=== PATIENT | male | born 1950 | race Caucasian/White ===

== ENCOUNTER 2019-11-19 11:31 | Outpatient (RCR) | payer MEDICARE, SELFPAY ==
[2019-11-19 12:58] LABS: Uric Acid 3.7 mg/dL (3.5-8.5)
[2019-11-19 13:13] LABS: Hemoglobin A1C 8.6 % (<5.7)
== END 2020-02-17 23:59 | disposition home or self-care (01) ==
LOC: ANHLAB 11:31
PROVIDERS: PCP Family Medicine; Visit Provider Family Medicine
DX: E11.9 Type 2 diabetes mellitus without complications (principal); M10.9 Gout, unspecified
CPT/HCPCS: 36415; 83036; 84550

== ENCOUNTER 2020-03-27 11:32 | Inpatient (IN) | payer MEDICARE, SELFPAY ==
[2020-03-27] VITALS (13 sets, daily range): BP systolic 99–139; BP diastolic 50–77; PULSE 70–91; RESP 14–20; TEMP 35.7–36.7; O2SAT 92–99; BMI 31.8
--- NOTE | ~2020-03-27 | XR_ITS ---
XR chest 2V DATE: 03/28/2020 13:32 INDICATION: Congestive heart failure. Acute renal failure. TECHNIQUE: AP and lateral views COMPARISON: 10/22/2018 PA and lateral chest FINDINGS: Status post sternotomy/CABG. Heart size appears within normal range. No hilar or mediastina l enlargement. No pulmonary infiltrate or consolidation, pleural effusion or pulmonary vascular conge stion or pneumothorax. Diffuse osteopenia. There is moderate anterior wedging of a lower thoracic vertebral body. Diffuse os teopenia. There is degenerative spurring of the thoracic spine. IMPRESSION: No active cardiopulmonary disease or significant change since 10/22/2018 Reviewed, dictated and finalized at location A. IMPRESSION: No active cardiopulmonary disease or significant change since 2018
--- NOTE | ~2020-03-27 | CT_ITS ---
EXAMINATION: CT abdomen pelvis wo con DATE: 03/27/2020 13:42 INDICATION: Acute renal failure. TECHNIQUE: Computed tomography (CT) of the abdomen and pelvis was performed without intravenous contr ast. Automated exposure control and iterative reconstruction technique were employed. The dose-length product was 1350.60 mGy-cm. COMPARISON: None FINDINGS: Mild discoid atelectasis in the right middle lobe. Heart size is normal. Atherosclerotic coronary art nehal calcifications. Median sternotomy wires from a likely coronary artery bypass grafting. No pericar dial or pleural effusion. Small sliding-type hiatal hernia. Liver, gallbladder, spleen and bilateral adrenal glands are normal. Severe fatty atrophy of the pancr eas. Mild bilateral renal atrophy. No urolithiasis or hydronephrosis. Bowels including the appendix a re normal. Small fat-containing umbilical hernia. Bladder is normal. No free intraperitoneal gas or f luid. No pathologically enlarged abdominal or pelvic lymphadenopathy. Chronic mild anterior wedging a t T11. Moderate thoracolumbar spondylosis. Right-sided L5 pars interarticularis defect. Partially vis ualized right total hip arthroplasty. IMPRESSION: 1. Mild bilateral renal atrophy. No urolithiasis or hydronephrosis. 2. Small sliding-type hiatal hernia. Reviewed, dictated and finalized at location A.
--- NOTE | ~2020-03-27 | US_ITS ---
EXAMINATION: US renal BI EXAM DATE: 03/28/2020 10:40 INDICATION: Acute on chronic renal failure. TECHNIQUE: Multiple grayscale and Doppler images of the kidneys were obtained (by a technologist who performed the scan) and subsequently reviewed. Comparison is made to prior examination from 02/11/2018. FINDINGS: There is moderate bilateral renal cortical thinning. Right kidney: There is normal contour and echogenicity. It measures 9.3 x 5.6 x 5.6 centimeters. Th ere are no focal renal lesions identified. There is no hydronephrosis. Left kidney: There is normal contour and echogenicity. It measures 11.0 x 6.0 x 6.3 centimeters. Th ere are no focal renal lesions identified. There is no hydronephrosis. The bladder is undistended and poorly visualized. IMPRESSION: 1. Moderate bilateral renal cortical thinning. 2. No hydronephrosis. Reviewed, dictated and finalized at location B.
--- NOTE | 2020-03-27 11:34 | ECG_ITS ---
Measurements Intervals [place] Rate: 88 P: -1 SD: 185 QRS: 13 QRSD: 108 T: 156 QT: 344 QTc: 417 Interpretive Statements SINUS RHYTHM BORDERLINE R WAVE PROGRESSION, ANTERIOR LEADS MINIMAL Q WAVES- INFERIOR LEADS ST-T WAVE ABNORMALITY IN HIGH LATERAL LEADS- CONSIDER ISCHEMIA BASELINE WANDER- I, II, V1, V4-V6 ABNORMAL ECG Electronically Signed On 03-27-2020 14:43:20 CDT by Jurgen Farias D.O.
[2020-03-27 11:58] LABS: Basophils Absolute Auto 0.1 K/mm3 (0.0-0.1); Basophils Percent Auto 0.8 % (0.2-1.2); Eosinophils Absolute Auto 0.1 K/mm3 (0-0.3); Eosinophils Percent Auto 1.5 % (0-4.4); Hematocrit 37.1 % (42.0-52.0); Hemoglobin 11.5 g/dL (14.0-18.0); Immature Granulocyte Absolute 0.07 K/mm3 (0.00-0.031); Immature Granulocyte Percent A 0.9 % (0-0.5); Lymphocytes Absolute Auto 0.96 K/mm3 (0.9-3.2); Mean Corpuscular Hemoglobin 32.1 pg (26-34); Mean Corpuscular Volume 103.6 fl (80-100); Mean Platelet Volume 11.4 fl (7.4-10.4); Monocytes Absolute Auto 0.5 K/mm3 (0.1-0.6); Monocytes Percent Auto 6.5 % (2.6-8.5); Neutrophils Absolute Auto 6.2 K/mm3 (1.3-6.7); Neutrophils Percent Auto 78.3 % (45.5-73.1); Platelet Count Result 192 k/mm3 (150-375); Red Blood Count 3.58 M/mm3 (4.6-6.20); Red Cell Distribution Width 14.8 % (11.5-14.5)
--- NOTE | 2020-03-27 12:00 | PC.NURSE ---
pt given urinal for u/a collection, unable to void at this time, requesting more time to try, declined straight cath
[2020-03-27 12:09] LABS: Alanine Aminotransferase 11 U/L (4-50); Albumin Level 4.3 g/dL (3.5-5.1); Alkaline Phosphatase 104 U/L (38-126); Aspartate Amino Transferase 16 U/L (17-59); Bilirubin,Total 0.4 mg/dL (0.2-1.3); Blood Urea Nitrogen 79 mg/dL (9-20); Calcium 9.2 mg/dL (8.4-10.2); Carbon Dioxide 19 mmol/L (22-30); Chloride 104 mmol/L (98-107); Estimated Glomerular Filt Rate 9; Glucose 364 mg/dL (75-110); Potassium 5.4 mmol/L (3.4-5.0); Sodium 137 mmol/L (137-145)
[2020-03-27 12:26] LABS: Add Urine Microscopic? YES; Appearance Urine Clear (Clear); Bilirubin Urine Negative (Negative); Blood Urine Negative (Negative); Color Urine Yellow (Yellow); Glucose Urine UA 1+ mg/dL (Negative); Ketones Urine Negative (Negative); Leukocyte Esterase Ur Negative LEU/UL (Negative); Mucus Urine Rare /lpf; Nitrate Urine Negative (Negative); Protein Urine 1+ mg/dL (Negative); RBC Urine 0-2 /hpf (0-2); Specific Grav Ur 1.018 (1.001-1.035); Urobilinogen Urine Negative mg/dL (<2.0); WBC Urine 0-3 /hpf
--- NOTE | 2020-03-27 12:38 | ED.RECABL ---
HPI - Recheck/Abnormal Lab/Rx General Chief Complaint: Recheck/Abnormal Lab/Rx Stated Complaint: n/v/v Time Seen by Provider: 03/27/20 12:31 Source: patient Mode of arrival: EMS History of Present Illness HPI narrative: Patient presents via EMS from his primary care physician's office for abnormal lab. He has had chronic renal failure with a creatinine of 2 this year. He is recently been throwing up and having diarrhea. His blood pressure was low at the doctor's office. He reports pain in both arms for the last couple months. He has no nausea now. He has no pain. He says he will not stay here in the hospital. I told him that he needed IV fluids for his blood pressure and his kidneys and he agrees. He does not smoke drink or do drugs. He is retired. His dog recently jumped up on him and he has a bruise on his right abdomen. Related Data Home Medications Medication Instructions Recorded Confirmed allopurinol 10/20/19 amitriptyline 10/20/19 aspirin 325 mg PO BID 10/20/19 10/20/19 bacitracin 1 applic TOPICAL Q12H 10/20/19 10/20/19 carvedilol 10/20/19 famotidine 10/20/19 msaseiqvyew-kghnnfcws-opbwepuz INHALATION 10/20/19 [Trelegy Ellipta] szxyeatvmef-ecbtsxhpo-srqdobwe INHALATION 10/20/19 [Trelegy Ellipta] hydrocodone-acetaminophen tablet 10/20/19 insulin aspart U-100 [Novolog 10/20/19 U-100 Insulin aspart] insulin detemir U-100 [Levemir SUBCUT 10/20/19 U-100 Insulin] isosorbide mononitrate 30 mg PO DAILY 10/20/19 10/20/19 lisinopril-hydrochlorothiazide tablet 10/20/19 lisinopril-hydrochlorothiazide tablet 10/20/19 nitroglycerin 0.4 mg SUBLINGUAL ONCE 10/20/19 10/20/19 omeprazole 10/20/19 simvastatin mg 10/20/19 trazodone 50 mg PO HS 10/20/19 10/20/19 Allergies Allergy/AdvReac Type Severity Reaction Status Date / Time morphine Allergy Unknown Agitated Verified 03/27/20 13:44 naproxen Allergy Unknown Unconscious Verified 03/27/20 13:44 NSAIDS (Non-Steroidal AdvReac Unknown renal Verified 03/27/20 13:44 Anti-Inflamma insufficiency Review of Systems Review of Systems: Narrative: CONSTITUTIONAL: Denies fever, chills, or sweats. EYES: Denies visual changes, redness, or discharge. ENT: Denies rhinorrhea, congestion, sore throat, or otalgia. CARDIOVASCULAR: Denies chest pain, palpitations, or edema. RESPIRATORY: Denies cough or dyspnea. GASTROINTESTINAL: Denies abdominal pain, nausea, recent vomiting, and diarrhea. GENITOURINARY: Denies dysuria or hematuria. SKIN: Denies rash or itching. MUSCULOSKELETAL: Denies back pain, joint pain, or myalgia. NEUROLOGIC: Denies headache, numbness, or weakness. PSYCHIATRIC: Denies anxiety or depression. Skin: He has a large bruise on the right abdomen from his dog jumping on him. PMFSH Past Medical History Medical History Bronchitis CAD (coronary artery disease) CHF (congestive heart failure) Diabetes Fracture collar bone GERD (gastroesophageal reflux disease) Gout rt thumb, lt elbow Hyperlipidemia Hypertension Myocardial infarction Renal insufficiency Rheumatoid arthritis Surgical History Surgical History H/O vascular surgery History of coronary artery stent placement History of hip replacement History of orthopedic surgery bilateral elbows History of total left knee replacement (TKR) History of total right knee replacement (TKR) Hx of CABG Hx of cardiac cath Hx of cataract surgery Social History Social History Smoking status: Never smoker Alcohol intake: never Gender identity (if verbalized by the patient): Male Exam Narrative: Exam Narrative: GENERAL: Well-appearing, well-nourished, and in no acute distress. Looks pale. HEAD: Normocephalic, atraumatic. EYES: PERRLA and EOMI. ENT: Nares clear, no rhinorrhea or epistaxis. Mucous membranes moist. NECK: Supple. CHEST
[2020-03-27] MEDS: SODIUM CHLORIDE 0.9% IV 1,000 ML 150 ML IV CONT (12:40)
[2020-03-27] MEDS: INSULIN HUMAN REGULAR (*BKC) 100 UNITS/ML 10 UNITS IV PUSH (12:59)
[2020-03-27] MEDS: CALCIUM GLUCONATE 1,000 MG/10 ML VIAL 1000 MG IV PUSH (13:00)
[2020-03-27 13:20] LABS: NT Pro B Type Natriuretic Pept 1330 PG/ML (5-100)
--- NOTE | 2020-03-27 13:41 | PC.NURSE ---
Pt in CT scan.
[2020-03-27 15:04] LABS: Alveolar/Arterial O2 Gradient 26.7 mmHg; Base Excess ABG -8.8 mEq/l (+/-2.0); Fractional Inspired Oxygen 21 %; HCO3 ABG 16.9 mEq/l (22.0-26.0); Oxygen Content ABG 15.6 %vol (16.0-22.0); Oxygen Saturation ABG 94.7 % (95.0-100.0); Oxyhemoglobin 94.3 % THb (90.0-100.0); PCO2 ABG 35.8 mmHg (35.0-45.0); PO2 ABG 80.2 mmHg (80.0-100.0); PO2 FiO2 Ratio Arterial Blood 3.82 %; Total Hemoglobin 11.7 g/dL (12.0-18.0); pH ABG 7.293 (7.350-7.450)
[2020-03-27 15:05] LABS: Device ROOM AIR; Site Drawn LEFT BRACHIAL
[2020-03-27 15:14] LABS: Glucose Point of Care 181 (65-105)
--- NOTE | 2020-03-27 17:17 | PM.IMHP ---
H&P: HPI History of Present Illness Chief complaint: CHF and acute on chronic renal failure and metabol Narrative: Channing Ruiz is a 69 year old male who has a past medical history of having systolic congestive heart failure and chronic renal failure stage 3 to 4. The patient stated that on Friday he had some nausea and vomiting. But no diarrhea. Said that his appetite has been slightly less than normal. The patient came to his primary care office today who instructed him to come to the emergency room because he had abnormal labs. Patient had a creatinine of 2 earlier this year. Today his creatinine is 6.5 with a GFR 9. Nephrology has been consulted. The patient was started on IV fluids. Patient was given calcium gluconate and IV insulin. No D50 was given because of his elevated blood sugar. His initial blood sugar was 360 for now 181. Last A1c was noted to be 8.6 on November 19. BNP 1330. CT of the abdomen was read as mild bilateral renal atrophy. No urethrolysis or hydronephrosis. Small sliding-type hiatal hernia. Date of service 03/27/2020. Review of Systems Review of Systems: All systems reviewed & are unremarkable except as noted in HPI and below Constitutional: Constitutional: Reports as per HPI and Reports no additional constitutional complaints Eyes: Eyes: Reports as per HPI and Reports no additional eye complaints ENT: Reports system reviewed and no additional complaints, except as documented and Reports Normal hearing present Cardiovascular: Cardiovascular: Reports no additional cardiovascular complaints Respiratory: Respiratory: Reports no additional respiratory complaints and Reports no additional respiratory complaints Gastrointestinal: Gastrointestinal: Reports as per HPI and Reports no additional gastrointestinal complaints Musculoskeletal: Musculoskeletal: Reports no additional musculoskeletal complaints Integumentary/Breasts: Skin/Breast: Reports system reviewed and no additional complaints, except as docu and Reports as per HPI Neurologic: Reports system reviewed and no additional complaints, except as documented, Reports as per HPI and Reports Normal hearing present Psychiatric: Psychiatric: Reports no additional psychiatric complaints and Reports as per HPI Endocrine: Endocrine: Reports no additional endocrine complaints Hematologic/Lymphatic: Hematologic/Lymphatic: Reports no additional hematologic/lymphatic complaints Allergic/Immunologic: Allergic/Immunologic: Reports no additional allergic/immunologic complaints [facility] Past Medical History Medical History (Updated 03/27/20 @ 17:28 by Zoila Esteban NP) Bronchitis CAD (coronary artery disease) Triple bypass CHF (congestive heart failure) Diabetes Fracture collar bone GERD (gastroesophageal reflux disease) Gout rt thumb, lt elbow Hyperlipidemia Hypertension Myocardial infarction Renal insufficiency Rheumatoid arthritis Surgical History Surgical History (Updated 03/27/20 @ 17:23 by Zoila Esteban NP) H/O vascular surgery History of coronary artery stent placement Multiple stents History of hip replacement On the right History of orthopedic surgery bilateral elbows and right hand History of total left knee replacement (TKR) Hx of CABG 3 vessel Hx of cardiac cath Hx of cataract surgery Family History Family History (Updated 03/27/20 @ 17:24 by Zoila Esteban NP) Father Family history of obesity Family history of alcoholism Patient's father is Acute myocardial infarction Mother Hypertension Patient's mother is Sibling Hypertension Sibling Alcoholism Social History Social History Smoking status: Never smoker Alcohol intake: never Gender identity (if verbalized by the patient): Male Meds Home Medications and Allergies Home Medications Medication Instructions Recorded Confirmed Typ
--- NOTE | 2020-03-27 17:19 | PC.NURSE ---
This patient, Channing Ruiz, was admitted to IMU Room 213-01. Patient/family oriented to hospital policies and general routines including ID bracelet, bed and alarms, visiting hours, pain management, procedures, bathroom and other care routines, personal items, smoking policy, room service/diet, and visiting hours. Valuables list has been completed. Information on how to activate the Rapid Response Team has been discussed. Patient/Family are encouraged to report perceived risks to care and to ask questions if they do not understand what they are told or what they should do.
[2020-03-27 17:57] LABS: Blood Urea Nitrogen 74 mg/dL (9-20); Calcium 8.9 mg/dL (8.4-10.2); Carbon Dioxide 18 mmol/L (22-30); Chloride 108 mmol/L (98-107); Estimated CRCL calculation 14 ml/min; Estimated Glomerular Filt Rate 10; Glucose 198 mg/dL (75-110); Potassium 5.2 mmol/L (3.4-5.0); Sodium 134 mmol/L (137-145)
[2020-03-27] MEDS: INSULIN ASPART (*BKC) 100 UNITS/ML SUB-Q (18:43)
[2020-03-27 18:47] LABS: Creatinine Urine 128.4 mg/dL; Total Protein Urine Random 15 mg/dL
[2020-03-27 18:49] LABS: Glucose Point of Care 203 (65-105)
[2020-03-27 18:50] LABS: Sodium Urine Random 79 meq/L
--- NOTE | 2020-03-27 18:56 | PM.CNNEP ---
Assessment and Plan Assessment and plan (1) ENRRIQUE (acute kidney injury): Code(s): N17.9 - Acute kidney failure, unspecified Status: Acute (2) Chronic kidney disease, stage 3: Code(s): N18.3 - Chronic kidney disease, stage 3 (moderate) Status: Acute (3) Nausea vomiting and diarrhea: Code(s): R11.2 - Nausea with vomiting, unspecified; R19.7 - Diarrhea, unspecified Status: Acute (4) Hypotension: Qualifiers: Hypotension type: unspecified hypotension type Qualified Code(s): I95.9 - Hypotension, unspecified Code(s): I95.9 - Hypotension, unspecified Status: Acute Assessment and Plan: . Additional Plan Channing appears to have suffered an acute insult / acute kidney injury on top of his baseline chronic kidney disease. Suspicion falls on volume depletion from his nausea vomiting and occasional diarrhea possibly worsened by his continued use of antihypertensive medications including lisinopril and hydrochlorothiazide in the setting of relative hypotension. Imaging studies today do not demonstrate any type of anatomical issues / problem but does show significant atrophy of his kidneys consistent with his known history of chronic kidney disease. His blood pressure does appear to be doing somewhat better with IV fluid resuscitation as well. Urine electrolytes seem to be consistent with prerenal azotemia and hence I agree with IV fluids as is but given his history of systolic congestive heart failure, we may have to be somewhat careful with the use of aggressive IV fluids for fear that week may potentiate fluid overload. I would continue supportive measures to maintain stability in his nausea vomiting and diarrhea if they recur and follow the trend of repeat labs and urine output with conservative interventions and or venous it to to date. I will continue follow patient with you while in mid hospitalized to make further conditions for his hospital course. Thank you for allowing me to participate in care this patient. History of Present Illness Reason for Consult Consult date: 03/27/20 Reason for consult: acute renal failure (on chronic kidney disease) Chief Complaint Chief complaint: CHF and acute on chronic renal failure and metabol History of Present Illness Narrative: The patient is a 69 year old male with a past medical history as outlined below who presented to [facility] ER for further evaluation of abnormal labs. The patient reports that since last Friday, he has had issues with nausea and vomiting and occasional diarrhea. This is been further complicated by a poor appetite as well. He presented to his primary care physician's office with these symptoms and routine blood test demonstrated a significant change in his renal function as well as associated electrolyte abnormalities. Furthermore, he was relatively hypotensive on his visit with his primary care physician and hence he was referred to the emergency room for further evaluation. Workup and evaluation the ER did demonstrate the patient be somewhat hypotensive and confirmed his acute kidney injury on top of his baseline kidney disease. Given his history of nausea and vomiting the concern was possible volume depletion / dehydration a did receive IV fluids in the emergency room which improved his blood pressure. He was given medical management for his mildly elevated potassium level and he was subsequent admitted in the hospital for further evaluation and therapy. CT scan of the abdomen did not demonstrate any significant anatomical abnormalities aside from bilateral renal atrophy. Renal consultation was requested due to the aforementioned acute kidney injury on chronic kidney disease. For review of his records, the patient's has some evidence of chronic kidney disease with a baseline creatinine around 2ish issue by previous labs done this year. I am assuming his baseline CKD is due to his history of hype
[2020-03-27 20:36] LABS: Glucose Point of Care 177 (65-105)
[2020-03-27] MEDS: AMITRIPTYLINE HCL 25 MG TABLET PO (20:52)
[2020-03-27] MEDS: carvediloL 12.5 MG TABLET PO (20:52)
[2020-03-27] MEDS: TRAZODONE HCL 50 MG TABLET PO (20:53)
[2020-03-27] MEDS: FAMOTIDINE 20 MG TABLET PO (20:53)
[2020-03-27] MEDS: ISOSORBIDE MONONITRATE 30 MG TAB.ER.24H PO (20:53)
[2020-03-27] MEDS: INSULIN DETEMIR 100 UNITS/ML 90 UNITS SUB-Q (21:07)
[2020-03-28] VITALS (16 sets, daily range): BP systolic 95–129; BP diastolic 61–80; PULSE 73–94; RESP 20–22; TEMP 35.7–36.7; O2SAT 92–99
--- NOTE | 2020-03-28 | ECHO_ITS ---
Patient Info Name: Channing Ruiz Age: 69 years : 1950 Gender: Male Ht: 72 in Wt: 234 lbs BSA: 2.35 m2 HR: 86 bpm BP: 180 / 107 mmHg Technical Quality: Fair Exam Date: 03/28/2020 2:03 PM Exam Location: [facility] Patient Status: Inpatient Admit Date: 03/27/2020 Staff Ordering Physician: Zoila Esteban NP Tip Out Worker: Calos North RDCS, RT Attending Provider: Steve Rodriguez MD Referring Physician: Eulalia YOUNG; Exam Type: CA echo doppler color flow Study Info Indications I27.0 - Primary pulmonary hypertension Complete two-dimensional, color flow and Doppler transthoracic echocardiogram is performed. Summary 1. Left ventricular chamber dimension is normal. 2. Definity contrast administered improved wall motion interpretation. 3. Left ventricular systolic function is normal, estimated at 55-60%. 4. There is mildly increased left ventricular wall thickness. 5. Left ventricular septal wall motion is abnormal with septal motion related to bundle branch block. 6. The left ventricular diastolic function is normal. 7. E/e' 4 is not elevated. 8. The mitral valve has mildly calcified annulus. 9. The aortic root size at the sinus of Valsalva is mildly dilated at 4.1 cm. 10. Dilated inferior vena cava with >50% collapse upon inspiration consistent with elevated right atrial pressure, 10 mmHg. Left Ventricle E/e' 4 is not elevated. Definity contrast administered improved wall motion interpretation. Left ventricular chamber dimension is normal. Left ventricular systolic function is normal, estimated at 55-60%. There is mildly increased left ventricular wall thickness. Left ventricular septal wall motion is abnormal with septal motion related to bundle branch block. The left ventricular diastolic function is normal. Right Ventricle Right ventricular chamber dimension is normal. Right ventricular systolic function is normal. Left Atria Left atrial chamber dimension is normal. Right Atria Right atrial chamber dimension is normal. Aortic Valve The aortic valve is trileaflet. There is no aortic valve stenosis. There is no aortic valve regurgitation. Pulmonic Valve There is no pulmonic regurgitation. Mitral Valve The mitral valve has mildly calcified annulus. There is no mitral valve stenosis. There is no mitral valve regurgitation. Tricuspid Valve RVSP is not calculated without a TR jet. There is no tricuspid valve regurgitation. Pericardium/Pleural There is no pericardial effusion. Inferior Vena Cava Dilated inferior vena cava with >50% collapse upon inspiration consistent with elevated right atrial pressure, 10 mmHg. Aorta The aortic root size at the sinus of Valsalva is mildly dilated at 4.1 cm. Left Ventricular Outflow Tract Name Value Normal LVOT 2D LVOT Diameter 2.3 cm LVOT Doppler LVOT Peak Gradient 2 mmHg LVOT Mean Gradient 1 mmHg LVOT VTI 11 cm LVOT VTI/AV VTI Ratio 0.6 LVOT Stroke Volume 45 ml
[2020-03-28 05:06] LABS: Basophils Percent Auto 0.7 % (0.2-1.2); Eosinophils Absolute Auto 0.2 K/mm3 (0-0.3); Eosinophils Percent Auto 3.9 % (0-4.4); Hematocrit 32.9 % (42.0-52.0); Hemoglobin 10.3 g/dL (14.0-18.0); Immature Granulocyte Absolute 0.04 K/mm3 (0.00-0.031); Immature Granulocyte Percent A 0.7 % (0-0.5); Lymphocytes Absolute Auto 1.41 K/mm3 (0.9-3.2); Lymphocytes Percent Auto 24.8 % (18.3-44.2); Mean Corpuscular HGB Conc 31.3 g/dl (32-36); Mean Corpuscular Hemoglobin 31.7 pg (26-34); Mean Corpuscular Volume 101.2 fl (80-100); Mean Platelet Volume 11.2 fl (7.4-10.4); Monocytes Absolute Auto 0.5 K/mm3 (0.1-0.6); Monocytes Percent Auto 8.8 % (2.6-8.5); Neutrophils Absolute Auto 3.5 K/mm3 (1.3-6.7); Neutrophils Percent Auto 61.1 % (45.5-73.1); Platelet Count Result 164 k/mm3 (150-375); Red Blood Count 3.25 M/mm3 (4.6-6.20); Red Cell Distribution Width 14.7 % (11.5-14.5); White Blood Count 5.7 K/mm3 (4.5-10.0)
[2020-03-28 05:23] LABS: Alanine Aminotransferase 9 U/L (4-50); Albumin Level 3.7 g/dL (3.5-5.1); Alkaline Phosphatase 87 U/L (38-126); Aspartate Amino Transferase 15 U/L (17-59); Bilirubin,Total 0.2 mg/dL (0.2-1.3); Blood Urea Nitrogen 73 mg/dL (9-20); CRP 1.1 mg/dL (<1.0); Calcium 9.1 mg/dL (8.4-10.2); Carbon Dioxide 17 mmol/L (22-30); Chloride 108 mmol/L (98-107); Estimated CRCL calculation 16 ml/min; Estimated Glomerular Filt Rate 11; Glucose 167 mg/dL (75-110); Magnesium 1.8 mg/dL (1.6-2.3); Potassium 4.7 mmol/L (3.4-5.0); Sodium 135 mmol/L (137-145)
[2020-03-28 07:52] LABS: Glucose Point of Care 121 (65-105)
[2020-03-28] MEDS: FAMOTIDINE 20 MG TABLET PO ×2 (08:26→21:58)
[2020-03-28] MEDS: ISOSORBIDE MONONITRATE 30 MG TAB.ER.24H PO ×2 (08:26→21:58)
[2020-03-28] MEDS: ASPIRIN 325 MG TABLET PO (08:26)
[2020-03-28] MEDS: carvediloL 12.5 MG TABLET PO ×2 (08:26→21:58)
[2020-03-28] MEDS: SIMVASTATIN 20 MG TABLET PO (08:27)
--- NOTE | 2020-03-28 10:25 | PM.PNNEP ---
Progress Note: A&P Assessment and Plan (1) ENRRIQUE (acute kidney injury): Code(s): N17.9 - Acute kidney failure, unspecified Status: Acute Assessment and Plan: suspect multifactorial: - prerenal factors (nausea + vomiting); urine lytes seem to support this - renal hypoperfusion/mild ATN (due to low BP/hypotension) - use of lisinopril + HCTZ prior to admission making urine (non-oliguric) BUN and creatinine noted with some improvement no critical electrolytes and volume status stable continue gentle IVFs follow trend of UOP and repeal labs (2) Chronic kidney disease, stage 3: Code(s): N18.3 - Chronic kidney disease, stage 3 (moderate) Status: Acute Assessment and Plan: baseline creatinine around 2ish presumably due to HTN, DM, and age-related change (3) Nausea vomiting and diarrhea: Code(s): R11.2 - Nausea with vomiting, unspecified; R19.7 - Diarrhea, unspecified Status: Acute Assessment and Plan: clinically better continue supportive therapy (4) Hypotension: Qualifiers: Hypotension type: unspecified hypotension type Qualified Code(s): I95.9 - Hypotension, unspecified Code(s): I95.9 - Hypotension, unspecified Status: Acute Assessment and Plan: doing better at this time hold BP medications with parameters follow trend of hemodynamics Will continue to follow. Subjective Date/time seen: 03/28/20 10:25 Appears to be doing reasonably well at this time; no acute issues or complaints voiced; no events/issues overnight or earlier this AM to report. Exam Narrative: Exam Narrative: General: WD/WN male in NAD Heart: normal S1 and S2; no rub Lungs: clear to auscultation Abdomen: soft, nontender, nondistended, positive bowel sounds Extremities: no cyanosis or clubbing; no edema Skin: warm and dry Objective Data Vital Signs Vital Signs: Vital Signs Temp Pulse Resp BP Pulse Ox 03/28/20 08:26 94 03/28/20 08:00 35.8 C L 81 22 H 106/62 98 03/28/20 06:00 86 03/28/20 04:00 36.7 C 84 20 113/67 96 03/28/20 02:00 84 03/27/20 23:36 70 18 93 03/27/20 23:20 36.7 C 70 18 107/50 L 93 03/27/20 22:00 82 03/27/20 20:52 84 03/27/20 20:00 84 20 92 03/27/20 19:38 36.7 C 91 20 101/61 92 03/27/20 18:00 85 03/27/20 16:01 84 16 99/74 L 97 03/27/20 16:00 35.7 C L 84 18 115/66 97 03/27/20 15:07 86 16 102/69 96 03/27/20 13:03 81 14 112/60 97 03/27/20 12:14 89 17 122/70 98 03/27/20 11:30 36.7 C 89 18 139/77 99 Intake/Output Intake/Output: Intake & Output 03/25/20 03/26/20 03/27/20 03/28/20 23:59 23:59 23:59 23:59 Intake Total 240 490 Output Total 780 Balance 240 -290 Meds/Results Medications: Active Medications Generic Name Dose Route Start Last Admin Trade Name Freq PRN Reason Stop Dose Admin Acetaminophen 650 mg 03/27/20 14:43 Tylenol Tablet PO Q4H PRN Mild Pain (1-3) or Fever Hydrocodone Bitart/Acetaminophen 1 tab 03/27/20 17:14 [place] 10-325 Mg PO Q4-6H PRN SEVERE PAIN Amitriptyline HCl 25 mg 03/27/20 21:00 03/27/20 20:52 Elavil PO 25 mg HS MARVIN Administration Aspirin 325 mg 03/28/20 09:00 03/28/20 08:26 Aspirin PO 325 mg DAILY MARVIN Administration Carvedilol 12.5 mg 03/27/20 21:00 03/28/20 08:26 Coreg PO 12.5 mg Q12HR MARVIN Administration Dextrose 12.5 gm 03/27/20 17:15 Dextrose 50% Syringe IV PUSH PRN PRN Hypoglycemia Protocol Famotidine 20 mg 03/27/20 21:00 03/28/20 08:26 Pepcid PO 20 mg Q12HR MARVIN Administration Glucagon 1 mg 03/27/20 17:15 Glucagon For Inj IM PRN PRN Hypoglycemia Protocol Glucose 15 gm 03/27/20 17:15 Glutose 15 PO PRN PRN Hypoglycemia Protocol Dextrose 1,000 mls @ 100 mls/hr 03/27/20 17:15 Dextrose 5% 1,000
[2020-03-28 12:21] LABS: Glucose Point of Care 193 (65-105)
[2020-03-28] MEDS: LIDOCAINE 5% PATCH 1 PATCH TRANSDERM (13:21)
[2020-03-28] MEDS: PERFLUTREN LIPID MICROSPHERES 1.5 ML VIAL DILUTED TO 10 ML TOTAL VOLUME IV PUSH (15:18)
[2020-03-28 16:39] LABS: Glucose Point of Care 134 (65-105)
--- NOTE | 2020-03-28 16:50 | PM.IMPN ---
Progress Note: A&P Assessment and Plan (1) Acute on chronic kidney failure: Qualifiers: Acute renal failure type: unspecified Chronic kidney disease stage: unspecified stage Qualified Code(s): N17.9 - Acute kidney failure, unspecified; N18.9 - Chronic kidney disease, unspecified Code(s): N17.9 - Acute kidney failure, unspecified; N18.9 - Chronic kidney disease, unspecified Status: Acute Assessment and Plan: Nephrology has been consulted. IV fluids restricted. Recheck BMP tonight since he has hyperkalemia. Nephrology has been consulted. Check BMP in the morning. Renal ultrasound. And renal electrolytes. Hold lisinopril, hydrochlorothiazide, and allopurinol. I did hold diclofenac topical as well. Patient is 69-year-old male with a past medical history of chronic kidney disease had developed nausea or vomiting for 2 days prior to coming to emergency department he was not able to hold or take much of the p.o. his symptoms were getting worse he was seen by his primary care doctor, labs were drawn his creatinine had jumped with baseline of 2 to 5.6 patient most likely secondary to dehydration, was referred to the emergency department for further evaluation, patient is being hydrated, patient creatinine is trending down, bilateral kidney ultrasound showed moderate bilateral renal cortical thinning. 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 Continued Coreg (3) Hyperlipidemia: Code(s): E78.5 - Hyperlipidemia, unspecified Status: Chronic Assessment and Plan: Continue Zocor (4) Diabetes: Code(s): E11.9 - Type 2 diabetes mellitus without complications Status: Chronic Assessment and Plan: Accu-Cheks AC and HS. Continue with his long-acting insulin. (5) CAD (coronary artery disease): Code(s): I25.10 - Atherosclerotic heart disease of [place] coronary artery without angina pectoris Status: Chronic Assessment and Plan: History of 3 vessel CABG as well as multiple stents. Continued with aspirin. He is on Coreg as well. (6) CHF (congestive heart failure): Qualifiers: Heart failure chronicity: unspecified Heart failure type: unspecified Qualified Code(s): I50.9 - Heart failure, unspecified Code(s): I50.9 - Heart failure, unspecified Status: Chronic Assessment and Plan: Lisinopril with hydrochlorothiazide is on hold. Continue with Coreg. Continue with isosorbide. (7) Hyperkalemia: Code(s): E87.5 - Hyperkalemia Status: Acute Assessment and Plan: Recheck BMP. Patient is acute on chronic renal failure. Subjective Date/time seen: Patient is 69-year-old male with a past medical history of chronic kidney disease had developed nausea or vomiting for 2 days prior to coming to emergency department he was not able to hold or take much of the p.o. his symptoms were getting worse he was seen by his primary care doctor, labs were drawn his creatinine had jumped with baseline of 2 to 5.6 patient most likely secondary to dehydration, was referred to the emergency department for further evaluation, patient is being hydrated, patient creatinine is trending down, bilateral kidney ultrasound showed moderate bilateral renal cortical thinning. 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
[2020-03-28 20:24] LABS: Glucose Point of Care 170 (65-105)
[2020-03-28] MEDS: AMITRIPTYLINE HCL 25 MG TABLET PO (21:58)
[2020-03-28] MEDS: TRAZODONE HCL 50 MG TABLET PO (21:58)
[2020-03-28] MEDS: INSULIN DETEMIR 100 UNITS/ML 90 UNITS SUB-Q (22:04)
[2020-03-29] VITALS (16 sets, daily range): BP systolic 86–148; BP diastolic 49–81; PULSE 69–91; RESP 18–22; TEMP 35.6–36.7; O2SAT 95–100
[2020-03-29 05:21] LABS: Hematocrit 30.9 % (42.0-52.0); Hemoglobin 9.5 g/dL (14.0-18.0); Mean Corpuscular HGB Conc 30.7 g/dl (32-36); Mean Platelet Volume 11.6 fl (7.4-10.4); Platelet Count Result 161 k/mm3 (150-375); Red Blood Count 2.97 M/mm3 (4.6-6.20); Red Cell Distribution Width 14.9 % (11.5-14.5); White Blood Count 5.4 K/mm3 (4.5-10.0)
[2020-03-29 05:37] LABS: Albumin Level 3.4 g/dL (3.5-5.1); Blood Urea Nitrogen 67 mg/dL (9-20); Carbon Dioxide 21 mmol/L (22-30); Chloride 108 mmol/L (98-107); Estimated CRCL calculation 20 ml/min; Estimated Glomerular Filt Rate 15; Glucose 150 mg/dL (75-110); Phosphorus 4.4 mg/dL (2.5-4.5); Potassium 4.7 mmol/L (3.4-5.0); Sodium 137 mmol/L (137-145)
[2020-03-29 08:37] LABS: Glucose Point of Care 123 (65-105)
[2020-03-29] MEDS: SIMVASTATIN 20 MG TABLET PO (09:03)
[2020-03-29] MEDS: ASPIRIN 325 MG TABLET PO (09:03)
[2020-03-29] MEDS: FAMOTIDINE 20 MG TABLET PO ×2 (09:03→21:45)
--- NOTE | 2020-03-29 09:13 | PC.NURSE ---
Manual blood pressures supine 78/48 right arm, 78/44 left arm. sitting position right arm 91/59 left arm 90/55. held coreg and isosorbide. Notified Dr. Olvera. Order for N.S. 75 ml/hr.
[2020-03-29] MEDS: SODIUM CHLORIDE 0.9% IV 1,000 ML 75 ML IV CONT ×2 (09:39→21:56)
[2020-03-29] MEDS: LIDOCAINE 5% PATCH 1 PATCH TRANSDERM (09:40)
[2020-03-29 13:48] LABS: Glucose Point of Care 130 (65-105)
--- NOTE | 2020-03-29 15:17 | PM.IMPN ---
Progress Note: A&P Assessment and Plan (1) Acute on chronic kidney failure: Qualifiers: Acute renal failure type: unspecified Chronic kidney disease stage: unspecified stage Qualified Code(s): N17.9 - Acute kidney failure, unspecified; N18.9 - Chronic kidney disease, unspecified Code(s): N17.9 - Acute kidney failure, unspecified; N18.9 - Chronic kidney disease, unspecified Status: Acute Assessment and Plan: some medications held- lisinopril, hydrochlorothiazide, and allopurinol dehydration v medications continue hydration pts bp s are low (2) Hypertension: Code(s): I10 - Essential (primary) hypertension Status: Chronic Assessment and Plan: Holding lisinopril hydrochlorothiazide. Continued Coreg (3) Hyperlipidemia: Code(s): E78.5 - Hyperlipidemia, unspecified Status: Chronic Assessment and Plan: Continue Zocor (4) Diabetes: Code(s): E11.9 - Type 2 diabetes mellitus without complications Status: Chronic Assessment and Plan: Accu-Cheks AC and HS. Continue with his long-acting insulin. (5) CAD (coronary artery disease): Code(s): I25.10 - Atherosclerotic heart disease of [place] coronary artery without angina pectoris Status: Chronic Assessment and Plan: History of 3 vessel CABG as well as multiple stents. Continued with aspirin. Hold coreg bp is low (6) CHF (congestive heart failure): Qualifiers: Heart failure chronicity: unspecified Heart failure type: unspecified Qualified Code(s): I50.9 - Heart failure, unspecified Code(s): I50.9 - Heart failure, unspecified Status: Chronic Assessment and Plan: Lisinopril with hydrochlorothiazide is on hold. Continue with Coreg. Continue with isosorbide. (7) Hyperkalemia: Code(s): E87.5 - Hyperkalemia Status: Acute Assessment and Plan: Recheck BMP. Patient is acute on chronic renal failure. Subjective Date/time seen: 03/29/20 15:17 Interval history: 69-year-old male with a past medical history of chronic kidney disease had developed nausea or vomiting for 2 days prior to coming to emergency department he was not able to hold or take much of the p.o. his symptoms were getting worse he was seen by his primary care doctor, labs were drawn his creatinine had jumped with baseline of 2 to 5.6 patient most likely secondary to dehydration, was referred to the emergency department for further evaluation, patient is being hydrated, patient creatinine is trending down, bilateral kidney ultrasound showed moderate bilateral renal cortical thinning. As per previous note, pt is still having nausea and low bps continue to hydrate. Review of Systems Review of Systems: Narrative: fatigue nausea and vomiting Cardiovascular: Cardiovascular: Reports no additional cardiovascular complaints Respiratory: Respiratory: Reports no additional respiratory complaints and Reports no additional respiratory complaints Exam Narrative: Exam Narrative: Moderately obese Const: General: cooperative, healthy appearing, comfortable, no acute distress, well developed, alert, awake and Physically active Nutritional Appearance: average body habitus and well nourished Orientation/consciousness: oriented to person, oriented to place, oriented to time and patient oriented x3 Limitations: no limitations HENMT: Head: normal to inspection, No palpable skull fracture present, normocephalic and atraumatic Ears: hearing grossly normal bilaterally and external ears normal General nose exam: Normal external nose present, Normal nares present and No nasal polyps present Mouth: Yes Normal oral and palatal mucosa present Throat: posterior oropharynx normal Chest: Chest palpation & inspection: normal inspection of the chest Resp: Effort & Inspection: normal respiratory effort Auscultation: clear to auscultation bilaterally Percussion: percussion normal Cardi
--- NOTE | 2020-03-29 18:35 | PM.PNNEP ---
Progress Note: A&P Assessment and Plan (1) ENRRIQUE (acute kidney injury): Code(s): N17.9 - Acute kidney failure, unspecified Status: Acute Assessment and Plan: suspect multifactorial: - prerenal factors (nausea + vomiting); urine lytes seem to support this - renal hypoperfusion/mild ATN (due to low BP/hypotension) - use of lisinopril + HCTZ prior to admission making urine (non-oliguric) BUN and creatinine noted with some improvement no critical electrolytes and volume status stable continue gentle IVFs follow trend of UOP and repeal labs (2) Chronic kidney disease, stage 3: Code(s): N18.3 - Chronic kidney disease, stage 3 (moderate) Status: Acute Assessment and Plan: baseline creatinine around 2ish presumably due to HTN, DM, and age-related change (3) Nausea vomiting and diarrhea: Code(s): R11.2 - Nausea with vomiting, unspecified; R19.7 - Diarrhea, unspecified Status: Acute Assessment and Plan: clinically better continue supportive therapy (4) Hypotension: Qualifiers: Hypotension type: unspecified hypotension type Qualified Code(s): I95.9 - Hypotension, unspecified Code(s): I95.9 - Hypotension, unspecified Status: Acute Assessment and Plan: doing better at this time hold BP medications with parameters follow trend of hemodynamics Will continue to follow. Subjective Date/time seen: 03/29/20 18:35 BP still running on the soft side and still with intermittent nausea; however, no acute/apparent distress voiced at this time; no events overnight. Exam Narrative: Exam Narrative: General: WD/WN male in NAD Heart: normal S1 and S2; no rub Lungs: clear to auscultation Abdomen: soft, nontender, nondistended, positive bowel sounds Extremities: no cyanosis or clubbing; no edema Skin: warm and intact Objective Data Vital Signs Vital Signs: Vital Signs Temp Pulse Resp BP Pulse Ox 03/29/20 16:00 36.1 C L 77 22 H 100/59 L 95 03/29/20 14:00 77 03/29/20 12:00 36.6 C 79 20 100/65 98 03/29/20 10:00 73 03/29/20 09:12 80 03/29/20 08:00 36.5 C 74 20 86/56 L 100 03/29/20 06:00 74 03/29/20 04:00 36.7 C 76 18 100/49 L 96 03/29/20 02:00 76 03/29/20 00:00 36.6 C 89 18 107/68 96 03/28/20 22:00 81 03/28/20 21:58 83 03/28/20 20:00 82 92 03/28/20 19:47 36.6 C 81 20 107/80 92 Intake/Output Intake/Output: Intake & Output 03/26/20 03/27/20 03/28/20 03/29/20 23:59 23:59 23:59 23:59 Intake Total 240 1150 960 Output Total 930 1250 Balance 240 220 -290 Meds/Results Medications: Active Medications Generic Name Dose Route Start Last Admin Trade Name Freq PRN Reason Stop Dose Admin Acetaminophen 650 mg 03/27/20 14:43 Tylenol Tablet PO Q4H PRN Mild Pain (1-3) or Fever Hydrocodone Bitart/Acetaminophen 1 tab 03/27/20 17:14 03/28/20 22:02 [place] 10-325 Mg PO 1 tab Q4-6H PRN Administration SEVERE PAIN Amitriptyline HCl 25 mg 03/27/20 21:00 03/28/20 21:58 Elavil PO 25 mg HS MARVIN Administration Aspirin 325 mg 03/28/20 09:00 03/29/20 09:03 Aspirin PO 325 mg DAILY MARVIN Administration Carvedilol 12.5 mg 03/27/20 21:00 03/29/20 09:12 Coreg PO Not Given Q12HR MARVIN Dextrose 12.5 gm 03/27/20 17:15 Dextrose 50% Syringe IV PUSH PRN PRN Hypoglycemia Protocol Famotidine 20 mg 03/27/20 21:00 03/29/20 09:03 Pepcid PO 20 mg Q12HR MARVIN Administration Glucagon 1 mg 03/27/20 17:15 Glucagon For Inj IM PRN PRN Hypoglycemia Protocol Glucose 15 gm 03/27/20 17:15 Glutose 15 PO PRN PRN Hypoglycemia Protocol Dextrose 1,000 mls @ 100 mls/hr 03/27/20 17:15 Dextrose 5% 1,000 Ml IVPB PRN PRN Hypoglycemia Protocol Sodium Chloride 1,000 mls @ 75 mls/hr 03/29/20 09:25
[2020-03-29 19:00] LABS: Glucose Point of Care 152 (65-105)
[2020-03-29 21:25] LABS: Glucose Point of Care 178 (65-105)
[2020-03-29] MEDS: ISOSORBIDE MONONITRATE 30 MG TAB.ER.24H PO (21:45)
[2020-03-29] MEDS: AMITRIPTYLINE HCL 25 MG TABLET PO (21:45)
[2020-03-29] MEDS: TRAZODONE HCL 50 MG TABLET PO (21:45)
[2020-03-29] MEDS: carvediloL 12.5 MG TABLET PO (21:45)
[2020-03-29] MEDS: INSULIN DETEMIR 100 UNITS/ML 90 UNITS SUB-Q (21:46)
[2020-03-30] VITALS (13 sets, daily range): BP systolic 101–148; BP diastolic 50–82; PULSE 71–92; RESP 18–22; TEMP 35.7–36.8; O2SAT 94–98
[2020-03-30 05:51] LABS: Hematocrit 32.3 % (42.0-52.0); Hemoglobin 9.6 g/dL (14.0-18.0); Mean Corpuscular HGB Conc 29.7 g/dl (32-36); Mean Corpuscular Hemoglobin 31.8 pg (26-34); Mean Platelet Volume 11.2 fl (7.4-10.4); Platelet Count Result 146 k/mm3 (150-375); Red Blood Count 3.02 M/mm3 (4.6-6.20); Red Cell Distribution Width 15.1 % (11.5-14.5); White Blood Count 4.5 K/mm3 (4.5-10.0)
[2020-03-30 06:04] LABS: Albumin Level 3.2 g/dL (3.5-5.1); Blood Urea Nitrogen 60 mg/dL (9-20); Calcium 8.7 mg/dL (8.4-10.2); Carbon Dioxide 20 mmol/L (22-30); Chloride 113 mmol/L (98-107); Estimated CRCL calculation 26 ml/min; Estimated Glomerular Filt Rate 19; Glucose 91 mg/dL (75-110); Phosphorus 3.4 mg/dL (2.5-4.5); Potassium 4.7 mmol/L (3.4-5.0); Sodium 138 mmol/L (137-145)
[2020-03-30 06:10] LABS: Magnesium 1.6 mg/dL (1.6-2.3)
[2020-03-30] MEDS: ASPIRIN 325 MG TABLET PO (08:15)
[2020-03-30] MEDS: carvediloL 12.5 MG TABLET PO ×2 (08:15→20:58)
[2020-03-30] MEDS: ISOSORBIDE MONONITRATE 30 MG TAB.ER.24H PO ×2 (08:16→20:58)
[2020-03-30] MEDS: SODIUM CHLORIDE 0.9% IV 1,000 ML 75 ML IV CONT ×2 (08:17→20:56)
[2020-03-30] MEDS: LIDOCAINE 5% PATCH 1 PATCH TRANSDERM (08:18)
[2020-03-30] MEDS: SIMVASTATIN 20 MG TABLET PO (08:19)
[2020-03-30] MEDS: FAMOTIDINE 20 MG TABLET PO ×2 (08:19→20:58)
[2020-03-30 08:48] LABS: Glucose Point of Care 73 (65-105)
[2020-03-30 11:47] LABS: Glucose Point of Care 94 (65-105)
--- NOTE | 2020-03-30 14:26 | PM.IMPN ---
Progress Note: A&P Assessment and Plan (1) Acute on chronic kidney failure: Qualifiers: Acute renal failure type: unspecified Chronic kidney disease stage: unspecified stage Qualified Code(s): N17.9 - Acute kidney failure, unspecified; N18.9 - Chronic kidney disease, unspecified Code(s): N17.9 - Acute kidney failure, unspecified; N18.9 - Chronic kidney disease, unspecified Status: Acute Assessment and Plan: some medications held- lisinopril, hydrochlorothiazide, and allopurinol dehydration v medications continue hydration pts bp s are low Creat is 3.2 today. Pt to start ensure. (2) Hypertension: Code(s): I10 - Essential (primary) hypertension Status: Chronic Assessment and Plan: Holding lisinopril hydrochlorothiazide. Continued Coreg (3) Hyperlipidemia: Code(s): E78.5 - Hyperlipidemia, unspecified Status: Chronic Assessment and Plan: Continue Zocor (4) Diabetes: Code(s): E11.9 - Type 2 diabetes mellitus without complications Status: Chronic Assessment and Plan: Accu-Cheks AC and HS. Continue with his long-acting insulin. (5) CAD (coronary artery disease): Code(s): I25.10 - Atherosclerotic heart disease of [place] coronary artery without angina pectoris Status: Chronic Assessment and Plan: History of 3 vessel CABG as well as multiple stents. Continued with aspirin. Hold coreg bp is low (6) CHF (congestive heart failure): Qualifiers: Heart failure chronicity: unspecified Heart failure type: unspecified Qualified Code(s): I50.9 - Heart failure, unspecified Code(s): I50.9 - Heart failure, unspecified Status: Chronic Assessment and Plan: Lisinopril with hydrochlorothiazide is on hold. Continue with Coreg. Continue with isosorbide. (7) Hyperkalemia: Code(s): E87.5 - Hyperkalemia Status: Acute Assessment and Plan: Recheck BMP. Patient is acute on chronic renal failure. Subjective Date/time seen: 03/30/20 14:26 Interval history: 69-year-old male with a past medical history of chronic kidney disease had developed nausea or vomiting for 2 days prior to coming to emergency department he was not able to hold or take much of the p.o. his symptoms were getting worse he was seen by his primary care doctor, labs were drawn his creatinine had jumped with baseline of 2 to 5.6 patient most likely secondary to dehydration, was referred to the emergency department for further evaluation, patient is being hydrated, patient creatinine is trending down, bilateral kidney ultrasound showed moderate bilateral renal cortical thinning. As per previous note, pt is still having nausea and low bps continue to hydrate. pt does not feel like eating anything as his mouth is sore and has bad teeth Review of Systems Review of Systems: All systems reviewed & are unremarkable except as noted in HPI and below Exam Narrative: Exam Narrative: Moderately obese Const: General: comfortable, well developed, alert, awake and Physically active Orientation/consciousness: oriented to person and patient oriented x3 HENMT: Throat: posterior oropharynx normal Eyes: Alignment and Position: alignment normal Pupils: Pupil accommodation reflex normal Neck: Neck: full ROM, no lymphadenopathy, trachea midline and supple Thyroid: thyroid normal Chest: Chest palpation & inspection: normal inspection of the chest Resp: Effort & Inspection: normal respiratory effort Auscultation: clear to auscultation bilaterally Percussion: percussion normal Cardio: Palpation: normal PMI Rate: regular rate Rhythm: regular rhythm Heart sounds: S1 normal heart sound present and S2 normal heart sound present Peripheral pulses: Peripheral pulses 2+ throughout Objective Data Vital Signs Vital Signs: Vital Signs - 24 hr 03/29/20 16:00 03/29/20 18:00 03/29/20 20:00 Temperature 36.1 C L Pulse Rate
--- NOTE | 2020-03-30 15:43 | PM.PNNEP ---
Progress Note: A&P Assessment and Plan (1) ENRRIQUE (acute kidney injury): Code(s): N17.9 - Acute kidney failure, unspecified Status: Acute Assessment and Plan: suspect multifactorial: - prerenal factors (nausea + vomiting); urine lytes seem to support this - renal hypoperfusion/mild ATN (due to low BP/hypotension) - use of lisinopril + HCTZ prior to admission making urine (non-oliguric) BUN and creatinine noted with some improvement no critical electrolytes and volume status stable continue gentle IVFs follow trend of UOP and repeal labs (2) Chronic kidney disease, stage 3: Code(s): N18.3 - Chronic kidney disease, stage 3 (moderate) Status: Acute Assessment and Plan: baseline creatinine around 2ish presumably due to HTN, DM, and age-related change (3) Nausea vomiting and diarrhea: Code(s): R11.2 - Nausea with vomiting, unspecified; R19.7 - Diarrhea, unspecified Status: Acute Assessment and Plan: clinically better continue supportive therapy (4) Hypotension: Qualifiers: Hypotension type: unspecified hypotension type Qualified Code(s): I95.9 - Hypotension, unspecified Code(s): I95.9 - Hypotension, unspecified Status: Acute Assessment and Plan: doing better at this time hold BP medications with parameters follow trend of hemodynamics Will continue to follow. Subjective Date/time seen: 03/30/20 15:43 No apparent distress voiced at this time; anxious to go home; admits to feeling better in general since admission; no acute issues or problems overnight or earlier this AM. Exam Narrative: Exam Narrative: General: WD/WN male in NAD Heart: normal S1 and S2; no rub Lungs: clear to auscultation Abdomen: soft, nontender, nondistended, positive bowel sounds Extremities: no cyanosis or clubbing; no edema Skin: No rash or nodules Objective Data Vital Signs Vital Signs: Vital Signs Temp Pulse Resp BP Pulse Ox 03/30/20 12:02 36.4 C 77 20 124/71 98 03/30/20 10:00 71 03/30/20 08:15 73 03/30/20 08:00 36.8 C 76 20 134/76 94 03/30/20 06:00 72 03/30/20 04:05 35.7 C L 78 18 101/50 L 95 03/30/20 04:00 80 03/30/20 02:00 92 03/30/20 00:00 85 03/29/20 23:22 35.6 C L 91 18 147/81 H 97 03/29/20 22:00 91 03/29/20 21:45 91 03/29/20 20:08 36.3 C L 69 18 148/78 H 97 03/29/20 20:00 83 03/29/20 18:00 86 03/29/20 16:00 36.1 C L 77 22 H 100/59 L 95 Intake/Output Intake/Output: Intake & Output 03/27/20 03/28/20 03/29/20 03/30/20 23:59 23:59 23:59 23:59 Intake Total 240 1150 2085 1200 Output Total 930 1250 Balance 240 882 [id number] Meds/Results Medications: Active Medications Generic Name Dose Route Start Last Admin Trade Name Freq PRN Reason Stop Dose Admin Acetaminophen 650 mg 03/27/20 14:43 Tylenol Tablet PO Q4H PRN Mild Pain (1-3) or Fever Hydrocodone Bitart/Acetaminophen 1 tab 03/27/20 17:14 03/28/20 22:02 [place] 10-325 Mg PO 1 tab Q4-6H PRN Administration SEVERE PAIN Amitriptyline HCl 25 mg 03/27/20 21:00 03/29/20 21:45 Elavil PO 25 mg HS MARVIN Administration Aspirin 325 mg 03/28/20 09:00 03/30/20 08:15 Aspirin PO 325 mg DAILY MARVIN Administration Carvedilol 12.5 mg 03/27/20 21:00 03/30/20 08:15 Coreg PO 12.5 mg Q12HR MARVIN Administration Dextrose 12.5 gm 03/27/20 17:15 Dextrose 50% Syringe IV PUSH PRN PRN Hypoglycemia Protocol Famotidine 20 mg 03/27/20 21:00 03/30/20 08:19 Pepcid PO 20 mg Q12HR MARVIN Administration Glucagon 1 mg 03/27/20 17:15 Glucagon For Inj IM PRN PRN Hypoglycemia Protocol Glucose 15 gm 03/27/20 17:15 Glutose 15 PO PRN PRN Hypoglycemia Protocol Dextrose 1,000 mls @ 100 mls/hr 03/27/20 17:15 Dextrose 5% 1,000 Ml IVPB PRN
--- NOTE | 2020-03-30 16:45 | PC.NURSE ---
This patient, Channing Ruiz, was received from [facility]/ on 03/30/20 at 1645. Personal belongings list checked and signed. Patient/family oriented to unit policies and routines
--- NOTE | 2020-03-30 16:50 | PC.NURSE ---
Patient downgraded to medical status. Report given to Cat RN. Patient travelled via bed with all belongings. Patients arrived in [facility] at 1642.
[2020-03-30 17:26] LABS: Glucose Point of Care 109 (65-105)
[2020-03-30] MEDS: AMITRIPTYLINE HCL 25 MG TABLET PO (20:58)
[2020-03-30] MEDS: TRAZODONE HCL 50 MG TABLET PO (20:59)
[2020-03-30] MEDS: GLUCOSE ORAL GEL 15 GM OF GLUCSE IN 37.5 GM TUBE PO (21:08)
[2020-03-30] MEDS: INSULIN DETEMIR 100 UNITS/ML 60 UNITS SUB-Q (21:34)
[2020-03-30 22:59] LABS: Glucose Point of Care 63 (65-105)
[2020-03-30 22:59] LABS: Glucose Point of Care 100 (65-105)
[2020-03-31 00:03] LABS: Glucose Point of Care 105 (65-105)
[2020-03-31 05:38] LABS: Hematocrit 29.8 % (42.0-52.0); Hemoglobin 9.1 g/dL (14.0-18.0); Mean Corpuscular HGB Conc 30.5 g/dl (32-36); Mean Corpuscular Hemoglobin 31.4 pg (26-34); Mean Corpuscular Volume 102.8 fl (80-100); Mean Platelet Volume 11.6 fl (7.4-10.4); Platelet Count Result 145 k/mm3 (150-375); Red Cell Distribution Width 14.9 % (11.5-14.5); White Blood Count 4.3 K/mm3 (4.5-10.0)
[2020-03-31 06:00] VITALS: BP 154/85; PULSE 88; RESP 18; TEMP 36.7; O2SAT 98
[2020-03-31 06:12] LABS: Albumin Level 3.1 g/dL (3.5-5.1); Blood Urea Nitrogen 43 mg/dL (9-20); Calcium 8.8 mg/dL (8.4-10.2); Carbon Dioxide 22 mmol/L (22-30); Chloride 114 mmol/L (98-107); Estimated CRCL calculation 39 ml/min; Estimated Glomerular Filt Rate 32; Glucose 52 mg/dL (75-110); Phosphorus 3.2 mg/dL (2.5-4.5); Potassium 4.4 mmol/L (3.4-5.0); Sodium 138 mmol/L (137-145)
[2020-03-31] MEDS: GLUCOSE ORAL GEL 15 GM OF GLUCSE IN 37.5 GM TUBE PO (06:23)
[2020-03-31] MEDS: DEXTROSE 50% 25 GM/50 ML SYRINGE IV PUSH (06:53)
[2020-03-31 07:44] LABS: Glucose Point of Care 45 (65-105)
[2020-03-31 07:44] LABS: Glucose Point of Care 44 (65-105)
[2020-03-31 07:44] LABS: Glucose Point of Care 126 (65-105)
[2020-03-31 07:44] LABS: Glucose Point of Care 58 (65-105)
[2020-03-31 08:17] VITALS: PULSE 60
[2020-03-31] MEDS: FAMOTIDINE 20 MG TABLET PO (08:17)
[2020-03-31] MEDS: carvediloL 12.5 MG TABLET PO (08:17)
[2020-03-31] MEDS: SIMVASTATIN 20 MG TABLET PO (08:17)
[2020-03-31] MEDS: ISOSORBIDE MONONITRATE 30 MG TAB.ER.24H PO (08:17)
[2020-03-31] MEDS: ASPIRIN 325 MG TABLET PO (08:17)
[2020-03-31] MEDS: LIDOCAINE 5% PATCH 1 PATCH TRANSDERM (08:18)
--- NOTE | 2020-03-31 08:33 | PC.NURSE ---
Offered to assist patient up to chair and encouraged patient to sit in the chair for awhile. Patient refused, stating I like to stay in bed so my feet don't swell. Also encouraged patient to wear SCDs to avoid DVTs. Patient refused. States he wants to leave them off at this time.
--- NOTE | 2020-03-31 08:38 | PM.DS ---
DS: Admitting Diagnosis Admitting Diagnosis Admitting Diagnosis: Acute kidney failure, unspecified DS: Discharge Diagnosis Discharge Diagnosis (1) Acute on chronic kidney failure: Qualifiers: Acute renal failure type: unspecified Chronic kidney disease stage: unspecified stage Qualified Code(s): N17.9 - Acute kidney failure, unspecified; N18.9 - Chronic kidney disease, unspecified Code(s): N17.9 - Acute kidney failure, unspecified; N18.9 - Chronic kidney disease, unspecified Status: Acute Assessment and Plan: Some medications held- lisinopril, hydrochlorothiazide, and nsaids gi symptoms resolved pt feeling better wants to go home dehydration v medications v gi upset continue hydration pts bp have corrected creat back to baseline, seen by nephrology stable for discharge Creat is 2.1 today. follow up pcp. (2) Hypertension: Code(s): I10 - Essential (primary) hypertension Status: Chronic Assessment and Plan: Stopping lisinopril hydrochlorothiazide. Continued Coreg (3) Hyperlipidemia: Code(s): E78.5 - Hyperlipidemia, unspecified Status: Chronic Assessment and Plan: Continue Zocor (4) Diabetes: Code(s): E11.9 - Type 2 diabetes mellitus without complications Status: Chronic Assessment and Plan: Accu-Cheks AC and HS. Continue with his long-acting insulin. 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 Continued with aspirin and coreg (6) CHF (congestive heart failure): Qualifiers: Heart failure chronicity: unspecified Heart failure type: unspecified Qualified Code(s): I50.9 - Heart failure, unspecified Code(s): I50.9 - Heart failure, unspecified Status: Chronic Assessment and Plan: Lisinopril with hydrochlorothiazide is on hold. Continue with Coreg. Continue with isosorbide. (7) Hyperkalemia: Code(s): E87.5 - Hyperkalemia Status: Acute Assessment and Plan: Patient is acute on chronic renal failure improved DS: Summary Time Spent with Patient Time attestation: Total time spent providing and/or coordinating discharge services:40 minutes on day of discharge Exam Narrative: Exam Narrative: Moderately obese Const: General: comfortable, well developed, alert, awake and Physically active Nutritional Appearance: average body habitus and well nourished Orientation/consciousness: oriented to person and patient oriented x3 Limitations: no limitations Chest: Chest palpation & inspection: normal inspection of the chest Resp: Effort & Inspection: normal respiratory effort Auscultation: clear to auscultation bilaterally Percussion: percussion normal Cardio: Palpation: normal PMI Rate: regular rate Rhythm: regular rhythm Heart sounds: S1 normal heart sound present and S2 normal heart sound present Peripheral pulses: Peripheral pulses 2+ throughout GI: Inspection: normal to inspection (2 purple bruises on the right lower quadrant) Auscultation: normal bowel sounds Neuro: General: oriented to person and patient oriented x3 Cranial nerves: Yes Normal hearing present Cognition (Neuro): normal cognition Speech: normal speech Gait exam (Neuro): Normal gait present Motor exam (neuro): 5/5 motor strength present throughout Sensory Exam: normal sensation Extrem: General: normal to inspection Right upper extremity: normal to inspection and shoulder/upper arm Left upper extremity: normal to inspection and shoulder/upper arm Right lower extremity: normal to inspection Left lower extremity: normal to inspection Psych: Appearance: grossly normal Mental Status: mental status grossly normal Speech and movement: Normal speech and movement present Affect: normal affect and Anxi
[2020-03-31 11:00] LABS: Glucose Point of Care 189 (65-105)
== END 2020-03-31 11:30 | disposition home health service (06) | DRG 683 ==
LOC: ANHED 15:13 → ANHIMU 18:03 → ANH2MED 03-30 17:47 → ANHIMU 04-03 14:47
PROVIDERS: Family Medicine; Internal Medicine Nephrology; Nurse Practitioner; Admitting Provider Internal Medicine; Emergency Provider Emergency Medicine; PCP Family Medicine; Visit Provider Family Medicine
DX: N17.0 Acute kidney failure with tubular necrosis (principal); I13.0 Hypertensive heart and chronic kidney disease with heart failure and stage 1 through stage 4 chronic kidney disease, or unspecified chronic kidney disease; I50.22 Chronic systolic (congestive) heart failure; E11.22 Type 2 diabetes mellitus with diabetic chronic kidney disease; N18.3 Chronic kidney disease, stage 3 (moderate); E86.0 Dehydration; E78.5 Hyperlipidemia, unspecified; E87.5 Hyperkalemia; I25.10 Atherosclerotic heart disease of native coronary artery without angina pectoris; K21.9 Gastro-esophageal reflux disease without esophagitis; M06.9 Rheumatoid arthritis, unspecified; I95.9 Hypotension, unspecified; E16.2 Hypoglycemia, unspecified; R19.7 Diarrhea, unspecified; R11.2 Nausea with vomiting, unspecified; Z96.653 Presence of artificial knee joint, bilateral; Z95.5 Presence of coronary angioplasty implant and graft; Z95.1 Presence of aortocoronary bypass graft; I25.2 Old myocardial infarction; E66.9 Obesity, unspecified; Z68.32 Body mass index [BMI] 32.0-32.9, adult
CPT/HCPCS: 36415; 36600; 71046; 74176; 76775; 80048; 80053; 80069; 81001; 81050; 82570; 82805; 82948; 83735; 83880; 84156; 84300; 84443; 85025; 85027; 85999; 86140; 93005; 93306; 96374; 96375; 97161; 97165; 99285; A9270; J0610; J1815; J7030; Q9957

== ENCOUNTER 2020-04-12 08:32 | Outpatient (CLI) | payer MEDICARE, SELFPAY ==
[2020-04-12 09:02] LABS: Basophils Absolute Auto 0.1 K/mm3 (0.0-0.1); Basophils Percent Auto 0.9 % (0.2-1.2); Eosinophils Absolute Auto 0.3 K/mm3 (0-0.3); Eosinophils Percent Auto 4.7 % (0-4.4); Hematocrit 35.1 % (42.0-52.0); Hemoglobin 10.8 g/dL (14.0-18.0); Immature Granulocyte Absolute 0.03 K/mm3 (0.00-0.031); Immature Granulocyte Percent A 0.5 % (0-0.5); Lymphocytes Percent Auto 23.3 % (18.3-44.2); Mean Corpuscular HGB Conc 30.8 g/dl (32-36); Mean Corpuscular Hemoglobin 31.5 pg (26-34); Mean Corpuscular Volume 102.3 fl (80-100); Monocytes Absolute Auto 0.6 K/mm3 (0.1-0.6); Monocytes Percent Auto 10.2 % (2.6-8.5); Neutrophils Absolute Auto 3.4 K/mm3 (1.3-6.7); Neutrophils Percent Auto 60.4 % (45.5-73.1); Platelet Count Result 175 k/mm3 (150-375); Red Blood Count 3.43 M/mm3 (4.6-6.20); Red Cell Distribution Width 14.4 % (11.5-14.5); White Blood Count 5.6 K/mm3 (4.5-10.0)
[2020-04-12 09:11] LABS: Alanine Aminotransferase 9 U/L (4-50); Alkaline Phosphatase 109 U/L (38-126); Aspartate Amino Transferase 17 U/L (17-59); Bilirubin,Total 0.3 mg/dL (0.2-1.3); Blood Urea Nitrogen 15 mg/dL (9-20); Calcium 9.2 mg/dL (8.4-10.2); Carbon Dioxide 22 mmol/L (22-30); Chloride 108 mmol/L (98-107); Estimated Glomerular Filt Rate 47; Glucose 83 mg/dL (75-110); Potassium 3.7 mmol/L (3.4-5.0); Sodium 137 mmol/L (137-145)
== END 2020-04-12 08:33 | disposition home or self-care (01) ==
PROVIDERS: PCP Family Medicine; Visit Provider Nurse Practitioner
DX: E11.42 Type 2 diabetes mellitus with diabetic polyneuropathy (principal); N19 Unspecified kidney failure; I13.0 Hypertensive heart and chronic kidney disease with heart failure and stage 1 through stage 4 chronic kidney disease, or unspecified chronic kidney disease
CPT/HCPCS: 36415; 80053; 85025

== ENCOUNTER 2020-05-01 09:49 | Outpatient (CLI) | payer MEDICARE, SELFPAY ==
[2020-05-01 10:34] LABS: Basophils Absolute Auto 0.1 K/mm3 (0.0-0.1); Basophils Percent Auto 0.9 % (0.2-1.2); Eosinophils Absolute Auto 0.3 K/mm3 (0-0.3); Eosinophils Percent Auto 4.6 % (0-4.4); Hematocrit 37.5 % (42.0-52.0); Hemoglobin 11.6 g/dL (14.0-18.0); Immature Granulocyte Absolute 0.04 K/mm3 (0.00-0.031); Immature Granulocyte Percent A 0.6 % (0-0.5); Lymphocytes Absolute Auto 1.14 K/mm3 (0.9-3.2); Lymphocytes Percent Auto 16.7 % (18.3-44.2); Mean Corpuscular HGB Conc 30.9 g/dl (32-36); Mean Corpuscular Hemoglobin 31.8 pg (26-34); Mean Corpuscular Volume 102.7 fl (80-100); Mean Platelet Volume 10.4 fl (7.4-10.4); Monocytes Absolute Auto 0.4 K/mm3 (0.1-0.6); Monocytes Percent Auto 6.5 % (2.6-8.5); Neutrophils Absolute Auto 4.8 K/mm3 (1.3-6.7); Neutrophils Percent Auto 70.7 % (45.5-73.1); Platelet Count Result 183 k/mm3 (150-375); Red Blood Count 3.65 M/mm3 (4.6-6.20); Red Cell Distribution Width 14.9 % (11.5-14.5); White Blood Count 6.8 K/mm3 (4.5-10.0)
[2020-05-01 12:45] LABS: Folic Acid 2.4 ng/mL (2.76->20)
[2020-05-04 23:29] LABS: Alpha-Tocopherol 7.2 mg/L (5.7-19.9); Beta-Gamma Tocopherol <1.0 mg/L (<=4.3)
[2020-05-06 10:52] LABS: Vitamin B1 <6 nmol/L (8-30)
[2020-05-06 13:01] LABS: Vitamin B6 4.9 ng/mL (2.1-21.7)
[2020-05-08 18:02] LABS: Vitamin B2 <5.0 nmol/L (6.2-39.0)
== END 2020-05-01 09:50 | disposition home or self-care (01) ==
PROVIDERS: PCP Family Medicine; Visit Provider Family Medicine
DX: D64.9 Anemia, unspecified (principal)
CPT/HCPCS: 36415; 82607; 82746; 84207; 84252; 84425; 84446; 85025

== ENCOUNTER 2020-08-16 09:46 | Outpatient (CLI) | payer MEDICARE, SELFPAY ==
[2020-08-16 10:42] LABS: Basophils Absolute Auto 0.1 K/mm3 (0.0-0.1); Basophils Percent Auto 0.8 % (0.2-1.2); Eosinophils Absolute Auto 0.3 K/mm3 (0-0.3); Eosinophils Percent Auto 3.3 % (0-4.4); Hematocrit 37.5 % (42.0-52.0); Immature Granulocyte Absolute 0.04 K/mm3 (0.00-0.031); Immature Granulocyte Percent A 0.5 % (0-0.5); Lymphocytes Absolute Auto 1.76 K/mm3 (0.9-3.2); Lymphocytes Percent Auto 22.1 % (18.3-44.2); Mean Corpuscular Hemoglobin 31.8 pg (26-34); Mean Corpuscular Volume 99.5 fl (80-100); Mean Platelet Volume 10.1 fl (7.4-10.4); Monocytes Absolute Auto 0.6 K/mm3 (0.1-0.6); Monocytes Percent Auto 7.5 % (2.6-8.5); Neutrophils Absolute Auto 5.2 K/mm3 (1.3-6.7); Neutrophils Percent Auto 65.8 % (45.5-73.1); Platelet Count Result 179 k/mm3 (150-375); Red Blood Count 3.77 M/mm3 (4.6-6.20); Red Cell Distribution Width 13.7 % (11.5-14.5)
[2020-08-16 10:50] LABS: Hemoglobin A1C 8.5 % (<5.7)
[2020-08-16 10:58] LABS: Alanine Aminotransferase 15 U/L (4-50); Albumin Level 4.1 g/dL (3.5-5.1); Alkaline Phosphatase 117 U/L (38-126); Anion Gap 8 mmol/L (8-16); Aspartate Amino Transferase 24 U/L (17-59); Bilirubin,Total 0.3 mg/dL (0.2-1.3); Blood Urea Nitrogen 29 mg/dL (9-20); Calcium 9.5 mg/dL (8.4-10.2); Carbon Dioxide 25 mmol/L (22-30); Chloride 104 mmol/L (98-107); Cholesterol 135 mg/dL (0-200); Estimated Glomerular Filt Rate 38; Glucose 140 mg/dL (75-110); HDL Direct 36 mg/dL; Potassium 4.6 mmol/L (3.4-5.0); Sodium 137 mmol/L (137-145); Triglycerides 197 mg/dL (<150)
[2020-08-16 11:09] LABS: LDL Cholesterol Direct 62 mg/dL
[2020-08-16 11:29] LABS: Total Triiodothyronine (T3) 1.19 NG/ML (0.97-1.69)
[2020-08-16 11:39] LABS: Free T4 Free Thyroxine 1.11 ng/mL (0.78-2.19)
== END 2020-08-16 09:47 | disposition home or self-care (01) ==
LOC: ANHLAB 09:50
PROVIDERS: PCP Family Medicine; Visit Provider Nurse Practitioner
DX: E11.42 Type 2 diabetes mellitus with diabetic polyneuropathy (principal); I50.22 Chronic systolic (congestive) heart failure; M05.49 Rheumatoid myopathy with rheumatoid arthritis of multiple sites; N18.30 Chronic kidney disease, stage 3 unspecified; M10.9 Gout, unspecified; I13.0 Hypertensive heart and chronic kidney disease with heart failure and stage 1 through stage 4 chronic kidney disease, or unspecified chronic kidney disease
CPT/HCPCS: 36415; 80053; 80061; 82306; 83036; 84439; 84443; 84480; 84550; 85025

== ENCOUNTER 2021-04-11 09:54 | Outpatient (CLI) | payer MEDICARE, SELFPAY ==
[2021-04-11 10:52] LABS: Basophils Absolute Auto 0.1 K/mm3 (0.0-0.1); Basophils Percent Auto 0.9 % (0.2-1.2); Eosinophils Absolute Auto 0.3 K/mm3 (0-0.3); Eosinophils Percent Auto 4.1 % (0-4.4); Hematocrit 39.7 % (42.0-52.0); Hemoglobin 12.3 g/dL (14.0-18.0); Immature Granulocyte Absolute 0.05 K/mm3 (0.00-0.031); Immature Granulocyte Percent A 0.7 % (0-0.5); Lymphocytes Absolute Auto 1.29 K/mm3 (0.9-3.2); Lymphocytes Percent Auto 18.3 % (18.3-44.2); Mean Corpuscular Hemoglobin 30.4 pg (26-34); Mean Corpuscular Volume 98.3 fl (80-100); Mean Platelet Volume 10.6 fl (7.4-10.4); Monocytes Absolute Auto 0.6 K/mm3 (0.1-0.6); Monocytes Percent Auto 8.7 % (2.6-8.5); Neutrophils Absolute Auto 4.7 K/mm3 (1.3-6.7); Neutrophils Percent Auto 67.3 % (45.5-73.1); Platelet Count Result 177 k/mm3 (150-375); Red Blood Count 4.04 M/mm3 (4.6-6.20); Red Cell Distribution Width 14.2 % (11.5-14.5)
[2021-04-11 11:03] LABS: Alanine Aminotransferase 13 U/L (4-50); Albumin Level 4.4 g/dL (3.5-5.1); Alkaline Phosphatase 118 U/L (38-126); Anion Gap 8 mmol/L (8-16); Aspartate Amino Transferase 25 U/L (17-59); Bilirubin,Total 0.3 mg/dL (0.2-1.3); Blood Urea Nitrogen 24 mg/dL (9-20); Calcium 9.6 mg/dL (8.4-10.2); Carbon Dioxide 24 mmol/L (22-30); Chloride 107 mmol/L (98-107); Cholesterol 147 mg/dL (0-200); Estimated Glomerular Filt Rate 31; Glucose 139 mg/dL (75-110); HDL Direct 48 mg/dL; Potassium 4.6 mmol/L (3.4-5.0); Sodium 139 mmol/L (137-145); Triglycerides 225 mg/dL (<150); Uric Acid 3.7 mg/dL (3.5-8.5)
[2021-04-11 11:14] LABS: LDL Cholesterol Direct 59 mg/dL
[2021-04-11 11:37] LABS: Free T4 Free Thyroxine 1.36 ng/mL (0.78-2.19); Vitamin D 25 Hydroxy 38.3 ng/mL
[2021-04-11 11:52] LABS: Prostate Specific Antigen 0.4 ng/mL (< OR = 4.0)
[2021-04-11 12:45] LABS: Folic Acid 8.3 ng/mL (2.76->20); Vitamin B12 > 1000.0 pg/mL (239-931)
[2021-04-11 13:39] LABS: Total Triiodothyronine (T3) 1.34 NG/ML (0.97-1.69)
== END 2021-04-11 09:55 | disposition home or self-care (01) ==
PROVIDERS: PCP Family Medicine; Visit Provider Nurse Practitioner
DX: Z12.5 Encounter for screening for malignant neoplasm of prostate (principal); I13.0 Hypertensive heart and chronic kidney disease with heart failure and stage 1 through stage 4 chronic kidney disease, or unspecified chronic kidney disease; N18.30 Chronic kidney disease, stage 3 unspecified; M06.9 Rheumatoid arthritis, unspecified; M10.9 Gout, unspecified; Z00.00 Encounter for general adult medical examination without abnormal findings; M05.49 Rheumatoid myopathy with rheumatoid arthritis of multiple sites
CPT/HCPCS: 36415; 80053; 80061; 82306; 82607; 82746; 84153; 84439; 84443; 84480; 84550; 85025; G0103

== ENCOUNTER 2021-05-17 11:47 | Outpatient (CLI) | payer MEDICARE, SELFPAY ==
[2021-05-17 14:21] LABS: Iron 111 ug/dL (49-181)
[2021-05-17 14:34] LABS: Total Triiodothyronine (T3) 1.06 NG/ML (0.97-1.69)
[2021-05-17 14:35] LABS: Percent Iron Saturation 39 % (20-50)
[2021-05-17 14:40] LABS: Free T4 Free Thyroxine 1.02 ng/mL (0.78-2.19)
== END 2021-05-17 11:48 | disposition home or self-care (01) ==
LOC: ANHLAB 11:51
PROVIDERS: PCP Family Medicine; Visit Provider Family Medicine
DX: R94.6 Abnormal results of thyroid function studies (principal); D64.9 Anemia, unspecified
CPT/HCPCS: 36415; 82728; 83540; 83550; 84439; 84443; 84480

== ENCOUNTER 2021-06-19 10:18 | Outpatient (CLI) | payer MEDICARE, SELFPAY ==
[2021-06-19 11:15] LABS: Basophils Absolute Auto 0.1 K/mm3 (0.0-0.1); Basophils Percent Auto 0.6 % (0.2-1.2); Eosinophils Absolute Auto 1.5 K/mm3 (0-0.3); Eosinophils Percent Auto 10.6 % (0-4.4); Immature Granulocyte Absolute 0.11 K/mm3 (0.00-0.031); Immature Granulocyte Percent A 0.8 % (0-0.5); Lymphocytes Absolute Auto 0.82 K/mm3 (0.9-3.2); Mean Corpuscular HGB Conc 29.7 g/dl (32-36); Mean Corpuscular Hemoglobin 31.4 pg (26-34); Mean Corpuscular Volume 105.7 fl (80-100); Mean Platelet Volume 10.6 fl (7.4-10.4); Monocytes Absolute Auto 0.7 K/mm3 (0.1-0.6); Neutrophils Absolute Auto 10.6 K/mm3 (1.3-6.7); Nucleated Red Blood Cells Perc 0.1 % (0.0-0.2); Platelet Count Result 220 k/mm3 (150-375); Red Cell Distribution Width 17.6 % (11.5-14.5); White Blood Count 13.7 K/mm3 (4.5-10.0)
[2021-06-19 11:38] LABS: Alanine Aminotransferase 12 U/L (4-50); Albumin Level 4.3 g/dL (3.5-5.1); Alkaline Phosphatase 111 U/L (38-126); Anion Gap 13 mmol/L (8-16); Aspartate Amino Transferase 17 U/L (17-59); Bilirubin,Total 0.4 mg/dL (0.2-1.3); Blood Urea Nitrogen 73 mg/dL (9-20); Calcium 10.2 mg/dL (8.4-10.2); Carbon Dioxide 17 mmol/L (22-30); Chloride 115 mmol/L (98-107); Estimated Glomerular Filt Rate 14; Glucose 165 mg/dL (65-110); Potassium 5.2 mmol/L (3.4-5.0); Sodium 145 mmol/L (137-145)
[2021-06-19 12:49] LABS: Platelet Estimate Adequate (Adequate)
[2021-06-19 12:51] LABS: Folic Acid 11.1 ng/mL (2.76->20); Total Triiodothyronine (T3) 0.86 NG/ML (0.97-1.69)
[2021-06-19 12:52] LABS: Vitamin B12 > 1000.0 pg/mL (239-931)
== END 2021-06-19 10:19 | disposition home or self-care (01) ==
PROVIDERS: PCP Family Medicine; Visit Provider Nurse Practitioner
DX: R41.0 Disorientation, unspecified (principal); I13.0 Hypertensive heart and chronic kidney disease with heart failure and stage 1 through stage 4 chronic kidney disease, or unspecified chronic kidney disease; I50.22 Chronic systolic (congestive) heart failure; N18.30 Chronic kidney disease, stage 3 unspecified; R53.83 Other fatigue
CPT/HCPCS: 36415; 80053; 82306; 82607; 82746; 84439; 84443; 84480; 85025

== ENCOUNTER 2021-06-20 15:43 | Observation (INO) | payer MEDICARE, SELFPAY ==
[2021-06-20] VITALS (7 sets, daily range): BP systolic 89–142; BP diastolic 69–79; PULSE 79–93; RESP 15–22; TEMP 36.3–36.9; O2SAT 97–100
--- NOTE | ~2021-06-20 | US_ITS ---
EXAMINATION: US retroperitoneal duplex ltd EXAM DATE: 06/21/2021 15:22 INDICATION: Acute kidney insufficiency.. TECHNIQUE: Multiple grayscale and Doppler images of the kidneys and renal arteries were obtained. T here is no prior study for comparison. FINDINGS: Bilateral renal cortical thinning, atrophy. Right kidney measures 10.5 x 5.1 x 4.5 cm, the left measuring 10.4 x 3.8 x 4.4 cm. No hydronephrosis. The aorta peak systolic velocity is 87 cm/s. Renal arteries interrogated in several segments from origin to hilum. RIGHT RENAL ARTERY Proximal segment (origin): 48 cm/s. Middle segment: 37 cm/s. Distal segment (hilum): 25 cm/s. LEFT RENAL ARTERY Proximal segment (origin): 34 cm/s. Middle segment: 26 cm/s. Distal segment (hilum): 34 cm/s. IMPRESSION: 1. Renal artery Doppler velocities within normal limits. Reviewed, dictated and finalized at location B.
--- NOTE | ~2021-06-20 | CT_ITS ---
EXAMINATION: CT brain wo con DATE: 06/20/2021 19:01 INDICATION: Confusion. Change in mental status. TECHNIQUE: Computed tomography (CT) of the head was performed without intravenous contrast. The mA wa s adjusted according to patient size. Iterative reconstruction technique was employed. Exam dose: 60 5.33 mGy-cm total exam DLP. COMPARISON: 03/12/2009 CT brain FINDINGS: There is a small focal chronic infarct high over the right parietal convexity. Bilateral vertebral artery and prominent bilateral carotid siphon and supraclinoid internal carotid a rtery calcifications are noted. Right middle cerebral artery calcification. There is nonspecific diminished attenuation of the cerebral white matter, likely due to chronic small vessel ischemic changes. No recent cerebrovascular accident is evident. CT is not sensitive for detection of hyperacute CVA. No intracranial mass lesion or hemorrhage, midline shift or mass effect effect. No subdural or epidural hematoma. No fracture or bone destruction of the cranial vault. The mastoid air cells and paranasal sinuses are unremarkable. IMPRESSION: Small chronic infarct high over the right parietal convexity Cerebral atherosclerosis and chronic small vessel ischemic changes of the cerebral white matter Reviewed, dictated and finalized at Location [facility]. Reviewed, dictated and finalized at location A. IMPRESSION: Small chronic infarct high over the right parietal convexity Cerebral atherosclerosis and chronic small vessel ischemic changes of the cereb ral white matter
--- NOTE | ~2021-06-20 | XR_ITS ---
XR chest 1V DATE: 06/20/2021 18:49 INDICATION: Cough, shortness of breath TECHNIQUE: AP chest COMPARISON: 03/28/2020 AP and lateral chest FINDINGS: Status post sternotomy. Cardiomegaly. There is discoid atelectasis or scarring in the lateral left lower lung. The lungs are clear of infil trate or consolidation. No pleural effusion or pulmonary vascular congestion or pneumothorax. Diffuse osteopenia. IMPRESSION: Status post sternotomy. Cardiomegaly Reviewed, dictated and finalized at location A.
--- NOTE | ~2021-06-20 | CT_ITS ---
EXAMINATION: CT abdomen pelvis wo con DATE: 06/20/2021 18:59 INDICATION: Acute kidney failure. Back pain. TECHNIQUE: Computed tomography (CT) of the abdomen and pelvis was performed without intravenous contr ast. Automated exposure control and iterative reconstruction technique were employed. Exam dose: 111 6.59 mGy-cm total exam DLP. COMPARISON: None. FINDINGS: There is discoid atelectasis or scarring in the medial right lung base, right lower leg. Th e lung bases are clear of consolidation. Status post sternotomy. Cardiomegaly. No pericardial or pleural effusion. The liver, gallbladder, bile duct, spleen are unremarkable. There is severe pancreatic atrophy/fatty change. Normal morphology of the adrenal glands. Bilateral smooth renal atrophy.. No renal mass lesion or urinary tract calculus or hydroureteronephro sis. The urinary bladder appears unremarkable. There is prostate enlargement. There is atherosclerotic calcification of the abdominal aorta and branches but no abdominal aortic an eurysm. No intraperitoneal or retroperitoneal or pelvic mass lesion or adenopathy or ascites. Small sliding hiatal hernia. No bowel obstruction, bowel wall thickening, pneumatosis or intraperitoneal free air. Normal appendix . Small fat-containing umbilical hernia. Degenerative changes of the thoracic and lumbar spine. Diffuse osteopenia. Status post right total hip arthroplasty. IMPRESSION: Bilateral renal atrophy; no urinary tract calculus or obstruction Cardiomegaly Small sliding hiatal hernia Status post right total hip arthroplasty Reviewed, dictated and finalized at Location [facility]. Reviewed, dictated and finalized at location A.
[2021-06-20 16:09] LABS: Basophils Absolute Auto 0.1 K/mm3 (0.0-0.1); Basophils Percent Auto 0.7 % (0.2-1.2); Eosinophils Absolute Auto 1.1 K/mm3 (0-0.3); Eosinophils Percent Auto 9.9 % (0-4.4); Hematocrit 35.6 % (42.0-52.0); Hemoglobin 10.6 g/dL (14.0-18.0); Immature Granulocyte Absolute 0.07 K/mm3 (0.00-0.031); Immature Granulocyte Percent A 0.6 % (0-0.5); Lymphocytes Absolute Auto 0.94 K/mm3 (0.9-3.2); Lymphocytes Percent Auto 8.2 % (18.3-44.2); Mean Corpuscular HGB Conc 29.8 g/dl (32-36); Mean Corpuscular Volume 107.6 fl (80-100); Mean Platelet Volume 10.6 fl (7.4-10.4); Monocytes Absolute Auto 0.8 K/mm3 (0.1-0.6); Monocytes Percent Auto 7.3 % (2.6-8.5); Neutrophils Absolute Auto 8.4 K/mm3 (1.3-6.7); Neutrophils Percent Auto 73.3 % (45.5-73.1); Platelet Count Result 184 k/mm3 (150-375); Red Blood Count 3.31 M/mm3 (4.6-6.20); Red Cell Distribution Width 17.3 % (11.5-14.5); White Blood Count 11.5 K/mm3 (4.5-10.0)
[2021-06-20 16:28] LABS: Alanine Aminotransferase 10 U/L (4-50); Albumin Level 3.9 g/dL (3.5-5.1); Alkaline Phosphatase 99 U/L (38-126); Anion Gap 14 mmol/L (8-16); Aspartate Amino Transferase 16 U/L (17-59); Bilirubin,Total 0.4 mg/dL (0.2-1.3); Blood Urea Nitrogen 79 mg/dL (9-20); Calcium 9.7 mg/dL (8.4-10.2); Carbon Dioxide 16 mmol/L (22-30); Chloride 113 mmol/L (98-107); Estimated CRCL calculation 19 ml/min; Estimated Glomerular Filt Rate 14; Glucose 327 mg/dL (65-110); Potassium 5.1 mmol/L (3.4-5.0); Sodium 143 mmol/L (137-145)
[2021-06-20 17:30] LABS: Anisocytosis 2+ (NORMAL); Hypochromasia 1+ (NORMAL); Platelet Estimate Adequate (Adequate)
--- NOTE | 2021-06-20 18:24 | ECG_ITS ---
Measurements Intervals [place] Rate: 82 P: 0 SD: 188 QRS: 9 QRSD: 102 T: 129 QT: 355 QTc: 415 Interpretive Statements SINUS RHYTHM ANTERIOR INFARCT, AGE INDETERMINATE INFERIOR INFARCT, AGE INDETERMINATE BORDERLINE ST-T WAVE ABNORMALITY- LAT/HIGH LAT LEADS BASELINE ARTIFACT- I, II, III, AVR, AVL, AVF, V1-V6 ABNORMAL ECG Electronically Signed On 06-20-2021 20:18:21 CDT by Jurgen Farias D.O.
--- NOTE | 2021-06-20 18:31 | ED.GENADULT ---
HPI - General Adult General Chief complaint: Recheck/Abnormal Lab/Rx Stated complaint: abn labs Time Seen by Provider: 06/20/21 18:04 History of Present Illness HPI narrative: Patient 71-year-old gentleman who presents the emergency department with chief complaint of kidney failure. The patient reports that he has had episodes before in the past with dehydration and acute kidney injury the patient has been not his usual self over the last several days has been a little confused and the family contacted his primary care physician and they had outpatient blood work drawn. The patient was found to have a elevated creatinine at 4.3. The patient was at 2.1 previously. On his last admission he had reached a high of over 6. Patient denies trauma denies injury denies nausea vomiting denies chest pain or shortness of breath. Related Data Home Medications Medication Instructions Recorded Confirmed allopurinol 300 mg PO DAILY 10/20/19 03/27/20 amitriptyline 25 mg PO HS 10/20/19 03/27/20 aspirin 325 mg PO DAILY 10/20/19 03/27/20 bacitracin 1 applic TOPICAL Q12H 10/20/19 03/27/20 famotidine 20 mg PO BID 10/20/19 03/27/20 hydrocodone-acetaminophen 1 tablet PO Q4-6H PRN 10/20/19 03/27/20 insulin aspart U-100 [Novolog See Rx Instructions .ROUTE .COMPLEX 10/20/19 03/27/20 U-100 Insulin aspart] nitroglycerin 0.4 mg SUBLINGUAL DIRECTED PRN 10/20/19 03/27/20 simvastatin 20 mg PO DAILY 10/20/19 03/27/20 trazodone 50 mg PO HS 10/20/19 03/27/20 Trelegy Ellipta 1 inh INHALATION DAILY 03/27/20 03/27/20 isosorbide mononitrate 30 mg PO BID 03/27/20 03/27/20 ondansetron HCl [Zofran] 4 mg PO Q6H PRN 03/27/20 03/27/20 Allergies Allergy/AdvReac Type Severity Reaction Status Date / Time morphine Allergy Unknown Agitated Verified 03/27/20 13:44 naproxen Allergy Unknown Unconscious Verified 03/27/20 13:44 NSAIDS (Non-Steroidal AdvReac Unknown renal Verified 03/27/20 13:44 Anti-Inflamma insufficiency Review of Systems Review of Systems: A 10 system review of systems was completed on the patient and is negative except for what is stated in the HPI. Nursing and ancillary documentation was reviewed. [facility] Past Medical History Medical History Bronchitis CAD (coronary artery disease) Triple bypass CHF (congestive heart failure) Diabetes Fracture collar bone GERD (gastroesophageal reflux disease) Gout rt thumb, lt elbow Hyperlipidemia Hypertension Myocardial infarction Renal insufficiency Rheumatoid arthritis Surgical History Surgical History H/O vascular surgery History of coronary artery stent placement Multiple stents History of hip replacement On the right History of orthopedic surgery bilateral elbows and right hand History of total left knee replacement (TKR) Hx of CABG 3 vessel Hx of cardiac cath Hx of cataract surgery Family History Family History Father Family history of obesity Family history of alcoholism Patient's father is Acute myocardial infarction Mother Hypertension Patient's mother is Sibling Hypertension Sibling Alcoholism Social History Social History Smoking status: Never smoker Alcohol intake: never Substance use: current Substance use type: painkillers Other substance usage details: Q4-Q6 for back pain Last use: 03/27/2020 Gender identity (if verbalized by the patient): Male Spiritual care concerns: No Exam Narrative: GENERAL: Well-appearing, well-nourished, and in no acute distress. HEAD: Normocephalic, atraumatic. EYES: PERRLA and EOMI. ENT: Nares clear, no rhinorrhea or epistaxis. Mucous membranes moist. NECK: Supple. CHEST: Clear to auscultation. No respiratory distress. H
[2021-06-20] MEDS: SODIUM CHLORIDE 0.9% IV 1,000 ML 999 ML IV CONT ×2 (19:34→20:25)
[2021-06-20 19:41] LABS: Add Urine Microscopic? YES; Appearance Urine Clear (Clear); Bilirubin Urine Negative (Negative); Blood Urine Negative (Negative); Color Urine Yellow (Yellow); Glucose Urine UA Negative (Negative); Ketones Urine Negative (Negative); Leukocyte Esterase Ur Negative LEU/UL (Negative); Mucus Urine Rare /lpf; Nitrate Urine Negative (Negative); Protein Urine 1+ mg/dL (Negative); Squamous Epithelial Cell Urine Rare /hpf (Few); Urobilinogen Urine Negative mg/dL (<2.0); WBC Urine 0-3 /hpf
[2021-06-20 19:44] LABS: Lactic Acid Reflex 1.4 mmol/L (0.7-2.1)
[2021-06-20] MEDS: HYDROmorphone HCL INJ (*CRX) 1 MG/ML SYR 0.5 MG IV PUSH (19:55)
--- NOTE | 2021-06-20 21:16 | PM.IMHP ---
H&P: HPI History of Present Illness Date/Time: 06/20/21 21:16 Chief Complaint: Altered mental status Narrative: This is a 71-year-old male with past medical history significant for chronic kidney disease, coronary artery disease, status post coronary artery bypass graft, 3 vessel disease, hypertension, gout, type 2 diabetes mellitus, COPD. Patient was brought in today to the emergency room after he was noted not to be his usual he has had poor appetite not feeling well patient is unable to give much history but he was seen by his primary care physician and lab work returned with worsening creatinine. Preliminary workup in our emergency room showed creatinine of 4.3 rest of workup was unrevealing. Patient states that he has been feeling very fatigue and with decreased stamina denies any shortness of breath, any cough, any sputum production ,any nausea ,any vomiting any diarrhea. Decision has been made to admit the patient for further management and treatment Review of Systems Review of Systems: Abnormal lab value, fatigue, poor appetite. Constitutional: Constitutional: Denies chills, Reports fatigue, Denies fever(s), Reports lethargy, Reports poor appetite and Reports weakness Eyes: Eyes: Denies change in vision ENT: Denies dysphagia, Denies nasal congestion, Denies nasal discharge, Denies nasal obstruction and Denies odynophagia Cardiovascular: Cardiovascular: Denies irregular heart rhythm, Denies radiating jaw, neck or arm pain, Denies palpitations, Denies dyspnea on exertion and Denies orthopnea Respiratory: Respiratory: Denies cough Gastrointestinal: Gastrointestinal: Denies abdominal pain, Denies diarrhea, Denies nausea and Denies vomiting Genitourinary: Genitourinary: Reports no additional male genitourinary complaints Musculoskeletal: Musculoskeletal: Reports no additional musculoskeletal complaints Integumentary/Breasts: Skin/Breast: Reports system reviewed and no additional complaints, except as docu Neurologic: Reports system reviewed and no additional complaints, except as documented Psychiatric: Psychiatric: Reports no additional psychiatric complaints Endocrine: Endocrine: Reports no additional endocrine complaints Hematologic/Lymphatic: Hematologic/Lymphatic: Reports no additional hematologic/lymphatic complaints Allergic/Immunologic: Allergic/Immunologic: Reports no additional allergic/immunologic complaints [facility] Past Medical History Medical History (Updated 06/21/21 @ 01:[address]ills MD) Bronchitis CAD (coronary artery disease) Triple bypass CHF (congestive heart failure) Diabetes Fracture collar bone GERD (gastroesophageal reflux disease) Gout rt thumb, lt elbow Hyperlipidemia Hypertension Myocardial infarction Renal insufficiency Rheumatoid arthritis Surgical History Surgical History H/O vascular surgery History of coronary artery stent placement Multiple stents History of hip replacement On the right History of orthopedic surgery bilateral elbows and right hand History of total left knee replacement (TKR) Hx of CABG 3 vessel Hx of cardiac cath Hx of cataract surgery Family History Family History Father Family history of obesity Family history of alcoholism Patient's father is Acute myocardial infarction Mother Hypertension Patient's mother is Sibling Hypertension Sibling Alcoholism Social History Social History Smoking status: Never smoker Alcohol intake: never Substance use: never Substance use type: painkillers Other substance usage details: Q4-Q6 for back pain Last use: 03/27/2020 Gender identity (if verbalized by the patient): Male Spiritual care concerns: No Meds Home Medications and Allergies Home Med
--- NOTE | 2021-06-20 21:36 | PC.NURSE ---
Per pt's request, Ania-pt's sister, updated on condition and room assignment.
--- NOTE | 2021-06-20 23:17 | ADMGEN ---
This patient, Channing Ruiz, was admitted to 2 Medical Room 259-01. Patient/family oriented to hospital policies and general routines including ID bracelet, bed and alarms, visiting hours, pain management, procedures, bathroom and other care routines, personal items, smoking policy, room service/diet, and visiting hours. Information on how to activate the Rapid Response Team has been discussed. Patient/Family are encouraged to report perceived risks to care and to ask questions if they do not understand what they are told or what they should do.
[2021-06-20] MEDS: SODIUM CHLORIDE 0.9% IV 1,000 ML 150 ML IV CONT (23:50)
[2021-06-21] VITALS (11 sets, daily range): BP systolic 121–132; BP diastolic 65–72; PULSE 69–86; RESP 16–20; TEMP 36.1–36.4; O2SAT 97–99
--- NOTE | 2021-06-21 03:44 | PC.NURSE ---
Pt refusing catheter at this time. Pt was educated on benefits and risks of catheter placement, pt still refusing at this time. Dr Wills has been notified.
[2021-06-21 05:46] LABS: Basophils Absolute Auto 0.1 K/mm3 (0.0-0.1); Basophils Percent Auto 0.6 % (0.2-1.2); Eosinophils Absolute Auto 1.2 K/mm3 (0-0.3); Eosinophils Percent Auto 11.5 % (0-4.4); Hematocrit 28.8 % (42.0-52.0); Hemoglobin 8.6 g/dL (14.0-18.0); Immature Granulocyte Absolute 0.07 K/mm3 (0.00-0.031); Immature Granulocyte Percent A 0.7 % (0-0.5); Lymphocytes Absolute Auto 1.42 K/mm3 (0.9-3.2); Lymphocytes Percent Auto 13.9 % (18.3-44.2); Mean Corpuscular HGB Conc 29.9 g/dl (32-36); Mean Corpuscular Volume 107.1 fl (80-100); Mean Platelet Volume 10.6 fl (7.4-10.4); Monocytes Absolute Auto 0.8 K/mm3 (0.1-0.6); Monocytes Percent Auto 7.6 % (2.6-8.5); Neutrophils Absolute Auto 6.7 K/mm3 (1.3-6.7); Neutrophils Percent Auto 65.7 % (45.5-73.1); Platelet Count Result 148 k/mm3 (150-375); Red Blood Count 2.69 M/mm3 (4.6-6.20); Red Cell Distribution Width 17.2 % (11.5-14.5); White Blood Count 10.2 K/mm3 (4.5-10.0)
[2021-06-21 06:19] LABS: Anion Gap 7 mmol/L (8-16); Blood Urea Nitrogen 63 mg/dL (9-20); Calcium 8.6 mg/dL (8.4-10.2); Carbon Dioxide 15 mmol/L (22-30); Chloride 119 mmol/L (98-107); Estimated CRCL calculation 21 ml/min; Estimated Glomerular Filt Rate 19; Glucose 229 mg/dL (65-110); Potassium 4.7 mmol/L (3.4-5.0); Sodium 141 mmol/L (137-145)
[2021-06-21] MEDS: SODIUM CHLORIDE 0.9% IV 1,000 ML 150 ML IV CONT ×2 (06:41→13:05)
[2021-06-21 06:56] LABS: Glucose Point of Care 195 mg/dl (65-105)
[2021-06-21] MEDS: FAMOTIDINE 20 MG TABLET PO ×2 (08:25→16:57)
[2021-06-21] MEDS: allopurinoL 300 MG TABLET PO (08:25)
[2021-06-21] MEDS: ISOSORBIDE MONONITRATE 30 MG TAB.ER.24H PO ×2 (08:25→16:57)
[2021-06-21] MEDS: carvediloL 12.5 MG TABLET 25 MG PO ×2 (08:25→20:34)
[2021-06-21] MEDS: ASPIRIN 325 MG TABLET PO (08:25)
[2021-06-21 09:11] LABS: Anisocytosis 1+ (NORMAL); Hypochromasia 1+ (NORMAL); Platelet Estimate Adequate (Adequate)
[2021-06-21] MEDS: SODIUM BICARBONATE TAB 650 MG TABLET PO ×2 (09:11→16:57)
[2021-06-21 12:18] LABS: Glucose Point of Care 246 mg/dl (65-105)
--- NOTE | 2021-06-21 14:34 | PM.IMPN ---
Progress Note: A&P Assessment and Plan (1) Acute on chronic kidney failure: Qualifiers: Acute renal failure type: unspecified Chronic kidney disease stage: unspecified stage Qualified Code(s): N17.9 - Acute kidney failure, unspecified; N18.9 - Chronic kidney disease, unspecified Code(s): N17.9 - Acute kidney failure, unspecified; N18.9 - Chronic kidney disease, unspecified Status: Acute Assessment and Plan: unclear etiology at this time-- appears prerenal as it is improving with IV fluids - will obtain ultrasound of the renal arteries to check for renal artery stenosis since patient is on losartan - he states he has not taken hydrochlorothiazide in months - he has a history of chronic kidney disease and baseline seems to be around 1.5-2.1 but has a hx of ENRRIQUE -CT shows bilateral renal atrophy with no urinary obstruction - his altered mental status has improved - patient is slightly acidotic likely due to acute renal failure. Bicarb has been started. Will switch to LR -monitor with daily bmp -consider nephrology consult if pt does not improve. 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 Hold losartan (3) CHF (congestive heart failure): Qualifiers: Heart failure chronicity: unspecified Heart failure type: unspecified Qualified Code(s): I50.9 - Heart failure, unspecified Code(s): I50.9 - Heart failure, unspecified Status: Chronic Assessment and Plan: Echo from 2019 shows normal systolic function -pt appears euvolemic -monitor for overload (4) GERD (gastroesophageal reflux disease): Code(s): K21.9 - Gastro-esophageal reflux disease without esophagitis Status: Acute Assessment and Plan: Will do tums as needed -continue pepcid -pt has a hx of dysphagia and esophageal dilation (5) Diabetes: Code(s): E11.9 - Type 2 diabetes mellitus without complications Status: Chronic Assessment and Plan: last glucose 246 - continue Levemir and sliding scale insulin Time Spent With Patient Time with patient: 25 - 35 minutes Subjective Date/time seen: 06/21/21 14:34 Interval history: Pt is a 71-year-old male here for worsening kidney function. Patient was seen today and has no complaints other than being hungry. Pt denies nausea, vomiting, fevers, chills, diarrhea, chest pain, sob, or abdominal pain. He states his last bowel movement was about a week ago. He says he no longer takes hydrochlorothiazide and has not done so for months. he does have occasional GERD and would like some tums. Review of Systems Review of Systems: All systems reviewed & are unremarkable except as noted in HPI and below Exam Narrative: General: Well developed well nourished patient in NAD HEENT: normocephalic Neck: supple Neuro: Alert and oriented x4 CV:RRR. tele without abnormal alarm reviews Resp:CTA--no crackles or wheezing Abd: Soft, non distended. No pain to palpation. Positive bowel sounds Extremities: No swelling, erythema, or pain to palpation. Objective Data Vital Signs Vital Signs: Vital Signs - 24 hr 06/20/21 15:46 06/20/21 19:41 06/20/21 21:44 Temperature 98.1 F 98.4 F Pulse Rate 79 80 82 Respiratory Rate 18 22 H 20 Blood Pressure 89/75 L 110/77 123/79 Pulse Oximetry 97 100 97 06/20/21 22:01 06/20/21 22:05 06/20/21 22:40 Temperature Pulse Rate 84 84 84 Respiratory Rate 15 20 20 Blood Pressure 142/71 H 140/76 140/76 Pulse Oximetry 100 99 99 06/20/21 23:40 06/21/21 00:14 06/21/21 04:00 Temperature 97.4 F L Pulse Rate 93 83 74 Respiratory Rate 17 Blood Pressure 131/69 Pulse Oximetry 97 06/21/21 05:18
[2021-06-21] MEDS: LACTATED RINGERS 1,000 ML 75 ML IV CONT (15:24)
[2021-06-21] MEDS: polyethylene glycoL 3350 17 GM POWD.PACK PO (15:25)
--- NOTE | 2021-06-21 16:29 | PM.CNNEP ---
Assessment and Plan Assessment and plan (1) Acute kidney injury: Code(s): N17.9 - Acute kidney failure, unspecified Status: Acute Assessment and Plan: multifactorial: - prerenal factors due to poor appetite - relative hypotension - concurrent use of ARB (losartan) prior to admission improvement noted with current therapy follow trend of repeat labs and UOP (2) Stage 3b chronic kidney disease: Code(s): N18.32 - Chronic kidney disease, stage 3b Status: Chronic Assessment and Plan: baseline creatinine runs around 1.8 - 2.1mg/dl since 2019 presumably due to DM, HTN, vascular disease and age (3) Hypertension: Code(s): I10 - Essential (primary) hypertension Status: Chronic Assessment and Plan: BP medications on hold/with paremeters given admission hypotension continue gentle IVF hydration follow trend of hemodynamics (4) Diabetes: Code(s): E11.9 - Type 2 diabetes mellitus without complications Status: Chronic Assessment and Plan: follow accuchecks glycemic control Will continue to follow. History of Present Illness Reason for Consult Consult date: 06/21/21 Reason for consult: acute renal failure (on chronic kidney disease) Chief Complaint Chief complaint: Acute kidney injury History of Present Illness Narrative: The patient is a 71-year-old male with a past medical history as outlined below who presented to [facility] ER do to not feeling well and abnormal labs. He recently saw his primary care physician as he has been having problems with poor appetite along with not feeling well for the last several days. His PCP did outpatient labs with demonstrated worsening kidney function in comparison to baseline so he was directed to the ER for further evaluation. Work-up and evaluation in the ER demonstrated the patient to be relatively hypotensive with a systolic BP in the high 80s and routine blood tests demonstrated his creatinine up to 4.3mg/dl. He reported increased fatigue and decreased energy level with no reported shortness of breath, cough, chest pain, dizziness or palpitations. Given the constellation of symptoms associated with his laboratory abnormalities with regard to his kidney function, he was admitted for further treatment. Since admission, he has been receiving IVFs with improvement in his blood pressure and renal function. He still does not feel back to baseline but does feel better in general. His BP medications including his losartan are on hold. Renal consultation was requested due to the aforementioned acute kidney injury on chronic kidney disease. For review of his records, the patient's has some evidence of chronic kidney disease with a baseline creatinine around 1.8 - 2.1mg/dl since 2019. I acutally saw the patient when he was last hospitalized here in 2020 for ENRRIQUE on his CKD for similar reasons/issues much like on this admission. I am assuming his baseline CKD is due to his history of hypertension, heart disease, diabetes, vascular disease, and age. Currently, the patient does not appear to be any acute distress. Review of Systems Review of Systems: As per HPI. [facility] Past Medical History Medical History (Updated 06/21/21 @ 18:54 by Amber Kay MD) Bronchitis CAD (coronary artery disease) Triple bypass CHF (congestive heart failure) Diabetes Fracture collar bone GERD (gastroesophageal reflux disease) Gout rt thumb, lt elbow Hyperlipidemia Hypertension Myocardial infarction Renal insufficiency Rheumatoid arthritis Surgical History Surgical History H/O vascular surgery History of coronary artery stent placement Multiple stents History of hip replacement On the right History of orthopedic surgery bilateral elbows and right hand History of total left knee replacement
[2021-06-21 17:15] LABS: Glucose Point of Care 204 mg/dl (65-105)
[2021-06-21] MEDS: INSULIN ASPART (*BKC) 100 UNITS/ML SUB-Q (17:31)
[2021-06-21] MEDS: SIMVASTATIN 20 MG TABLET PO (20:34)
[2021-06-21] MEDS: traZODone HCL 50 MG TABLET 100 MG PO (20:34)
[2021-06-21] MEDS: AMITRIPTYLINE HCL 25 MG TABLET PO (20:34)
[2021-06-21] MEDS: INSULIN DETEMIR 100 UNITS/ML 80 UNITS SUB-Q (20:37)
[2021-06-21] MEDS: HYDROcodone/acetaminophen (*CRX) 10-325 MG TABLET 1 TAB PO (20:42)
[2021-06-21 21:07] LABS: Glucose Point of Care 221 mg/dl (65-105)
[2021-06-22] VITALS: PULSE 70
[2021-06-22 04:00] VITALS: PULSE 71
[2021-06-22 04:39] VITALS: BP 100/54; PULSE 64; RESP 20; TEMP 37; O2SAT 98
[2021-06-22] MEDS: LACTATED RINGERS 1,000 ML 75 ML IV CONT (05:33)
[2021-06-22 05:34] LABS: Hematocrit 28.1 % (42.0-52.0); Hemoglobin 8.7 g/dL (14.0-18.0); Mean Corpuscular Hemoglobin 32.5 pg (26-34); Mean Corpuscular Volume 104.9 fl (80-100); Mean Platelet Volume 10.1 fl (7.4-10.4); Platelet Count Result 156 k/mm3 (150-375); Red Blood Count 2.68 M/mm3 (4.6-6.20); Red Cell Distribution Width 17.2 % (11.5-14.5); White Blood Count 8.9 K/mm3 (4.5-10.0)
[2021-06-22 06:05] LABS: Transferrin 127 mg/dL (206-381)
[2021-06-22 06:23] LABS: Albumin Level 2.9 g/dL (3.5-5.1); Anion Gap 6 mmol/L (8-16); Blood Urea Nitrogen 39 mg/dL (9-20); Calcium 8.9 mg/dL (8.4-10.2); Carbon Dioxide 20 mmol/L (22-30); Chloride 117 mmol/L (98-107); Estimated CRCL calculation 33 ml/min; Estimated Glomerular Filt Rate 31; Glucose 128 mg/dL (65-110); Phosphorus 2.8 mg/dL (2.5-4.5); Sodium 143 mmol/L (137-145)
[2021-06-22 06:55] LABS: Iron 28 ug/dL (49-181)
[2021-06-22 07:04] LABS: Percent Iron Saturation 15 % (20-50)
[2021-06-22 07:11] LABS: Folic Acid 9.5 ng/mL (2.76->20); Vitamin B12 > 1000.0 pg/mL (239-931)
[2021-06-22 08:00] VITALS: PULSE 68
[2021-06-22 08:05] LABS: Glucose Point of Care 71 mg/dl (65-105)
[2021-06-22 08:38] VITALS: PULSE 64; RESP 20; O2SAT 98
[2021-06-22] MEDS: ASPIRIN 325 MG TABLET PO (08:38)
[2021-06-22] MEDS: SODIUM BICARBONATE TAB 650 MG TABLET PO (08:38)
[2021-06-22] MEDS: ISOSORBIDE MONONITRATE 30 MG TAB.ER.24H PO (08:38)
[2021-06-22] MEDS: FAMOTIDINE 20 MG TABLET PO (08:38)
[2021-06-22] MEDS: allopurinoL 300 MG TABLET PO (08:38)
[2021-06-22] MEDS: carvediloL 12.5 MG TABLET 25 MG PO (08:38)
[2021-06-22] MEDS: polyethylene glycoL 3350 17 GM POWD.PACK PO (08:39)
[2021-06-22] MEDS: UMECLIDINIUM/VILANTEROL 62.5-25 MCG ELLIPTA 1 PUFF INHALATION (08:44)
[2021-06-22 10:22] LABS: Glucose Point of Care 91 mg/dl (65-105)
--- NOTE | 2021-06-22 10:57 | PM.DS ---
DS: Admitting Diagnosis Discharge Date 06/22/21 Admitting Diagnosis enrrique DS: Discharge Diagnosis Discharge Diagnosis (1) Acute on chronic kidney failure: Qualifiers: Acute renal failure type: unspecified Chronic kidney disease stage: unspecified stage Qualified Code(s): N17.9 - Acute kidney failure, unspecified; N18.9 - Chronic kidney disease, unspecified Code(s): N17.9 - Acute kidney failure, unspecified; N18.9 - Chronic kidney disease, unspecified Status: Acute Assessment and Plan: unclear etiology at this time--appears prerenal as it is improving with IV fluids -no sign of renal artery stenosis on ultrasound - he states he has not taken hydrochlorothiazide in months - he has a history of chronic kidney disease and baseline seems to be around 1.5-2.1 but has a hx of ENRRIQUE -CT shows bilateral renal atrophy with no urinary obstruction - his altered mental status has improved -CO2 improving, suspect this will continue to improve with improvement of his kidney function. No need for bicarb at discharge -patient did see Nephrology who agrees with discharge at this time. Patient's creatinine was 2.1 at discharge which is near his baseline. Losartan discontinued. (2) CAD (coronary artery disease): Code(s): I25.10 - Atherosclerotic heart disease of [place] coronary artery without angina pectoris Status: Chronic Assessment and Plan: Chronic and stable -no CP -Continue Coreg, simvastatin and isosorbide. (3) CHF (congestive heart failure): Qualifiers: Heart failure chronicity: unspecified Heart failure type: unspecified Qualified Code(s): I50.9 - Heart failure, unspecified Code(s): I50.9 - Heart failure, unspecified Status: Chronic Assessment and Plan: Echo from 2019 shows normal systolic function -pt appears euvolemic at d/c (4) GERD (gastroesophageal reflux disease): Code(s): K21.9 - Gastro-esophageal reflux disease without esophagitis Status: Acute Assessment and Plan: -pt has a hx of dysphagia and esophageal dilation (5) Diabetes: Code(s): E11.9 - Type 2 diabetes mellitus without complications Status: Chronic Assessment and Plan: last glucose 91 -continue home regimen DS: Summary Hospital Course Hospital Course: DOS 06/22/21 Status at Discharge Cognitive/behavioral status at discharge: Patient is a 71-year-old male with a history of chronic kidney disease who presented emergency room for confusion and elevated creatinine on outpatient labs. Vitals in the ER were temperature 36.7? C, pulse 79, respiratory rate 18, blood pressure 89/75, pulse ox 97 on room air. Initial white blood cell count 11.5, hemoglobin 10.6, hematocrit 35.6, platelets 184. BMP showed a KI with a sodium 143, potassium 5.1, chloride 113, CO2 16, BUN 79, creatinine 4.3, glucose 327. Patient was admitted to the hospitalist service and underwent IV hydration which improved his kidney function as well as his symptoms. His baseline is usually around 1.5-2.1 and he was 2.1 at discharge. He was initially started on bicarb due to his decreased CO2 likely due to acute renal failure. This was not continued at discharge as the patient continues to improve. His losartan was discontinued. He is to follow up with his primary care physician for routine monitoring. Nephrology was consulted during the stay and agreed with discharge. Patient was educated about the worrisome signs and symptoms come back to emergency room for and was discharged in stable condition. Functional status at discharge: independent ambulation Time Spent with Patient Time attestation: Total time spent providing and/or coordinating discharge services:34 min Time spent: Greater than 30 minutes Exam Narrative: General: Well developed well nourished patient in NAD HEENT: normocephalic Neck: supple Neuro: Alert and oriented x4 CV:RRR. tele without abno
== END 2021-06-22 11:50 | disposition home or self-care (01) ==
LOC: ANHED 18:34 → ANH2MED 21:36
PROVIDERS: Emergency Medicine; Physician Assistant; Admitting Provider Internal Medicine; Emergency Provider Emergency Medicine; PCP Family Medicine; Visit Provider Internal Medicine
DX: N17.9 Acute kidney failure, unspecified (principal); I12.9 Hypertensive chronic kidney disease with stage 1 through stage 4 chronic kidney disease, or unspecified chronic kidney disease; N18.32 Chronic kidney disease, stage 3b; I50.9 Heart failure, unspecified; R41.82 Altered mental status, unspecified; I25.10 Atherosclerotic heart disease of native coronary artery without angina pectoris; J44.9 Chronic obstructive pulmonary disease, unspecified; E11.22 Type 2 diabetes mellitus with diabetic chronic kidney disease; K21.9 Gastro-esophageal reflux disease without esophagitis; Z95.1 Presence of aortocoronary bypass graft; Z79.4 Long term (current) use of insulin; R79.89 Other specified abnormal findings of blood chemistry; R53.1 Weakness
CPT/HCPCS: 36415; 70450; 71045; 74176; 80048; 80053; 80069; 81001; 82607; 82728; 82746; 82948; 83540; 83550; 83605; 84466; 85025; 85027; 93005; 93976; 94640; 96361; 96374; 99285; A9270; G0378; J1170; J1815; J7030; J7120

== ENCOUNTER 2021-09-05 08:44 | Outpatient (CLI) | payer MEDICARE, SELFPAY ==
[2021-09-05 09:41] LABS: Basophils Absolute Auto 0.1 K/mm3 (0.0-0.1); Basophils Percent Auto 1.6 % (0.2-1.2); Eosinophils Absolute Auto 0.7 K/mm3 (0-0.3); Eosinophils Percent Auto 10.6 % (0-4.4); Hematocrit 38.3 % (42.0-52.0); Hemoglobin 11.8 g/dL (14.0-18.0); Immature Granulocyte Absolute 0.04 K/mm3 (0.00-0.031); Immature Granulocyte Percent A 0.7 % (0-0.5); Lymphocytes Absolute Auto 1.13 K/mm3 (0.9-3.2); Lymphocytes Percent Auto 18.5 % (18.3-44.2); Mean Corpuscular HGB Conc 30.8 g/dl (32-36); Mean Corpuscular Hemoglobin 31.9 pg (26-34); Mean Corpuscular Volume 103.5 fl (80-100); Mean Platelet Volume 9.7 fl (7.4-10.4); Monocytes Absolute Auto 0.7 K/mm3 (0.1-0.6); Monocytes Percent Auto 11.4 % (2.6-8.5); Neutrophils Absolute Auto 3.5 K/mm3 (1.3-6.7); Neutrophils Percent Auto 57.2 % (45.5-73.1); Platelet Count Result 217 k/mm3 (150-375); Red Cell Distribution Width 13.3 % (11.5-14.5); White Blood Count 6.1 K/mm3 (4.5-10.0)
[2021-09-05 09:53] LABS: Alanine Aminotransferase 14 U/L (4-50); Albumin Level 4.1 g/dL (3.5-5.1); Alkaline Phosphatase 123 U/L (38-126); Anion Gap 7 mmol/L (8-16); Aspartate Amino Transferase 25 U/L (17-59); Bilirubin,Total 0.3 mg/dL (0.2-1.3); Blood Urea Nitrogen 18 mg/dL (9-20); Calcium 9.4 mg/dL (8.4-10.2); Carbon Dioxide 26 mmol/L (22-30); Chloride 103 mmol/L (98-107); Cholesterol 150 mg/dL (0-200); Estimated Glomerular Filt Rate 46; Glucose 97 mg/dL (65-110); HDL Direct 44 mg/dL; Potassium 3.9 mmol/L (3.4-5.0); Sodium 136 mmol/L (137-145); Triglycerides 160 mg/dL (<150)
[2021-09-05 10:03] LABS: LDL Cholesterol Direct 67 mg/dL
[2021-09-05 10:13] LABS: Vitamin D 25 Hydroxy 23.5 ng/mL
[2021-09-05 10:20] LABS: Total Triiodothyronine (T3) 1.34 NG/ML (0.97-1.69)
== END 2021-09-05 08:45 | disposition home or self-care (01) ==
PROVIDERS: PCP Family Medicine; Visit Provider Family Medicine
DX: R80.9 Proteinuria, unspecified (principal); E55.9 Vitamin D deficiency, unspecified; I10 Essential (primary) hypertension
CPT/HCPCS: 36415; 80053; 80061; 82306; 84439; 84443; 84480; 85025

== ENCOUNTER 2022-07-23 10:41 | Outpatient (CLI) | payer MEDICARE, SELFPAY ==
--- NOTE | ~2022-07-23 | XR_ITS ---
EXAM: XR hip RT min 2V DATE: 07/23/2022 11:24 HISTORY: PAIN RIGHT HIP, FALL 6MO AGO, HX REPLACED 1999 . COMPARISON: CT 06/20/2021. FINDINGS: Uncomplicated right hip arthroplasty. Decreased mineralization. No fracture or dislocation . No lytic or blastic lesion. Degenerative change in the symphysis pubis and contralateral hip. No er osion or periosteal change. Vascular calcification. IMPRESSION: No acute osseous finding in the right hip. No hardware related complication. Reviewed, dictated and finalized at location K. IMPRESSION: No acute osseous finding in the right hip. No hardware related comp lication.
== END 2022-07-23 10:42 | disposition home or self-care (01) ==
PROVIDERS: PCP Family Medicine; Visit Provider Nurse Practitioner Adult Health
DX: M25.551 Pain in right hip (principal); Z98.890 Other specified postprocedural states
CPT/HCPCS: 73502

== ENCOUNTER 2022-10-14 14:06 | Observation (INO) | payer MEDICARE, SELFPAY ==
--- NOTE | ~2022-10-14 | XR_ITS ---
EXAMINATION: XR hip RT 2V w AP pelvis DATE: 10/14/2022 15:33 INDICATION: Posterior right hip pain post fall TECHNIQUE: Anteroposterior view of the pelvis and anteroposterior and frog leg lateral views of the r ight hip were obtained. COMPARISON: None. FINDINGS: Again seen is a right total hip arthroplasty which remains in near-anatomic alignment. No evident per iprosthetic lucency to suggest loosening. Again seen is an old healed fracture deformity at the proxi mal left femoral diaphysis. No acute fracture although sensitivity for nondisplaced fractures decreas ed by diffuse osteopenia. Unchanged small sclerotic lesion in the mid right femoral diaphysis distal to the tip of the arthroplasty is likely either a small bone infarct or enchondroma. Moderate to bessy re lower lumbar spondylosis. IMPRESSION: 1. No significant interval change in a right total hip arthroplasty. No evident acute osseous abnorma lity although sensitivity for nondisplaced fracture is decreased by diffuse osteopenia. Reviewed, dictated and finalized at location A. [facility] IMPRESSION: 1. No significant interval change in a right total hip arthroplasty. No evident acute osseous abnormality although sensitivity for nondisplaced fracture is de creased by diffuse osteopenia.
--- NOTE | ~2022-10-14 | CT_ITS ---
EXAMINATION: CT abdomen pelvis wo con DATE: 10/14/2022 15:50 INDICATION: Right-sided abdominal pain TECHNIQUE: Computed tomography (CT) of the abdomen and pelvis was performed without intravenous contr ast. The dose-length product (DLP) was 1165.48 mGy-cm. Automated exposure control and iterative recon struction technique were employed. COMPARISON: 06/20/2021 FINDINGS: Minimal dependent atelectasis is present in the lung bases. The heart size is normal. There is a small sliding hiatal hernia. The liver, spleen, gallbladder, and adrenal glands are normal. The re is fatty replacement of much of the pancreas. The kidneys are unremarkable. No stones are identifi ed in the kidneys, ureters, or bladder. No hydronephrosis or hydroureter. There is circumferential wa ll thickening of the urinary bladder. There is fat stranding surrounding the urinary bladder. The sherry endix is normal. No pathologically enlarged abdominal or pelvic lymph nodes are identified. There is no free intraperitoneal gas or evidence of bowel obstruction. There is a right inguinal hernia contai sheree fat. There is atrophy of the right iliopsoas muscle. Changes of right hip arthroplasty are noted . There is severe lumbar spondylosis. IMPRESSION: 1. Circumferential wall thickening of the urinary bladder with surrounding fat stranding, suggestive of cystitis. Reviewed, dictated and finalized at location B. [employer]MER
[2022-10-14 14:18] VITALS: BP 117/67; PULSE 77; RESP 14; TEMP 36.3; O2SAT 96
[2022-10-14 14:27] LABS: Glucose Point of Care 70 mg/dl (65-105)
[2022-10-14 14:56] LABS: Basophils Absolute Auto 0.1 K/mm3 (0.0-0.1); Basophils Percent Auto 0.5 % (0.2-1.2); Eosinophils Absolute Auto 0.1 K/mm3 (0-0.3); Hemoglobin 11.8 g/dL (14.0-18.0); Immature Granulocyte Absolute 0.06 K/mm3 (0.00-0.031); Immature Granulocyte Percent A 0.4 % (0-0.5); Lymphocytes Percent Auto 5.1 % (18.3-44.2); Mean Corpuscular HGB Conc 31.1 g/dl (32-36); Mean Corpuscular Hemoglobin 32.2 pg (26-34); Mean Corpuscular Volume 103.5 fl (80-100); Mean Platelet Volume 9.8 fl (7.4-10.4); Monocytes Absolute Auto 1.1 K/mm3 (0.1-0.6); Neutrophils Absolute Auto 11.6 K/mm3 (1.3-6.7); Platelet Count Result 208 k/mm3 (150-375); Red Blood Count 3.67 M/mm3 (4.6-6.20); Red Cell Distribution Width 14.6 % (11.5-14.5); White Blood Count 13.7 K/mm3 (4.5-10.0)
[2022-10-14 15:04] LABS: Glucose Point of Care 59 mg/dl (65-105)
[2022-10-14 15:08] LABS: Alanine Aminotransferase 18 U/L (6-50); Albumin Level 4.3 g/dL (3.5-5.1); Alkaline Phosphatase 134 U/L (38-126); Anion Gap 7 mmol/L (8-16); Aspartate Amino Transferase 26 U/L (17-59); Bilirubin,Total 0.6 mg/dL (0.2-1.3); Blood Urea Nitrogen 39 mg/dL (9-20); Calcium 9.1 mg/dL (8.4-10.2); Carbon Dioxide 27 mmol/L (22-30); Chloride 103 mmol/L (98-107); Estimated CRCL calculation 32 ml/min; Estimated Glomerular Filt Rate 31; Glucose 64 mg/dL (65-110); Lipase 30 U/L (23-300); Potassium 3.8 mmol/L (3.4-5.0); Sodium 137 mmol/L (137-145)
[2022-10-14 15:14] VITALS: BP 134/97; PULSE 85; RESP 22; O2SAT 100
[2022-10-14 15:23] LABS: Add Urine Microscopic? YES; Appearance Urine Cloudy (Clear); Bilirubin Urine Negative (Negative); Blood Urine 3+ (Negative); Color Urine Yellow (Yellow); Glucose Urine UA Negative (Negative); Ketones Urine Negative (Negative); Leukocyte Esterase Ur 3+ LEU/UL (Negative); Nitrate Urine Negative (Negative); Protein Urine 2+ mg/dL (Negative); Urobilinogen Urine 0.2 mg/dL (<2.0)
--- NOTE | 2022-10-14 15:30 | PC.NURSE ---
Pt to XRAY via stretcher
[2022-10-14 15:32] LABS: RBC Urine >75 /hpf (0-2); WBC Clumps Urine Present /HPF; WBC Urine >75 /hpf
[2022-10-14 15:58] VITALS: BP 130/86; PULSE 94; RESP 20; O2SAT 100
[2022-10-14 16:06] LABS: Glucose Point of Care 95 mg/dl (65-105)
[2022-10-14 16:30] VITALS: BP 142/82; PULSE 89; RESP 15; O2SAT 100
--- NOTE | 2022-10-14 16:44 | ED.GENADULT ---
HPI - General Adult General Chief complaint: Urogenital-Male Stated complaint: burning with urination, trouble walking Time Seen by Provider: 10/14/22 14:49 Source: RN notes reviewed History of Present Illness HPI narrative: Patient presents emergency department from home for dysuria. Patient states has been having pain with urination for the past 3 days. States that whenever he urinates it vera and he feels like he is not completely emptying he denies any fevers or chills he denies any abdominal pain nausea vomiting diarrhea or any other symptoms patient also notes some right hip pain he states has been having some right hip discomfort since he fell in March but notes increased pain over the past 2 days the pain is located over the right lateral hip with no radiation nothing makes it better or worse he denies any new trauma or injury Related Data Home Medications Medication Instructions Recorded Confirmed allopurinol 300 mg tablet 300 mg PO DAILY 10/20/19 06/20/21 amitriptyline 25 mg tablet 25 mg PO HS 10/20/19 06/20/21 aspirin 325 mg tablet 325 mg PO DAILY 10/20/19 06/20/21 famotidine 20 mg tablet 20 mg PO BID 10/20/19 06/20/21 hydrocodone 10 mg-acetaminophen 1 tablet PO Q4-6H PRN Pain 10/20/19 06/20/21 325 mg tablet insulin aspart U-100 100 unit/mL See Rx Instructions .Route .COMPLEX 10/20/19 06/20/21 subcutaneous solution (Novolog U-100 Insulin aspart) simvastatin 20 mg tablet 20 mg PO HS 10/20/19 06/20/21 trazodone 50 mg tablet 100 mg PO HS 10/20/19 06/20/21 isosorbide mononitrate 30 mg 30 mg PO BID 03/27/20 06/20/21 tablet,extended release 24 hr albuterol sulfate 90 mcg/actuation 2 puff inhalation Q4H PRN 06/20/21 06/20/21 aerosol inhaler Shortness Of Breath insulin detemir U-100 100 unit/mL 80 units subcut HS 06/20/21 06/20/21 subcutaneous solution (Levemir U-100 Insulin) umeclidinium 62.5 mcg-vilanterol 1 inh inhalation DAILY 06/20/21 06/20/21 25 mcg/actuation powdr for inhalation (Anoro Ellipta) Allergies Allergy/AdvReac Type Severity Reaction Status Date / Time morphine Allergy Unknown Agitated Verified 10/14/22 15:19 naproxen Allergy Unknown Unconscious Verified 10/14/22 15:19 NSAIDS (Non-Steroidal AdvReac Unknown renal Verified 10/14/22 15:19 Anti-Inflamma insufficiency Review of Systems Review of Systems: Gen.: Denies fevers or chills ENT: Denies congestion Respiratory: Denies shortness of breath or cough CV: Denies chest pain or palpitations GI: Denies abdominal pain nausea, emesis or diarrhea see HPI Musculoskeletal: Reports right hip pain Neuro: Denies numbness, tingling, weakness or focal weakness Skin: Denies rash Except as documented, all other systems reviewed and negative [facility] Past Medical History Medical History Bronchitis CAD (coronary artery disease) Triple bypass CHF (congestive heart failure) Diabetes Fracture collar bone GERD (gastroesophageal reflux disease) Gout rt thumb, lt elbow Hyperlipidemia Hypertension Myocardial infarction Renal insufficiency Rheumatoid arthritis Surgical History Surgical History H/O vascular surgery History of coronary artery stent placement Multiple stents History of hip replacement On the right History of orthopedic surgery bilateral elbows and right hand History of total left knee replacement (TKR) Hx of CABG 3 vessel Hx of cardiac cath Hx of cataract surgery Family History Family History Father Family history of obesity Family history of alcoholism Patient's father is Acute myocardial infarction Mother Hypertension Patient's mother is Sibling Hypertension Sibling Alcoholism Social History Social History Smoking status:
[2022-10-14 17:00] LABS: Lactic Acid Reflex 1.9 mmol/L (0.7-2.0)
[2022-10-14 17:28] LABS: Influenza A QL RT-PCR Negative (Negative); Influenza B QL RT-PCR Negative (Negative); SARS-CoV-2 RNA PCR Negative
--- NOTE | 2022-10-14 17:34 | PC.NURSE ---
This RN called dietary at this time and requested dinner tray for pt.
[2022-10-14 18:54] VITALS: BP 145/88; PULSE 84; RESP 17; O2SAT 99
[2022-10-14] MEDS: SODIUM CHLORIDE 0.9% IV 1,000 ML 80 ML IV CONT (19:33)
[2022-10-14 20:33] VITALS: BP 139/76; PULSE 93; RESP 18; TEMP 37; O2SAT 96; BMI 26.8
--- NOTE | 2022-10-14 20:49 | ADMGEN ---
This patient, Channing Ruiz, was admitted to 2 Medical Room 257-01. Patient/family oriented to hospital policies and general routines including ID bracelet, bed and alarms, visiting hours, pain management, procedures, bathroom and other care routines, personal items, smoking policy, room service/diet, and visiting hours. Information on how to activate the Rapid Response Team has been discussed. Patient/Family are encouraged to report perceived risks to care and to ask questions if they do not understand what they are told or what they should do.
[2022-10-14 21:35] LABS: Glucose Point of Care 266 mg/dl (65-105)
--- NOTE | 2022-10-14 23:30 | PM.IMHP ---
H&P: HPI History of Present Illness Date/Time: 10/14/22 23:30 Chief Complaint: burning with urination Narrative: this is a 72-year-old male patient who has chronic right hip pain and is on pain medication at home. He also has chronic left knee pain. The patient is having difficulty walking. The patient has been having pain with urination for the last 3 days. The patient feels like he is urinating quite frequently and not emptying his bladder the way he should. He denies any abdominal pain nausea vomiting or diarrhea. The patient just feels more achy over the last couple days. His white count is noted to be 13.7. H&H is 11.8 And 38.0. his creatinine is 2.1. His baseline is anywhere from 1.5 up to 3.3 and 4.3. His blood sugar was initially 59 and now it is 266. Lactic was 1.9. the patient was started on ceftriaxone for UTI. The patient was found to be negative for influenza A/B and COVID. The patient is being admitted for observation status on the date of service of 10/14/2022. Review of Systems Review of Systems: See HPI All systems reviewed & are unremarkable except as noted in HPI and below Constitutional: Constitutional: Reports as per HPI and Reports no additional constitutional complaints Eyes: Eyes: Reports as per HPI and Reports no additional eye complaints ENT: Reports system reviewed and no additional complaints, except as documented and Reports Normal hearing present Cardiovascular: Cardiovascular: Reports no additional cardiovascular complaints Respiratory: Respiratory: Reports no additional respiratory complaints and Reports no additional respiratory complaints Gastrointestinal: Gastrointestinal: Reports as per HPI and Reports no additional gastrointestinal complaints Musculoskeletal: Musculoskeletal: Reports no additional musculoskeletal complaints Integumentary/Breasts: Skin/Breast: Reports system reviewed and no additional complaints, except as docu and Reports as per HPI Neurologic: Reports system reviewed and no additional complaints, except as documented, Reports as per HPI and Reports Normal hearing present Psychiatric: Psychiatric: Reports no additional psychiatric complaints and Reports as per HPI Endocrine: Endocrine: Reports no additional endocrine complaints Hematologic/Lymphatic: Hematologic/Lymphatic: Reports no additional hematologic/lymphatic complaints Allergic/Immunologic: Allergic/Immunologic: Reports no additional allergic/immunologic complaints [facility] Past Medical History Medical History (Updated 10/15/22 @ 01:55 by Zoila Esteban NP) Amputation of right great toe Bronchitis CAD (coronary artery disease) Triple bypass CHF (congestive heart failure) Diabetes Fracture collar bone GERD (gastroesophageal reflux disease) Gout rt thumb, lt elbow Hyperlipidemia Hypertension Myocardial infarction Renal insufficiency Rheumatoid arthritis Surgical History Surgical History (Updated 10/15/22 @ 01:53 by Zoila Esteban NP) H/O vascular surgery History of coronary artery stent placement Multiple stents History of hip replacement On the right History of orthopedic surgery bilateral elbows and right hand History of total left knee replacement (TKR) History of total right knee replacement Hx of CABG 3 vessel Hx of cardiac cath Hx of cataract surgery Family History Family History Father Family history of obesity Family history of alcoholism Patient's father is Acute myocardial infarction Mother Hypertension Patient's mother is Sibling Hypertension Sibling Alcoholism Social History Social History (Updated 10/15/22 @ 01:54 by Zoila Esteban NP) Social History: the patient is from his . He has 1 stepson. He is currently living with his baby sister. He used to drink heavily when he was younger but only occasionally drinks now.
[2022-10-15] MEDS: traZODone HCL 50 MG TABLET 100 MG PO (00:28)
[2022-10-15] MEDS: HYDROcodone/acetaminophen (*CRX) 10-325 MG TABLET 1 TAB PO (00:28)
[2022-10-15 00:29] VITALS: PULSE 93
[2022-10-15] MEDS: SIMVASTATIN 20 MG TABLET PO (00:29)
[2022-10-15] MEDS: carvediloL 25 MG TABLET PO ×2 (00:29→09:10)
[2022-10-15] MEDS: AMITRIPTYLINE HCL 25 MG TABLET PO (00:29)
[2022-10-15 05:02] VITALS: BP 102/63; PULSE 79; RESP 18; TEMP 36.6; O2SAT 95
[2022-10-15 06:11] LABS: Basophils Absolute Auto 0.1 K/mm3 (0.0-0.1); Basophils Percent Auto 0.9 % (0.2-1.2); Eosinophils Absolute Auto 0.2 K/mm3 (0-0.3); Eosinophils Percent Auto 3.8 % (0-4.4); Hematocrit 32.4 % (42.0-52.0); Hemoglobin 10.3 g/dL (14.0-18.0); Immature Granulocyte Absolute 0.04 K/mm3 (0.00-0.031); Immature Granulocyte Percent A 0.7 % (0-0.5); Lymphocytes Absolute Auto 1.19 K/mm3 (0.9-3.2); Lymphocytes Percent Auto 21.4 % (18.3-44.2); Mean Corpuscular HGB Conc 31.8 g/dl (32-36); Mean Corpuscular Hemoglobin 31.8 pg (26-34); Mean Platelet Volume 10.3 fl (7.4-10.4); Monocytes Absolute Auto 0.7 K/mm3 (0.1-0.6); Monocytes Percent Auto 11.7 % (2.6-8.5); Neutrophils Absolute Auto 3.4 K/mm3 (1.3-6.7); Neutrophils Percent Auto 61.5 % (45.5-73.1); Platelet Count Result 167 k/mm3 (150-375); Red Blood Count 3.24 M/mm3 (4.6-6.20); Red Cell Distribution Width 14.2 % (11.5-14.5); White Blood Count 5.6 K/mm3 (4.5-10.0)
[2022-10-15 06:23] LABS: Alanine Aminotransferase 15 U/L (6-50); Albumin Level 3.5 g/dL (3.5-5.1); Alkaline Phosphatase 109 U/L (38-126); Anion Gap 6 mmol/L (8-16); Aspartate Amino Transferase 22 U/L (17-59); Bilirubin,Total 0.5 mg/dL (0.2-1.3); Blood Urea Nitrogen 42 mg/dL (9-20); Calcium 8.5 mg/dL (8.4-10.2); Carbon Dioxide 26 mmol/L (22-30); Chloride 103 mmol/L (98-107); Estimated CRCL calculation 32 ml/min; Estimated Glomerular Filt Rate 31; Glucose 260 mg/dL (65-110); Potassium 4.2 mmol/L (3.4-5.0); Sodium 135 mmol/L (137-145)
[2022-10-15 07:31] LABS: Hemoglobin A1C 8.7 % (<5.7)
[2022-10-15] MEDS: SODIUM CHLORIDE 0.9% IV 1,000 ML 80 ML IV CONT (08:19)
[2022-10-15 08:49] LABS: Glucose Point of Care 269 mg/dl (65-105)
[2022-10-15 09:10] VITALS: PULSE 80
[2022-10-15] MEDS: INSULIN ASPART (*BKC) 100 UNITS/ML SUB-Q (09:10)
[2022-10-15] MEDS: allopurinoL 300 MG TABLET PO (09:17)
[2022-10-15] MEDS: FAMOTIDINE 20 MG TABLET PO (09:17)
--- NOTE | 2022-10-15 10:09 | PM.DS ---
DS: Admitting Diagnosis Discharge Date 10/15/22 Admitting Diagnosis UTI DS: Discharge Diagnosis Discharge Diagnosis (1) Acute UTI: Code(s): N39.0 - Urinary tract infection, site not specified Status: Acute Assessment and Plan: the patient was started on Rocephin. - tailor antibiotics to results of culture sensitivities. -urine and blood cultures are pending. (2) Stage 3b chronic kidney disease: Code(s): N18.32 - Chronic kidney disease, stage 3b Status: Chronic Assessment and Plan: -The patient has improved from his baseline. Continue to avoid nephrotoxic medications. (3) GERD (gastroesophageal reflux disease): Code(s): K21.9 - Gastro-esophageal reflux disease without esophagitis Status: Acute Assessment and Plan: Continue with p.o. Pepcid (4) Hypertension: Code(s): I10 - Essential (primary) hypertension Status: Chronic Assessment and Plan: continue with Coreg (5) Hyperlipidemia: Code(s): E78.5 - Hyperlipidemia, unspecified Status: Chronic Assessment and Plan: continue with Zocor (6) Diabetes: Code(s): E11.9 - Type 2 diabetes mellitus without complications Status: Chronic Assessment and Plan: -Accu-Cheks AC and HS sliding scale insulin (7) CAD (coronary artery disease): Code(s): I25.10 - Atherosclerotic heart disease of [place] coronary artery without angina pectoris Status: Chronic Assessment and Plan: -the patient has had multiple stents and open heart -continue with Coreg (8) CHF (congestive heart failure): Qualifiers: Heart failure chronicity: unspecified Heart failure type: unspecified Qualified Code(s): I50.9 - Heart failure, unspecified Code(s): I50.9 - Heart failure, unspecified Status: Chronic Assessment and Plan: type unknown. Continue with Coreg no recent echo for comparison Plan chronic right hip pain and left knee pain continue with [place] and trazodone and Elavil for rest. Chronic gout continue with allopurinol DS: Summary Hospital Course Reason for hospitalization: UTI Hospital Course: 72-year-old patient with a history of chronic kidney disease, hypertension, coronary artery disease, and CHF presented to the ED on 10/14/2022 with chief complaint of pain with urination. Patient found to have an elevated white count of 13.7. UA with 3+ blood, 3+ leukocyte esterase, greater than 75 RBCs, greater than 75 wbc's, WBC clumps present. Started on Rocephin and admitted to the hospital. With seen this morning patient states that he is no longer having urinary symptoms at that he is going to leave. Discussed with patient that I would like for him to stay pending culture results. Patient was very adamant on being discharged and refused to stay in the hospital another night. Discussed with patient that antibiotics may need to be changed due to what the culture sensitivity results are. patient did not care and wanted to leave. I described the risk and benefits of patient leaving and he verbalizes understanding. Patient without fever this morning, white count and symptoms resolved. Discharge patient on cefdinir and told him I would call if antibiotics needed to be changed. Time Spent with Patient Time attestation: Total time spent providing and/or coordinating discharge services: Exam Narrative: GENERAL: Comfortable, no acute distress HENMT: moist mucous membranes , poor dentition EYES: EOM intact b/l NECK: no lymphadenopathy RESPIRATORY: clear to auscultation CARDIO: RRR GI: soft, nontender, bowel sounds present, centrally obese SKIN: no rashes EXTREMITIES: no edema, redness or tenderness, scar over left knee from surgery DS: Data Data Completed and Pending Labs on day of discharge: Labs from last 24 hours 10/15/22 10/15/22 10/15/22 08:42 05:56 05:56 WBC RBC Hgb Hct MCV [facility]
== END 2022-10-15 11:05 | disposition home or self-care (01) ==
LOC: ANHED 16:48 → ANH3MEDSUR 18:43 → ANH2MED 20:02
PROVIDERS: Nurse Practitioner; Admitting Provider Internal Medicine; Emergency Provider Emergency Medicine; PCP Family Medicine; Visit Provider Internal Medicine
DX: N39.0 Urinary tract infection, site not specified (principal); B95.7 Other staphylococcus as the cause of diseases classified elsewhere; I13.0 Hypertensive heart and chronic kidney disease with heart failure and stage 1 through stage 4 chronic kidney disease, or unspecified chronic kidney disease; I50.9 Heart failure, unspecified; E11.22 Type 2 diabetes mellitus with diabetic chronic kidney disease; N18.32 Chronic kidney disease, stage 3b; K21.9 Gastro-esophageal reflux disease without esophagitis; E78.5 Hyperlipidemia, unspecified; I25.10 Atherosclerotic heart disease of native coronary artery without angina pectoris; Z95.5 Presence of coronary angioplasty implant and graft; Z95.1 Presence of aortocoronary bypass graft; I25.2 Old myocardial infarction; M25.562 Pain in left knee; M85.88 Other specified disorders of bone density and structure, other site; M10.9 Gout, unspecified; M06.9 Rheumatoid arthritis, unspecified; Z87.891 Personal history of nicotine dependence; Z96.641 Presence of right artificial hip joint; Z79.891 Long term (current) use of opiate analgesic; Z79.82 Long term (current) use of aspirin; Z79.51 Long term (current) use of inhaled steroids; Z79.4 Long term (current) use of insulin; Z79.899 Other long term (current) drug therapy; Z82.49 Family history of ischemic heart disease and other diseases of the circulatory system
CPT/HCPCS: 36415; 51701; 73502; 74176; 80053; 81001; 82948; 83036; 83605; 83690; 85025; 87040; 87086; 87088; 87147; 87636; 96361; 96365; 99285; A9270; G0378; J0696; J1815; J7030

== ENCOUNTER 2023-10-23 10:38 | Outpatient (CLI) | payer MEDICARE, SELFPAY ==
[2023-10-23 11:17] LABS: Basophils Absolute Auto 0.1 K/mm3 (0.0-0.1); Basophils Percent Auto 0.6 % (0.2-1.2); Eosinophils Absolute Auto 0.2 K/mm3 (0-0.3); Hemoglobin 12.8 g/dL (14.0-18.0); Immature Granulocyte Absolute 0.05 K/mm3 (0.00-0.031); Immature Granulocyte Percent A 0.6 % (0-0.5); Lymphocytes Absolute Auto 1.47 K/mm3 (0.9-3.2); Lymphocytes Percent Auto 18.5 % (18.3-44.2); Mean Corpuscular HGB Conc 31.2 g/dl (32-36); Mean Corpuscular Hemoglobin 31.8 pg (26-34); Mean Corpuscular Volume 101.7 fl (80-100); Mean Platelet Volume 10.5 fl (7.4-10.4); Monocytes Absolute Auto 0.6 K/mm3 (0.1-0.6); Monocytes Percent Auto 7.7 % (2.6-8.5); Neutrophils Absolute Auto 5.6 K/mm3 (1.3-6.7); Neutrophils Percent Auto 70.6 % (45.5-73.1); Platelet Count Result 224 k/mm3 (150-375); Red Blood Count 4.03 M/mm3 (4.6-6.20); Red Cell Distribution Width 14.2 % (11.5-14.5)
[2023-10-23 13:49] LABS: Alanine Aminotransferase 18 U/L (6-50); Albumin Level 4.4 g/dL (3.5-5.1); Alkaline Phosphatase 124 U/L (38-126); Anion Gap 10 mmol/L (8-16); Aspartate Amino Transferase 30 U/L (17-59); Bilirubin,Total 0.6 mg/dL (0.2-1.3); Blood Urea Nitrogen 50 mg/dL (9-20); Calcium 9.4 mg/dL (8.4-10.2); Carbon Dioxide 31 mmol/L (22-30); Chloride 95 mmol/L (98-107); Cholesterol 165 mg/dL (0-200); Estimated Glomerular Filt Rate 28; Glucose 175 mg/dL (65-110); HDL Direct 44 mg/dL; Sodium 136 mmol/L (137-145); Triglycerides 233 mg/dL (<150); Uric Acid 4.2 mg/dL (3.5-8.5)
[2023-10-23 14:02] LABS: LDL Cholesterol Direct 68 mg/dL
== END 2023-10-23 10:39 | disposition home or self-care (01) ==
LOC: ANHLAB 10:41
PROVIDERS: PCP Family Medicine; Visit Provider Family Medicine
DX: E11.9 Type 2 diabetes mellitus without complications (principal); E78.5 Hyperlipidemia, unspecified; I48.91 Unspecified atrial fibrillation; M10.9 Gout, unspecified
CPT/HCPCS: 36415; 80053; 80061; 83036; 84550; 85025

== ENCOUNTER 2023-11-17 09:33 | Outpatient (CLI) | payer MEDICARE, SELFPAY ==
--- NOTE | ~2023-11-17 | NM_ITS ---
EXAMINATION: NM analisa stress w perfusion DATE: 11/17/2023 14:37 INDICATION: Dyspnea. TECHNIQUE: Rest images were obtained following intravenous administration of 9 mCi Tc99m tetrofosmin (Myoview). The patient was infused intravenously with Lexiscan (Regadenoson). Then, 28 mCi Tc99m tetr ofosmin (Myoview) was administered intravenously, and stress images were obtained. Data was reconstru cted into short axis and horizontal and vertical long axis SPECT images. Gated SPECT images were also obtained. COMPARISON: None. FINDINGS: Large partially reversible perfusion defect at the apical anterior, apical, apical lateral, inferior apical, mid inferior and inferior basilar segments consistent with combination of infarct a nd ischemia and with adjacent reversible ischemia in the mid posterior lateral, mid posterior septal, apical septal and mid anterior segments. The decreased perfusion is moderate to severe along the inf erior wall and mild to moderate at the remaining affected segments. There is normal left ventricular chamber size with associated mild hypokinesis and decreased wall thickening in the most severely affe cted apical and inferior segments with mildly decreased left ventricular ejection fraction measures 3 9%. IMPRESSION: 1. Combination of moderate to severe ischemia and infarct involving portions of the wall of the left anterior descending and right coronary artery vascular distributions and smaller region of mild predo minantly reversible ischemia in the circumflex coronary artery vascular distribution. 2. Left ventricular ejection fraction measuring 39%. Reviewed, dictated and finalized at location A. LATE CLERK IMPRESSION: 1. Combination of moderate to severe ischemia and infarct involving portions of the wall of the left anterior descending and right coronary artery vascular di stributions and smaller region of mild predominantly reversible ischemia in the circumflex coronary artery vascular distribution. 2. Left ventricular ejection fraction measuring 39%.
--- NOTE | 2023-11-17 10:05 | ECHO_ITS ---
Patient Info Name: Channing Ruiz Age: 73 years : 1950 Gender: Male Ht: 72 in Wt: 184 lbs BSA: 2.07 m2 HR: 78 bpm BP: 138 / 79 mmHg Technical Quality: Fair Exam Date: 11/17/2023 10:13 AM Exam Location: Echo Lab Patient Status: Outpatient Admit Date: 11/17/2023 Staff Ordering Physician: Jurgen Farias DO Manager Flight: Violetta Naranjo RDCS Attending Provider: Jurgen Farias DO Referring Physician: Jarrett WINTER; Exam Type: CA echo dop color flow w con Study Info Indications R06.09 - Other forms of dyspnea Complete two-dimensional, color flow and Doppler transthoracic echocardiogram is performed with contrast to opacify the left ventricle and to improve the deliniation of the left ventricle endocardial borders. Contrast/Agitated Saline Contrast/Ag. Saline: Definity Amount: 3.00 ml Administered By: Neema Whitehead RDCS IV Access Condition: patent with no signs of infiltration New IV Access: Right Site Condition: Site dressing applied Summary 1. Definity contrast administered improved wall motion interpretation. 2. Left ventricular systolic function is severely globally reduced, estimated at 20-25%. 3. Left ventricular chamber dimension is severely enlarged. 4. The left ventricular diastolic function is grade I diastolic dysfunction. 5. E/e' 8 is minimally elevated. 6. Left atrial chamber dimension is mildly enlarged. 7. The mitral valve has moderately calcified annulus. 8. No pulmonary hypertension, estimated pulmonary arterial systolic pressure is 30 mmHg. 9. There is trivial pericardial effusion. Left Ventricle E/e' 8 is minimally elevated. Definity contrast administered improved wall motion interpretation. Left ventricular systolic function is severely globally reduced, estimated at 20-25%. Left ventricular chamber dimension is severely enlarged. The left ventricular diastolic function is grade I diastolic dysfunction. Right Ventricle Right ventricular chamber dimension is normal. Right ventricular systolic function is normal. Left Atria Left atrial chamber dimension is mildly enlarged. Right Atria Right atrial chamber dimension is normal. Aortic Valve The aortic valve is trileaflet. There is no aortic valve stenosis. There is no aortic valve regurgitation. Pulmonic Valve There is no pulmonic regurgitation. Mitral Valve The mitral valve has moderately calcified annulus. There is no mitral valve stenosis. There is no mitral valve regurgitation. Tricuspid Valve There is no tricuspid valve regurgitation. No pulmonary hypertension, estimated pulmonary arterial systolic pressure is 30 mmHg. Pericardium/Pleural There is trivial pericardial effusion. Inferior Vena Cava Normal inferior vena cava with >50% collapse upon inspiration consistent with normal right atrial pressure, 5 mmHg. Aorta The aortic root size at the sinus of Valsalva is normal. Left Ventricular Outflow Tract Name Value Normal LVOT 2D LVOT Diameter 2.09 cm LVOT Doppler LVOT Peak Gradient 4 mmHg LVOT Mean Gradient 2 mmHg LVOT VTI 17.38 cm LVOT VTI/AV VTI Ratio
--- NOTE | 2023-11-17 10:16 | EST_ITS ---
Patient Info Name: Channing Ruiz Age: 73 years : 1950 Gender: Male Ht: 72 in Wt: 174 lbs BSA: 2.00 m2 HR: 76 bpm BP: 128 / 82 mmHg Heart Rhythm: Sinus Rhythm Exam Date: 11/17/2023 12:06 PM Exam Location: Echo Lab Patient Status: Outpatient Admit Date: 11/17/2023 Staff Ordering Physician: Jurgen Farias DO Attending Provider: Jurgen Farias DO Exercise Technologist: Amanda Wade CT Exercise Physician: Jurgen Farias DO Exam Type: CA stress analisa w NM Study Info Indications R06.09 - Other forms of dyspnea A regadenoson stress test was performed. Summary 1. 1. Negative lexiscan stress test for ischemic ST changes by ECG criteria. 2. 2. Stable hemodynamics throughout the test. 3. 3. Nuclear scan to follow and will be reported separately. Please correlate with it. 4. 4. Patient informed of the above results. Protocol: Lexiscan Stress ECG Details Stage: REST Duration (min): 2 min : 18 sec HR (bpm): 76 SBP (mmHg): 128 DBP (mmHg): 82 Stage: REST Duration (min): 3 min : 48 sec HR (bpm): 72 SBP (mmHg): 128 DBP (mmHg): 82 Stage: STAGE 1 Duration (min): 1 min : 0 sec HR (bpm): 78 SBP (mmHg): 137 DBP (mmHg): 82 Stage: RECOVERY Duration (min): 1 min : 0 sec HR (bpm): 80 SBP (mmHg): 137 DBP (mmHg): 82 Stage: RECOVERY Duration (min): 2 min : 0 sec HR (bpm): 79 SBP (mmHg): 137 DBP (mmHg): 82 Stage: RECOVERY Duration (min): 2 min : 50 sec HR (bpm): 78 SBP (mmHg): 130 DBP (mmHg): 75 Rest HR: 72 bpm Peak HR: 82 bpm Rest Sys BP: 128 mmHg Peak Sys BP: 137 mmHg Max Pred HR: 148 bpm % Max Pred HR: 55 % Target HR: 126 bpm Max RPP: 11,234 bpm*mmHg Termination Reason: Completed protocol Cardiac Symptoms: Shortness of breath Total Time: 1 min : 0 sec Rest Benson BP: 82 mmHg Peak Benson BP: 82 mmHg Total Dose: 0.4 mg Resting ECG Sinus rhythm, anteroseptal infarct, age indeterminate. Stress ECG No ST changes. Arrhythmias None. Report Signatures
--- NOTE | 2023-11-17 11:29 | IVDEFINITY ---
Prior to administration of IV Definity the patient was educated on the risks and benefits of the imaging enhancing agent including potential adverse side effects. The patient verbalized understanding. Allergies were verified. No exclusion criteria were identified and at least one of the following inclusion criteria were met: 1) physician request, 2) patient technically difficult to image (per the [place] [employer] Echocardi[employer] guidelines of two or more segments not discernable within the apical view), or 3) questionable left ventricular function. ?
[2023-11-17] MEDS: PERFLUTREN LIPID MICROSPHERES 1.5 ML VIAL DILUTED TO 10 ML TOTAL VOLUME IV PUSH (11:40)
--- NOTE | 2023-11-17 12:58 | IVDEFINITY ---
Prior to administration of IV Definity the patient was educated on the risks and benefits of the imaging enhancing agent including potential adverse side effects. The patient verbalized understanding. Allergies were verified. No exclusion criteria were identified and at least one of the following inclusion criteria were met: 1) physician request, 2) patient technically difficult to image (per the [employer] [place] [employer] Echocardi[employer] guidelines of two or more segments not discernable within the apical view), or 3) questionable left ventricular function. ?
== END 2023-11-17 09:34 | disposition home or self-care (01) ==
LOC: ANHCARD 09:34
PROVIDERS: PCP Family Medicine; Visit Provider Internal Medicine Cardiovascular Disease
DX: R93.1 Abnormal findings on diagnostic imaging of heart and coronary circulation (principal); R06.09 Other forms of dyspnea; I34.81 Nonrheumatic mitral (valve) annulus calcification; I31.39 Other pericardial effusion (noninflammatory)
CPT/HCPCS: 78452; 93017; A9502; C8929; J2785; Q9957

== ENCOUNTER 2023-11-25 00:51 | Emergency (ER) | payer MEDICARE, SELFPAY ==
[2023-11-25] VITALS (7 sets, daily range): BP systolic 85–128; BP diastolic 59–84; PULSE 75–84; RESP 14–97; TEMP 36.6; O2SAT 25–98
--- NOTE | 2023-11-25 01:16 | ECG_ITS ---
Measurements Intervals [place] Rate: 77 P: 22 MT: 191 QRS: -12 QRSD: 102 T: 76 QT: 397 QTc: 452 Interpretive Statements SINUS RHYTHM POSSIBLE ANTERIOR MYOCARDIAL INFARCTION , OF INDETERMINATE AGE [30 ms Q WAVE IN V3/V4, OR R < 0.2 mV IN V4] INFERIOR MYOCARDIAL INFARCTION , PROBABLY OLD [40+ ms Q WAVE AND/OR ST/T ABNORMALITY IN II/aVF] COMPARED TO ECG 06/20/2021 19:45:59 NO SIGNIFICANT CHANGES Electronically Signed On 11-25-2023 15:24:02 ORGANIZATIONAL PSYCHOLOGIST by Michelle Hobbs M.D.
[2023-11-25 01:47] LABS: Basophils Absolute Auto 0.1 K/mm3 (0.0-0.1); Basophils Percent Auto 0.8 % (0.2-1.2); Eosinophils Absolute Auto 0.2 K/mm3 (0-0.3); Eosinophils Percent Auto 2.7 % (0-4.4); Hematocrit 37.6 % (42.0-52.0); Hemoglobin 11.7 g/dL (14.0-18.0); Immature Granulocyte Absolute 0.02 K/mm3 (0.00-0.031); Immature Granulocyte Percent A 0.3 % (0-0.5); Lymphocytes Absolute Auto 1.04 K/mm3 (0.9-3.2); Lymphocytes Percent Auto 15.7 % (18.3-44.2); Mean Corpuscular HGB Conc 31.1 g/dl (32-36); Mean Corpuscular Hemoglobin 32.3 pg (26-34); Mean Corpuscular Volume 103.9 fl (80-100); Mean Platelet Volume 10.6 fl (7.4-10.4); Monocytes Absolute Auto 0.6 K/mm3 (0.1-0.6); Monocytes Percent Auto 8.5 % (2.6-8.5); Neutrophils Absolute Auto 4.8 K/mm3 (1.3-6.7); Platelet Count Result 188 k/mm3 (150-375); Red Blood Count 3.62 M/mm3 (4.6-6.20); Red Cell Distribution Width 14.6 % (11.5-14.5); White Blood Count 6.6 K/mm3 (4.5-10.0)
[2023-11-25 01:59] LABS: INR 1.2; Prothrombin Time 15.8 Seconds (11.1-14.7)
[2023-11-25 02:54] LABS: Alanine Aminotransferase 18 U/L (6-50); Albumin Level 4.2 g/dL (3.5-5.1); Alkaline Phosphatase 109 U/L (38-126); Anion Gap 8 mmol/L (8-16); Aspartate Amino Transferase 43 U/L (17-59); Bilirubin,Total 0.5 mg/dL (0.2-1.3); Blood Urea Nitrogen 43 mg/dL (9-20); Calcium 9.1 mg/dL (8.4-10.2); Carbon Dioxide 24 mmol/L (22-30); Chloride 102 mmol/L (98-107); Estimated CRCL calculation 39 ml/min; Estimated Glomerular Filt Rate 40; Glucose 302 mg/dL (65-110); Potassium 4.7 mmol/L (3.4-5.0); Sodium 134 mmol/L (137-145)
--- NOTE | 2023-11-25 07:48 | ED.GENADULT ---
HPI - General Adult General Chief complaint: Recheck/Abnormal Lab/Rx Stated complaint: confused Time Seen by Provider: 11/25/23 06:56 Source: patient and family Mode of arrival: wheelchair Limitations: no limitations History of Present Illness HPI narrative: 73-year-old with a history of CHF with EF of 20- 25 % was brought in by his sister with the complaints of confusion. Patient states that he took his 1st dose of Entresto last night along with tramadol and in the middle of the night he got confused so she brought him here for evaluation. He denies any nausea, vomiting or chest pain or shortness of breath. Related Data Home Medications Medication Instructions Recorded Confirmed allopurinol 300 mg tablet 300 mg PO DAILY 10/20/19 11/19/23 famotidine 20 mg tablet 20 mg PO BID 10/20/19 11/19/23 hydrocodone 10 mg-acetaminophen 1 tablet PO Q4-6H PRN Pain (Scale 10/20/19 11/19/23 325 mg tablet Score 4-6) simvastatin 20 mg tablet 20 mg PO HS 10/20/19 11/19/23 albuterol sulfate 90 mcg/actuation 2 puff inhalation Q4H PRN 06/20/21 11/19/23 aerosol inhaler Shortness Of Breath bumetanide 2 mg tablet 2 mg PO DAILY 10/29/23 11/19/23 flash glucose sensor (FreeStyle 10/29/23 11/19/23 Mary 2 Sensor kit) insulin aspart U-100 100 unit/mL See Rx Instructions .Route .COMPLEX 10/29/23 11/19/23 subcutaneous solution (Novolog U-100 Insulin aspart) midodrine 10 mg tablet 10 mg PO TID 10/29/23 11/19/23 rltuvyot-py-ryqru 300 mcg-K 60 1 tablet PO DAILY 10/29/23 11/19/23 mcg-lycop 600 mcg-lutein 300 mcg tablet (Centrum Silver Men) pantoprazole 40 mg tablet,delayed 40 mg PO QAM 10/29/23 11/19/23 release trazodone 100 mg tablet 100 mg PO QHS PRN 10/29/23 11/19/23 omega 4-sdc-tqb-fish oil 1,000 mg 1 cap PO DAILY 11/04/23 11/19/23 (120 mg-180 mg) capsule (Fish Oil) Allergies Allergy/AdvReac Type Severity Reaction Status Date / Time morphine Allergy Unknown Agitated Verified 11/19/23 08:59 naproxen Allergy Unknown Unconscious Verified 11/19/23 08:59 NSAIDS (Non-Steroidal AdvReac Unknown renal Verified 11/19/23 08:59 Anti-Inflamma insufficiency Review of Systems Review of Systems: All systems reviewed & are unremarkable except as noted in HPI and below Eyes: Eyes: Reports no additional eye complaints ENT: Reports system reviewed and no additional complaints, except as documented Cardiovascular: Cardiovascular: Reports no additional cardiovascular complaints Respiratory: Respiratory: Reports no additional respiratory complaints Gastrointestinal: Gastrointestinal: Reports no additional gastrointestinal complaints Musculoskeletal: Musculoskeletal: Reports no additional musculoskeletal complaints Neurologic: Reports system reviewed and no additional complaints, except as documented [facility] Past Medical History Medical History Amputation of right great toe Bronchitis CAD (coronary artery disease) Triple bypass CHF (congestive heart failure) Diabetes Fracture collar bone GERD (gastroesophageal reflux disease) Gout rt thumb, lt elbow Hyperlipidemia Hypertension Myocardial infarction Renal insufficiency Rheumatoid arthritis Surgical History Surgical History H/O vascular surgery History of coronary artery stent placement Multiple stents History of hip replacement On the right History of orthopedic surgery bilateral elbows and right hand History of total right knee replacement Hx of CABG 3 vessel Hx of cardiac cath Hx of cataract surgery Family History Family History Father Family history of obesity Family history of alcoholism Patient's father is Acute myocardial infarction Mother Hypertension Patient's mother is Sibling Hypertension Sibling Alcoholism Social History Social History (R
== END 2023-11-25 08:29 | disposition home or self-care (01) ==
PROVIDERS: Emergency Medicine; Emergency Provider Family Medicine; PCP Family Medicine
DX: R41.0 Disorientation, unspecified (principal); I25.10 Atherosclerotic heart disease of native coronary artery without angina pectoris; I11.0 Hypertensive heart disease with heart failure; I50.9 Heart failure, unspecified; E11.9 Type 2 diabetes mellitus without complications; E78.5 Hyperlipidemia, unspecified; I25.2 Old myocardial infarction; Z87.891 Personal history of nicotine dependence
CPT/HCPCS: 36415; 80053; 85025; 85610; 85730; 93005; 99284

== ENCOUNTER 2024-04-14 09:52 | Outpatient (CLI) | payer MEDICARE, SELFPAY ==
[2024-04-14 10:14] LABS: Basophils Absolute Auto 0.1 K/mm3 (0.0-0.1); Eosinophils Absolute Auto 0.4 K/mm3 (0-0.3); Hemoglobin 11.7 g/dL (14.0-18.0); Immature Granulocyte Absolute 0.04 K/mm3 (0.00-0.031); Immature Granulocyte Percent A 0.6 % (0-0.5); Lymphocytes Absolute Auto 1.46 K/mm3 (0.9-3.2); Lymphocytes Percent Auto 20.8 % (18.3-44.2); Mean Corpuscular HGB Conc 31.6 g/dl (32-36); Mean Corpuscular Hemoglobin 32.3 pg (26-34); Mean Corpuscular Volume 102.2 fl (80-100); Mean Platelet Volume 10.3 fl (7.4-10.4); Monocytes Absolute Auto 0.7 K/mm3 (0.1-0.6); Monocytes Percent Auto 9.3 % (2.6-8.5); Neutrophils Absolute Auto 4.5 K/mm3 (1.3-6.7); Neutrophils Percent Auto 63.3 % (45.5-73.1); Platelet Count Result 197 k/mm3 (150-375); Red Blood Count 3.62 M/mm3 (4.6-6.20); Red Cell Distribution Width 14.4 % (11.5-14.5)
[2024-04-14 10:40] LABS: Alanine Aminotransferase 16 U/L (6-50); Albumin Level 4.3 g/dL (3.5-5.1); Alkaline Phosphatase 129 U/L (38-126); Anion Gap 11 mmol/L (4-12); Aspartate Amino Transferase 28 U/L (17-59); Bilirubin,Total 0.5 mg/dL (0.2-1.3); Blood Urea Nitrogen 42 mg/dL (9-20); Calcium 9.5 mg/dL (8.4-10.2); Carbon Dioxide 28 mmol/L (22-30); Chloride 100 mmol/L (98-107); Cholesterol 139 mg/dL (0-200); Estimated Glomerular Filt Rate 26; Glucose 83 mg/dL (65-110); HDL Direct 38 mg/dL; Potassium 4.1 mmol/L (3.4-5.0); Sodium 139 mmol/L (137-145); Triglycerides 156 mg/dL (<150)
[2024-04-14 10:52] LABS: LDL Cholesterol Direct 70 mg/dL
[2024-04-14 21:01] LABS: Hemoglobin A1C 7.8 % (<5.7)
== END 2024-04-14 09:53 | disposition home or self-care (01) ==
PROVIDERS: PCP Family Medicine; Visit Provider Registered Nurse
DX: I10 Essential (primary) hypertension (principal); E11.21 Type 2 diabetes mellitus with diabetic nephropathy; I48.20 Chronic atrial fibrillation, unspecified; M10.9 Gout, unspecified; K21.9 Gastro-esophageal reflux disease without esophagitis
CPT/HCPCS: 36415; 80053; 80061; 83036; 85025

== ENCOUNTER 2024-06-25 13:19 | Outpatient (CLI) | payer MEDICARE, SELFPAY ==
--- NOTE | 2024-06-25 13:32 | ECHO_ITS ---
Patient Info Name: Channing Ruiz Age: 74 years : 1950 Gender: Male Ht: 72 in Wt: 186 lbs BSA: 2.08 m2 HR: 82 bpm BP: 143 / 82 mmHg Heart Rhythm: Sinus Rhythm Technical Quality: Fair Exam Date: 06/25/2024 1:42 PM Exam Location: Echo Lab Patient Status: Outpatient Admit Date: 06/25/2024 Staff Ordering Physician: Jurgen Farias DO Drip Molder: Julia Gomez RDCS Attending Provider: Jurgen Farias DO Referring Physician: Jarrett WINTER; Exam Type: CA echo dop color flow w con Study Info Indications - heart disease Complete two-dimensional, color flow and Doppler transthoracic echocardiogram is performed. Summary 1. Complete two-dimensional, color flow and Doppler transthoracic echocardiogram is performed. 2. Left ventricular chamber dimension is mildly enlarged. 3. Left ventricular systolic function is moderately globally reduced, estimated at 35-40%. 4. The left ventricular diastolic function is abnormal. 5. E/e' 11 is mildly elevated. 6. Left atrial chamber dimension is mildly enlarged. 7. There is trace aortic valve regurgitation. 8. There is trace mitral valve regurgitation. 9. No pulmonary hypertension, estimated pulmonary arterial systolic pressure is 19 mmHg. 10. There is small circumferential pericardial effusion. Left Ventricle E/e' 11 is mildly elevated. Left ventricular systolic function is moderately globally reduced, estimated at 35-40%. Left ventricular chamber dimension is mildly enlarged. The left ventricular diastolic function is abnormal. Right Ventricle Right ventricular chamber dimension is normal. Right ventricular systolic function is normal. Left Atria Left atrial chamber dimension is mildly enlarged. Right Atria Right atrial chamber dimension is normal. Aortic Valve The aortic valve is trileaflet. There is no aortic valve stenosis. There is trace aortic valve regurgitation. Pulmonic Valve There is no pulmonic regurgitation. Mitral Valve There is no mitral valve stenosis. There is trace mitral valve regurgitation. Tricuspid Valve There is no tricuspid valve regurgitation. No pulmonary hypertension, estimated pulmonary arterial systolic pressure is 19 mmHg. Pericardium/Pleural No cardiac tamponade. There is small circumferential pericardial effusion. Inferior Vena Cava Normal inferior vena cava with >50% collapse upon inspiration consistent with normal right atrial pressure, 5 mmHg. Aorta The aortic root size at the sinus of Valsalva is normal. Left Ventricular Outflow Tract Name Value Normal LVOT 2D LVOT Diameter 2.02 cm LVOT Doppler LVOT Peak Gradient 2 mmHg LVOT Mean Gradient 1 mmHg LVOT VTI 15.93 cm LVOT VTI/AV VTI Ratio 0.74 LVOT Stroke Volume 51.19 ml LVOT CO 3.70 l/min LVOT CI 1.78 L/min/m2 Pulmonic Valve Name Value Normal RVOT Doppler -
== END 2024-06-25 13:20 | disposition home or self-care (01) ==
PROVIDERS: PCP Family Medicine; Visit Provider Internal Medicine Cardiovascular Disease
DX: I51.9 Heart disease, unspecified (principal)
CPT/HCPCS: 93306; C8929

== ENCOUNTER 2024-09-09 13:59 | Outpatient (CLI) | payer MEDICARE, SELFPAY ==
[2024-09-09 14:52] LABS: Basophils Percent Auto 0.5 % (0.2-1.2); Eosinophils Absolute Auto 0.1 K/mm3 (0-0.3); Eosinophils Percent Auto 1.6 % (0-4.4); Hematocrit 35.7 % (42.0-52.0); Hemoglobin 11.3 g/dL (14.0-18.0); Immature Granulocyte Absolute 0.03 K/mm3 (0.00-0.031); Immature Granulocyte Percent A 0.4 % (0-0.5); Lymphocytes Absolute Auto 1.06 K/mm3 (0.9-3.2); Lymphocytes Percent Auto 14.5 % (18.3-44.2); Mean Corpuscular HGB Conc 31.7 g/dl (32-36); Mean Corpuscular Hemoglobin 32.7 pg (26-34); Mean Corpuscular Volume 103.2 fl (80-100); Monocytes Absolute Auto 0.5 K/mm3 (0.1-0.6); Monocytes Percent Auto 6.7 % (2.6-8.5); Neutrophils Absolute Auto 5.6 K/mm3 (1.3-6.7); Neutrophils Percent Auto 76.3 % (45.5-73.1); Platelet Count Result 163 k/mm3 (150-375); Red Blood Count 3.46 M/mm3 (4.6-6.20); Red Cell Distribution Width 14.3 % (11.5-14.5); White Blood Count 7.3 K/mm3 (4.5-10.0)
[2024-09-09 15:05] LABS: Alanine Aminotransferase 15 U/L (6-50); Albumin Level 4.1 g/dL (3.5-5.1); Alkaline Phosphatase 100 U/L (38-126); Anion Gap 5 mmol/L (4-12); Aspartate Amino Transferase 29 U/L (17-59); Bilirubin,Total 0.6 mg/dL (0.2-1.3); Blood Urea Nitrogen 56 mg/dL (9-20); Calcium 9.1 mg/dL (8.4-10.2); Carbon Dioxide 28 mmol/L (22-30); Chloride 103 mmol/L (98-107); Estimated Glomerular Filt Rate 29; Glucose 140 mg/dL (65-110); Potassium 4.5 mmol/L (3.4-5.0); Sodium 136 mmol/L (137-145)
[2024-09-09 15:34] LABS: Prostate Specific Antigen 0.2 ng/mL (< OR = 4.0)
[2024-09-09 19:22] LABS: Hepatitis C Virus Antibody Negative (Negative)
[2024-09-09 22:13] LABS: Hemoglobin A1C 7.9 % (<5.7)
== END 2024-09-09 14:00 | disposition home or self-care (01) ==
PROVIDERS: PCP Family Medicine; Visit Provider Family Medicine
DX: Z12.5 Encounter for screening for malignant neoplasm of prostate (principal); E11.22 Type 2 diabetes mellitus with diabetic chronic kidney disease; I12.9 Hypertensive chronic kidney disease with stage 1 through stage 4 chronic kidney disease, or unspecified chronic kidney disease; N18.9 Chronic kidney disease, unspecified; Z11.59 Encounter for screening for other viral diseases
CPT/HCPCS: 36415; 80053; 83036; 84153; 85025; 86803; G0103

== ENCOUNTER 2024-12-06 14:05 | Inpatient (IN) | payer MEDICARE, SELFPAY ==
--- NOTE | ~2024-12-06 | CT_ITS ---
CLINICAL INDICATION: Fall with right hip pain and diffuse bony demineralization, limiting plain film evaluation. COMPARISON: Plain film evaluation of the right hip, performed the same day.. TECHNIQUE: Computed tomography (CT) of the pelvis was performed without intravenous contrast. The dos e-length product was 748.71 mGy-cm. FINDINGS/OBSERVATIONS: Pelvic structures:Diffuse bony demineralization is redemonstrated. Comminuted fracture of the inferior pubic ramus is identified. No acute fracture is identified within the femur. The femoral component is intact. IMPRESSION: Acute, comminuted fracture of the inferior pubic ramus, as detailed above. Reviewed, dictated and finalized at location A. TARIAN AIDE
--- NOTE | ~2024-12-06 | CT_ITS ---
History: Fall PROCEDURE: CT head without contrast. COMPARISON: 06/20/2021 TECHNIQUE: Axial imaging of the head performed from the skull base to the vertex without IV contrast. Sagittal a nd coronal reformations obtained. DLP: 681 mGy-cm FINDINGS: The ventricles are normal in size, shape and position. There is no mass, mass effect or midline shift. There is no abnormal extra-axial fluid collection or intracranial hemorrhage. Visualized paranasal sinuses are clear. The mastoid air cells are well aerated. No acute displaced fractures within the overlying cranium. Impression: No acute intracranial hemorrhage or suspicious mass effect. Reviewed, dictated and finalized at location A. OR ERP CONSULTANT Impression: No acute intracranial hemorrhage or suspicious mass effect.
--- NOTE | ~2024-12-06 | XR_ITS ---
HISTORY: R knee pain s/p fall COMPARISON: None TECHNIQUE: 2 views of the right femur were performed. No images of the right knee were obtained. FINDINGS: A right total hip prosthetic is identified with the femoral stem traversing prior fracture deformity within the mid shaft of the right femur. Diffuse bony demineralization is identified. Within the minimally visualized right knee, both medial and lateral tibiofemoral joint space narrowin g are identified. Lateral view of the distal right femur (again and not a dedicated right knee examination) demonstrate s a small suprapatellar joint effusion. Significant vascular calcifications are also noted. 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 ECTOR FLOOR SUB ASSEMBLY IMPRESSION: Diffuse bony demineralization with significant degenerative diseas e, and a small suprapatellar joint effusion within the minimally visualized rig ht knee
--- NOTE | ~2024-12-06 | XR_ITS ---
HISTORY: R hip pain s/p fall COMPARISON: 10/14/2022 TECHNIQUE: 2 views of the right hip along with an AP view of the pelvis FINDINGS: Fixation hardware within the right hip. Secondary to the diffuse bony demineralization, examination is limited for the detection of acute fra cture in this patient. However, the orientation of the right femur is asymmetric to the left, similar in appearance to CT ex amination in 2022. Further evaluation should be performed with noncontrast enhanced CT of the pelvis, if the patient is clinically able. IMPRESSION: Given the diffuse bony demineralization, and asymmetric orientation of the right femur an d the right hip hardware, in relation to the left, cross-sectional imaging (noncontrast enhanced CT e xamination of the pelvis) is suggested for further evaluation.. Reviewed, dictated and finalized at location A. ECTOR FINAL ASSEMBLY ELECTRICAL IMPRESSION: Given the diffuse bony demineralization, and asymmetric orientation of the right femur and the right hip hardware, in relation to the left, cross- sectional imaging (noncontrast enhanced CT examination of the pelvis) is sugges walter for further evaluation..
[2024-12-06 14:15] VITALS: BP 127/67; PULSE 79; RESP 17; TEMP 36.3; O2SAT 98
--- OUTSIDE RECORDS SUMMARY | 2024-12-06 15:32 | XMS_ITS | Referral Summary ---
Author Organization [facility] Address [address] [place] [address] Care Team Providers Care Electric Range Servicer Name Role Phone Fausto Chavez MD Primary Care Provider + [phone] Source Comments [facility],non-owned Affiliates and Associated Physician Practices is amultiple site organization consisting of ambulatory clinics and hospital sitesin [place], [place], [place] and [place]. This disclosure is being madepursuant to the Care Everywhere program and may not contain all information available regarding this patient. Last updated 18.[facility] [place] Allergies Active Allergy Reactions Criticality Noted Date Comments Ibuprofen Other Medium 07/03/2012 Was told by his physician not to take it because of his kidneys Morphine Psychiatric Medium 07/03/2012 Becomes disoriented Medications * Be aware that medications may not be up to date on this document. Alwaysverify current medications with the patient. Medication Sig Dispensed Refills Start Date End Date Status simvastatin (ZOCOR) 20 MG tablet Take 1 (one) tablet by mouth at bedtime Active allopurinol (ZYLOPRIM) 300 MG tablet Take 1 (one) tablet by mouth once daily Active traZODone (DESYREL) 100 MG tablet Take 1 (one) tablet by mouth at bedtime Active amitriptyline (ELAVIL) 25 MG tablet Take 1 (one) tablet by mouth at bedtime Active HYDROcodone-acetamin ophen (NORCO) 10-325 MG tablet Take 1 (one) tablet by mouth every 4 hours as needed for Pain Active albuterol HFA (PROVENTIL; VENTOLIN; PROAIR) 108 (90 Base) MCG/ACT inhaler Inhale 2 (two) puffs by mouth every 6 hours as needed for Shortness of Breath or Wheezing Active umeclidinium-vilante rol (ANORO ELLIPTA) 62.5-25 MCG/INH inhaler Inhale 1 (one) puff by mouth once daily Active fexofenadine (SABRINA) 180 MG tablet Take 1 (one) tablet by mouth once daily as needed Active midodrine (PROAMATINE) 10 MG tablet Take 1 (one) tablet by mouth 3 times daily before meals 90 tablet 3 01/04/2022 Active iron polysaccharides (NIFEREX 150) 150 MG capsule Take 1 (one) capsule by mouth once daily 30 capsule 3 01/05/2022 Active collagenase (SANTYL) 250 UNIT/GM ointment Apply 1 g to affected area once daily (Apply to R foot wound with dressing changes). Active apixaban (ELIQUIS) 5 MG tablet Take 1 (one) tablet by mouth 2 times daily 0 03/14/2022 Active insulin glargine (Lantus/Semglee) 100 units/mL pen Inject 10 (ten) Units subcutaneously once daily 03/15/2022 Active dilTIAZem coated beads 24hr (CARDIZEM CD) 180 MG capsule Take 1 (one) capsule by mouth once daily 03/15/2022 Active bumetanide (BUMEX) 2 MG tablet Take 1 (one) tablet by mouth once daily 03/15/2022 Active pantoprazole EC (PROTONIX) 40 MG tablet Take 1 (one) tablet by mouth once daily 03/15/2022 Active aspirin (Aspirin) 81 MG chew tablet Take 1 (one) tablet by mouth once daily 60 tablet 10/19/2022 Active Continuous Blood Gluc Sensor (FreeStyle Mary 14 Day Sensor) MISC as directed 12/19/2022 Active famotidine (Pepcid) 20 MG tablet Take 1 (one) tablet by mouth 2 times daily 12/23/2022 Active Insulin Syringe-Needle U-100 (INSULIN SYRINGE 1CC/30GX5/16 ) 30G X 516 1 ML MISC as directed 11/21/2022 Active metoprolol tartrate IR (Lopressor) 25 MG tablet Take 1 (one) tablet by mouth 2 times daily 12/11/2022 Active Active Problems Problem Noted Date Diagnosed Date Spondylolisthesis at L4-L5 level 01/23/2023 Sepsis with acute organ dysf unction without septic shock, due to unspecified organism, unspecified type 10/17/2022 Overview (07/07/2023): July 2023 Regulatory Update Acute kidney injury superimposed on chronic kidn ey disease 03/06/2022 Hyperkalemia 12/30/2021 Acute renal insufficiency 05/31/2013 SOB (shortness of breath) 05/31/2013 Difficulty in swallowing 05/20/2013 Immunizations Name Administration Dates Next Due INFLUENZA VACCINE, TRIV. (AF LURIA, FLUZONE TRIVALENT; 6MO+) (IIV3) 07/19/2014,08/06/2013,08/12/2012 Covid Moderna primary monova lent 12+ yr 0.5mL 01/04/2021,12/07/2020 INFLUENZA VACCINE 07/20/2019,07/09/2017,07/05/20 16 INFLUENZA VACCINE, ADJUVANTE D, QUADR. (FLUAD QUADRIVALENT; 65Y+) (AIIV4) 07/25/2021,07/26/2020 INFLUENZA VACCINE, ADJUVANTE D, TRIV. (FLUAD TRIVALENT; 65Y+) (AIIV3) 07/14/2018 INFLUENZA VACCINE, QUADR. (F LUZONE; FLULAVAL; FLUARIX; AFLURIA QUADRIVALENT; 6MO+), 0.5 ML (IIV4) 06/27/2015 MODERNA SARS-COV-2 COVID-19 VACCINE 0.25ML 10/02 PNEUMOCOCCAL PPSV23 08/06/2013 Pneumococcal Pcv13 Conj 07/14/2018 Social History Tobacco Use Types Packs/Day Years Used Date Smoking Tobacco: Never Smokeless Tobacco: Never Tobacco Cessation:Counseling Given: Not Answered Alcohol Use Standard Drinks/Week Comments Yes 0 (1 standard drink = 0.6 oz pur e alcohol) every now and then AUDIT-C Answer Date Recorded Q1: How often do you have a drink containing alc ohol? Never 03/06/2022 Average Number of Drinks Not on file 022 Frequency of Binge Drinking Not on file 10/2021 Overall Financial Resource Strain (CARDIA) Answe r Date Recorded How hard is it for you to pa y for the very basics like food, housing, medical care, and heating? Not hard at all 10/17/2022 [facility] [employer] - Occupational Stress Questionnaire Answer Date Recorded Do you feel stress - tense, restless, nervous, or anxious, or unable to sleep at night because your mind is troubled all the time - these days? Not at all 10/17/2022 Hunger Vital Sign Answer Date Recorded Within the past 12 months, y ou worried that your food would run out before you got the money to buy more. Never true 10/17/19 23 Within the past 12 months, t he food you bought just didn't last and you didn't have money to get more. Never true 10/17/2022 PRAPARE - Transportation Answer Date Re corded In the past 12 months, has l ack of transportation kept you from medical appointments or from getting medications? No 10/06 In the past 12 months, has l ack of transportation kept you from meetings, work, or from getting things needed for daily living? No 10/17/2022 Housing Stability Vital Sign Answer [place] e Recorded In the last 12 months, was t here a time when you were not able to pay the mortgage or rent on time? No 10/17/2022 Number of Places Lived in the Last Year Not on f ile 10/17/2022 In the last 12 months, was t here a time when you did not have a steady place to sleep or slept in a alf (including now)? No 10/17/2022 Sex and Gender Information Value Date Recorded Sex Assigned at Not on file Gender Identity Not on file Sexual Orientation Not on file Last Filed Vital Signs Vital Sign Reading Time Taken Comments Blood Pressure 116/75 10/18/2022 8:21 AM TORTILLA MAKER Pulse 80 10/18/2022 8:21 AM TORTILLA MAKER Temperature 36.7 C (98 F) 10/18/2022 8:21 AM TORTILLA MAKER Respiratory Rate 16 10/18/2022 8:21 AM TORTILLA MAKER Oxygen Saturation 95% 10/18/2022 8:21 AM TORTILLA MAKER Inhaled Oxygen Concentration - - Weight 90.7 kg (200 lb) 01/23/2023 9:58 AM CDT Height 182.9 cm (6') 01/23/2023 9:58 AM CDT Body Mass Index 27.12 01/23/2023 9:58 AM CDT Functional Status Functional Status Response Date of Assess ment Is person deaf or have serious hearing difficult y? No 03/07/2022 Is person blind or have serious difficulty seein g? No 03/07/2022 Does person have serious dif ficulty walking/climbing stairs? Yes 03/07/2022 Does person have difficulty dressing/bathing? No 03/07/2022 Does person have difficulty doing errands alone? No 03/07/2022 Cognitive Status Response Date of Assessm ent Does person have difficulty concentrating/remembering/making decisions? 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 Expl anation Adv Directive/Living Will/POA 03/16/2022 1:24 PM * Full Code (Latest Code Status on File) Date Activated Date Inactivated Comments 10/17/2022 1:26 AM 10/18/2022 2:29 PM * Full Code Date Activated Date Inactivated Comments 03/07/2022 1:33 AM 03/14/2022 7:10 PM * LIMITED RESUSCITATION-PRIOR AND AFTER ARREST Date Activated Date Inactivated Comments 12/30/2021 3:49 AM 01/04/2022 3:50 PM Question Answer Comments Limited Resuscitation: No Chest Compress ionNo Intubation, No Invasive VentilationNo Cardioversion, No Defibrilation, No External or Internal PacemakerNo Cardioactive Drugs, No Vasopressors * Full Code Date Activated Date Inactivated Comments 12/30/2021 2:17 AM 12/30/2021 3:49 AM * FULL RESUSCITATION Date Activated Date Inactivated Comments 10/05/2013 1:38 AM 10/07/2013 7:18 PM Care Teams Electric Range Servicer Relationship Specialty Start Date End Date Fausto Chavez MD [address] [place] [address] [place] [address] PCP - General Family Medicine 12/31/21
--- OUTSIDE RECORDS SUMMARY | 2024-12-06 15:32 | XMS_ITS | Patient Health Summary ---
Author Organization [facility] Address [address] [place] [address] Care Team Providers Care Sandal Parts Assembler Name Role Phone Fausto Chavez MD Primary Care Provider + [phone] Note from [facility],non-owned Affiliates and Associated Physician Practices is amultiple site organization consisting of ambulatory clinics and hospital sitesin [place], [place], [place] and [place]. This disclosure is being madepursuant to the Care Everywhere program and may not contain all information available regarding this patient. Last updated 18.[facility] Allergies * Ibuprofen(Other) -Medium Criticality * Morphine(Psychiatric) -Medium Criticality Medications * Be aware that medications may not be up to date on this document. Alwaysverify current medications with the patient. * simvastatin (ZOCOR) 20 MG tablet Take 1 (one) tablet by mouth at bedtime * allopurinol (ZYLOPRIM) 300 MG tablet Take 1 (one) tablet by mouth once daily * traZODone (DESYREL) 100 MG tablet Take 1 (one) tablet by mouth at bedtime * amitriptyline (ELAVIL) 25 MG tablet Take 1 (one) tablet by mouth at bedtime * HYDROcodone-acetaminophen (NORCO) 10-325 MG tablet Take 1 (one) tablet by mouth every 4 hours as needed for Pain * albuterol HFA (PROVENTIL; VENTOLIN; PROAIR) 108 (90 Base) MCG/ACT inhaler Inhale 2 (two) puffs by mouth every 6 hours as needed for Shortness of Breath or Wheezing * umeclidinium-vilanterol (ANORO ELLIPTA) 62.5-25 MCG/INH inhaler Inhale 1 (one) puff by mouth once daily * fexofenadine (SABRINA) 180 MG tablet Take 1 (one) tablet by mouth once daily as needed * midodrine (PROAMATINE) 10 MG tablet(Started 01/04/2022) Take 1 (one) tablet by mouth 3 times daily before meals 3 refills by 01/04/2023 * iron polysaccharides (NIFEREX 150) 150 MG capsule(Started 01/05/2022) Take 1 (one) capsule by mouth once daily 3 refills by 01/04/2023 * collagenase (SANTYL) 250 UNIT/GM ointment Apply 1 g to affected area once daily (Apply to R foot wound with dressing changes). * apixaban (ELIQUIS) 5 MG tablet(Started 03/14/2022) Take 1 (one) tablet by mouth 2 times daily * insulin glargine (Lantus/Semglee) 100 units/mL pen(Started 03/15/2022) Inject 10 (ten) Units subcutaneously once daily * dilTIAZem coated beads 24hr (CARDIZEM CD) 180 MG capsule(Started 03/15/2022) Take 1 (one) capsule by mouth once daily * bumetanide (BUMEX) 2 MG tablet(Started 03/15/2022) Take 1 (one) tablet by mouth once daily * pantoprazole EC (PROTONIX) 40 MG tablet(Started 03/15/2022) Take 1 (one) tablet by mouth once daily * aspirin (Aspirin) 81 MG chew tablet(Started 10/19/2022) Take 1 (one) tablet by mouth once daily * Continuous Blood Gluc Sensor (FreeStyle Mary 14 Day Sensor) MISC(Started 12/19/2022) as directed * famotidine (Pepcid) 20 MG tablet(Started 12/23/2022) Take 1 (one) tablet by mouth 2 times daily * Insulin Syringe-Needle U-100 (INSULIN SYRINGE 1CC/30GX5/16 ) 30G X 02/18 1 ML MISC(Started 11/21/2022) as directed * metoprolol tartrate IR (Lopressor) 25 MG tablet(Started 12/11/2022) Take 1 (one) tablet by mouth 2 times daily Active Problems Problem Noted Date Diagnosed Date Spondylolisthesis at L4-L5 level 01/23/2023 Sepsis with acute organ dysf unction without septic shock, due to unspecified organism, unspecified type 10/17/2022 Acute kidney injury superimposed on chronic kidn ey disease 03/06/2022 Hyperkalemia 12/30/2021 Acute renal insufficiency 05/31/2013 SOB (shortness of breath) 05/31/2013 Difficulty in swallowing 05/20/2013 Immunizations * INFLUENZA VACCINE, TRIV. (AFLURIA, FLUZONE TRIVALENT; 6MO+) (IIV3)(Given 07/19/2014, 08/06/2013, 08/12/2012) * Covid Moderna primary monovalent 12+ yr 0.5mL(Given 01/04/2021, 12/07/2020) * INFLUENZA VACCINE(Given 07/20/2019, 07/09/2017, 07/05/2016) * INFLUENZA VACCINE, ADJUVANTED, QUADR. (FLUAD QUADRIVALENT; 65Y+) (AIIV4)(Given 07/25/2021, 07/26/2020) * INFLUENZA VACCINE, ADJUVANTED, TRIV. (FLUAD TRIVALENT; 65Y+) (AIIV3)(Given 07/14/2018) * INFLUENZA VACCINE, QUADR. (FLUZONE; FLULAVAL; FLUARIX; AFLURIA QUADRIVALENT; 6MO+), 0.5 ML (IIV4)(Given 06/27/2015) * MODERNA SARS-COV-2 COVID-19 VACCINE 0.25ML(Given 10/02/2021) * PNEUMOCOCCAL PPSV23(Given 08/06/2013) * Pneumococcal Pcv13 Conj(Given 07/14/2018) Social History Tobacco Use Types Packs/Day Years [...] and heating? Not hard at all 10/17/2022 [facility] [facility] - Occupational Stress [...] place to sleep or slept in a jail (including now)? No 10/17/2022 Sex and Gender Information Value Date Recorded Sex Assigned at Not on file Gender Identity Not on file Sexual Orientation Not on file Last Filed Vital Signs Vital Sign Reading Time Taken Comments Blood Pressure 116/75 10/18/2022 8:21 AM LEARNING DISABLED TEACHER Pulse 80 10/18/2022 8:21 AM LEARNING DISABLED TEACHER Temperature 36.7 C (98 F) 10/18/2022 8:21 AM LEARNING DISABLED TEACHER Respiratory Rate 16 10/18/2022 8:21 AM LEARNING DISABLED TEACHER Oxygen Saturation 95% 10/18/2022 8:21 AM LEARNING DISABLED TEACHER Inhaled Oxygen Concentration - - Weight 90.7 kg (200 lb) 01/23/2023 9:58 AM CDT Height 182.9 cm (6') 01/23/2023 9:58 AM CDT Body Mass Index 27.12 01/23/2023 9:58 AM CDT Procedures * XR LUMBAR SPINE 2 OR 3VW(Performed 01/23/2023) Performed for Back pain, unspecified back location, unspecified back pain laterality, unspecified chronicity * XR PELVIS W RIGHT HIP 2VW(Performed 12/26/2022) Performed for Hip pain * CARDIAC EKG ORDER(Performed 10/21/2022) * GLUCOSE - POINT OF CARE(Performed 10/18/2022) * GLUCOSE - POINT OF CARE(Performed 10/18/2022) * HEMOGLOBIN A1C(Performed 10/18/2022) Performed for Hypoglycemia * MAGNESIUM BLOOD(Performed 10/18/2022) Performed for Hypoglycemia * BASIC METABOLIC PANEL (CALCIUM TOTAL)(Performed 10/18/2022) Performed for Hypoglycemia * CBC W/O DIFFERENTIAL(Performed 10/18/2022) Performed for Hypoglycemia * GLUCOSE - POINT OF CARE(Performed 10/17/2022) * GLUCOSE - POINT OF CARE(Performed 10/17/2022) * GLUCOSE - POINT OF CARE(Performed 10/17/2022) * OT EVAL AND TREAT(Performed 10/17/2022) * GLUCOSE - POINT OF CARE(Performed 10/17/2022) * GLUCOSE - POINT OF CARE(Performed 10/17/2022) * URINE MICROSCOPIC ONLY(Performed 10/17/2022) * URINALYSIS REFLEX TO MICROSCOPIC NO CULTURE(Performed 10/17/2022) * CULTURE BLOOD(Performed 10/17/2022) * CULTURE BLOOD(Performed 10/17/2022) * GLUCOSE - POINT OF CARE(Performed 10/17/2022) * GLUCOSE - POINT OF CARE(Performed 10/16/2022) * EKG 12-LEAD(Performed 10/16/2022) Performed for Sepsis with acute organ dysfunction without septic shock, due to unspecified organism, unspecified type (CMS/HCC) * LACTIC ACID BLOOD REFLEX TO REPEAT(Performed 10/16/2022) * PROCALCITONIN LEVEL(Performed 10/16/2022) * MAGNESIUM BLOOD(Performed 10/16/2022) * CBC W AUTO DIFFERENTIAL(Performed 10/16/2022) * COMPREHENSIVE METABOLIC PANEL(Performed 10/16/2022) * GLUCOSE - POINT OF CARE(Performed 10/16/2022) * XR CHEST 1VW PORTABLE(Performed 10/16/2022) Performed for Hypoglycemia * ED CRITICAL CARE(Performed 10/16/2022) Performed for Sepsis with acute organ dysfunction without septic shock, due to unspecified organism, unspecified type ([facility]) * GLUCOSE - POINT OF CARE(Performed 10/16/2022) * CARDIAC RHYTHM STRIP ORDER(Performed 03/16/2022) * GLUCOSE - POINT OF CARE(Performed 03/14/2022) * GLUCOSE - POINT OF CARE(Performed 03/14/2022) * GLUCOSE - POINT OF CARE(Performed 03/14/2022) * GLUCOSE - POINT OF CARE(Performed 03/13/2022) * GLUCOSE - POINT OF CARE(Performed 03/13/2022) * GLUCOSE - POINT OF CARE(Performed 03/13/2022) * GLUCOSE - POINT OF CARE(Performed 03/13/2022) * GLUCOSE - POINT OF CARE(Performed 03/12/2022) * GLUCOSE - POINT OF CARE(Performed 03/12/2022) * GLUCOSE - POINT OF CARE(Performed 03/12/2022) * GLUCOSE - POINT OF CARE(Performed 03/12/2022) * BASIC METABOLIC PANEL (CALCIUM TOTAL)(Performed 03/12/2022) * CBC W AUTO DIFFERENTIAL(Performed 03/12/2022) * GLUCOSE - POINT OF CARE(Performed 03/11/2022) * GLUCOSE - POINT OF CARE(Performed 03/11/2022) * GLUCOSE - POINT OF CARE(Performed 03/11/2022) * XR FOOT RIGHT 3VW OR MORE(Performed 03/11/2022) Performed for Post-operative state * GLUCOSE - POINT OF CARE(Performed 03/11/2022) * PATHOLOGY TISSUE EXAM (STL)(Performed 03/11/2022) Performed for Diagnosis unknown * AMPUTATION TOE(Performed 03/11/2022) * BASIC METABOLIC PANEL (CALCIUM TOTAL)(Performed 03/11/2022) Performed for Acute renal insufficiency * GLUCOSE - POINT OF CARE(Performed 03/10/2022) * GLUCOSE - POINT OF CARE(Performed 03/10/2022) * GLUCOSE - POINT OF CARE(Performed 03/10/2022) * GLUCOSE - POINT OF CARE(Performed 03/10/2022) * GLUCOSE - POINT OF CARE(Performed 03/09/2022) * GLUCOSE - POINT OF CARE(Performed 03/09/2022) * GLUCOSE - POINT OF CARE(Performed 03/09/2022) * GLUCOSE - POINT OF CARE(Performed 03/09/2022) * C-REACTIVE PROTEIN(Performed 03/09/2022) * ERYTHROCYTE SEDIMENTATION RATE(Performed 03/09/2022) * BASIC METABOLIC PANEL (CALCIUM TOTAL)(Performed 03/09/2022) * VANCOMYCIN LEVEL RANDOM(Performed 03/09/2022) * GLUCOSE - POINT OF CARE(Performed 03/08/2022) * GLUCOSE - POINT OF CARE(Performed 03/08/2022) * GLUCOSE - POINT OF CARE(Performed 03/08/2022) * GLUCOSE - POINT OF CARE(Performed 03/08/2022) * CBC W AUTO DIFFERENTIAL(Performed 03/08/2022) * BASIC METABOLIC PANEL (CALCIUM TOTAL)(Performed 03/08/2022) * VANCOMYCIN LEVEL RANDOM(Performed 03/08/2022) * GLUCOSE - POINT OF CARE(Performed 03/08/2022) * GLUCOSE - POINT OF CARE(Performed 03/07/2022) * GLUCOSE - POINT OF CARE(Performed 03/07/2022) * GLUCOSE - POINT OF CARE(Performed 03/07/2022) * XR KNEE LEFT 4VW OR MORE(Performed 03/07/2022) Performed for Atrial flutter, unspecified type (HCC) * VANCOMYCIN LEVEL RANDOM(Performed 03/07/2022) * GLUCOSE - POINT OF CARE(Performed 03/07/2022) * US RETRO COMP W BLADDER RESIDUAL(Performed 03/07/2022) Performed for Acute kidney injury superimposed on chronic kidney disease (HCC) * COMPREHENSIVE METABOLIC PANEL(Performed 03/07/2022) * CBC W/O DIFFERENTIAL(Performed 03/07/2022) * HEMOGLOBIN A1C(Performed 03/07/2022) * GLUCOSE - POINT OF CARE(Performed 03/06/2022) * EKG 12-LEAD(Performed 03/06/2022) Performed for Tachycardia * GLUCOSE - POINT OF CARE(Performed 03/06/2022) * MRI FOOT RIGHT WWO CONTRAST(Performed 03/06/2022) Performed for Diabetic foot (HCC) * VAS ARTERIAL ANKLE ARM INDEX(Performed 03/06/2022) Performed for Diabetic foot (HCC) * URINE MICROSCOPIC ONLY REFLEX TO CULTURE(Performed 03/06/2022) * URINALYSIS REFLEX MICROSCOPIC REFLEX CULTURE(Performed 03/06/2022) * CULTURE ANAEROBE(Performed 03/06/2022) * CULTURE WOUND+GRAM STAIN(Performed 03/06/2022) * XR FOOT RIGHT 3VW OR MORE(Performed 03/06/2022) Performed for Diabetic foot (HCC) * PROCALCITONIN LEVEL(Performed 03/06/2022) * LACTIC ACID BLOOD REFLEX TO REPEAT(Performed 03/06/2022) * CULTURE BLOOD(Performed 03/06/2022) * SARS-COV-2 (COVID-19) FLU A/B RSV PCR RAPID(Performed 03/06/2022) * TROPONIN I(Performed 03/06/2022) * CULTURE BLOOD(Performed 03/06/2022) * TROPONIN I(Performed 03/06/2022) * XR CHEST 1VW(Performed 03/06/2022) Performed for Oxygen decrease * B-TYPE NATRIURETIC PEPTIDE(Performed 03/06/2022) * COMPREHENSIVE METABOLIC PANEL(Performed 03/06/2022) * CBC W AUTO DIFFERENTIAL(Performed 03/06/2022) * TROPONIN I(Performed 03/06/2022) * EKG 12-LEAD(Performed 03/06/2022) Performed for Oxygen decrease * CARDIAC RHYTHM STRIP ORDER(Performed 01/09/2022) * APHERESIS/TRANSFUSION ORDER(Performed 01/07/2022) * GLUCOSE - POINT OF CARE(Performed 01/04/2022) * GLUCOSE - POINT OF CARE(Performed 01/04/2022) * CBC W AUTO DIFFERENTIAL(Performed 01/04/2022) * MAGNESIUM BLOOD(Performed 01/04/2022) * RENAL FUNCTION PANEL(Performed 01/04/2022) * GLUCOSE - POINT OF CARE(Performed 01/03/2022) * GLUCOSE - POINT OF CARE(Performed 01/03/2022) * GLUCOSE - POINT OF CARE(Performed 01/03/2022) * GLUCOSE - POINT OF CARE(Performed 01/03/2022) * GLUCOSE - POINT OF CARE(Performed 01/03/2022) * CBC W AUTO DIFFERENTIAL(Performed 01/03/2022) * MAGNESIUM BLOOD(Performed 01/03/2022) * RENAL FUNCTION PANEL(Performed 01/03/2022) * GLUCOSE - POINT OF CARE(Performed 01/02/2022) * GLUCOSE - POINT OF CARE(Performed 01/02/2022) * GLUCOSE - POINT OF CARE(Performed 01/02/2022) * NM MYOCARD PERF REST STRESS(Performed 01/02/2022) Performed for CAD in [place] artery * GLUCOSE - POINT OF CARE(Performed 01/02/2022) * STRESS TEST LEXISCAN (NUCLEAR)(Performed 01/02/2022) Performed for CAD in [place] artery * GLUCOSE - POINT OF CARE(Performed 01/02/2022) * CBC W AUTO DIFFERENTIAL(Performed 01/02/2022) * MAGNESIUM BLOOD(Performed 01/02/2022) * RENAL FUNCTION PANEL(Performed 01/02/2022) * GLUCOSE - POINT OF CARE(Performed 01/02/2022) * GLUCOSE - POINT OF CARE(Performed 01/01/2022) * GLUCOSE - POINT OF CARE(Performed 01/01/2022) * GLUCOSE - POINT OF CARE(Performed 01/01/2022) * GLUCOSE - POINT OF CARE(Performed 01/01/2022) * GLUCOSE - POINT OF CARE(Performed 01/01/2022) * GLUCOSE - POINT OF CARE(Performed 01/01/2022) * GLUCOSE - POINT OF CARE(Performed 01/01/2022) * GLUCOSE - POINT OF CARE(Performed 01/01/2022) * GLUCOSE - POINT OF CARE(Performed 01/01/2022) * CBC W AUTO DIFFERENTIAL(Performed 01/01/2022) * MAGNESIUM BLOOD(Performed 01/01/2022) * RENAL FUNCTION PANEL(Performed 01/01/2022) * GLUCOSE - POINT OF CARE(Performed 12/31/2021) * GLUCOSE - POINT OF CARE(Performed 12/31/2021) * GLUCOSE - POINT OF CARE(Performed 12/31/2021) * RENAL FUNCTION PANEL(Performed 12/31/2021) * TRANSFUSE RED BLOOD CELL LEUKOREDUCED UNIT(S)(Performed 12/31/2021) * PREPARE RBC LEUKOREDUCED UNIT(Performed 12/31/2021) * CBC W AUTO DIFFERENTIAL(Performed 12/31/2021) * GLUCOSE - POINT OF CARE(Performed 12/31/2021) * HELICOBACTER PYLORI UREASE (STL)(Performed 12/31/2021) Performed for Diagnosis unknown * ME ED EGD FLEX TRANSORAL DX(Performed 12/31/2021) * TYPE + SCREEN PANEL(Performed 12/31/2021) * GLUCOSE - POINT OF CARE(Performed 12/31/2021) * EGD(Performed 12/31/2021) * HGB HCT PANEL(Performed 12/31/2021) Performed for Acute GI bleeding * VITAMIN B12(Performed 12/31/2021) * FOLATE(Performed 12/31/2021) * IRON + TRANSFERRIN PANEL(Performed 12/31/2021) * HEMOGLOBIN A1C(Performed 12/31/2021) * GLUCOSE - POINT OF CARE(Performed 12/31/2021) * BLOOD TYPE VERIFICATION(Performed 12/31/2021) * HGB HCT PANEL(Performed 12/31/2021) Performed for Acute GI bleeding * GLUCOSE - POINT OF CARE(Performed 12/31/2021) * GLUCOSE - POINT OF CARE(Performed 12/30/2021) * GLUCOSE - POINT OF CARE(Performed 12/30/2021) * HGB HCT PANEL(Performed 12/30/2021) Performed for Acute GI bleeding * ECHOCARDIOGRAM 2D WITH DOPPLER(Performed 12/30/2021) Performed for SOB (shortness of breath) * HGB HCT PANEL(Performed 12/30/2021) Performed for Acute GI bleeding * GLUCOSE - POINT OF CARE(Performed 12/30/2021) * GLUCOSE - POINT OF CARE(Performed 12/30/2021) * BASIC METABOLIC PANEL (CALCIUM TOTAL)(Performed 12/30/2021) Performed for Hyperkalemia * CBC W AUTO DIFFERENTIAL(Performed 12/30/2021) Performed for Hematemesis with nausea * TROPONIN I(Performed 12/30/2021) * URINALYSIS REFLEX MICROSCOPIC REFLEX CULTURE(Performed 12/30/2021) * SARS-COV-2 (COVID-19)+INFLU A+B PCR RAPID(Performed 12/30/2021) * GLUCOSE - POINT OF CARE(Performed 12/30/2021) * GLUCOSE - POINT OF CARE(Performed 12/30/2021) * ED CRITICAL CARE(Performed 12/30/2021) Performed for Hyperkalemia * LIPASE BLOOD(Performed 12/30/2021) * TROPONIN I(Performed 12/30/2021) * CT ANGIO ABD PELVIS GI BLEED(Performed 12/30/2021) Performed for Hematemesis with nausea * XR CHEST 1VW(Performed 12/29/2021) Performed for SOB (shortness of breath) * EKG 12-LEAD(Performed 12/29/2021) Performed for SOB (shortness of breath) * TROPONIN I(Performed 12/29/2021) * MAGNESIUM BLOOD(Performed 12/29/2021) * B-TYPE NATRIURETIC PEPTIDE(Performed 12/29/2021) * COMPREHENSIVE METABOLIC PANEL(Performed 12/29/2021) * CBC W AUTO DIFFERENTIAL(Performed 12/29/2021) * EKG 12-LEAD(Performed 12/29/2021) Performed for SOB (shortness of breath) * LIPASE BLOOD(Performed 10/19/2019) * COMPREHENSIVE METABOLIC PANEL(Performed 10/19/2019) * CBC W AUTO DIFFERENTIAL(Performed 10/19/2019) * LAB RESULTS ORDER(Performed 06/17/2018) * LAB HISTORICAL RESULTS-ONBASE(Performed 04/19/2017) * LAB HISTORICAL RESULTS-ONBASE(Performed 04/14/2017) * LAB HISTORICAL RESULTS-ONBASE(Performed 04/14/2017) * LAB HISTORICAL RESULTS-ONBASE(Performed 04/14/2017) * IP CONSULT TO HOSPITALIST(Performed 11/08/2013) Performed for Chest pain * CARDIAC RHYTHM STRIP ORDER(Performed 10/08/2013) * GLUCOSE - POINT OF CARE(Performed 10/07/2013) * NM LUNG VENT PERF AEROSOL(Performed 10/07/2013) Performed for Chest pain, SOB (shortness of breath), Acute renal insufficiency * GLUCOSE - POINT OF CARE(Performed 10/06/2013) * GLUCOSE - POINT OF CARE(Performed 10/06/2013) * D-DIMER(Performed 10/06/2013) Performed for Chest pain, SOB (shortness of breath), Acute renal insufficiency * GLUCOSE - POINT OF CARE(Performed 10/06/2013) * URINALYSIS REFLEX TO MICROSCOPIC NO CULTURE(Performed 10/06/2013) Performed for Chest pain * URINE MICROSCOPIC ONLY(Performed 10/06/2013) Performed for Chest pain * GLUCOSE - POINT OF CARE(Performed 10/06/2013) * BASIC METABOLIC PANEL (CALCIUM TOTAL)(Performed 10/06/2013) Performed for Chest pain * CBC W AUTO DIFFERENTIAL(Performed 10/06/2013) Performed for Chest pain * GLUCOSE - POINT OF CARE(Performed 10/05/2013) * CULTURE STOOL+ E COLI SHIGA-LIKE TOXIN(Performed 10/05/2013) Performed for Chest pain, SOB (shortness of breath), Acute renal insufficiency * GLUCOSE - POINT OF CARE(Performed 10/05/2013) * LIPID PROFILE(Performed 10/05/2013) Performed for Chest pain * NM MYOCARD PERF REST STRESS(Performed 10/05/2013) Performed for Chest pain * STRESS TEST LEXISCAN (NUCLEAR)(Performed 10/05/2013) Performed for Chest pain * ECHOCARDIOGRAM 2D WITH DOPPLER(Performed 10/05/2013) Performed for Chest pain * INFLUENZA A+B ANTIGEN RAPID(Performed 10/05/2013) Performed for Chest pain * GLUCOSE - POINT OF CARE(Performed 10/05/2013) * TROPONIN I(Performed 10/05/2013) * TROPONIN I(Performed 10/05/2013) * CULTURE BLOOD(Performed 10/04/2013) * CULTURE BLOOD(Performed 10/04/2013) * PTT(Performed 10/04/2013) * PT-INR(Performed 10/04/2013) * COMPREHENSIVE METABOLIC PANEL(Performed 10/04/2013) * CBC W AUTO DIFFERENTIAL(Performed 10/04/2013) * TROPONIN I(Performed 10/04/2013) * B-TYPE NATRIURETIC PEPTIDE(Performed 10/04/2013) * XR CHEST 1VW PORTABLE(Performed 10/04/2013) Performed for Chest pain * EKG 12-LEAD(Performed 10/04/2013) Performed for Chest pain * CARDIAC EKG ORDER(Performed 05/31/2013) * XR CHEST 1VW PORTABLE(Performed 05/30/2013) Performed for SOB (shortness of breath) * TROPONIN I(Performed 05/30/2013) * B-TYPE NATRIURETIC PEPTIDE(Performed 05/30/2013) * COMPREHENSIVE METABOLIC PANEL(Performed 05/30/2013) * CBC W AUTO DIFFERENTIAL(Performed 05/30/2013) * EKG 12-LEAD(Performed 05/30/2013) Performed for SOB (shortness of breath) Results * XR LUMBAR SPINE 2 OR 3VW (01/23/2023 9:56 AM CDT) Anatomical Region Laterality Modality Spine Radiographic Cyndie ging 01/23/2023 11:2 1 AM CDT Impressions 01/23/2023 11:40 AM CDT IMPRESSION: Moderate degenerative disc disease and osteoarthritic changes at L3-4 and L4-5. > Dictated by Luis Fernando Winter MD I, Andree Kendrick MD have personally reviewed and interpreted this examination/study. > Interpreting Provider: Andree Kendrick MD on 01/23/2023 11:40 AM Narrative 01/23/2023 11:40 AM CDT PROCEDURE: XR LUMBAR SPINE 2 OR 3VW DATE/TIME OF EXAM: 01/23/2023 9:57 AM CLINICAL INFORMATION: None relevant/not provided if blank. Indication: M54.9: Back pain, unspecified back location, unspecified back pain laterality, unspecified chronicity Additional History: COMPARISON: None. FINDINGS: There is grade 1 anterolisthesis of L3 on 4 and L4 on 5. There is moderate to severe degenerative disc disease at L3-4 and L4-5. Moderate osteoarthritic changes are seen at the facet joints at L3-4 and L4-5. No acute fracture. Atherosclerotic calcification of the abdominal aorta. Procedure Note Andree Kendrick MD - 01/23/2023 PROCEDURE: XR LUMBAR SPINE 2 OR 3VW DATE/TIME OF EXAM: 01/23/2023 9:57 AM CLINICAL INFORMATION: None relevant/not provided if blank. Indication: M54.9: Back pain, unspecified back location, unspecifiedback pain laterality, unspecified chronicity Additional History: COMPARISON: None. FINDINGS: There is grade 1 anterolisthesis of L3 on 4 and L4 on 5. There ismoderate to severe degenerative disc disease at L3-4 and L4-5. Moderate osteoarthritic changes are seen at the facet joints at L3-4 and L4-5. No acute fracture. Atherosclerotic calcification of the abdominal aorta. IMPRESSION: Moderate degenerative disc disease and osteoarthritic changes at L3-4and L4-5. > Dictated by Luis Fernando Winter MD I, Andree Kendrick MD have personally reviewed and interpreted this examination/study. > Interpreting Provider: Andree Kendrick MD on 1:40 AM Jung Villareal MD DIAGNOSTIC IMAGING O RDERABLES * XR PELVIS W RIGHT HIP 2VW (12/26/2022 1:39 PM CDT) Anatomical Region Laterality Modality Pelvis Radiographic Cyndie ging 12/26/2022 3:32 PM CDT Narrative 12/26/2022 3:33 PM CDT PROCEDURE: XR PELVIS W RIGHT HIP 2VW, DATE/TIME OF EXAM: 12/26/2022 1:39 PM, LOCATION [facility] INDICATION: M25.559: Hip pain ADDITIONAL CLINICAL INFORMATION: Ordering Provider Reason For Exam: Pain vs Post op COMPARISON: None. TECHNIQUE: 2 views of the right hip. 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 No suggestion of prosthesis failure or lucency. No acute fractures or dislocations is seen in the hip. > Interpreting Provider: Andree Kendrick MD on 12/26/2022 3:33 PM Procedure Note Andree Kendrick MD - 12/26/2022 PROCEDURE: XR PELVIS W RIGHT HIP 2VW, DATE/TIME OF EXAM: :39 PM, LOCATION [facility] INDICATION: M25.559: Hip pain ADDITIONAL CLINICAL INFORMATION: Ordering Provider Reason For Exam: Pain vs Post op COMPARISON: None. TECHNIQUE: 2 views of the right hip. 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 No suggestion of prosthesis failure or lucency. No acute fractures or dislocations is seen in the hip. > Interpreting Provider: Andree Kendrick MD on :33 PM Vijaya Finney MD DIAGNOSTIC IMAGING O RDERABLES * CARDIAC EKG ORDER (10/21/2022 8:36 AM LEARNING DISABLED TEACHER) Only the most recent of2 resultswithin the time period is included. Narrative 10/21/2022 8:36 AM LEARNING DISABLED TEACHER Ordered by an unspecified provider. Scanned Document CARDIAC SERVICES ORD ERABLES * (ABNORMAL) GLUCOSE - POINT OF CARE (10/18/2022 11:36 AM LEARNING DISABLED TEACHER) Only the most recent of89 resultswithin the time period is included. Glucose WB/POC 183(H) 70 - 106 mg/dL 10/18/2022 11:39 AM LEARNING DISABLED TEACHER [facility] Specimen Type Cap Fingerstick 2022 11:39 AM LEARNING DISABLED TEACHER [facility] Blood BLOOD SPECIMEN / Unknown 10/18/2022 11:36 AM LEARNING DISABLED TEACHER 10/18/2022 11:39 AM LEARNING DISABLED TEACHER Anisha Marroquin MD LAB - POINT OF CARE ORDERABLES [facility] [id number] [place] [address] * (ABNORMAL) HEMOGLOBIN A1C (10/18/2022 2:48 AM LEARNING DISABLED TEACHER) Only the most recent of3 resultswithin the time period is included. Hemoglobin A1c 8.2(H) <5.7 % 10/18/2022 3:29 AM LEARNING DISABLED TEACHER [facility] Estimated Average Glucose 189 mg/dL 10/18/2022 3:29 AM [facility] Blood BLOOD SPECIMEN / Unknown Venipuncture / Unknown 10/18/2022 2:48 AM LEARNING DISABLED TEACHER 10/18/2022 2:58 AM LEARNING DISABLED TEACHER Narrative [facility] - 10/18/2022 3:29 AM LEARNING DISABLED TEACHER HbA1c Interpretation: Normal: < 5.7% Pre-diabetes: 5.7-6.4% Diabetes: Equal to or greater than 6.5% Test results diagnostic of diabetes should be repeated for confirmation. Treatment target values recommended by ADA and other clinical organizations should be used to evaluate metabolic control in patients. This test should not replace glucose testing for patients with Type 1 diabetes, pediatric patients, or women. Falsely low HbA1c results may be observed in patients with clinical conditions that shorten erythrocyte life span or decrease mean erythrocyte age such as the presence of unstable hemoglobin variants, elevated hemoglobin F level or other causes of hemolytic anemia. HbA1c may not accurately reflect glycemic control when clinical conditions that affect erythrocyte survival are present. Severe Iron deficiency anemia may yield falsely high results. Hemoglobin A1c assay should not be used to diagnose or monitor diabetes in patients with malignancy, recent blood transfusion, chronic kidney or liver disease. This method may yield falsely low results when hemoglobin (HbF) exceeds 5% in the specimen. The [employer] assay for the measurement of HbA1c is a National Glycohemoglobin Standardization Program (NGSP) certified method. Anisha Marroquin MD LAB - CHEMISTRY [facility] Organization Address City/State/ZIP Co de Phone Number [facility] [address] [place] [address] * (ABNORMAL) CBC W/O DIFFERENTIAL (10/18/2022 2:48 AM LEARNING DISABLED TEACHER) Only the most recent of2 resultswithin the time period is included. WBC 5.7 4.4 - 10.7 x10E9/L 10/18/2022 3:07 AM [facility] RBC 3.10(L) 3.80 - 5.40 x10E12/L 10/18/2022 3:07 AM [facility] Hemoglobin 10.1(L) 12.0 - 17.6 gm/dL 10/18/2022 3:07 AM [facility] Hematocrit 31.8(L) 35.2 - 51.7 % 10/18/2022 3:07 AM [facility] MCV 102.6(H) 80.7 - 98.3 fl 10/18/2022 3:07 AM [facility] MCH 32.6 26.7 - 34.0 pg 10/18/2022 3:07 AM [facility] MCHC 31.8 30.8 - 35.9 gm/dL 10/18/2022 3:07 AM [facility] Platelet Count 177 153 - 416 x10E9/L 10/18/2022 3:07 AM [facility] RDW-CV 14.2 12.1 - 14.9 % 10/18/2022 3:07 AM [facility] MPV 10.6 9.4 - 12.9 fl 10/18/2022 3:07 AM [facility] Blood BLOOD SPECIMEN / Unknown Venipuncture / Unknown 10/18/2022 2:48 AM LEARNING DISABLED TEACHER 10/18/2022 2:58 AM LEARNING DISABLED TEACHER Kasandra She MD LAB - HEMATOLOGY ORD YOEL Performing Organization Address City/[facility]/ZIP Co de Phone Number [facility] [address] [place] [address] * (ABNORMAL) BASIC METABOLIC PANEL (CALCIUM TOTAL) (10/18/2022 2:48 AM LEARNING DISABLED TEACHER) Only the most recent of7 resultswithin the time period is included. Glucose 346(H) 70 - 105 mg/dL 10/18/2022 3:26 AM LEARNING DISABLED TEACHER [facility] Sodium 137 136 - 145 mmol/L 10/18/2022 3:26 AM [facility] Potassium 4.4 3.5 - 5.1 mmol/L 10/18/2022 3:26 AM [facility] Chloride 106 98 - 107 mmol/L 10/18/2022 3:26 AM [facility] CO2 23 23 - 31 mmol/L 10/18/2022 3:26 AM [facility] Calcium 9.0 8.4 - 10.4 mg/dL 10/18/2022 3:26 AM [facility] Anion Gap 8 8 - 18 mmol/L 10/18/2022 3:26 AM [facility] BUN 34(H) 8.4 - 25.7 mg/dL 10/18/2022 3:26 AM [facility] Creatinine 1.88(H) 0.72 - 1.25 mg/dL 10/18/2022 3:26 AM [facility] eGFR by CKD-EPI 38(L) >=90 mL/min/1.7 3 m2 10/18/2022 3:26 AM [facility] Blood BLOOD SPECIMEN / Unknown Venipuncture / Unknown 10/18/2022 2:48 AM LEARNING DISABLED TEACHER 10/18/2022 2:58 AM LEARNING DISABLED TEACHER Kasandra Nowak MD LAB - CHEMISTRY [facility] Performing Organization Address City/[facility]/ZIP Co de Phone Number [facility] [address] [place], [place] [id number] * MAGNESIUM BLOOD (10/18/2022 2:48 AM LEARNING DISABLED TEACHER) Only the most recent of7 resultswithin the time period is included. Magnesium 2.1 1.6 - 2.6 mg/dL 10/18/2022 3:26 AM [facility] Blood BLOOD SPECIMEN / Unknown Venipuncture / Unknown 10/18/2022 2:48 AM LEARNING DISABLED TEACHER 10/18/2022 2:58 AM LEARNING DISABLED TEACHER Kasandra Nowak MD LAB - CHEMISTRY [facility] Organization Address City/State/ZIP Co de Phone Number [facility] [address] [place] [address] * (ABNORMAL) URINALYSIS REFLEX TO MICROSCOPIC NO CULTURE (10/17/2022 2:06 AM LEARNING DISABLED TEACHER) Only the most recent of2 resultswithin the time period is included. Color UA Yellow Straw, Yellow 10/17/2022 2:16 AM [facility] Clarity UA Clear Clear 10/17/2022 2:16 AM [facility] Glucose UA Negative Negative 10/17/2022 2:16 AM [facility] Bilirubin UA Negative Negative 10/17/2022 2:16 AM [facility] Ketone UA Negative Negative 10/17/2022 2:16 AM [facility] Specific Ruth UA 1.010 1.005 - 1.030 10/17/2022 2:16 AM [facility] Blood UA Negative Negative 10/17/2022 2:16 AM [facility] pH UA 5.0 5.0 - 8.0 pH 10/17/2022 2:16 AM [facility] Protein UA Negative Negative 10/17/2022 2:16 AM [facility] Urobilinogen UA Negative Negative mg/dL 10/17/2022 2:16 AM [facility] Nitrite UA Negative Negative 10/17/2022 2:16 AM [facility] Leukocyte UA Trace(A) Negative 10/17/2022 2:16 AM [facility] Urine Microscopy Urine microscopy to follow 10/17/2022 2:16 AM [facility] Urine URINE SPECIMEN OBTAINED BY SINGLE CATHETERIZATION OF URINARY BLADDER / Unknown Collection / Unknown 10/17/2022 2:06 AM LEARNING DISABLED TEACHER 10/17/2022 2:10 AM LEARNING DISABLED TEACHER Narrative [facility] - 10/17/2022 2:16 AM LEARNING DISABLED TEACHER Marv Pascual MD LAB - URINALYSIS ORD ERABLES Performing Organization Address [facility] Co de Phone Number [facility] [id number] [place] [phone] * (ABNORMAL) URINE MICROSCOPIC ONLY (10/17/2022 2:06 AM LEARNING DISABLED TEACHER) Only the most recent of2 resultswithin the time period is included. RBC UA 0-2 0 - 5 # /hpf 10/17/2022 2:19 AM LEARNING DISABLED TEACHER [facility] WBC UA 6-10(A) 0 - 5 # /hpf 10/17/2022 2:19 AM LEARNING DISABLED TEACHER [facility] Hyaline Casts 11-20(A) 0 - 2 /LPF 10/17/2022 2:19 AM LEARNING DISABLED TEACHER [facility] Bacteria UA None Seen None Seen 10/17/2022 2:19 AM LEARNING DISABLED TEACHER [facility] Squamous Epithelial Cells None Seen 0 - 5 /hpf 10/17/2022 2:19 AM LEARNING DISABLED TEACHER [facility] Mucus UA 1+ /LPF 10/17/2022 2:19 AM LEARNING DISABLED TEACHER [facility] Urine URINE SPECIMEN OBTAINED BY SINGLE CATHETERIZATION OF URINARY BLADDER / Unknown Collection / Unknown 10/17/2022 2:06 AM LEARNING DISABLED TEACHER 10/17/2022 2:10 AM LEARNING DISABLED TEACHER Narrative [facility] - 10/17/2022 2:19 AM LEARNING DISABLED TEACHER Marv Pascual MD LAB - URINALYSIS ORD ERABLES Performing Organization Address [facility] Co de Phone Number [facility] [address] [place] [address] * CULTURE BLOOD (10/17/2022 12:50 AM LEARNING DISABLED TEACHER) Only the most recent of6 resultswithin the time period is included. Culture No growth day 5 JODIE 10/22/2022 4:31 AM LEARNING DISABLED TEACHER [facility] Blood PERIPHERAL BLOOD / Unknown Venipuncture / Unknown 10/17/2022 12:50 AM LEARNING DISABLED TEACHER 10/17/2022 12:53 AM LEARNING DISABLED TEACHER Marv Pascual MD LAB - MICROBIOLOGY O RDERABLES Performing Organization Address City/[facility]/ZIP Co de Phone Number [facility] [address] [place] [address], [facility] [phone] * EKG 12-LEAD (10/16/2022 11:24 PM LEARNING DISABLED TEACHER) Only the most recent of7 resultswithin the time period is included. Ventricular Rate 69 BPM [facility] Atrial Rate 69 BPM [facility] P-R Interval 204 ms [facility] QRS Duration ms 90 ms [facility] Q-T Interval ms 464 ms [facility] QTC Calculation (Bezet) 497 ms [facility] Calculated R [place] 58 degrees [facility] Calculated T [place] 36 degrees [facility] Interpretation EKG Normal sinus rhythm Cannot rule out Anterior infarct (cited on or before 04-OCT-2013 ) Abnormal ECG Confirmed by TEZ MENDOZA MD ([id number]) on 10/17/2022 7:47:20 PM [facility] 10/16/2022 11:2 4 PM LEARNING DISABLED TEACHER 10/17/2022 7:47 PM LEARNING DISABLED TEACHER Jose J Mack MD ECG ORDERABLES Performing Organization Address [facility] Co de Phone Number [facility] * LACTIC ACID BLOOD REFLEX TO REPEAT (10/16/2022 11:12 PM LEARNING DISABLED TEACHER) Only the most recent of2 resultswithin the time period is included. Lactic Acid 1.69 <=2 mmol/L 10/16/2022 11:42 PM LEARNING DISABLED TEACHER [facility] Blood BLOOD SPECIMEN / Unknown Venipuncture / Unknown 10/16/2022 11:12 PM LEARNING DISABLED TEACHER 10/16/2022 11:19 PM LEARNING DISABLED TEACHER Marv Pascual MD LAB - CHEMISTRY [facility] Performing Organization Address City/[facility]/ZIP Co de Phone Number [facility] [address] [place] [address] * (ABNORMAL) PROCALCITONIN LEVEL (10/16/2022 11:12 PM LEARNING DISABLED TEACHER) Only the most recent of2 resultswithin the time period is included. Procalcitonin 0.13(H) <0.10 ng/mL 10/17/2022 12:00 AM [facility] Blood BLOOD SPECIMEN / Unknown Venipuncture / Unknown 10/16/2022 11:12 PM LEARNING DISABLED TEACHER 10/16/2022 11:19 PM LEARNING DISABLED TEACHER Narrative [facility] - 10/17/2022 12:00 AM LEARNING DISABLED TEACHER The change in procalcitonin (PCT) concentration over time provides support in decision making on antibiotic discontinuation for suspected or confirmed septic patients. Follow-up samples should be tested once every 1-2 days based upon physician discretion taking into account the patient s evolution and progress. Consider discontinuation of antibiotic therapy if the PCT current is <= 0.5 ng/mL or if the delta PCT is > 80%. Duration of antibiotics should not be determined solely on PCT; established guidelines for the indication should be followed. PCT peak: Highest observed PCT concentration PCT current: Most recent PCT concentration Calculate delta PCT using the following equation: Delta PCT = PCT Peak PCT current X 100% PCT Peak The Change in Procalcitonin Calculator is available at [email or web address] If clinical picture has not improved and PCT remains high, reevaluate and consider treatment failure or other causes. Marv Pascual MD LAB - CHEMISTRY [facility] Organization Address City/State/[facility] Co de Phone Number [facility] [address] [place] [address] * (ABNORMAL) CBC W AUTO DIFFERENTIAL (10/16/2022 11:12 PM LEARNING DISABLED TEACHER) Only the most recent of15 resultswithin the time period is included. WBC 10.5 4.4 - 10.7 x10E9/L 10/16/2022 11:34 PM LEARNING DISABLED TEACHER [facility] WBC Corrected 10/16/2022 11:34 PM LEARNING DISABLED TEACHER [facility] RBC 3.75(L) 3.80 - 5.40 x10E12/L 10/16/2022 11:34 PM [facility] Hemoglobin 12.1 12.0 - 17.6 gm/dL 10/16/2022 11:34 PM [facility] Hematocrit 38.4 35.2 - 51.7 % 10/16/2022 11:34 PM [facility] MCV 102.4(H) 80.7 - 98.3 fl 10/16/2022 11:34 PM [facility] MCH 32.3 26.7 - 34.0 pg 10/16/2022 11:34 PM [facility] MCHC 31.5 30.8 - 35.9 gm/dL 10/16/2022 11:34 PM [facility] Platelet Count 217 153 - 416 x10E9/L 10/16/2022 11:34 PM [facility] RDW-CV 14.1 12.1 - 14.9 % 10/16/2022 11:34 PM [facility] MPV 10.6 9.4 - 12.9 fl 10/16/2022 11:34 PM [facility] Neutrophils % 75.5(H) 44.0 - 73.0 % 10/16/2022 11:34 PM [facility] Lymphocytes % 11.4(L) 20.0 - 43.0 % 10/16/2022 11:34 PM [facility] Monocytes % 9.2 5.0 - 13.0 % 10/16/2022 11:34 PM [facility] Eosinophils % 2.1 0.0 - 6.0 % 10/16/2022 11:34 PM [facility] Basophils % 0.7 0.0 - 2.0 % 10/16/2022 11:34 PM [facility] Immature Granulocytes 1.1(H) 0 - 1 % 10/16/2022 11:34 PM [facility] Neutrophil Absolute 7.89(H) 2.01 - 7.14 x10E9/L 10/16/2022 11:34 PM [facility] Lymphocytes Absolute 1.19 1.07 - 3.94 x10E9/L 10/16/2022 11:34 PM [facility] Monocytes Absolute 0.96 0.26 - 1.07 x10E9/L 10/16/2022 11:34 PM [facility] Eosinophils Absolute 0.22 0 - 0.47 x10E9/L 10/16/2022 11:34 PM LEARNING DISABLED TEACHER [facility] Basophils Absolute 0.07 0 - 0.08 x10E9/L 10/16/2022 11:34 PM [facility] Immature Granulocytes Absolute 0.12(H) 0.00 - 0.06 x10E9/L 10/16/2022 11:34 PM [facility] nRBC Auto 0 /100 WBC 10/16/2022 11:34 PM [facility] Blood BLOOD SPECIMEN / Unknown Venipuncture / Unknown 10/16/2022 11:12 PM LEARNING DISABLED TEACHER 10/16/2022 11:19 PM LEARNING DISABLED TEACHER Marv Pascual MD LAB - HEMATOLOGY ORD ERABLES [facility] [address] [place] [address] * (ABNORMAL) COMPREHENSIVE METABOLIC PANEL (10/16/2022 11:12 PM LEARNING DISABLED TEACHER) Only the most recent of7 resultswithin the time period is included. Glucose 59(L) 70 - 105 mg/dL 10/16/2022 11:40 PM [facility] Sodium 140 136 - 145 mmol/L 10/16/2022 11:40 PM [facility] Potassium 3.7 3.5 - 5.1 mmol/L 10/16/2022 11:40 PM [facility] Chloride 107 98 - 107 mmol/L 10/16/2022 11:40 PM [facility] CO2 21(L) 23 - 31 mmol/L 10/16/2022 11:40 PM [facility] Calcium 10.0 8.4 - 10.4 mg/dL 10/16/2022 11:40 PM [facility] Anion Gap 12 8 - 18 mmol/L 10/16/2022 11:40 PM [facility] BUN 40(H) 8.4 - 25.7 mg/dL 10/16/2022 11:40 PM [facility] Creatinine 2.31(H) 0.72 - 1.25 mg/dL 10/16/2022 11:40 PM [facility] Alkaline Phosphatase 153(H) 40 - 150 U/L 10/16/2022 11:40 PM LEARNING DISABLED TEACHER [facility] ALT 14 0 - 61 U/L 10/16/2022 11:40 PM LEARNING DISABLED TEACHER [facility] AST 21 5 - 34 U/L 10/16/2022 11:40 PM LEARNING DISABLED TEACHER [facility] Protein Total 8.1 6.4 - 8.3 gm/dL 10/16/2022 11:40 PM LEARNING DISABLED TEACHER [facility] Albumin 4.3 3.2 - 4.6 gm/dL 10/16/2022 11:40 PM LEARNING DISABLED TEACHER [facility] Bilirubin Total 0.3 0.2 - 1.2 mg/dL 10/16/2022 11:40 PM LEARNING DISABLED TEACHER [facility] eGFR by CKD-EPI 29(L) >=90 mL/min/1.7 3 m2 10/16/2022 11:40 PM LEARNING DISABLED TEACHER [facility] Blood BLOOD SPECIMEN / Unknown Venipuncture / Unknown 10/16/2022 11:12 PM LEARNING DISABLED TEACHER 10/16/2022 11:19 PM LEARNING DISABLED TEACHER Marv Pascual [facility] Organization Address City/State/ZIP Co de Phone Number [facility] [address] [place] [address] * XR CHEST 1VW PORTABLE (10/16/2022 11:01 PM LEARNING DISABLED TEACHER) Only the most recent of3 resultswithin the time period is included. Anatomical Region Laterality Modality Chest Radiographic Cyndie ging 10/17/2022 7:40 AM LEARNING DISABLED TEACHER Impressions 10/17/2022 7:40 AM LEARNING DISABLED TEACHER IMPRESSION: Underexpansion with no acute cardiopulmonary abnormality noted. > Interpreting Provider: Faye Villalta MD on 10/17/2022 7:40 AM Narrative 10/17/2022 7:40 AM LEARNING DISABLED TEACHER PROCEDURE: XR CHEST 1VW PORTABLE, DATE/TIME OF EXAM: 10/16/2022 11:01 PM, LOCATION [facility] INDICATION: E16.2: Hypoglycemia, unspecified ADDITIONAL CLINICAL INFORMATION: Ordering Provider Reason For Exam: Technologist Note: Additional: COMPARISON: March 06, 2022 FINDINGS: Postoperative changes of a median sternotomy are again seen. Cardiomegaly is present with vascular congestion. Lungs are underexpanded but clear. No pleural effusion is seen. Procedure Note Faye Villalta MD - 10/17/2022 PROCEDURE: XR CHEST 1VW PORTABLE, DATE/TIME OF EXAM: 10/16/2022 11:01PM, LOCATION [facility] INDICATION: E16.2: Hypoglycemia, unspecified ADDITIONAL CLINICAL INFORMATION: Ordering Provider Reason For Exam: Technologist Note: Additional: COMPARISON: March 06, 2022 FINDINGS: Postoperative changes of a median sternotomy are again seen.Cardiomegaly is present with vascular congestion. Lungs are underexpanded but clear.No pleural effusion is seen. IMPRESSION: Underexpansion with no acute cardiopulmonary abnormality noted. > Interpreting Provider: Faye Villalta MD on 10/17/2022 7:40 AM Marv Pascual MD DIAGNOSTIC IMAGING O RDERABLES * Critical Care (10/16/2022 10:35 PM LEARNING DISABLED TEACHER) Narrative Marv Pascual MD - 10/16/2022 10:35 PM LEARNING DISABLED TEACHER Marv Pascual MD 10/17/2022 5:39 AM Critical Care Performed by: Marv Pascual MD Authorized by: Marv Pascual MD Critical care provider statement: Critical care time (minutes): 35 Critical care time was exclusive of: Separately billable procedures and treating other patients Critical care was necessary to treat or prevent imminent or life-threatening deterioration of the following conditions: Endocrine crisis and sepsis Critical care was time spent personally by me on the following activities: Ordering and performing treatments and interventions, ordering and review of laboratory studies, ordering and review of radiographic studies, pulse oximetry, re-evaluation of patient's condition, obtaining history from patient or surrogate, examination of patient, evaluation of patient's response to treatment, discussions with consultants, development of treatment plan with patient or surrogate and blood draw for specimens I assumed direction of critical care for this patient from another provider in my specialty: no Marv Pascual MD PROCEDURE/MINOR SURG ICAL ORDERABLES * CARDIAC RHYTHM STRIP ORDER (03/16/2022 1:33 PM CDT) Only the most recent of3 resultswithin the time period is included. Narrative 03/16/2022 1:33 PM CDT Ordered by an unspecified provider. Scanned Document CARDIAC SERVICES ORD ERABLES * XR FOOT RIGHT 3VW OR MORE (03/11/2022 10:39 AM CDT) Only the most recent of2 resultswithin the time period is included. Anatomical Region Laterality Modality Ankle / Foot Radiographic Cyndie ging 03/11/2022 10:5 2 AM CDT Impressions 03/11/2022 10:55 AM CDT 1. Status post amputation of the great toe. *Reading Radiologist: Luis Estrada on 03/11/2022 at 10:55 AM Narrative 03/11/2022 10:55 AM CDT 3 views right foot 03/11/2022. HISTORY: Osteomyelitis, status post surgery. FINDINGS: Since 03/06/2022, interval amputation of the great toe with osteotomy extending to the mid body of the first metatarsal has occurred. A dressing overlies the foot limiting some osseous and soft tissue detail. Abnormality of the fifth metatarsal head and neck are unchanged possibly secondary to previous fracture when compared with past medical history. Erosive changes of the distal phalanges of the second and third toe are unchanged. No fracture or dislocation is present. Soft tissue swelling is present. Procedure Note Luis Estrada MD - 03/11/2022 3 views right foot 03/11/2022. HISTORY: Osteomyelitis, status post surgery. FINDINGS: Since 03/06/2022, interval amputation of the great toe with osteotomy extending to the mid body of the first metatarsal has occurred. A dressing overlies the foot limiting some osseous and soft tissue detail. Abnormality of the fifth metatarsal head and neck are unchanged possibly secondary to previous fracture when compared with past medical history. Erosive changes of the distal phalanges of the second and third toe are unchanged. No fracture or dislocation is present. Soft tissue swelling is present. IMPRESSION 1. Status post amputation of the great toe. *Reading Radiologist: Luis Estrada on 03/11/2022 at 10:55 AM Tom Ramos MD DIAGNOSTIC IMAGING ORDERABLES * PATHOLOGY TISSUE EXAM (STL) (03/11/2022 8:01 AM CDT) Case Report Surgical Pathology Report Case: [id number] Authorizing Provider: Michele Kuhn DPM Collected: 03/11/2022 08:01 AM Ordering Location: [facility] Received: 03/11/2022 10:34 AM Pathologist: Dorinda Jonas MD Specimens: A) - Amputation Toe , Right Foot First Toe B) - Bone Resect, Bone First Metatarsal Head Right Foot, Proximal marked 03/18/2022 12:16 PM CDT [facility] Final Diagnosis A. Right 1st toe, amputation: -- Ulcer with acute inflammation and necrosis -- Margin viable B. Bone, 1st metatarsal, resection: -- Ulcer with granulation tissue and osteomyelitis 03/18/2022 12:16 PM CDT [facility] Clinical History Septic arthritis of the 1st metatarsal phalangeal joint of the right foot. Osteomyelitis of the 1st metatarsal of the right foot 03/18/2022 12:16 PM CDT [facility] Gross Description Received in container A in formalin labeled Vickie Santo, right foot fist toe, is a 6.3 x 3.5 x 3.2 cm amputation of the right first toe. The skin and tissue at the resection margin is unremarkable. The bone at the resection margin is smooth and capsular. There is a possible 1 x 0.1 cm wound or ulcer at the proximal dorsal aspect. The remainder of the skin is mottled, purple-red. A1 - Skin and soft tissue from resection margin, A2 - Ulcer, A3-A5 - Contiguous section of toe submitted sequentially from proximal to distal. Cassettes A3-A5 are submitted for decalcification. Received in container B in formalin labeled Vickie Sanot, bone first metatarsal, are two concave fragments of bone measuring 2.5 x 1.5 x 1.5 cm and 2.5 x 1.5 x 1 cm. The resection surface of both sections of bone have a clean cut. The resection surface is inked. Business [employer] sections are submitted as follows: B1 - Contiguous perpendicular section of larger fragment of bone, B2 - Individual contiguous perpendicular section of smaller fragment of bone. Cassettes B1 and B2 are submitted for decalcification. /scs 03/18/2022 12:16 PM CDT [facility] Microscopic Description Microscopic examination substantiates the above cited diagnosis. 03/18/2022 12:16 PM CDT [facility] Disclaimer All histochemical and/or immunohistochemical results are interpreted with controls that demonstrate appropriate staining reactions before reporting results. Note on use of immunocytochemistry reagents: This test was developed and its performance characteristic determined by [facility], Department of Laboratory Medicine. It has not been cleared or approved by the U.S. Food and Drug Administration (FDA). The FDA has determined that such clearance or approval is not necessary. The test is used for clinical purpose. It should not be regarded as investigational or for research. This laboratory is certified to perform high complexity testing. The performance characteristics of the IHC/JUAN assays have been validated on formalin-fixed paraffin embedded tissues only. The assays have not been validated on decalcified tissues. Results should be interpreted with caution. 03/18/2022 12:16 PM CDT [facility] Embedded Images 03/18/2022 12:16 PM CDT [facility] Pathology/Cytology AMPUTATION OF TOE / Unknown 03/11/2022 8:01 AM CDT 03/11/2022 10:34 AM CDT Miscellaneous samples (specimen) BONE TISSUE SPECIMEN / Unknown 03/11/2022 8:03 AM CDT 03/11/2022 10:34 AM CDT Michele Kuhn [facility] - PATHOLOGY/CYTO LOGY ORDERABLES Performing Organization Address City/State/[facility] Co de Phone Number [facility] [address] [place] [address] * (ABNORMAL) C-REACTIVE PROTEIN (03/09/2022 4:41 AM CDT) C-Reactive Protein 10.54(H) <=0.50 mg/dL 03/09/2022 5:17 AM CDT [facility] Blood BLOOD SPECIMEN / Unknown Venipuncture / Unknown 03/09/2022 4:41 AM CDT 03/09/2022 4:46 AM CDT Zoila Yang DO LAB - CHEMISTR Y ORDERABLES Performing Organization Address [facility] de Phone Number [facility] [address] [place] [phone] * (ABNORMAL) ERYTHROCYTE SEDIMENTATION RATE (03/09/2022 4:41 AM CDT) Erythrocyte Sedimentation Rate Automated 105(H) 0 - 20 MM/HR 03/09/2022 4:58 AM CDT [facility] Blood BLOOD SPECIMEN / Unknown Venipuncture / Unknown 03/09/2022 4:41 AM CDT 03/09/2022 4:46 AM CDT Zoila Yang DO LAB - HEMATOLO GY ORDERABLES Performing Organization Address [facility] de Phone Number [facility] [address] [place] [id number] * VANCOMYCIN LEVEL RANDOM (03/09/2022 4:41 AM CDT) Only the most recent of3 resultswithin the time period is included. Vancomycin Random 22.5 ug/mL 03/09/2022 5:19 AM CDT [facility] Blood BLOOD SPECIMEN / Unknown Venipuncture / Unknown 03/09/2022 4:41 AM CDT 03/09/2022 4:46 AM CDT Narrative [facility] - 03/09/2022 5:19 AM CDT No reference range available for random Vancomycin levels. All results interpreted by ordering physician. Tom Ramos MD LAB - CHEMISTRY ORD ERABLES Performing Organization Address [facility] Co de Phone Number [facility] [address] [place] [phone] * XR KNEE LEFT 4VW OR MORE (03/07/2022 11:26 AM CDT) Anatomical Region Laterality Modality Lower Extremity Radiographic Cyndie ging 03/07/2022 12:4 9 PM CDT Impressions 03/07/2022 12:56 PM CDT POSTOPERATIVE CHANGES. Edited by Yoli Kapadia on 03/07/2022 12:50 PM *Reading Radiologist: Tae Blum on 03/07/2022 at 12:56 PM Narrative 03/07/2022 12:56 PM CDT XR KNEE LEFT 4VW OR MORE*[id number] INDICATION: Left knee pain. 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 The intramedullary components of the distal femur and proximal tibia are intact. There is no acute fracture. Procedure Note Tae Blum MD - 03/07/2022 XR KNEE LEFT 4VW OR MORE*[id number] INDICATION: Left knee pain. 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 The intramedullary components of the distal femur and proximal tibia are intact. There is no acute fracture. IMPRESSION POSTOPERATIVE CHANGES. Edited by Yoli Kapadia on 03/07/2022 12:50 PM *Reading Radiologist: Tae Blum on 03/07/2022 at 12:56 PM Tom Ramos MD DIAGNOSTIC IMAGING ORDERABLES * US RETRO COMP W BLADDER RESIDUAL (03/07/2022 8:45 AM CDT) Anatomical Region Laterality Modality Abdomen Ultrasound 03/07/2022 10:4 5 AM CDT Impressions 03/07/2022 11:35 AM CDT NO HYDRONEPHROSIS. PATIENT WAS UNABLE TO VOID. Edited by Giuliana Quiñones on 03/07/2022 11:08 AM *Reading Radiologist: Tae Blum on 03/07/2022 at 11:35 AM Narrative 03/07/2022 11:35 AM CDT US RETRO COMP W BLADDER RESIDUAL*[id number] INDICATION: Acute kidney failure, unspecified. FINDINGS: The right kidney measures 9.63 x 4.64 x 5.46 cm and left kidney measures 9.83 x 4.50 x 5.64 cm. There is no hydronephrosis. The prevoid bladder volume is 526 cc. The patient was unable to void. Procedure Note Tae Blum MD - 03/07/2022 US RETRO COMP W BLADDER RESIDUAL*[id number] INDICATION: Acute kidney failure, unspecified. FINDINGS: The right kidney measures 9.63 x 4.64 x 5.46 cm and left kidney measures 9.83 x 4.50 x 5.64 cm. There is no hydronephrosis. The prevoid bladder volume is 526 cc. The patient was unable to void. IMPRESSION NO HYDRONEPHROSIS. PATIENT WAS UNABLE TO VOID. Edited by Giuliana Quiñones on 03/07/2022 11:08 AM *Reading Radiologist: Tae Blum on 03/07/2022 at 11:35 AM Evelio Valdez MD US ORDERABLES * MRI FOOT RIGHT WWO CONTRAST (03/06/2022 2:19 PM CDT) Anatomical Region Laterality Modality Ankle / Foot Magnetic Resonan ce 03/06/2022 2:41 PM CDT Impressions 03/06/2022 2:46 PM CDT Findings consistent with a septic arthrosis with a medial fistulous tract at the first metatarsophalangeal joint. Tibial sesamoid edema having appearance of ostium colitis. Fibular sesamoid edema suggest osteitis. Scalloped nature of the bone can be seen with gout. However, the fistulous tract and adjacent cellulitis does not correlate with gout therefore, this consistent with a septic arthrosis with adjacent osteomyelitis. *Reading Radiologist: Rich Olvera on 03/06/2022 at 2:46 PM Narrative 03/06/2022 2:46 PM CDT MRI Right Foot With And Without Contrast INDICATION: Diabetic foot swelling ostium myelitis TECHNIQUE: Multisequence, multiplanar MRI sequences of right foot were obtained with and without contrast reconstructions performed, is administered FINDINGS: Correlation foot x-ray March 06, 2022 There is bony erosion and joint effusion as well as adjacent bone marrow edema at the first MCP joint. Soft tissue swelling appears to extend to the skin with what looks to be a fistulous tract from the skin between the sesamoid metatarsal joint. There is edema within the tibial sesamoid consistent with sesamoid involvement. There is tibial sesamoid edema as well. No first toe flexor tendon tear or synovitis Postcontrast, there is enhancement of not only the first proximal phalanx but also the distal 2.3 cm at the first metatarsal joint. There appears to be a skin fistulous tract without enhancement. Soft tissue enhancement medial subcutaneous tissues most consistent with a regional cellulitis. No other metatarsal edema. No midfoot edema or collapse. Various areas of foot muscular atrophy. Procedure Note Rich Olvera MD - 03/06/2022 MRI Right Foot With And Without Contrast INDICATION: Diabetic foot swelling ostium myelitis TECHNIQUE: Multisequence, multiplanar MRI sequences of right foot were obtained with and without contrast reconstructions performed, is administered FINDINGS: Correlation foot x-ray March 06, 2022 There is bony erosion and joint effusion as well as adjacent bone marrow edema at the first MCP joint. Soft tissue swelling appears to extend to the skin with what looks to be a fistulous tract from the skin between the sesamoid metatarsal joint. There is edema within the tibial sesamoid consistent with sesamoid involvement. There is tibial sesamoid edema as well. No first toe flexor tendon tear or synovitis Postcontrast, there is enhancement of not only the first proximal phalanx but also the distal 2.3 cm at the first metatarsal joint. There appears to be a skin fistulous tract without enhancement. Soft tissue enhancement medial subcutaneous tissues most consistent with a regional cellulitis. No other metatarsal edema. No midfoot edema or collapse. Various areas of foot muscular atrophy. IMPRESSION Findings consistent with a septic arthrosis with a medial fistulous tract at the first metatarsophalangeal joint. Tibial sesamoid edema having appearance of ostium colitis. Fibular sesamoid edema suggest osteitis. Scalloped nature of the bone can be seen with gout. However, the fistulous tract and adjacent cellulitis does not correlate with gout therefore, this consistent with a septic arthrosis with adjacent osteomyelitis. *Reading Radiologist: Rich Olvera on 03/06/2022 at 2:46 PM Homa Escalante MD MR ORDERABLES * VAS ARTERIAL ANKLE ARM INDEX (LANE - LIMITED PRESSURE STUDY) (03/06/2022 2:15 PM CDT) Anatomical Region Laterality Modality Ankle / Foot, Upper Extremity Ul trasound 03/06/2022 1:24 PM CDT Narrative Procedure Note Arnold Beck MD - 03/07/[address] [address] Lower Extremity Arterial Doppler Report Pat.Name: VICKIE SANTO Pat.ID: [id number] .Date: 03/06/2022 Exam Time: 1:24:00 PM Study Type:LANE/PVR Age: 8 1950,71Y Sex: MALE Sonogrphr: Buddy Ervin RVT Pat. Stat.:Inpatient Room: ED 09 ICD - 9: E11.8 CPT - 4: 54547 Reason for Study: Diabetic foot History / Clinical: Hypertension, Diabetes Procedures: Ankle Arm Index Visit ID: [id number] ++++++++++++++++++++++++++++++++++++ SUMMARY: ++++++++++++++++++++++++++++++++++++ Mild peripheral vascular disease in the lower extremities bilaterally ++++++++++++++++++++++++++++++++++++ FINDINGS: ++++++++++++++++++++++++++++++++++++ Procedure: The arterial vasculature of the lower extremities was evaluated by analysis of Doppler pressures and waveforms obtained in the legs at rest. Study Quality: This study is of adequate technical quality. LANE: Rt ankle brachial index is 0.96. Left ankle brachial index is 1.50 (normal greater than 0.90). Doppler Waveforms: Right Left Posterior Tibial Biphasic Biphasic Dorsalis Pedis Biphasic Biphasic ++++++++++++++++++++++++++++++++++++ MEASUREMENTS: ++++++++++++++++++++++++++++++++++++ PRESSURES Left LANE (DP) LANE (DP) 1.5 [address] L[address] (PT) LANE (PT) 0.82 Left Ankle DP AnkleDP P 173 mmHg Left Ankle PT AnklePT P 94 mmHg Left Brachial Brach P [address] (DP) LANE (DP) 0.96 Right L[address] (PT) LANE (PT) 0.86 Right Ankle DP AnkleDP P 110 mmHg Right Ankle PT AnklePT P 99 mmHg Signed 03/07/2022 10:44 AM Arnold Beck MD Homa Escalante MD VASCULAR LAB ORDERAB LES * (ABNORMAL) URINE MICROSCOPIC ONLY REFLEX TO CULTURE (03/06/2022 11:54 AM CDT) Reflex Status Culture not indicated 03/06/2022 12:23 PM CDT [facility] RBC UA 0-2 0 - 5 # /hpf 03/06/2022 12:23 PM CDT [facility] WBC UA 0-5 0 - 5 # /hpf 03/06/2022 12:23 PM CDT [facility] Bacteria UA None Seen None Seen 03/06/2022 12:23 PM CDT [facility] Squamous Epithelial Cells 0-2 0 - 5 /hpf 03/06/2022 12:23 PM CDT [facility] Transitional Epithelial Cell UA 0-2(A) None Seen /HPF 03/06/2022 12:23 PM CDT [facility] Mucus UA 1+ /LPF 03/06/2022 12:23 PM CDT [facility] Hyaline Casts >20(A) 0 - 2 /LPF 03/06/2022 12:23 PM CDT [facility] Granular Casts 3-5(A) None Seen /LPF 03/06/2022 12:23 PM CDT [facility] Urine URINE SPECIMEN OBTAINED BY CLEAN CATCH PROCEDURE / Unknown Collection / Unknown 03/06/2022 11:54 AM CDT 03/06/2022 11:59 AM CDT Narrative [facility] - 03/06/2022 12:23 PM CDT Homa Escalante MD LAB - URINALYSIS ORD ERABLES [facility] [address] [place] [address] * (ABNORMAL) URINALYSIS REFLEX MICROSCOPIC REFLEX CULTURE (03/06/2022 11:54 AM CDT) Only the most recent of2 resultswithin the time period is included. Color UA Yellow Straw, Yellow 03/06/2022 12:07 PM CDT [facility] Clarity UA Clear Clear 03/06/2022 12:07 PM CDT [facility] Glucose UA Negative Negative 03/06/2022 12:07 PM CDT [facility] Bilirubin UA Negative Negative 03/06/2022 12:07 PM CDT [facility] Ketone UA Negative Negative 03/06/2022 12:07 PM CDT [facility] Specific Ruth UA 1.016 1.005 - 1.030 03/06/2022 12:07 PM CDT [facility] Blood UA 1+(A) Negative 03/06/2022 12:07 PM CDT [facility] pH UA 5.0 5.0 - 8.0 pH 03/06/2022 12:07 PM CDT [facility] Protein UA Negative Negative 03/06/2022 12:07 PM CDT [facility] Urobilinogen UA Negative Negative mg/dL 03/06/2022 12:07 PM CDT [facility] Nitrite UA Negative Negative 03/06/2022 12:07 PM CDT [facility] Leukocyte UA Negative Negative 03/06/2022 12:07 PM CDT [facility] Urine Microscopy Urine microscopy to follow 03/06/2022 12:07 PM CDT [facility] Reflex Status Culture not indicated 03/06/2022 12:07 PM CDT [facility] Urine URINE SPECIMEN OBTAINED BY CLEAN CATCH PROCEDURE / Unknown Collection / Unknown 03/06/2022 11:54 AM CDT 03/06/2022 11:59 AM CDT Narrative [facility] - 03/06/2022 12:07 PM CDT Homa Escalante MD LAB - URINALYSIS ORD ERABLES Performing Organization Address City/[facility]/ZIP Co de Phone Number [facility] [address] [place] [address] * (ABNORMAL) CULTURE WOUND+GRAM STAIN (03/06/2022 11:17 AM CDT) Culture Heavy Pasteurella canis(A) JODIE 03/08/2022 1:03 PM CDT [facility] Culture Heavy normal skin efra JODIE 03/08/2022 1:03 PM CDT [facility] Gram Stain Heavy Polymorphonuclear cells 03/08/2022 1:03 PM CDT [facility] Gram Stain Heavy Gram-positive cocci 03/08/2022 1:03 PM CDT [facility] Gram Stain Light Gram-variable bacilli 03/08/2022 1:03 PM CDT [facility] Microbiology ENTIRE FOOT / Unknown Collection / Unknown 03/06/2022 11:17 AM CDT 03/06/2022 11:49 AM CDT Narrative [facility] - 03/08/2022 1:03 PM CDT Susceptibility testing for Pasteurella isolates from bite wounds is usually not necessary. Multiple organisms are often present in these specimens; therefore, empiric therapy directed toward these organisms is generally effective for Pasteurella species. Testing of isolates from normally sterile sites (eg,blood, deep tissue, implanted prosthetic devices) and also from respiratory specimens may be warranted, especially in immunodeficient patients. Homa Escalante MD LAB - MICROBIOLOGY O SOCRATES Performing Organization Address City/[facility]/ZIP Co de Phone Number [facility] [address] [place] [phone] * (ABNORMAL) CULTURE ANAEROBE (03/06/2022 11:17 AM CDT) Culture Moderate Prevotella disiens(A) JODIE 03/12/2022 8:31 AM CDT [facility] Comment:Beta-lactamase posit payal Microbiology ENTIRE FOOT / Unknown Collection / Unknown 03/06/2022 11:17 AM CDT 03/06/2022 11:49 AM CDT Homa Escalante MD LAB - MICROBIOLOGY O [facility]CR[facility] [address] [place] [address], [facility] [phone] * SARS-COV-2 (COVID-19) FLU A/B RSV PCR RAPID (03/06/2022 7:56 AM CDT) COVID-19 PCR Not detected Not detected 03/06/20 8:38 AM CDT [facility] Influenza A PCR Not detected Not detected 03/06/2022 8:38 AM CDT [facility] Influenza B PCR Not detected Not detected 03/06/2022 8:38 AM CDT [facility] RSV PCR Not detected Not detected 03/06/2022 8:38 AM CDT [facility] Microbiology SPECIMEN FROM NASOPHARYNGEAL STRUCTURE / Unknown Collection / Unknown 03/06/2022 7:56 AM CDT 03/06/2022 7:59 AM CDT Narrative [facility] - 03/06/2022 8:38 AM CDT This nucleic acid amplification assay has been authorized by the Food and Drug administration (FDA) under an Emergency Use Authorization (EUA). This test is only authorized for the duration of time the declaration that circumstances exist justifying the authorization of emergency use of in vitro diagnostic tests for detection of SARS-CoV-2 virus and/or diagnosis of COVID-19 infection under section 564(b)(1) of the Act, 21 U.S.C 360bbb-3 (b)(1), unless the authorization is terminated or revoked sooner. Fact Sheets for this EUA assay are available upon request. Homa Escalante MD LAB - MICROBIOLOGY O RDERABLES [facility] [address] [place] [address] * (ABNORMAL) TROPONIN I (03/06/2022 7:51 AM CDT) Only the most recent of10 resultswithin the time period is included. Troponin I 0.090(HH) <0.038 ng/mL 03/06/2022 8:15 AM CDT [facility] Blood BLOOD SPECIMEN / Unknown Venipuncture / Unknown 03/06/2022 7:51 AM CDT 03/06/2022 7:51 AM CDT Homa Escalante MD LAB - CHEMISTRY [facility] Organization Address City/State/ZIP Co de Phone Number [facility] [address] [place] [address] * XR CHEST PA OR AP (1VW ONLY, THIS IS NOT PORTABLE) (03/06/2022 4:30 AM CDT) Only the most recent of2 resultswithin the time period is included. Anatomical Region Laterality Modality Chest Radiographic Cyndie ging 03/06/2022 8:29 AM CDT Impressions 03/06/2022 8:30 AM CDT Cardiac enlargement with pulmonary vascular congestion and probable trace pleural effusions which have improved from prior exam. *Reading Radiologist: Tae Ryan on 03/06/2022 at 8:30 AM Narrative 03/06/2022 8:30 AM CDT Portable chest: HISTORY: Hypoxia PROCEDURE: Frontal projection of the chest is submitted and compared with December 29, 2021. FINDINGS: The lungs are clear without consolidation or pneumothorax. Prominent pulmonary vascular markings are noted consistent with pulmonary edema. There may be small trace pleural effusions which have improved from prior exam. The cardiac chambers appear enlarged but stable. Median sternotomy wires are redemonstrated. The osseous structures are intact. Procedure Note Tae Ryan DO - 03/06/2022 Portable chest: HISTORY: Hypoxia PROCEDURE: Frontal projection of the chest is submitted and compared with December 29, 2021. FINDINGS: The lungs are clear without consolidation or pneumothorax. Prominent pulmonary vascular markings are noted consistent with pulmonary edema. There may be small trace pleural effusions which have improved from prior exam. The cardiac chambers appear enlarged but stable. Median sternotomy wires are redemonstrated. The osseous structures are intact. IMPRESSION Cardiac enlargement with pulmonary vascular congestion and probable trace pleural effusions which have improved from prior exam. *Reading Radiologist: Tae Ryan on 03/06/2022 at 8:30 AM Jermaine Garza MD DIAGNOSTIC IMAGING O RDERABLES * (ABNORMAL) B-TYPE NATRIURETIC PEPTIDE (03/06/2022 2:02 AM CDT) Only the most recent of4 resultswithin the time period is included. BNP 2,057(H) <=100 pg/mL 03/06/2022 2:31 AM CDT [facility] Blood BLOOD SPECIMEN / Unknown Venipuncture / Unknown 03/06/2022 2:02 AM CDT 03/06/2022 2:07 AM CDT Homa Escalante MD LAB - CHEMISTRY [facility] Organization Address City/State/ZIP Co de Phone Number [facility] [address] [place] [address] * APHERESIS/TRANSFUSION ORDER (01/07/2022 10:47 PM CDT) Narrative 01/07/2022 10:47 PM CDT Ordered by an unspecified provider. Scanned Document NURSING - VITAL SIGN S AND ASSESSMENT * (ABNORMAL) RENAL FUNCTION PANEL (01/04/2022 3:48 AM CDT) Only the most recent of5 resultswithin the time period is included. Glucose 167(H) 70 - 105 mg/dL 01/04/2022 4:15 AM CDT [facility] Sodium 132(L) 136 - 145 mmol/L 01/04/2022 4:15 AM CDT [facility] Potassium 4.5 3.5 - 5.1 mmol/L 01/04/2022 4:15 AM CDT [facility] Chloride 98 98 - 107 mmol/L 01/04/2022 4:15 AM CDT [facility] CO2 25 23 - 31 mmol/L 01/04/2022 4:15 AM CDT [facility] Calcium 8.7 8.4 - 10.4 mg/dL 01/04/2022 4:15 AM CDT [facility] Anion Gap 9 8 - 18 mmol/L 01/04/2022 4:15 AM CDT [facility] BUN 34(H) 8.4 - 25.7 mg/dL 01/04/2022 4:15 AM CDT [facility] Creatinine 1.91(H) 0.72 - 1.25 mg/dL 01/04/2022 4:15 AM CDT [facility] Albumin 3.3 3.2 - 4.6 gm/dL 01/04/2022 4:15 AM CDT [facility] Phosphorus 3.2 2.3 - 4.7 mg/dL 01/04/2022 4:15 AM CDT [facility] eGFR by CKD-EPI 37(L) >=90 mL/min/1.7 3 m2 01/04/2022 4:15 AM CDT [facility] Blood BLOOD SPECIMEN / Unknown Venipuncture / Unknown 01/04/2022 3:48 AM CDT 01/04/2022 3:57 AM CDT Narrative [facility] - 01/04/2022 4:15 AM CDT eGFR result was calculated using the updated CKD-EPI Creatinine Equations (2020). Prior to go live 2021 the eGFR was calculated using the MDRD calculation. Please note Reference Range change. Amy Dawson MD LAB - CHEMISTRY [facility] Organization Address City/State/ZIP Co de Phone Number [facility] [address] [place] [address] * NM MYOCARD PERFUSION SPECT STRESS AND REST (01/02/2022 12:41 PM CDT) Only the most recent of2 resultswithin the time period is included. Anatomical Region Laterality Modality Chest Nuclear Medicine 01/02/2022 4:22 PM CDT Impressions 01/02/2022 4:25 PM CDT NO REVERSIBLE ISCHEMIA. MODERATE-SIZED FIXED INFERIOR WALL INFARCT. DILATED LEFT VENTRICLE WITH DEPRESSION OF THE LVEF MEASURING 34% AND GLOBAL HYPOKINESIS. *Reading Radiologist: Sharan Marroquin on 01/02/2022 at 4:25 PM Narrative 01/02/2022 4:25 PM CDT Dual isotope radionuclide gated SPECT myocardial perfusion scan Indication: Chest pain Radiopharmaceutical: Tc 99m Tetrofosmin 30 mCi IV administered at stress. Technetium 99m Tetrofosmin 10 mCi IV administered at rest. Findings: Stress portion of the exam was monitored by the cardiology service. 0.4 mg of Lexiscan was administered. No stress-induced perfusion defects. Moderate size fixed perfusion defect within the inferior wall. Dilated left ventricle with an end-diastolic volume of 190 mL. The left ventricular ejection fraction is depressed at 34%. There is global hypokinesis. Procedure Note Sharan Marroquin MD - 01/02/2022 Dual isotope radionuclide gated SPECT myocardial perfusion scan Indication: Chest pain Radiopharmaceutical: Tc 99m Tetrofosmin 30 mCi IV administered at stress. Technetium 99m Tetrofosmin 10 mCi IV administered at rest. Findings: Stress portion of the exam was monitored by the cardiology service. 0.4 mg of Lexiscan was administered. No stress-induced perfusion defects. Moderate size fixed perfusion defect within the inferior wall. Dilated left ventricle with an end-diastolic volume of 190 mL. The left ventricular ejection fraction is depressed at 34%. There is global hypokinesis. IMPRESSION NO REVERSIBLE ISCHEMIA. MODERATE-SIZED FIXED INFERIOR WALL INFARCT. DILATED LEFT VENTRICLE WITH DEPRESSION OF THE LVEF MEASURING 34% AND GLOBAL HYPOKINESIS. *Reading Radiologist: Sharan Marroquin on 01/02/2022 at 4:25 PM Sivakumar Mccarty MD NM ORDERABLES * STRESS TEST LEXISCAN (NUCLEAR) (01/02/2022 11:14 AM CDT) Only the most recent of2 resultswithin the time period is included. Stress Test Summary For full formatted report, please see the report link in the order. Acquisition Time: 2022-01-02 11:14:12 Total Exercise Time: 00:00:44 Test Indications: SOB/CAD Medications: Protocol: LEXISCAN Max HR: 108 BPM 72% of Pred: 150 BPM Max BP: 098/064 mmHG Max Work Load: 1.0 METS Reason for Termination: Protocol Complete Resting ECG: Normal Functional Capacity: HR Response to Exercise: BP Resoonse to Exercise: Chest Pain: Arrhythmias: Ventricular Premature Beats, Isolated ST Changes: no significant st change Overall Impression: No ECG evidence of ischemia Findings to be correlated w/imaging report Diagnosis: Confirmed by SUZANNE AMAYA, SUSANNAH YUAN ([id number]) on 01/03/2022 1:47:14 PM Attending Physician: Referred By: Confirmed By:SUSANNAH PALACIOS MD [facility] 01/02/2022 11:1 4 AM CDT 01/03/2022 1:47 PM CDT Sivakumar Mccarty MD CARDIAC SERVICES ORD ERABLES Performing Organization Address City/[facility]/ZIP Co de Phone Number [facility] * TRANSFUSE RED BLOOD CELL LEUKOREDUCED UNIT(S) (12/31/2021 5:20 PM CDT) Amy Dawson MD NURSING - BLOOD PROD TRANSFUSION * PREPARE (CROSSMATCH) RBC UNIT(S), 1 Units (12/31/2021 1:49 PM CDT) Unit Description AS1 LR PRBC [facility] BLOOD [facility] Unit ABO A [facility] Unit Rh POS [facility] Product Number [id number] [facility] Unit Donor # [id number] [facility] BLOOD BANK Unit Status transfused [facility] BL OOD [facility] Product Code [id number] [facility] Blood Type Barcode 6200 [facility]LOOD [facility] Expiration Date D [facility] BLOOD BANK Blood Bank BLOOD SPECIMEN / Unknown 12/31/2021 8:26 AM CDT Amy Dawson MD LAB - BLOOD BANK ORD ERABLES [facility] BLOOD [facility] [address] [phone] * HELICOBACTER PYLORI UREASE (STL) (12/31/2021 11:05 AM CDT) Helicobacter pylori Urease Initial Negative Negative 01/01/2022 10:22 AM CDT [facility] Helicobacter pylori Urease Final Negative Negative 01/01/2022 10:22 AM CDT [facility] Comment:This is an appended report. These results have been appended to a previously preliminary verified report. Microbiology GASTRIC ANTRAL BIOPSY SPECIMEN / Unknown 12/31/2021 11:05 AM CDT 12/31/2021 2:38 PM CDT Elvie Shaikh MD LAB - MICROBIOLOGY O RDERABLES Performing Organization Address [facility] Co de Phone Number [facility] [address] [place], [place] [phone] * TYPE + SCREEN PANEL (12/31/2021 8:19 AM CDT) ABO Rh A POS 12/31/2021 9:47 AM CDT [facility] Comment:History checked. Antibody Screen NEG 9:47 AM CDT [facility] Blood Bank BLOOD SPECIMEN / Unknown Venipuncture / Unknown 12/31/2021 8:19 AM CDT 12/31/2021 8:26 AM CDT Amy Dawson MD LAB - BLOOD BANK ORD ERABLES Performing Organization Address [facility] de Phone Number [facility] [address] [place], [place] [address] [phone] * EGD (12/31/2021 6:48 AM CDT) Report Endoscopy POC __ _ Patient Name: Vickie Santo Procedure Date: 12/31/2021 6:48 AM Date of : 1950 Admit Type: Inpatient Age: 71 Gender: Male Attending MD: Elvie Shaikh MD __ _ Procedure: Upper GI endoscopy Indications: Recent gastrointestinal bleeding Providers: Elvie Shaikh MD (Doctor) Referring MD: Roly Bustillos (Referring MD) Medicines: Monitored Anesthesia Care Complications: No immediate complications. __ _ Estimated Blood Loss: Estimated blood loss was minimal. Procedure: Pre-Anesthesia Assessment: - Prior to the procedure, a History and Physical was performed, and patient medications and allergies were reviewed. The patient is competent. The risks and benefits of the procedure and the sedation options and risks were discussed with the patient. All questions were answered and informed consent was obtained. Patient identification and proposed procedure were verified by the physician, the nurse and the personal development coach in the procedure room. Mental Status Examination: alert and oriented. Airway Examination: normal oropharyngeal airway and neck mobility. Respiratory Examination: clear to auscultation. CV Examination: normal. Prophylactic Antibiotics: The patient does not require prophylactic antibiotics. Prior Anticoagulants: The patient has taken no previous anticoagulant or antiplatelet agents except for aspirin. ASA Grade Assessment: IV - A patient with severe systemic disease that is a constant threat to life. After reviewing the risks and benefits, the patient was deemed in satisfactory condition to undergo the procedure. The anesthesia plan was to use deep sedation / analgesia. Immediately prior to administration of medications, the patient was re-assessed for adequacy to receive sedatives. The heart rate, respiratory rate, oxygen saturations, blood pressure, adequacy of pulmonary ventilation, and response to care were monitored throughout the procedure. The physical status of the patient was re-assessed after the procedure. After obtaining informed consent, the endoscope was passed under direct vision. Throughout the procedure, the patient's blood pressure, pulse, and oxygen saturations were monitored continuously. The Endoscope was introduced through the mouth, and advanced to the second part of duodenum. The upper GI endoscopy was accomplished without difficulty. The patient tolerated the procedure well. Findings: The distal esophagus proved circumferential superficial chronic appearing ulcer consistent with LA Grade D (one or more mucosal breaks involving at least 75% of esophageal circumference) esophagitis with no bleeding was found. Mild narrowing/related rings noted A medium-sized hiatal hernia was present. Patchy moderate inflammation without hemorrhage characterized by erythema, atrophy was found in the entire examined body of stomach with hint of old ulcer along greater curvature. Pylorus was patent. Biopsies were taken with a cold forceps for Helicobacter pylori testing using CLOtest. The examined duodenum was normal. 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 - Continue high dose PPI - [facility]. - Consider colonoscopy - Advance diet as tolerated. Procedure Code(s): --- Professional --- 32007, Esophagogastroduode noscopy, flexible, transoral; with biopsy, single or multiple --- Technical --- 90888, Esophagogastroduode noscopy, flexible, transoral; with biopsy, single or multiple Diagnosis Code(s): --- Professional --- K21.00, Gastro-esophageal reflux disease with esophagitis, without bleeding K44.9, Diaphragmatic hernia without obstruction or gangrene K29.71, Gastritis, unspecified, with bleeding K92.2, Gastrointestinal hemorrhage, unspecified --- Technical --- K21.00, Gastro-esophageal reflux disease with esophagitis, without bleeding K44.9, Diaphragmatic hernia without obstruction or gangrene K29.71, Gastritis, unspecified, with bleeding K92.2, Gastrointestinal hemorrhage, unspecified CPT copyright 2019 [employer]. All rights reserved. The codes documented in this report are preliminary and upon health specialist review may be revised to meet current compliance requirements. Dr. Elvie Shaikh MD _ Elvie Shaikh MD 12/31/2021 11:13:46 AM This report has been signed electronically. Number of Addenda: 0 Note Initiated On: 12/31/2021 6:48 AM [facility] ENDOSCOPY 12/31/2021 6:48 AM CDT Bouchra Samaniego DO GI PROCEDURE ORDERAB LES Performing Organization Address [facility] Co de Phone Number [facility] [place] [address] * (ABNORMAL) HGB HCT PANEL (12/31/2021 6:01 AM CDT) Only the most recent of4 resultswithin the time period is included. Hemoglobin 6.8(L) 12.0 - 17.6 gm/dL 12/31/2021 6:17 AM CDT [facility] Hematocrit 24.1(L) 35.2 - 51.7 % 12/31/2021 6:17 AM CDT [facility] Blood BLOOD SPECIMEN / Unknown Venipuncture / Unknown 12/31/2021 6:01 AM CDT 12/31/2021 6:14 AM CDT Amy Dawson MD LAB - HEMATOLOGY ORD ERABLES Performing Organization Address [facility] Co de Phone Number [facility] [address] [place] [address] * (ABNORMAL) FOLATE (12/31/2021 6:01 AM CDT) Folate 1.9(L) 7.0 - 31.4 ng/mL 12/31/2021 7:18 AM CDT [facility] Blood BLOOD SPECIMEN / Unknown Venipuncture / Unknown 12/31/2021 6:01 AM CDT 12/31/2021 6:14 AM CDT Amy Dawson MD LAB - CHEMISTRY [facility] Performing Organization Address [facility] Co de Phone Number [facility] [address] [place] [address] * VITAMIN B12 (12/31/2021 6:01 AM CDT) Vitamin B12 728 213 - 816 pg/mL 12/31/2021 7:18 AM CDT [facility] Blood BLOOD SPECIMEN / Unknown Venipuncture / Unknown 12/31/2021 6:01 AM CDT 12/31/2021 6:14 AM CDT Amy Dawson MD LAB - CHEMISTRY [facility] FREITAS Performing Organization Address [facility] Co de Phone Number [facility] [address] [place] [phone] * (ABNORMAL) IRON + TRANSFERRIN PANEL (12/31/2021 6:01 AM CDT) Iron 10(L) 65 - 175 ug/dL 12/31/2021 6:43 AM CDT [facility] Transferrin 228 163 - 344 mg/dL 12/31/2021 6:43 AM CDT [facility] TIBC Calculated 285 240 - 450 ug/dL 12/31/2021 6:43 AM CDT [facility] Iron Saturation % 4(L) 20 - 50 % 12/31/2021 6:43 AM CDT [facility] Blood BLOOD SPECIMEN / Unknown Venipuncture / Unknown 12/31/2021 6:01 AM CDT 12/31/2021 6:14 AM CDT Amy Dawson MD LAB - CHEMISTRY AURA FREITAS Performing Organization Address [facility] Co de Phone Number [facility] [address] [place] [phone] * BLOOD TYPE VERIFICATION (12/31/2021 12:09 AM CDT) ABO Rh A POS 12/31/2021 10:37 AM CDT [facility] Blood Bank BLOOD SPECIMEN / Unknown 12/31/2021 12:09 AM CDT 12/31/2021 10:01 AM CDT Amy Dawson MD LAB - BLOOD BANK ORD ERAMINE Performing Organization Address City/[facility]/ZIP Co de Phone Number [facility] [address] [place] [address] [phone] * ECHOCARDIOGRAM 2D WITH DOPPLER (12/30/2021 11:00 AM CDT) Only the most recent of2 resultswithin the time period is included. 12/30/2021 11:0 0 AM CDT Narrative Procedure Note Sivakumar Mccarty MD - 12/31/[address] [facility] [address] [facility] [place] [address] Echocardiography Examination Transthoracic Name: VICKIE SANTO MPI#: MR#: [id number] Admission Number: [id number] Study Date: 12/31/2021 Study Time: 02:41 PM Date Of : 1950 Age: 71 years Height: 72 in. (182.9 cm) Weight: 274 lbs. (124.29 kg) BSA: 2.44 m2 Gender: Male Blood Pressure: 101 mmHg / 70 mmHg Heart Rate: 78 bpm Exam Details Procedure Ordered: ECHOCARDIOGRAM 2D W/DOPPLER Procedure Components: Complete 2D, M-mode, complete spectral Doppler, color Doppler Procedure Status: Routine study Image Quality: Adequate Facility Location: [facility] Indication: Shortness of Breath, HTN, DM, COPD, CKD Procedure Glass Melt Operator: Risa Riggs RDCS Ordering Provider: AMY Potter Physician: Sivakumar Mccarty MD PATIENT WAS RECEIVING A BLOOD TRANSFUSION/ UNABLE TO ADMINISTER DEFINTY Conclusions Left Ventricle: Left ventricle is normal in size. Severely reduced systolic left ventricular function. EF 30 %. Left ventricle wall thickness is increased. There is severe global hypokinesis. Left ventricular diastolic function parameters are normal. Right Ventricle: Moderately dilated right ventricle. Right ventricular systolic function is reduced. Pulmonary artery pressure moderately increased. Right Atrium: Patient: VICKIE SANTO Study Date: 12/31/2021 02:41 PM Page 1 of 4 The right atrium is dilated. Mitral Valve: Moderate mitral regurgitation. There is malcoaptation of the mitral valve leaflets. The mitral annulus is dilated. Tricuspid Valve: Mild tricuspid regurgitation. Tricuspid Valve Measurements RVSP: 51 mmHg. Follow up: Findings Left Ventricle: Left ventricle is normal in size. Severely reduced systolic left ventricular function. EF evaluated by biplane method of disks. EF 30 %. Left ventricle wall thickness is increased. There is severe global hypokinesis. Left ventricular diastolic function parameters are normal. Right Ventricle: Moderately dilated right ventricle. Right ventricular wall thickness is normal. Right ventricular systolic function is reduced. Pulmonary artery pressure moderately increased. Left Atrium: The left atrium is moderately dilated. Right Atrium: The right atrium is dilated. Mitral Valve: Mitral leaflets exhibit normal cuspal separation. Moderate mitral regurgitation. No mitral valve stenosis. There is malcoaptation of the mitral valve leaflets. The mitral annulus is dilated. Aortic Valve: Aortic leaflets exhibit normal cuspal separation. No aortic valve regurgitation. There is no aortic stenosis. Tricuspid Valve: Tricuspid valve leaflets are normal. Mild tricuspid regurgitation. No tricuspid valve stenosis. Pulmonic Valve: Pulmonic leaflets exhibit normal cuspal separation. No pulmonic valve regurgitation is evident. There is no pulmonic valve stenosis. Aorta: The aorta is normal. No dilation of the ascending aorta. The aortic root exhibits normal size. Great Vessels: IVC: The inferior vena cava is normal in size and course. Pericardium: The pericardium is normal in appearance. No pericardial effusion. Stress Details Measurements Anatomy Label Value Normal Value Aorta AoRoot, MM 3.9 cm (2.2cm - 3.7cm) Aortic Valve AV Vmean 1.04 m/s Patient: VICKIE SANTO Study Date: 12/31/2021 02:41 PM Page 2 of 4 Aortic Valve AV VTI 22.36 cm Aortic Valve AV PGmax 7 mmHg Aortic Valve AV PGmean 5 mmHg Aortic Valve AV Vmax, Curve 1.36 m/s (1m/s - 1.7m/s) Aortic Valve LVOT VTI / AV VTI 0.49 Aortic Valve TYRON D (continuity eq. VTI) 1.7 cm Aortic Valve TYRON Index (continuity 0.82 cm /m eq.Vmax) Aortic Valve AV Opening, MM 1.9 cm Aortic Valve LVOT Vmax / AV Vmax 0.57 Interventricular septum IVSd, 2D 1 cm (0.6cm - 1.1cm) Left Atrium LADs, MM 6.2 cm (3cm - 4cm) Left Atrium LA Area s, A4C 25.7 cm (0cm - 20cm ) Left Atrium LA Area s, A2C 22.1 cm (0cm - 20cm ) Left Atrium LAESV, MOD4 88 ml (18ml - 58ml) Left Atrium LAESV, MOD2 69 ml (18ml - 58ml) Left Atrium LA/AO Ratio, MM 1.59 Left Atrium LAESV index, MOD4 36.1 ml/m Left Atrium LAESV index, MOD2 28.3 ml/m Left Atrium LAESV index, AL4 37.3 ml/m Left Atrium LAESV index, AL2 29.5 ml/m Left Ventricle LVOT Vmax 0.77 m/s (0.7m/s - 1.1m/s) Left Ventricle LVOTd 2.1 cm (1.9cm - 2.1cm) Left Ventricle LVOT VTI 10.85 cm (18cm - 22cm) Left Ventricle LVOT PGmax 2 mmHg Left Ventricle LVEF visual 30 % (55% - 75%) Left Ventricle LVDd, 2D 6.8 cm (4.2cm - 5.9cm) Left Ventricle LVDs, 2D 5.2 cm (2.2cm - 3.5cm) Left Ventricle LVPWd, 2D 0.8 cm (0.6cm - 1cm) Left Ventricle FS, 2D 23.53 % Left Ventricle LVOT PGmean 1 mmHg Left Ventricle LVOT Vmean 0.55 m/s Left Ventricle Diastolic MV E Vmax 1.31 m/s Function Left Ventricle Diastolic MV A Vmax 0.5 m/s Function Left Ventricle Diastolic MV E/A 2.62 Function Left Ventricle Diastolic MV E/E' lateral 7.64 Function Left Ventricle Diastolic MV E/E' septal 29.96 (0.45 - 1.25) Function Left Ventricle Diastolic MV DT 86 ms Function Left Ventricle Diastolic MV E' septal 0.04 m/s Function Left Ventricle Diastolic MV E' lateral 0.17 m/s Function Left Ventricle Diastolic MV E/E' mean 12.48 Function Patient: VICKIE SANTO Study Date: 12/31/2021 02:41 PM Page 3 of 4 Left Ventricle Diastolic MV E' mean 0.1 m/s Function Mitral Valve MVA PHT 8.8 cm Mitral Valve MV PHT 25 ms Mitral Valve MV Dec Robeson 15.21 m/s Pulmonic Valve PV PGmax 3 mmHg Pulmonic Valve PV Vmax, Caliper 0.88 m/s (0.6m/s - 0.9m/s) Right Atrium RA Area s 19.6 cm Right Ventricle Diastolic TR Pmax 41 mmHg Function Tricuspid Valve RVSP 51 mmHg Tricuspid Valve RA Pressure 10 mmHg Tricuspid Valve TR Vmax 3.22 m/s (No Signature Object) Patient: VICKIE SANTO Study Date: 12/31/2021 02:41 PM Page 4 of 4 Amy Dawson MD ECHO ORDERABLES Performing Organization Address [facility]/ZIP Co de Phone Number [facility] CCW * SARS-COV-2 (COVID-19)+INFLU A+B PCR RAPID (12/30/2021 3:34 AM CDT) [facility] COVID-19 PCR Not detected Not detected 12/31/19 4:36 AM CDT [facility] Influenza A PCR Not detected Not detected 12/30/2021 4:36 AM CDT [facility] Influenza B PCR Not detected Not detected 12/30/2021 4:36 AM CDT [facility] Microbiology SPECIMEN FROM NASOPHARYNGEAL STRUCTURE / Unknown Collection / Unknown 12/30/2021 3:34 AM CDT 12/30/2021 3:51 AM CDT Narrative [facility] - 12/30/2021 4:36 AM CDT This nucleic acid amplification assay has been authorized by the Food and Drug administration (FDA) under an Emergency Use Authorization (EUA). This test is only authorized for the duration of time the declaration that circumstances exist justifying the authorization of emergency use of in vitro diagnostic tests for detection of SARS-CoV-2 virus and/or diagnosis of COVID-19 infection under section 564(b)(1) of the Act, 21 U.S.C 360bbb-3 (b)(1), unless the authorization is terminated or revoked sooner. Fact Sheets for this EUA assay are available upon request. Marv Pascual MD LAB - MICROBIOLOGY O RDERABLES Performing Organization Address City/[facility]/ZIP Co de Phone Number [facility] [address] [place] [phone] * Critical Care (12/30/2021 1:16 AM CDT) Narrative Marv Pascual MD - 12/30/2021 1:16 AM CDT Marv Pascual MD 12/30/2021 2:14 AM Critical Care Performed by: Marv Pascual MD Authorized by: Marv Pascual MD Critical care provider statement: Critical care time (minutes): 35 Critical care time was exclusive of: Separately billable procedures and treating other patients Critical care was necessary to treat or prevent imminent or life-threatening deterioration of the following conditions: hyperkalemia. Critical care was time spent personally by me on the following activities: Ordering and performing treatments and interventions, ordering and review of laboratory studies, ordering and review of radiographic studies, pulse oximetry, re-evaluation of patient's condition, obtaining history from patient or surrogate, examination of patient, evaluation of patient's response to treatment, discussions with consultants, development of treatment plan with patient or surrogate and blood draw for specimens I assumed direction of critical care for this patient from another provider in my specialty: no Marv Pascual MD PROCEDURE/MINOR SURG ICAL ORDERABLES * (ABNORMAL) LIPASE BLOOD (12/30/2021 1:16 AM CDT) Only the most recent of2 resultswithin the time period is included. Lipase 4(L) 8 - 78 U/L 12/30/2021 1:47 AM CDT [facility] Blood BLOOD SPECIMEN / Unknown Venipuncture / Unknown 12/30/2021 1:16 AM CDT 12/30/2021 1:22 AM CDT Marv Pascual MD LAB - CHEMISTRY [facility] Organization Address City/State/ZIP Co de Phone Number [facility] [address] [place] [address] * CT ANGIO ABD PELVIS GI BLEED (12/30/2021 12:24 AM CDT) Anatomical Region Laterality Modality Abdomen, Pelvis Computed Tomogra phy 12/30/2021 9:54 AM CDT Impressions 12/30/2021 10:38 AM CDT 1. No evidence of active hemorrhage. 2. Small amount of free fluid in pelvis. 3. Bibasilar pleural effusions with atelectasis. 4. Hiatal hernia. 5. Cardiomegaly. 6. Proximal left renal artery stenosis. 7. Atrophic bilateral kidneys without obstructive uropathy. 8. Increased colon content. 9. Other findings as above. Edited by Isamar Muniz on 12/30/2021 10:06 AM *Reading Radiologist: Tae Blum on 12/30/2021 at 10:38 AM Narrative 12/30/2021 10:38 AM CDT CTA ABDOMEN WITH AND WITHOUT CONTRAST CTA PELVIS WITH AND WITHOUT CONTRAST CT 3-D RECONSTRUCTIVE IMAGES ON INDEPENDENT WORKSTATION INDICATION: Hematemesis with nausea. Vomiting. Abdominal pain. TECHNIQUE: 5 mm axial images through the abdomen and pelvis noncontrast followed by 1 mm axial images through the abdomen and pelvis with intravenous contrast and delayed images. 3-D reconstructed images were then obtained. 100 mL Isovue-370 was injected intravenously. FINDINGS: CTA ABDOMEN: Bibasilar pleural effusions are present. The effusion in the left base measures at least 4.4 cm and in the right base 2.2 cm. There is associated atelectasis. There is a hiatal hernia. The heart size is enlarged. Vascular calcifications are present with atherosclerotic calcification of the abdominal aorta. No renal calculi or gallstones are present. Following the administration of intravenous contrast, there is no evidence of abdominal aortic aneurysm or dissection. The proximal mesenteric arteries are patent. The right and left renal arteries are patent. There is mild to moderate stenosis left proximal renal artery. Otherwise the visualized portions of the liver, gallbladder, spleen, and adrenal glands show no acute abnormalities. There is atrophy to the pancreas. Both kidneys are atrophic. There is no obstructive uropathy. There is no active extravasation to suggest a bleed. There is scattered stool throughout the colon. There is no bowel obstruction, free air, or free fluid. CTA PELVIS: Noncontrast images demonstrate calcifications of the right and left common iliac arteries. A right hip prosthesis is present. No urinary bladder calculi are present. Following the administration of intravenous contrast, the right and left common iliac arteries are patent. No active bleed is seen. There is a small amount of free fluid in the left side of the pelvis. There is no bowel obstruction. Scattered stool is present throughout the colon. Incidentally noted are subcutaneous lucencies of air in the right anterior lower pelvis which could be related to injections. Three-D reconstructed images confirm the above findings. Procedure Note Tae Blum MD - 12/30/2021 CTA ABDOMEN WITH AND WITHOUT CONTRAST CTA PELVIS WITH AND WITHOUT CONTRAST CT 3-D RECONSTRUCTIVE IMAGES ON INDEPENDENT WORKSTATION INDICATION: Hematemesis with nausea. Vomiting. Abdominal pain. TECHNIQUE: 5 mm axial images through the abdomen and pelvis noncontrast followed by 1 mm axial images through the abdomen and pelvis with intravenous contrast and delayed images. 3-D reconstructed images were then obtained. 100 mL Isovue-370 was injected intravenously. FINDINGS: CTA ABDOMEN: Bibasilar pleural effusions are present. The effusion in the left base measures at least 4.4 cm and in the right base 2.2 cm. There is associated atelectasis. There is a hiatal hernia. The heart size is enlarged. Vascular calcifications are present with atherosclerotic calcification of the abdominal aorta. No renal calculi or gallstones are present. Following the administration of intravenous contrast, there is no evidence of abdominal aortic aneurysm or dissection. The proximal mesenteric arteries are patent. The right and left renal arteries are patent. There is mild to moderate stenosis left proximal renal artery. Otherwise the visualized portions of the liver, gallbladder, spleen, and adrenal glands show no acute abnormalities. There is atrophy to the pancreas. Both kidneys are atrophic. There is no obstructive uropathy. There is no active extravasation to suggest a bleed. There is scattered stool throughout the colon. There is no bowel obstruction, free air, or free fluid. CTA PELVIS: Noncontrast images demonstrate calcifications of the right and left common iliac arteries. A right hip prosthesis is present. No urinary bladder calculi are present. Following the administration of intravenous contrast, the right and left common iliac arteries are patent. No active bleed is seen. There is a small amount of free fluid in the left side of the pelvis. There is no bowel obstruction. Scattered stool is present throughout the colon. Incidentally noted are subcutaneous lucencies of air in the right anterior lower pelvis which could be related to injections. Three-D reconstructed images confirm the above findings. IMPRESSION 1. No evidence of active hemorrhage. 2. Small amount of free fluid in pelvis. 3. Bibasilar pleural effusions with atelectasis. 4. Hiatal hernia. 5. Cardiomegaly. 6. Proximal left renal artery stenosis. 7. Atrophic bilateral kidneys without obstructive uropathy. 8. Increased colon content. 9. Other findings as above. Edited by Isamar Muniz on 12/30/2021 10:06 AM *Reading Radiologist: Tae Blum on 12/30/2021 at 10:38 AM Amelie Stoddard RianaSher ORACLE OBIEE DEVELOPER-FINGER LIFT OPERATOR CT ORDERAB LES * LAB RESULTS ORDER (06/17/2018 7:16 AM CDT) Narrative 06/17/2018 7:16 AM CDT Ordered by an unspecified provider. Scanned Document LAB - THERAPEUTIC DR TSE MONITORING ORDERABLES * LAB HISTORICAL RESULTS-ONBASE (04/19/2017) Only the most recent of4 resultswithin the time period is included. 04/19/2017 Historical Provider LAB - CHEMISTRY O RDERABLES Performing Organization Address City/State/[facility] Co de Phone Number [address] * IP CONSULT TO HOSPITALIST (11/08/2013 7:42 PM LEARNING DISABLED TEACHER) Raghu Hollingsworth MD INPATIENT CONSULT OR DERABLES * NM LUNG VENT PERF AEROSOL (10/07/2013 10:31 AM LEARNING DISABLED TEACHER) Anatomical Region Laterality Modality Lung, Chest Nuclear Medicine 10/07/2013 10:3 3 AM LEARNING DISABLED TEACHER Impressions 10/07/2013 10:34 AM LEARNING DISABLED TEACHER Low probability for pulmonary embolus. Narrative 10/07/2013 10:34 AM LEARNING DISABLED TEACHER Ventilation and perfusion scan Clinical Indication: Cough, chest pain, flulike symptoms Radiopharmaceutical: Tc 99m DTPA 35.0 mCi inhaled Technetium 99m MAA 5.0 mCi IV Findings: Correlation is made with chest x-ray of 10/04/2013. There are no peripheral wedge shaped perfusion defects. There are no mismatched ventilation/perfusion defects. Procedure Note Rich Cantrell MD - 10/07/2013 Ventilation and perfusion scan Clinical Indication: Cough, chest pain, flulike symptoms Radiopharmaceutical: Tc 99m DTPA 35.0 mCi inhaled Technetium 99m MAA 5.0 mCi IV Findings: Correlation is made with chest x-ray of 10/04/2013. There are no peripheral wedge shaped perfusion defects. There are no mismatched ventilation/perfusion defects. IMPRESSION Low probability for pulmonary embolus. Zoila Feliz MD NM ORDERABLES * (ABNORMAL) D-DIMER (10/06/2013 2:19 PM LEARNING DISABLED TEACHER) [facility] D-Dimer 0.96(H) 0 - 0.5 mg/L FEU 10/06/2013 2:50 PM LEARNING DISABLED TEACHER [facility] Blood BLOOD SPECIMEN / Unknown 10/06/2013 2:19 PM LEARNING DISABLED TEACHER 10/06/2013 2:27 PM LEARNING DISABLED TEACHER Narrative [facility] - 10/06/2013 2:50 PM LEARNING DISABLED TEACHER The innovance D-dimer assay now in use at [facility], [facility] and [facility] is intended for use as an aid in diagnosis of venous thromboembolism [(VTE): deep vein thrombosis (DVT), pulmonary embolism (PE), and disseminated intravascular coagulation (DIC)], and has received FDA approval to exclude VTE in patients with low or moderate pretest probability of PE or DVT (per Wells' rules). At a clinical cut-off value 0.50 mg/L FEU, the Negative Predictive Value of this assay is 99.8% for excluding PE and 100% for excluding DVT. A very low percentage of patients with VTE may yield D-dimer results below cut- off value. An elevated D-dimer result has low specificity (40.4% for PE, 35.5% for DVT) and is a poor predictor of VTE. An elevated D-dimer result may indicate DIC in the appropriate clinical setting. Results of this test should always be interpreted in conjunction with the patient's medical history, clinical presentation, and other findings. Zoila Feliz MD LAB - COAGULATION O RDERABLES [facility] [address] [place] [address] * CULTURE STOOL+SHIGA-LIKE TOXIN (10/05/2013 10:35 PM LEARNING DISABLED TEACHER) Culture No growth Salmonella, Shigella, Campylobacter , E. coli 0157:h7 or Yersinia 10/08/2013 8:13 AM LEARNING DISABLED TEACHER [facility] Culture Shiga Toxin Negative 10/08/2013 8:13 AM LEARNING DISABLED TEACHER [facility] Stool STOOL SPECIMEN / Unknown 10/05/2013 10:35 PM LEARNING DISABLED TEACHER 10/05/2013 10:42 PM LEARNING DISABLED TEACHER Clint Mike MD LAB - MICROBIOLOGY O RDERABLES [facility] [address] [place] [address], [facility] * (ABNORMAL) LIPID PROFILE (10/05/2013 1:24 PM LEARNING DISABLED TEACHER) Cholesterol 99 <200 mg/dL 10/05/2013 1:50 PM LEARNING DISABLED TEACHER [facility] Triglycerides 217(H) <150 mg/dL 10/05/2013 1:50 PM LEARNING DISABLED TEACHER [facility] HDL Cholesterol 22(L) >40 mg/dL 3 1:50 PM LEARNING DISABLED TEACHER [facility] LDL Calculated 34 <130 mg/dL 10/05/2013 1:50 PM [facility] VLDL Calculated 43(H) <=30 mg/dL 3 1:50 PM LEARNING DISABLED TEACHER [facility] Chol HDL Ratio 4.5(H) <4.5 10/05/2013 1:50 PM LEARNING DISABLED TEACHER [facility] Blood BLOOD SPECIMEN / Unknown 10/05/2013 1:24 PM LEARNING DISABLED TEACHER 10/05/2013 1:29 PM LEARNING DISABLED TEACHER Raghu Hollingsworth MD LAB - CHEMISTRY [facility] [address] [place] [address] * (ABNORMAL) INFLUENZA A+B ANTIGEN RAPID (10/05/2013 9:55 AM LEARNING DISABLED TEACHER) Influenza A Antigen Positive(A) Negative 10/05/2013 10:13 AM LEARNING DISABLED TEACHER [facility] Influenza B Antigen Negative Negative 10/05/2013 10:13 AM LEARNING DISABLED TEACHER [facility] Microbiology NASOPHARYNGEAL SWAB / Unknown 10/05/2013 9:55 AM LEARNING DISABLED TEACHER 10/05/2013 9:58 AM LEARNING DISABLED TEACHER Narrative [facility] - 10/05/2013 10:13 AM LEARNING DISABLED TEACHER Droplet Precautions Required. The sensitivity of rapid tests for influenza A and B antigens, according to the published reports , ranges from 30-70% when compared to PCR and viral culture. For H1N1 influenza A, the sensitivity varies from 30-50%. For other influenza A strains, the sensitivity ranges from 50-70%. For influenza B virus, the sensitivity is approximately 30%. A negative result does not exclude influenza infection. False-positive (and true-negative) influenza test results are more likely to occur when disease prevalence is low, which is generally at the beginning and end of the influenza season. False-negative (and true-positive) influenza test results are more likely to occur when disease prevalence is high, which is typically at the height of the influenza season. Dioni Bull ORACLE OBIEE DEVELOPER-FINGER LIFT OPERATOR LAB - MICROBIOLO GY ORDERABLES Performing Organization Address [facility] de Phone Number [facility] [address] [place] [address] * PTT (10/04/2013 11:08 PM LEARNING DISABLED TEACHER) PTT 26.8 24.0 - 32.0 sec 10/04/2013 11:49 PM LEARNING DISABLED TEACHER [facility] Blood BLOOD SPECIMEN / Unknown 10/04/2013 11:08 PM LEARNING DISABLED TEACHER 10/04/2013 11:21 PM LEARNING DISABLED TEACHER Lam Hendrickson DO LAB - COAGULATION OR DERABLES Performing Organization Address [facility] de Phone Number [facility] [address] [place] [address] * PT-INR (10/04/2013 11:08 PM LEARNING DISABLED TEACHER) PT 10.6 9.4 - 11.2 sec 10/04/2013 11:49 PM LEARNING DISABLED TEACHER [facility] INR 1.01 0.9 - 1.1 10/04/2013 11:49 PM LEARNING DISABLED TEACHER [facility] Blood BLOOD SPECIMEN / Unknown 10/04/2013 11:08 PM LEARNING DISABLED TEACHER 10/04/2013 11:21 PM LEARNING DISABLED TEACHER Narrative [facility] - 10/04/2013 11:49 PM LEARNING DISABLED TEACHER Conventional Anticoagulant Therapy INR Reference Ranges: 2.0-3.0 Intensive Anticoagulant Therapy INR Reference Ranges: 2.5-3.5 Lam Hendrickson DO LAB - COAGULATION OR DERABLES [facility] [address] [place] [address] Care Teams Sandal Parts Assembler Relationship Specialty Start Date End Date Fausto Chavez MD [address] [facility] [place] [address] PCP - General Family Medicine 12/31/21
--- OUTSIDE RECORDS SUMMARY | 2024-12-06 15:32 | XMS_ITS | Continuity of Care Document ---
Author Organization [facility] Address [address] [place] [address] Phone Care Team Providers Care Forestry Supervisor Name Role Phone Hawa AMAYA, Elvie Unavailable Unavailable Procedures Procedure Date UPPER GI ENDOSCOPY BIOPSY SUBSEQUENT HOSPITAL VISIT, EXPANDED INITIAL HOSPITAL CARE LVL 2 Advance Directives Directive Yes / No Effective Date File Name No Information Encounters Encounter Description Practice Location Reason(s) For Visit Diagnoses Date Provider Providers Copied on Encounter SUBSEQUENT HOSPITAL VISIT, EXPANDED [facility], [address], [place], [place], [id number], tel:[phone] [facility] No Information Hawa Bermeo. [address] [place], [place], [id number], . tel:[phone] Referring Provider: Fausto Akers, [address], [place], [address]. tel:[phone] INITIAL HOSPITAL CARE LVL 2 [facility], [address], [place], [place], [id number], tel:[phone] [facility] No Information Aden Shook. [address] [place], [place], [id number], . tel:[phone] Referring Provider: Fausto Akers, [address], [place], [address]. tel:[phone] Family History Family Member Type Diagnosis Age At Onset No Information Payers Payer name Insurance type Covered libertarian ID Josiane read(s) [facility] [id number] Social History Type Description Quantity Date Captured [...]
--- OUTSIDE RECORDS SUMMARY | 2024-12-06 15:32 | XMS_ITS | Continuity of Care Document ---
Author Organization [facility] Address [address] [place] [address] Phone Care Team Providers Care Analytical Statistician Name Role Phone Channing Ramirez MD Unavailable Unavailable Advance Directives Directive Yes / No Effective Date File Name No Information Encounters Encounter Description Practice Location Reason(s) For Visit Diagnoses Date Provider Providers Copied on Encounter [facility], [address] [place] [address], [id number], [place] tel:[phone] [facility] No Information [address] James Snell. [address], [address], [place], [place], [id number] , [place]. tel:[phone] Family History Family Member Type Diagnosis Age [...]
--- OUTSIDE RECORDS SUMMARY | 2024-12-06 15:32 | XMS_ITS | Clinical Summary ---
Author Organization [facility] Address [address] [place] [address] Care Team Providers Care Capacitor Tester Name Role Phone Fausto Chavez MD Primary Care Provider [phone] Source Comments [facility] [employer],non-owned Affiliates and Associated Physician Practices is amultiple site organization consisting of ambulatory clinics and hospital sitesin [place], [place], [place] and [place]. This disclosure is being madepursuant to the Care Everywhere program and may not contain all information available regarding this patient. Last updated 18.[facility] [employer] Allergies Active Allergy Reactions Criticality Noted Date [...] PNEUMOCOCCAL PPSV23 08/06/2013 Pneumococcal Pcv13 Conj 07/14/2018 Family History Medical History Relation Name Comments Cancer - Lung Brother Hepatitis Brother hepaitis C Other Brother Emphysema Schizophrenia Brother Alcohol abuse Father Hypertension Mother Other Mother smoker Other - Cardiac Mother heart attac k Obesity Sister 1 Other - Cardiac Sister 1 artificial h eart valve (mechanical) Diabetes - Type 2 Sister 2 Other Sister 2 anxiety and dep ression Relation Name Status Comments Brother Father Mother Sister 1 Alive Sister 2 Alive Social History Tobacco Use Types Packs/Day Years [...] and heating? Not hard at all 10/17/2022 [facility] - Occupational Stress [...] place to sleep or slept in a senior care (including now)? No 10/17/2022 Sex and Gender Information Value Date Recorded Sex Assigned at Not on file Gender Identity Not on file Sexual Orientation Not on file Last Filed Vital Signs Vital Sign Reading Time Taken Comments Blood Pressure 116/75 10/18/2022 8:21 AM LARDER COOK Pulse 80 10/18/2022 8:21 AM LARDER COOK Temperature 36.7 C (98 F) 10/18/2022 8:21 AM LARDER COOK Respiratory Rate 16 10/18/2022 8:21 AM LARDER COOK Oxygen Saturation 95% 10/18/2022 8:21 AM LARDER COOK Inhaled Oxygen Concentration - - Weight 90.7 kg (200 lb) 01/23/2023 9:58 AM CDT Height 182.9 cm (6') 01/23/2023 9:58 AM CDT Body Mass Index 27.12 01/23/2023 9:58 AM CDT Plan of Treatment Health Maintenance Due Date Last Done Comments COLOGUARD (AGES 45-75) - COLON CA SCREENING 1950 COLON MONITORING 1950 COLONOSCOPY - COLON CA SCREENING 1951 CT COLONOGRAPHY - COLON CA SCREENING 1950 Colorectal Cancer Screening 1950 FIT - COLON CA SCREENING 1950 FLEX SIG - COLON CA SCREENING 1950 HEPATITIS C SCREENING 05/01/1969 DTAP/TDAP/TD VACCINES (1 - Tdap) 1970 ZOSTER VACCINE (1 of 2) 2001 PNEUMOCOCCAL VACCINE 50+ (3 of 3 - PCV20 or PCV21) 07/14/2023 07/14/2018, 08/06/2013 COVID-19 VACCINE ( - season) 2024 10/02/2021, 01/04/2021, 12/07/2020 INFLUENZA VACCINE (#1) 2024 , 07/26/2020, 07/20/2019, Additional history exists DEPRESSION SCREENING 10/06/2024 MEDICARE AWV CALENDAR YEAR 2024 Respiratory Syncytial Virus (RSV) Vaccine Pt: or over 60 yrs (1 - 1-dose 75+ series) 2026 HEPATITIS B VACCINE Aged Out No longe r eligible based on patient's age to complete this topic HIB VACCINE Aged Out No longer eligi ble based on patient's age to complete this topic HPV VACCINE Aged Out No longer eligi ble based on patient's age to complete this topic MENINGOCOCCAL (Group B) VACCINE Aged Out No longer eligible based on patient's age to complete this topic MENINGOCOCCAL VACCINE Aged Out No lucia evette eligible based on patient's age to complete this topic Advance Directives Documents on File Type Date Recorded Patient Furnace Caretaker Expl anation Adv Directive/Living Will/POA 03/16/2022 1:24 [...] 1:38 AM 10/07/2013 7:18 PM Care Teams Capacitor Tester Relationship Specialty Start Date End Date Fausto Chavez MD [address] [place] [address] [place] [address] PCP - General Family Medicine 12/31/21
--- OUTSIDE RECORDS SUMMARY | 2024-12-06 15:32 | XMS_ITS | CONTINUITY OF CARE DOCUMENT ---
Author Name ayo rollins Address Unknown Organization [facility] Address [address] [place] [address] Phone [phone] Care Team Providers Care Technical Designer Name Role Phone ayo rollins Unavailable Unavailable INSURANCE PROVIDERS Payer name Policy type / Coverage type [place] red republican ID [employer] [id number]
--- OUTSIDE RECORDS SUMMARY | 2024-12-06 15:32 | XMS_ITS | Clinical Summary ---
Author Organization [facility] Address [address] [facility] [place] [address] Phone Care Team Providers Care Glass Technician/Installer Name Role Phone Adán Garpatience Phipps APRN, ENVIRONMENTAL ATTORNEY Unavailable [phone] Jurgen Farisa DO Primary Care Provider [phone] Allergies Active Allergy Reactions Criticality Noted Date Comments Morphine Hallucinations Medium 07/03/2012 Becomes disoriented Nsaids Other (see Comments) 05/14/2024 Due to heart health Medications allopurinol (ZYLOPRIM) 300 MG Tablet Take 300 mg by mouth daily. Active famotidine (PEPCID) 20 MG Tablet Take 20 mg by mouth 2 times daily. Active HYDROcodone-mary taminophen (NORCO) 10-325 MG Tablet TAKE 1 TABLET BY MOUTH FOUR TIMES DAILY Active simvastatin (ZOCOR) 20 MG Tablet Take 20 mg by mouth nightly. Active albuterol 108 (90 Base) MCG/ACT Aerosol Solution take 2 Puffs by inhalation. Active bumetanide (BUMEX) 2 MG Tablet Take 2 mg by mouth every morning. Active Continuous Glucose Sensor (FreeStyle Mary 14 Day Sensor) [facility] [place] [place] USE TO CHECK BLOOD SUGAR Active insulin glargine (LANTUS, BASAGLAR) 100 UNIT/ML Solution Pen-injector 17 Units by Subcutaneous route in the morning and at bedtime. 2 Active midodrine (PROAMATINE) 10 MG Tablet Take 10 mg by mouth 3 times daily. Active pantoprazole (PROTONIX) 40 MG Tablet Delayed Response Take 40 mg by mouth every morning. Active traZODone (DESYREL) 100 MG Tablet Take 100 mg by mouth every evening. Active metoprolol tartrate (LOPRESSOR) 25 MG Tablet Take 1 Tablet by mouth 2 times daily. Active Docena-3 Fatty Acids (OMEGA 3 PO) Take by mouth. Activ e aspirin 325 MG Tablet Take 325 mg by mouth daily. Active losartan (COZAAR) 25 MG Tablet Take 25 mg by mouth daily. Active Multivitamin-Mi nerals (multiple vitamin with minerals) Tablet Take 1 Tablet by mouth daily. Active Glucagon (Gvoke HypoPen 1-Pack) 1 MG/0.2ML Solution Auto-injector by Subcutaneous route as needed. Active Insulin Aspart, w/Niacinamide, (Fiasp) 100 UNIT/ML Solution 6 Units by Subcutaneous route 3 times daily. Give 6 units before each meal Active Active Problems Problem Noted Date Diagnosed Date Ischemia 05/17/2024 Abnormal echocardiogram 05/17/2024 Coronary artery disease invo lving [place] coronary artery of [place] heart without angina pectoris 05/17/2024 Family History Medical History Relation Name Comments Alcohol Abuse Father Heart Attack Mother Hypertension Mother Stroke Mother Relation Name Status Comments Father Mother Social History Tobacco Use Types Packs/Day Years Used Date Smoking Tobacco: Never Smokeless Tobacco: Never Tobacco Cessation:Counseling Given: Not Answered Alcohol Use Standard Drinks/Week Comments Yes 1 (1 standard drink = 0.6 oz pur e alcohol) Rarely Sex and Gender Information Value Date Recorded Sex Assigned at Not on file Legal Sex Male 8:56 PM CDT Gender Identity Not on file Sexual Orientation Not on file Last Filed Vital Signs Vital Sign Reading Time Taken Comments Blood Pressure 103/63 06/04/2024 1:45 PM CDT Pulse 75 06/04/2024 1:45 PM CDT Temperature 36.7 C (98.1 F) 06/04/2024 1:45 PM CDT Respiratory Rate 16 06/04/2024 1:45 PM CDT Oxygen Saturation 99% 06/04/2024 1:45 PM CDT Inhaled Oxygen Concentration - - Weight 83 kg (183 lb) 06/04/2024 7:24 AM CDT Height 182.9 cm (6') 06/04/2024 7:24 AM CDT Body Mass Index 24.82 06/04/2024 7:24 AM CDT Plan of Treatment Health Maintenance Due Date Last Done Comments Hepatitis C Virus (HCV) Screening 1950 TdaP Immunization 1950 Colonoscopy 1996 Colorectal Cancer Screening 1996 Cologuard 2001 Immunochemical Fecal Occult Blood 2001 Zoster Immunization (1 of 2) 2001 Pneumococcal Immunization (50+ years) (3 of 3 - PPSV23, PCV20 or PCV21) 09/08/2018 07/14/2018, 08/06/2013 Influenza Immunization (#1) 06/06/202407/06, 07/23/2022, 07/25/2021, Additional history exists SARS-COV-2 Immunization ( season) 2024 07/23/2022, 10/02/2021, 01/04/2021, Additional history exists Respiratory Syncytial Virus (RSV) Immunization (Adult) Completed 07/16/2023 Hepatitis B Immunization Aged Out No longer eligible based on patient's age to complete this topic Meningococcal Immunization (ACWY) Aged Out No longer eligible based on patient's age to complete this topic Rotavirus Immunization Aged Out No lo nger eligible based on patient's age to complete this topic Medical Devices Implanted Type Area Jigman Device Identifier Shelf Expiration Date Model / Serial / Lot Device Clsr 6-7fr Mynxgrip Plain Clothes Police Officer Vasc Bln Cath Lock Syr Integrate Sealant 10ml Lf Disp - [id number] Implanted:Qty : 1 on 06/04/2024 by Hudson Gar MD at [facility] [employer]PL[employer] [id number] 05/05/2025 [id number] / / [id number] Insurance MEDICARE C [employer] Care Teams Glass Technician/Installer Relationship Specialty Start Date End Date Jurgen Farias DO [address] [place], [place] [id number] PCP - General Primary Care 01/12/24 Tiny Gar, HYDRAULIC DREDGE OPERATOR, ENVIRONMENTAL ATTORNEY [address] [facility] [place] [address] Nurse Practitioner Cardiology 01/12/24
--- NOTE | 2024-12-06 16:01 | ED.FALL ---
HPI - Fall General Chief Complaint: Fall <Patricia Pal APRN - Last Filed: 12/06/24 16:05> Stated Complaint: fall <Patricia Pal APRN - Last Filed: 12/06/24 16:05> Time Seen by Provider: 12/06/24 15:55 <Patricia Pal APRN - Last Filed: 12/06/24 16:05> Focused HPI: Patient is a 74-year-old male who presents to the ER after sustaining a fall at home. He reports he was using the restroom when he pivoted and fell into his bath tub. Patient reports his R hip/back made contact with the faucet and the rest of his body landed on the floor of the tub. He reports the fall occurred because ?my leg gave out on me. Patient endorses pain that shoots from his hip down to his ankle. He endorses a previous right hip replacement. Patient reports the pain increases any time he tries to put pressure on it. GENERAL: Well-appearing, well-nourished, and in no acute distress. HEAD: Normocephalic, atraumatic. CHEST: Clear to auscultation. ?No respiratory distress. HEART: Regular rate and rhythm.? NEURO: ?Alert and oriented x3. + ROM, + extremity strength Patient screened in triage and initial orders placed.? ?Additional care and disposition to be based upon?diagnostic testing and treatment. <Patricia Pal APRN - Last Filed: 12/06/24 16:05> History of Present Illness HPI Narrative: Agree with HPI <Raúl Maguire MD - Last Filed: 12/06/24 19:52> Related Data Home Medications: Home Medications ?Medication ?Instructions ?Recorded ?Confirmed ?Last Taken ?Type allopurinol 300 mg tablet 300 mg PO DAILY 10/20/19 12/06/24 12/06/24 History famotidine 20 mg tablet 20 mg PO BID 10/20/19 12/06/24 12/06/24 History hydrocodone 10 mg-acetaminophen 1 tablet PO Q4-6H PRN Pain (Scale 10/20/19 12/06/24 12/06/24 History 325 mg tablet Score 4-6) simvastatin 20 mg tablet 20 mg PO HS 0112/06/24 12/06/24 History bumetanide 2 mg tablet 2 mg PO DAILY 10/29/23 12/06/24 12/06/24 History lraaftwa-af-aliyo 300 mcg-K 60 1 tablet PO DAILY 10/29/23 12/06/24 12/06/24 History mcg-lycop 600 mcg-lutein 300 mcg tablet (Centrum Silver Men) pantoprazole 40 mg tablet,delayed 40 mg PO QAM 10/29/23 12/06/24 12/06/24 History release trazodone 100 mg tablet 100 mg PO QHS PRN sleep 10/29/23 12/06/24 12/05/24 History insulin aspart U-100 100 unit/mL See Rx Instructions .Route .COMPLEX 12/11/23 12/06/24 12/06/24 History subcutaneous solution (Novolog U-100 Insulin aspart) <Patricia Pal APRN - Last Filed: 12/06/24 16:05> Allergies/Adverse Reactions: Allergies Allergy/AdvReac Type Severity Reaction Status Date / Time morphine Allergy Unknown Agitated Verified 12/06/24 19:57 naproxen Allergy Unknown Unconscious Verified 12/06/24 19:57 NSAIDS (Non-Steroidal AdvReac Unknown renal Verified 12/06/24 19:57 Anti-Inflamma insufficiency <Patricia Pal APRN - Last Filed: 12/06/24 16:05> Review of Systems Review of Systems: All systems reviewed & are unremarkable except as noted in HPI and below <Raúl Maguire MD - Last Filed: 12/06/24 19:52> Constitutional: Constitutional: Reports no additional constitutional complaints <Raúl Maguire MD - Last Filed: 12/06/24 19:52> Musculoskeletal: Musculoskeletal: Reports no additional musculoskeletal complaints <Raúl Maguire MD - Last Filed: 12/06/24 19:52> Integumentary/Breasts: Skin/Breast: Reports system reviewed and no additional complaints, except as docu <Raúl Maguire MD - Last Filed: 12/06/24 19:52> Neurologic: Reports system reviewed and no additional complaints, except as documented <Raúl Maguire MD - Last Filed: 12/06/24 19:52> [facility] Past Medical History Medical History: Medical History Amputation of right great toe Diabetes Fracture collar bone Gout rt thumb, lt elbow Renal insufficiency GERD (gastroesophageal reflux disease) Bronchitis Hyperlipidemia CAD (coronary artery disease) Triple bypass CHF (congestive heart failure) Myocardial infarction Hypertension Rheumatoid arthritis <Patricia Pal APRN - Last Filed: 12/06/24 16:05> Surgical History Surgical History: Surgical History History of total right knee replacement History of hip replacement On the right History of orthopedic surgery bilateral elbows and right hand History of coronary artery stent placement Multiple stents Hx of cardiac cath H/O vascular surgery Hx of cataract surgery Hx of CABG 3 vessel <Patricia Pal, EMERGENCY DEPARTMENT MANAGER - Last Filed: 12/06/24 16:05> Family History Family History: Family History Father Family history of obesity Family history of alcoholism Patient's father is Acute myocardial infarction Mother Hypertension Patient's mother is Sibling Hypertension Sibling Alcoholism <Patricia Pal, EMERGENCY DEPARTMENT MANAGER - Last Filed: 12/06/24 16:05> Social History Social History: Social History Social History: the patient is from his . He has 1 stepson. He is currently living with his baby sister. He used to drink heavily when he was younger but only occasionally drinks now. Code status full code Smoking status: Former smoker Alcohol intake: former Substance use: never Substance use type: painkillers Other substance usage details: Q4-Q6 for back pain Last use: 03/27/2020 Do You Feel Safe in your Home?: Yes Lack of Transportation: No Lack of Food: Never True Current Housing: I Have Housing Concerned About Future Housing: No Difficulty Paying Gas/Electric Bills: No Difficulty Paying for Meds: No Currently Unemployed: No Education: High School Diploma/GED Difficulty w/ Childcare or Family Care: No Gender identity (if verbalized by the patient): Male Spiritual care concerns: No <Patricia Pal APRN - Last Filed: 12/06/24 16:05> Exam Narrative: GENERAL: Chronically-appearing, well-nourished, and in no acute distress. HEAD: Normocephalic, atraumatic. ENT: Mucous membranes moist. CHEST: Clear to auscultation. No respiratory distress. HEART: Regular rate and rhythm. Normal peripheral pulses. ABDOMEN: Soft, nontender, nondistended. EXTREMITIES: Tender palpation over the proximal right hip and has pain with flexion and external rotation. Also has pain at the hip with percussion on the heel. No abnormalities of the left lower extremity or the upper extremities. SKIN: Warm, dry, no rash. NEURO: Alert and oriented x3. PSYCH: Normal mood and affect. <Raúl Maguire MD - Last Filed: 12/06/24 19:52> Course Course Emergency Course: Patient informed of results. Unable to walk due to pain. Will need admit for PT/OT and likely placement for rehab. Dr. Arriaga consulted. <Raúl Maguire MD - Last Filed: 12/06/24 19:52> Vital Signs Vital signs: Vital Signs Temperature 36.3 C L 12/06/24 14:15 Pulse Rate 79 12/06/24 14:15 Respiratory Rate 17 12/06/24 14:15 Blood Pressure 127/67 12/06/24 14:15 Pulse Oximetry 98 12/06/24 14:15 Temperature 36.3 C L 12/06/24 14:15 Pulse Rate 79 12/06/24 14:15 Respiratory Rate 17 12/06/24 14:15 Blood Pressure 127/67 12/06/24 14:15 Pulse Oximetry 98 12/06/24 14:15 <Patricia Pal APRN - Last Filed: 12/06/24 16:05> Vital Signs Temperature 36.3 C L 12/06/24 14:15 Pulse Rate 79 12/06/24 14:15 Respiratory Rate 17 12/06/24 14:15 Blood Pressure 127/67 12/06/24 14:15 Pulse Oximetry 98 12/06/24 14:15 Temperature 36.3 C L 12/06/24 14:15 Pulse Rate 79 12/06/24 14:15 Respiratory Rate 17 12/06/24 14:15 Blood Pressure 127/67 12/06/24 14:15 Pulse Oximetry 98 12/06/24 14:15 <Raúl Maguire MD - Last Filed: 12/06/24 19:52> MDM - Fall Lab Data Result diagrams: 12/06/24 19:56 12/06/24 19:56 <Patricia Pal APRN - Last Filed: 12/06/24 16:05> Labs: Lab Results 12/06/24 Range/Units 19:56 WBC 13.1 H (4.5-10.0) K/mm3 RBC 3.44 L (4.6-6.20) M/mm3 Hgb 10.8 L (14.0-18.0) g/dL Hct 34.6 L (42.0-52.0) % MCV 100.6 H (80-100) fl MCH 31.4 (26-34) pg MCHC 31.2 L (32-36) g/dl RDW 14.6 H (11.5-14.5) % Plt Count 173 (150-375) k/mm3 MPV 10.8 H (7.4-10.4) fl Immature Gran % (Auto) 0.7 H (0-0.5) % Neut % (Auto) 86.6 H (45.5-73.1) % Lymph % (Auto) 5.6 L (18.3-44.2) % [place] % (Auto) 6.3 (2.6-8.5) % Eos % (Auto) 0.5 (0-4.4) % Baso % (Auto) 0.3 (0.2-1.2) % Lymph # (Auto) 0.73 L (0.9-3.2) K/mm3 [place] # (Auto) 0.8 H (0.1-0.6) K/mm3 Eos # (Auto) 0.1 (0-0.3) K/mm3 Baso # (Auto) 0.0 (0.0-0.1) K/mm3 Abs Immat Gran (auto) 0.09 H (0.00-0.031) K/mm3 Absolute Neuts (auto) 11.3 H (1.3-6.7) K/mm3 Absolute Nucleated RBC 0.000 (0.0-0.012) K/mm3 Nucleated RBC % 0.0 (0.0-0.2) % PT Pending INR Pending APTT Pending Sodium Pending Potassium Pending Chloride Pending Carbon Dioxide Pending Anion Gap Pending BUN Pending Creatinine Pending Estim Creat Clear Calc Pending Estimated GFR Pending Glucose Pending Calcium Pending Total Bilirubin Pending AST Pending ALT Pending Alkaline Phosphatase Pending Total Protein Pending Albumin Pending <Patricia Pal, EMERGENCY DEPARTMENT MANAGER - Last Filed: 12/06/24 16:05> Lab Results 12/06/24 Range/Units 19:56 WBC 13.1 H (4.5-10.0) K/mm3 RBC 3.44 L (4.6-6.20) M/mm3 Hgb 10.8 L (14.0-18.0) g/dL Hct 34.6 L (42.0-52.0) % MCV 100.6 H (80-100) fl MCH 31.4 (26-34) pg MCHC 31.2 L (32-36) g/dl RDW 14.6 H (11.5-14.5) % Plt Count 173 (150-375) k/mm3 MPV 10.8 H (7.4-10.4) fl Immature Gran % (Auto) 0.7 H (0-0.5) % Neut % (Auto) 86.6 H (45.5-73.1) % Lymph % (Auto) 5.6 L (18.3-44.2) % [place] % (Auto) 6.3 (2.6-8.5) % Eos % (Auto) 0.5 (0-4.4) % Baso % (Auto) 0.3 (0.2-1.2) % Lymph # (Auto) 0.73 L (0.9-3.2) K/mm3 [place] # (Auto) 0.8 H (0.1-0.6) K/mm3 Eos # (Auto) 0.1 (0-0.3) K/mm3 Baso # (Auto) 0.0 (0.0-0.1) K/mm3 Abs Immat Gran (auto) 0.09 H (0.00-0.031) K/mm3 Absolute Neuts (auto) 11.3 H (1.3-6.7) K/mm3 Absolute Nucleated RBC 0.000 (0.0-0.012) K/mm3 Nucleated RBC % 0.0 (0.0-0.2) % PT Pending INR Pending APTT Pending Sodium Pending Potassium Pending Chloride Pending Carbon Dioxide Pending Anion Gap Pending BUN Pending Creatinine Pending Estim Creat Clear Calc Pending Estimated GFR Pending Glucose Pending Calcium Pending Total Bilirubin Pending AST Pending ALT Pending Alkaline Phosphatase Pending Total Protein Pending Albumin Pending <Raúl Maguire MD - Last Filed: 12/06/24 19:52> Imaging Data Radiologist's impression: ITS Impressions Head CT 12/06/24 17:55 Impression: No acute intracranial hemorrhage or suspicious mass effect. Hip/Pelvis X-Ray 12/06/24 18:11 IMPRESSION: Given the diffuse bony demineralization, and asymmetric orientation of the right femur and the right hip hardware, in relation to the left, cross-sectional imaging (noncontrast enhanced CT examination of the pelvis) is suggested for further evaluation.. Femur X-Ray 12/06/24 18:31 IMPRESSION: Diffuse bony demineralization with significant degenerative disease, and a small suprapatellar joint effusion within the minimally visualized right knee Pelvis CT 12/06/24 19:37 IMPRESSION: Acute, comminuted fracture of the inferior pubic ramus, as detailed above. <Raúl Maguire MD - Last Filed: 12/06/24 19:52> Discharge Plan Discharge Clinical Impression: Closed fracture of pubic ramus <Patricia Pal APRN - Last Filed: 12/06/24 16:05> Patient Disposition: Still a Patient <Patricia Pal APRN - Last Filed: 12/06/24 16:05> Condition: Stable <Patricia Pal APRN - Last Filed: 12/06/24 16:05> Patient Language: Vietnamese <Patricia Pal APRN - Last Filed: 12/06/24 16:05> Prescriptions: No Action trazodone 100 mg tablet 100 mg PO QHS PRN (Reason: sleep) pantoprazole 40 mg tablet,delayed release (DR/EC) 40 mg PO QAM bumetanide 2 mg tablet 2 mg PO DAILY Centrum Silver Men [id number] mcg tablet 1 tablet PO DAILY metoprolol tartrate 25 mg tablet 25 mg PO BID Qty: 60 5RF insulin degludec [Tresiba FlexTouch U-100] 100 unit/mL (3 mL) insulin pen 22 unit subcut DAILY Qty: 21 3RF Gvoke HypoPen 2-Pack 1 mg/0.2 mL auto-injector 1 mg subcut ONCE Qty: 0.4 0RF Rx Instructions: as a single dose; may repeat once after 15 minutes if no response glucose 4 gram tablet,chewable 4 g PO Q15M PRN (Reason: hypoglycemia) Qty: 90 0RF Rx Instructions: until symptoms of low blood sugar are controlled allopurinol 300 mg Tablet 300 mg PO DAILY hydrocodone-acetaminophen 10-325 mg tablet 1 tablet PO Q4-6H PRN (Reason: Pain (Scale Score 4-6)) famotidine 20 mg tablet 20 mg PO BID simvastatin 20 mg tablet 20 mg PO HS insulin aspart U-100 [Novolog U-100 Insulin aspart] 100 unit/mL solution See Rx Instructions .ROUTE .COMPLEX Rx Instructions: 6 units before meals plus sliding scale losartan 25 mg tablet 25 mg PO DAILY Qty: 90 2RF (DME) FreeStyle Mary 3 Plus Sensor Device See Rx Instructions .Route Qty: 6 3RF Rx Instructions: change sensor every 14 days <Patricia Pal APRN - Last Filed: 12/06/24 16:05> Follow-up/Referrals: Fausto Chavez MD [Primary Care Provider] - <Patricia Pal APRN - Last Filed: 12/06/24 16:05>
--- OUTSIDE RECORDS SUMMARY | 2024-12-06 18:00 | XMS_ITS | Referral Summary ---
Author Organization [facility] Address [address] [place] [address] Care Team Providers Care Staff Nurse Name Role Phone Fausto Chavez MD Primary Care Provider + [phone] Source Comments [facility],non-owned Affiliates and Associated Physician Practices is amultiple site organization consisting of ambulatory clinics and hospital sitesin [place], [place], [place] and [place]. This disclosure is being madepursuant to the Care Everywhere program and may not contain all information available regarding this patient. Last updated 18.[email or web address] Allergies Active Allergy Reactions Criticality Noted Date [...] and heating? Not hard at all 10/17/2022 [facility] [place] of Occupat ional Health - Occupational Stress [...] place to sleep or slept in a prison (including now)? No 10/17/2022 Sex and Gender Information Value Date Recorded Sex Assigned at Not on file Gender Identity Not on file Sexual Orientation Not on file Last Filed Vital Signs Vital Sign Reading Time Taken Comments Blood Pressure 116/75 10/18/2022 8:21 AM KETTLE FRY COOK OPERATOR Pulse 80 10/18/2022 8:21 AM KETTLE FRY COOK OPERATOR Temperature 36.7 C (98 F) 10/18/2022 8:21 AM KETTLE FRY COOK OPERATOR Respiratory Rate 16 10/18/2022 8:21 AM KETTLE FRY COOK OPERATOR Oxygen Saturation 95% 10/18/2022 8:21 AM KETTLE FRY COOK OPERATOR Inhaled Oxygen Concentration - - Weight 90.7 [...] Documents on File Type Date Recorded 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
--- OUTSIDE RECORDS SUMMARY | 2024-12-06 18:00 | XMS_ITS | Clinical Summary ---
Author Organization [facility] Address [address] [facility] [place] [address] Phone Care Team Providers Care Fabric And Accessories Estimator Name Role Phone Adán Garpatience Phipps APRN, COLOR SHOP HELPER Unavailable [phone] Jurgen Farias DO Primary Care Provider [phone] Allergies Active Allergy Reactions Criticality Noted Date [...] Glucose Sensor (FreeStyle Mary 14 Day Sensor) [facility] USE TO CHECK BLOOD SUGAR Active insulin [...] Tablet by mouth 2 times daily. Active [place]-3 Fatty Acids (OMEGA 3 PO) Take by [...] echocardiogram 05/17/2024 Coronary artery disease invo lving [place] coronary artery of [place] heart without angina pectoris 05/17/2024 Family History [...] this topic Medical Devices Implanted Type Area Fishing Captain Device Identifier Shelf Expiration Date Model / Serial / Lot Device Clsr 6-7fr Mynxgrip Pipe Connector Vasc Bln Cath Lock Syr Integrate Sealant 10ml Lf Disp - [id number] Implanted:Qty : 1 on 06/04/2024 by Hudson Gar MD at [facility] IMPLANT [employer] [id number] 05/05/2025 [id number] / / [id number] Insurance MEDICARE C [employer] Care Teams Fabric And Accessories Estimator Relationship Specialty Start Date End Date Jurgen Farias DO [address] [place], [place] [id number] PCP - General Primary Care 01/12/24 Tiny Gar, INSECTICIDE SUPERVISOR, COLOR SHOP HELPER [address] [facility], [address] [place] [address] Nurse Practitioner Cardiology 01/12/24
--- OUTSIDE RECORDS SUMMARY | 2024-12-06 18:00 | XMS_ITS | Continuity of Care Document ---
Author Organization [facility] Address [address] [place] [address] Phone Care Team Providers Care Coding Coordinator Name Role Phone Channing Ramirez MD Unavailable Unavailable Advance Directives Directive Yes / No Effective Date File Name No Information Encounters Encounter Description Practice Location Reason(s) For Visit Diagnoses Date Provider Providers Copied on Encounter [facility], [address] [place] [address], [id number], [place] tel:[phone] [facility] No Information 3 James Snell. [address] [facility], [address], [place], [place], [id number] , [place]. tel:[phone] Family History Family Member Type Diagnosis Age At Onset No Information Payers Payer name Insurance type Covered democrat ID Authoriza tion(s) No Information Social History [...]
--- OUTSIDE RECORDS SUMMARY | 2024-12-06 18:00 | XMS_ITS | CONTINUITY OF CARE DOCUMENT ---
Author Name ayo rollins Address Unknown Organization [facility] Address [address] [place] [address] Phone [phone] Care Team Providers Care Liaison Inspection Laboratory Assistant Name Role Phone ayo rollins Unavailable Unavailable INSURANCE PROVIDERS Payer name Policy type / Coverage type Boss red democrat ID GT Nexus [facility] [id number]
--- OUTSIDE RECORDS SUMMARY | 2024-12-06 18:00 | XMS_ITS | Continuity of Care Document ---
Author Organization [facility] Address [address] [place] [address] Phone Care Team Providers Care Candles Pourer Name Role Phone Hawa AMAYA, Elvie Unavailable Unavailable Procedures Procedure Date UPPER GI ENDOSCOPY BIOPSY SUBSEQUENT HOSPITAL VISIT, EXPANDED INITIAL HOSPITAL CARE LVL 2 Advance Directives Directive Yes / No Effective Date File Name No Information Encounters Encounter Description Practice Location Reason(s) For Visit Diagnoses Date Provider Providers Copied on Encounter SUBSEQUENT HOSPITAL VISIT, EXPANDED [facility], [address], [place], [place], [id number], tel:[phone] [facility] No Information Hawa Bermeo. [address] [place], [place], [id number], . tel:[phone] Referring Provider: Fausto Akers, [address], [place], [address]. tel:[phone] INITIAL HOSPITAL CARE LVL 2 [facility], [address], [place], [place], [id number], tel:[phone] [facility] No Information Aden Shook. [address] [place], [place], [id number], . tel:[phone] Referring Provider: Fausto Akers, [address], [place], [address]. tel:[phone] Family History Family Member Type Diagnosis Age At Onset No Information Payers Payer name Insurance type Covered green party ID Josiane read(s) [facility] [id number] Social History Type Description Quantity Date Captured [...]
--- OUTSIDE RECORDS SUMMARY | 2024-12-06 18:00 | XMS_ITS | Clinical Summary ---
Author Organization [facility] Address [address] [place] [address] Care Team Providers Care Package Clerk Name Role Phone Fausto Chavez MD Primary Care Provider + [phone] Source Comments [facility],non-owned Affiliates and Associated Physician Practices is amultiple site organization consisting of ambulatory clinics and hospital sitesin [place], [place] and [place]. This disclosure is being madepursuant to the Care Everywhere program and may not contain all information available regarding this patient. Last updated 18.[facility] Allergies Active Allergy Reactions Criticality Noted Date [...] and heating? Not hard at all 10/17/2022 [facility] of Occupat ional Health - Occupational Stress [...] place to sleep or slept in a mcc (including now)? No 10/17/2022 Sex and Gender Information Value Date Recorded Sex Assigned at Not on file Gender Identity Not on file Sexual Orientation Not on file Last Filed Vital Signs Vital Sign Reading Time Taken Comments Blood Pressure 116/75 10/18/2022 8:21 AM MATERIALS HANDLING COORDINATOR Pulse 80 10/18/2022 8:21 AM MATERIALS HANDLING COORDINATOR Temperature 36.7 C (98 F) 10/18/2022 8:21 AM MATERIALS HANDLING COORDINATOR Respiratory Rate 16 10/18/2022 8:21 AM MATERIALS HANDLING COORDINATOR Oxygen Saturation 95% 10/18/2022 8:21 AM MATERIALS HANDLING COORDINATOR Inhaled Oxygen Concentration - - Weight 90.7 [...] Documents on File Type Date Recorded Patient Housekeeping Cleaner Expl anation Adv Directive/Living Will/POA 03/16/2022 1:24 [...] 1:38 AM 10/07/2013 7:18 PM Care Teams Package Clerk Relationship Specialty Start Date End Date Fausto Chavez MD [address] [place] [address] [place] [address] PCP - General Family Medicine 12/31/21
--- OUTSIDE RECORDS SUMMARY | 2024-12-06 18:00 | XMS_ITS | Patient Health Summary ---
Author Organization [facility] Address [address] [place] [address] Care Team Providers Care Billet Inspector Name Role Phone Fausto Chavez MD Primary Care Provider + [phone] Note from [facility],non-owned Affiliates and Associated Physician Practices is amultiple site organization consisting of ambulatory clinics and hospital sitesin [place], [place], [place] and [place]. This disclosure is being madepursuant to the Care Everywhere program and may not contain all information available regarding this patient. Last updated 18.[facility] [place] Allergies * Ibuprofen(Other) -Medium Criticality * Morphine(Psychiatric) [...] and heating? Not hard at all 10/17/2022 [facility] [place] of Occupat ional Health - Occupational Stress [...] place to sleep or slept in a snf (including now)? No 10/17/2022 Sex and Gender Information Value Date Recorded Sex Assigned at Not on file Gender Identity Not on file Sexual Orientation Not on file Last Filed Vital Signs Vital Sign Reading Time Taken Comments Blood Pressure 116/75 10/18/2022 8:21 AM MAINTENANCE AND ENGINEERING MANAGER Pulse 80 10/18/2022 8:21 AM MAINTENANCE AND ENGINEERING MANAGER Temperature 36.7 C (98 F) 10/18/2022 8:21 AM MAINTENANCE AND ENGINEERING MANAGER Respiratory Rate 16 10/18/2022 8:21 AM MAINTENANCE AND ENGINEERING MANAGER Oxygen Saturation 95% 10/18/2022 8:21 AM MAINTENANCE AND ENGINEERING MANAGER Inhaled Oxygen Concentration - - Weight 90.7 [...] shock, due to unspecified organism, unspecified type ([facility]) * GLUCOSE - POINT OF CARE(Performed [...] REST STRESS(Performed 01/02/2022) Performed for CAD in [place] artery * GLUCOSE - POINT OF CARE(Performed 01/02/2022) * STRESS TEST LEXISCAN (NUCLEAR)(Performed 01/02/2022) Performed for CAD in [place] artery * GLUCOSE - POINT OF CARE(Performed [...] (STL)(Performed 12/31/2021) Performed for Diagnosis unknown * IA ED EGD FLEX TRANSORAL DX(Performed 12/31/2021) * [...] DATE/TIME OF EXAM: 12/26/2022 1:39 PM, LOCATION [facility] INDICATION: M25.559: Hip pain ADDITIONAL CLINICAL [...] 2VW, DATE/TIME OF EXAM: :39 PM, LOCATION [facility] INDICATION: M25.559: Hip pain ADDITIONAL CLINICAL [...] * CARDIAC EKG ORDER (10/21/2022 8:36 AM MAINTENANCE AND ENGINEERING MANAGER) Only the most recent of2 resultswithin the time period is included. Narrative 10/21/2022 8:36 AM MAINTENANCE AND ENGINEERING MANAGER Ordered by an unspecified provider. Scanned Document CARDIAC SERVICES ORD ERABLES * (ABNORMAL) GLUCOSE - POINT OF CARE (10/18/2022 11:36 AM MAINTENANCE AND ENGINEERING MANAGER) Only the most recent of89 resultswithin the time period is included. Glucose WB/POC 183(H) 70 - 106 mg/dL 10/18/2022 11:39 AM MAINTENANCE AND ENGINEERING MANAGER [facility] Specimen Type Cap Fingerstick 2022 11:39 AM MAINTENANCE AND ENGINEERING MANAGER [facility] Blood BLOOD SPECIMEN / Unknown 10/18/2022 11:36 AM MAINTENANCE AND ENGINEERING MANAGER 10/18/2022 11:39 AM MAINTENANCE AND ENGINEERING MANAGER Anisha Marroquin MD LAB - POINT OF CARE ORDERABLES [facility] [address] [place] [address] * (ABNORMAL) HEMOGLOBIN A1C (10/18/2022 2:48 AM MAINTENANCE AND ENGINEERING MANAGER) Only the most recent of3 resultswithin the time period is included. Hemoglobin A1c 8.2(H) <5.7 % 10/18/2022 3:29 AM MAINTENANCE AND ENGINEERING MANAGER [facility] Estimated Average Glucose 189 mg/dL 10/18/2022 3:29 AM [facility] Blood BLOOD SPECIMEN / Unknown Venipuncture / Unknown 10/18/2022 2:48 AM MAINTENANCE AND ENGINEERING MANAGER 10/18/2022 2:58 AM MAINTENANCE AND ENGINEERING MANAGER Narrative [facility] - 10/18/2022 3:29 AM MAINTENANCE AND ENGINEERING MANAGER HbA1c Interpretation: Normal: < 5.7% Pre-diabetes: 5.7-6.4% [...] exceeds 5% in the specimen. The [employer] assay for the measurement of HbA1c is a National Glycohemoglobin Standardization Program (NGSP) certified method. Anisha Marroquin MD LAB - CHEMISTRY [facility] Organization Address City/State/ZIP Co de Phone Number [facility] [address] [place] [address] * (ABNORMAL) CBC W/O DIFFERENTIAL (10/18/2022 2:48 AM MAINTENANCE AND ENGINEERING MANAGER) Only the most recent of2 resultswithin the time period is included. WBC 5.7 4.4 - 10.7 x10E9/L 10/18/2022 3:07 AM [facility] RBC 3.10(L) 3.80 - 5.40 x10E12/L 10/18/2022 3:07 AM [facility] Hemoglobin 10.1(L) 12.0 - 17.6 gm/dL 10/18/2022 3:07 AM [facility] Hematocrit 31.8(L) 35.2 - 51.7 % 10/18/2022 3:07 AM [facility] MCV 102.6(H) 80.7 - 98.3 fl 10/18/2022 3:07 AM [facility] MCH 32.6 26.7 - 34.0 pg 10/18/2022 3:07 AM [facility] MCHC 31.8 30.8 - 35.9 gm/dL 10/18/2022 3:07 AM [facility] Platelet Count 177 153 - 416 x10E9/L 10/18/2022 3:07 AM [facility] RDW-CV 14.2 12.1 - 14.9 % 10/18/2022 3:07 AM [facility] MPV 10.6 9.4 - 12.9 fl 10/18/2022 3:07 AM [facility] Blood BLOOD SPECIMEN / Unknown Venipuncture / Unknown 10/18/2022 2:48 AM MAINTENANCE AND ENGINEERING MANAGER 10/18/2022 2:58 AM MAINTENANCE AND ENGINEERING MANAGER Kasandra She MD LAB - HEMATOLOGY ORD YOEL Performing Organization Address City/[facility]/ZIP Co de Phone Number [facility] [address] [place] [address] * (ABNORMAL) BASIC METABOLIC PANEL (CALCIUM TOTAL) (10/18/2022 2:48 AM MAINTENANCE AND ENGINEERING MANAGER) Only the most recent of7 resultswithin the time period is included. Glucose 346(H) 70 - 105 mg/dL 10/18/2022 3:26 AM MAINTENANCE AND ENGINEERING MANAGER [facility] Sodium 137 136 - 145 mmol/L 10/18/2022 3:26 AM [facility] Potassium 4.4 3.5 - 5.1 mmol/L 10/18/2022 3:26 AM [facility] Chloride 106 98 - 107 mmol/L 10/18/2022 3:26 AM [facility] CO2 23 23 - 31 mmol/L 10/18/2022 3:26 AM [facility] Calcium 9.0 8.4 - 10.4 mg/dL 10/18/2022 3:26 AM [facility] Anion Gap 8 8 - 18 mmol/L 10/18/2022 3:26 AM [facility] BUN 34(H) 8.4 - 25.7 mg/dL 10/18/2022 3:26 AM [facility] Creatinine 1.88(H) 0.72 - 1.25 mg/dL 10/18/2022 3:26 AM [facility] eGFR by CKD-EPI 38(L) >=90 mL/min/1.7 3 m2 10/18/2022 3:26 AM [facility] Blood BLOOD SPECIMEN / Unknown Venipuncture / Unknown 10/18/2022 2:48 AM MAINTENANCE AND ENGINEERING MANAGER 10/18/2022 2:58 AM MAINTENANCE AND ENGINEERING MANAGER Kasandra Nowak MD LAB - CHEMISTRY [facility] Performing Organization Address City/[facility]/ZIP Co de Phone Number [facility] [address] [place], [place] [id number] * MAGNESIUM BLOOD (10/18/2022 2:48 AM MAINTENANCE AND ENGINEERING MANAGER) Only the most recent of7 resultswithin the time period is included. Magnesium 2.1 1.6 - 2.6 mg/dL 10/18/2022 3:26 AM [facility] Blood BLOOD SPECIMEN / Unknown Venipuncture / Unknown 10/18/2022 2:48 AM MAINTENANCE AND ENGINEERING MANAGER 10/18/2022 2:58 AM MAINTENANCE AND ENGINEERING MANAGER Kasandra Nowak MD LAB - CHEMISTRY [facility] [place] Organization Address City/State/ZIP Co de Phone Number [facility] [address] [place] [address] * (ABNORMAL) URINALYSIS REFLEX TO MICROSCOPIC NO CULTURE (10/17/2022 2:06 AM MAINTENANCE AND ENGINEERING MANAGER) Only the most recent of2 resultswithin the time period is included. Color UA Yellow Straw, Yellow 10/17/2022 2:16 AM [facility] Clarity UA Clear Clear 10/17/2022 2:16 AM [facility] Glucose UA Negative Negative 10/17/2022 2:16 AM [facility] Bilirubin UA Negative Negative 10/17/2022 2:16 AM [facility] Ketone UA Negative Negative 10/17/2022 2:16 AM [facility] Specific [place] UA 1.010 1.005 - 1.030 10/17/2022 2:16 AM [facility] Blood UA Negative Negative 10/17/2022 2:16 AM [facility] pH UA 5.0 5.0 - 8.0 pH 10/17/2022 2:16 AM [facility] Protein UA Negative Negative 10/17/2022 2:16 AM [facility] Urobilinogen UA Negative Negative mg/dL 10/17/2022 2:16 AM [facility] Nitrite UA Negative Negative 10/17/2022 2:16 AM [facility] Leukocyte UA Trace(A) Negative 10/17/2022 2:16 AM [facility] Urine Microscopy Urine microscopy to follow 10/17/2022 2:16 AM [facility] Urine URINE SPECIMEN OBTAINED BY SINGLE CATHETERIZATION OF URINARY BLADDER / Unknown Collection / Unknown 10/17/2022 2:06 AM MAINTENANCE AND ENGINEERING MANAGER 10/17/2022 2:10 AM MAINTENANCE AND ENGINEERING MANAGER Narrative [facility] - 10/17/2022 2:16 AM MAINTENANCE AND ENGINEERING MANAGER Marv Pascual MD LAB - URINALYSIS ORD ERABLES Performing Organization Address [facility] Co de Phone Number [facility] [id number] [place] [phone] * (ABNORMAL) URINE MICROSCOPIC ONLY (10/17/2022 2:06 AM MAINTENANCE AND ENGINEERING MANAGER) Only the most recent of2 resultswithin the time period is included. RBC UA 0-2 0 - 5 # /hpf 10/17/2022 2:19 AM MAINTENANCE AND ENGINEERING MANAGER [facility] WBC UA 6-10(A) 0 - 5 # /hpf 10/17/2022 2:19 AM MAINTENANCE AND ENGINEERING MANAGER [facility] Hyaline Casts 11-20(A) 0 - 2 /LPF 10/17/2022 2:19 AM MAINTENANCE AND ENGINEERING MANAGER [facility] Bacteria UA None Seen None Seen 10/17/2022 2:19 AM MAINTENANCE AND ENGINEERING MANAGER [facility] Squamous Epithelial Cells None Seen 0 - 5 /hpf 10/17/2022 2:19 AM MAINTENANCE AND ENGINEERING MANAGER [facility] Mucus UA 1+ /LPF 10/17/2022 2:19 AM MAINTENANCE AND ENGINEERING MANAGER [facility] Urine URINE SPECIMEN OBTAINED BY SINGLE CATHETERIZATION OF URINARY BLADDER / Unknown Collection / Unknown 10/17/2022 2:06 AM MAINTENANCE AND ENGINEERING MANAGER 10/17/2022 2:10 AM MAINTENANCE AND ENGINEERING MANAGER Narrative [facility] - 10/17/2022 2:19 AM MAINTENANCE AND ENGINEERING MANAGER Marv Pascual MD LAB - URINALYSIS ORD ERABLES Performing Organization Address [facility] Co de Phone Number [facility] [address] [place] [address] * CULTURE BLOOD (10/17/2022 12:50 AM MAINTENANCE AND ENGINEERING MANAGER) Only the most recent of6 resultswithin the time period is included. Culture No growth day 5 JODIE 10/22/2022 4:31 AM MAINTENANCE AND ENGINEERING MANAGER [facility] MICROBIOLOGY Blood PERIPHERAL BLOOD / Unknown Venipuncture / Unknown 10/17/2022 12:50 AM MAINTENANCE AND ENGINEERING MANAGER 10/17/2022 12:53 AM MAINTENANCE AND ENGINEERING MANAGER Marv Pascual MD LAB - MICROBIOLOGY O RDERABLES Performing Organization Address City/[facility]/ZIP Co de Phone Number [facility] MICROBIOLOGY [address] [place] [address], [facility] [phone] * EKG 12-LEAD (10/16/2022 11:24 PM MAINTENANCE AND ENGINEERING MANAGER) Only the most recent of7 resultswithin the time period is included. Ventricular Rate 69 BPM [facility] Atrial Rate 69 BPM [facility] P-R Interval 204 ms [facility] QRS Duration ms 90 ms [facility] Q-T Interval ms 464 ms [facility] QTC Calculation (Bezet) 497 ms [facility] Calculated R [place] 58 degrees [facility] Calculated T [place] 36 degrees [facility] Interpretation EKG Normal sinus rhythm Cannot rule out Anterior infarct (cited on or before 04-OCT-2013 ) Abnormal ECG Confirmed by TEZ MENDOZA MD ([id number]) on 10/17/2022 7:47:20 PM [facility] MUSE 10/16/2022 11:2 4 PM MAINTENANCE AND ENGINEERING MANAGER 10/17/2022 7:47 PM MAINTENANCE AND ENGINEERING MANAGER Jose J Mack MD ECG ORDERABLES Performing Organization Address [facility] Co de Phone Number [facility] * LACTIC ACID BLOOD REFLEX TO REPEAT (10/16/2022 11:12 PM MAINTENANCE AND ENGINEERING MANAGER) Only the most recent of2 resultswithin the time period is included. Lactic Acid 1.69 <=2 mmol/L 10/16/2022 11:42 PM MAINTENANCE AND ENGINEERING MANAGER [facility] Blood BLOOD SPECIMEN / Unknown Venipuncture / Unknown 10/16/2022 11:12 PM MAINTENANCE AND ENGINEERING MANAGER 10/16/2022 11:19 PM MAINTENANCE AND ENGINEERING MANAGER Marv Pascual MD LAB - CHEMISTRY [facility] Performing Organization Address City/[facility]/ZIP Co de Phone Number [facility] [address] [place] [address] * (ABNORMAL) PROCALCITONIN LEVEL (10/16/2022 11:12 PM MAINTENANCE AND ENGINEERING MANAGER) Only the most recent of2 resultswithin the time period is included. Procalcitonin 0.13(H) <0.10 ng/mL 10/17/2022 12:00 AM [facility] Blood BLOOD SPECIMEN / Unknown Venipuncture / Unknown 10/16/2022 11:12 PM MAINTENANCE AND ENGINEERING MANAGER 10/16/2022 11:19 PM MAINTENANCE AND ENGINEERING MANAGER Narrative [facility] - 10/17/2022 12:00 AM MAINTENANCE AND ENGINEERING MANAGER The change in procalcitonin (PCT) concentration over [...] Change in Procalcitonin Calculator is available at [email or web address] Track If clinical picture has not improved and PCT remains high, reevaluate and consider treatment failure or other causes. Marv Pascual MD LAB - CHEMISTRY [facility] Organization Address City/State/[facility] Co de Phone Number [facility] [address] [place] [address] * (ABNORMAL) CBC W AUTO DIFFERENTIAL (10/16/2022 11:12 PM MAINTENANCE AND ENGINEERING MANAGER) Only the most recent of15 resultswithin the time period is included. WBC 10.5 4.4 - 10.7 x10E9/L 10/16/2022 11:34 PM MAINTENANCE AND ENGINEERING MANAGER [facility] WBC Corrected 10/16/2022 11:34 PM MAINTENANCE AND ENGINEERING MANAGER [facility] RBC 3.75(L) 3.80 - 5.40 x10E12/L 10/16/2022 11:34 PM [facility] Hemoglobin 12.1 12.0 - 17.6 gm/dL 10/16/2022 11:34 PM [facility] Hematocrit 38.4 35.2 - 51.7 % 10/16/2022 11:34 PM [facility] MCV 102.4(H) 80.7 - 98.3 fl 10/16/2022 11:34 PM [facility] MCH 32.3 26.7 - 34.0 pg 10/16/2022 11:34 PM [facility] MCHC 31.5 30.8 - 35.9 gm/dL 10/16/2022 11:34 PM [facility] Platelet Count 217 153 - 416 x10E9/L 10/16/2022 11:34 PM [facility] RDW-CV 14.1 12.1 - 14.9 % 10/16/2022 11:34 PM [facility] MPV 10.6 9.4 - 12.9 fl 10/16/2022 11:34 PM [facility] Neutrophils % 75.5(H) 44.0 - 73.0 % 10/16/2022 11:34 PM [facility] Lymphocytes % 11.4(L) 20.0 - 43.0 % 10/16/2022 11:34 PM [facility] Monocytes % 9.2 5.0 - 13.0 % 10/16/2022 11:34 PM [facility] Eosinophils % 2.1 0.0 - 6.0 % 10/16/2022 11:34 PM [facility] Basophils % 0.7 0.0 - 2.0 % 10/16/2022 11:34 PM [facility] Immature Granulocytes 1.1(H) 0 - 1 % 10/16/2022 11:34 PM [facility] Neutrophil Absolute 7.89(H) 2.01 - 7.14 x10E9/L 10/16/2022 11:34 PM [facility] Lymphocytes Absolute 1.19 1.07 - 3.94 x10E9/L 10/16/2022 11:34 PM [facility] Monocytes Absolute 0.96 0.26 - 1.07 x10E9/L 10/16/2022 11:34 PM [facility] Eosinophils Absolute 0.22 0 - 0.47 x10E9/L 10/16/2022 11:34 PM MAINTENANCE AND ENGINEERING MANAGER [facility] Basophils Absolute 0.07 0 - 0.08 x10E9/L 10/16/2022 11:34 PM [facility] Immature Granulocytes Absolute 0.12(H) 0.00 - 0.06 x10E9/L 10/16/2022 11:34 PM [facility] nRBC Auto 0 /100 WBC 10/16/2022 11:34 PM [facility] Blood BLOOD SPECIMEN / Unknown Venipuncture / Unknown 10/16/2022 11:12 PM MAINTENANCE AND ENGINEERING MANAGER 10/16/2022 11:19 PM MAINTENANCE AND ENGINEERING MANAGER Marv Pascual MD LAB - HEMATOLOGY ORD ERABLES [facility] [address] [place] [address] * (ABNORMAL) COMPREHENSIVE METABOLIC PANEL (10/16/2022 11:12 PM MAINTENANCE AND ENGINEERING MANAGER) Only the most recent of7 resultswithin the time period is included. Glucose 59(L) 70 - 105 mg/dL 10/16/2022 11:40 PM [facility] Sodium 140 136 - 145 mmol/L 10/16/2022 11:40 PM [facility] Potassium 3.7 3.5 - 5.1 mmol/L 10/16/2022 11:40 PM [facility] Chloride 107 98 - 107 mmol/L 10/16/2022 11:40 PM [facility] CO2 21(L) 23 - 31 mmol/L 10/16/2022 11:40 PM [facility] Calcium 10.0 8.4 - 10.4 mg/dL 10/16/2022 11:40 PM [facility] Anion Gap 12 8 - 18 mmol/L 10/16/2022 11:40 PM [facility] BUN 40(H) 8.4 - 25.7 mg/dL 10/16/2022 11:40 PM [facility] Creatinine 2.31(H) 0.72 - 1.25 mg/dL 10/16/2022 11:40 PM [facility] Alkaline Phosphatase 153(H) 40 - 150 U/L 10/16/2022 11:40 PM MAINTENANCE AND ENGINEERING MANAGER [facility] ALT 14 0 - 61 U/L 10/16/2022 11:40 PM MAINTENANCE AND ENGINEERING MANAGER [facility] AST 21 5 - 34 U/L 10/16/2022 11:40 PM MAINTENANCE AND ENGINEERING MANAGER [facility] Protein Total 8.1 6.4 - 8.3 gm/dL 10/16/2022 11:40 PM MAINTENANCE AND ENGINEERING MANAGER [facility] Albumin 4.3 3.2 - 4.6 gm/dL 10/16/2022 11:40 PM MAINTENANCE AND ENGINEERING MANAGER [facility] Bilirubin Total 0.3 0.2 - 1.2 mg/dL 10/16/2022 11:40 PM MAINTENANCE AND ENGINEERING MANAGER [facility] eGFR by CKD-EPI 29(L) >=90 mL/min/1.7 3 m2 10/16/2022 11:40 PM MAINTENANCE AND ENGINEERING MANAGER [facility] Blood BLOOD SPECIMEN / Unknown Venipuncture / Unknown 10/16/2022 11:12 PM MAINTENANCE AND ENGINEERING MANAGER 10/16/2022 11:19 PM MAINTENANCE AND ENGINEERING MANAGER Marv Pascual MD [facility] Organization Address City/State/ZIP Co de Phone Number [facility] [address] [place] [address] * XR CHEST 1VW PORTABLE (10/16/2022 11:01 PM MAINTENANCE AND ENGINEERING MANAGER) Only the most recent of3 resultswithin the time period is included. Anatomical Region Laterality Modality Chest Radiographic Cyndie ging 10/17/2022 7:40 AM MAINTENANCE AND ENGINEERING MANAGER Impressions 10/17/2022 7:40 AM MAINTENANCE AND ENGINEERING MANAGER IMPRESSION: Underexpansion with no acute cardiopulmonary abnormality noted. > Interpreting Provider: Faye Villalta MD on 10/17/2022 7:40 AM Narrative 10/17/2022 7:40 AM MAINTENANCE AND ENGINEERING MANAGER PROCEDURE: XR CHEST 1VW PORTABLE, DATE/TIME OF EXAM: 10/16/2022 11:01 PM, LOCATION [facility] INDICATION: E16.2: Hypoglycemia, unspecified ADDITIONAL CLINICAL [...] PORTABLE, DATE/TIME OF EXAM: 10/16/2022 11:01PM, LOCATION [facility] INDICATION: E16.2: Hypoglycemia, unspecified ADDITIONAL CLINICAL [...] RDERABLES * Critical Care (10/16/2022 10:35 PM MAINTENANCE AND ENGINEERING MANAGER) Narrative Marv Pascual MD - 10/16/2022 10:35 PM MAINTENANCE AND ENGINEERING MANAGER Marv Pascual MD 10/17/2022 5:39 AM Critical [...] CDT) Case Report Surgical Pathology Report Case: [id number] Authorizing Provider: Michele Kuhn DPM Collected: 03/11/2022 08:01 AM Ordering Location: [facility] Received: 03/11/2022 10:34 AM Pathologist: [...] tissue and osteomyelitis 03/18/2022 12:16 PM CDT [facility] Clinical History Septic arthritis of [...] in container B in formalin labeled Vickie Santo, bone first metatarsal, are two concave fragments of bone measuring 2.5 x 1.5 x 1.5 cm and 2.5 x 1.5 x 1 cm. The resection surface of both sections of bone have a clean cut. The resection surface is inked. [employer] Machine Operator sections are submitted as follows: B1 - Contiguous perpendicular section of larger fragment of bone, B2 - Individual contiguous perpendicular section of smaller fragment of bone. Cassettes B1 and B2 are submitted for decalcification. /scs 03/18/2022 12:16 PM CDT [facility] Microscopic Description Microscopic examination substantiates the above cited diagnosis. 03/18/2022 12:16 PM CDT [facility] Disclaimer All histochemical and/or immunohistochemical results are interpreted with controls that demonstrate appropriate staining reactions before reporting results. Note on use of immunocytochemistry reagents: This test was developed and its performance characteristic determined by [facility], Department of Laboratory Medicine. It has [...] interpreted with caution. 03/18/2022 12:16 PM CDT [facility] Embedded Images 03/18/2022 12:16 PM CDT [facility] Pathology/Cytology AMPUTATION OF TOE / Unknown 03/11/2022 8:01 AM CDT 03/11/2022 10:34 AM CDT Miscellaneous samples (specimen) BONE TISSUE SPECIMEN / Unknown 03/11/2022 8:03 AM CDT 03/11/2022 10:34 AM CDT Michele Kuhn [facility] - PATHOLOGY/CYTO LOGY ORDERABLES Performing Organization Address City/State/[facility] Co de Phone Number [facility] [id number] [place] [address] * (ABNORMAL) C-REACTIVE PROTEIN (03/09/2022 4:41 AM CDT) C-Reactive Protein 10.54(H) <=0.50 mg/dL 03/09/2022 5:17 AM CDT [facility] Blood BLOOD SPECIMEN / Unknown Venipuncture / Unknown 03/09/2022 4:41 AM CDT 03/09/2022 4:46 AM CDT Zoila Yang DO LAB - CHEMISTR Y ORDERABLES Performing Organization Address [facility] de Phone Number [facility] [address] [place] [phone] * (ABNORMAL) ERYTHROCYTE SEDIMENTATION RATE (03/09/2022 4:41 AM CDT) Erythrocyte Sedimentation Rate Automated 105(H) 0 - 20 MM/HR 03/09/2022 4:58 AM CDT [facility] Blood BLOOD SPECIMEN / Unknown Venipuncture / Unknown 03/09/2022 4:41 AM CDT 03/09/2022 4:46 AM CDT Zoila Yang DO LAB - HEMATOLO GY ORDERABLES Performing Organization Address [facility] de Phone Number [facility] [address] [place] [id number] * VANCOMYCIN LEVEL RANDOM (03/09/2022 4:41 AM CDT) Only the most recent of3 resultswithin the time period is included. Vancomycin Random 22.5 ug/mL 03/09/2022 5:19 AM CDT [facility] Blood BLOOD SPECIMEN / Unknown Venipuncture / Unknown 03/09/2022 4:41 AM CDT 03/09/2022 4:46 AM CDT Narrative [facility] - 03/09/2022 5:19 AM CDT No reference range available for random Vancomycin levels. All results interpreted by ordering physician. Tom Ramos MD LAB - CHEMISTRY ORD ERABLES Performing Organization Address [facility] Co de Phone Number [facility] [address] [place] [address] [phone] * XR KNEE LEFT 4VW OR MORE (03/07/2022 11:26 AM CDT) Anatomical Region Laterality Modality Lower Extremity Radiographic Cyndie ging 03/07/2022 12:4 9 PM CDT Impressions 03/07/2022 12:56 PM CDT POSTOPERATIVE CHANGES. Edited by Yoli Kapadia on 03/07/2022 12:50 PM *Reading Radiologist: Tae Blum on 03/07/2022 at 12:56 PM Narrative 03/07/2022 12:56 PM CDT XR KNEE LEFT 4VW OR MORE*[id number] INDICATION: Left knee pain. 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 The intramedullary components of the distal femur and proximal tibia are intact. There is no acute fracture. Procedure Note Tae Blum MD - 03/07/2022 XR KNEE LEFT 4VW OR MORE*[id number] INDICATION: Left knee pain. FINDINGS: Four views [...] AM CDT US RETRO COMP W BLADDER RESIDUAL*[id number] INDICATION: Acute kidney failure, unspecified. FINDINGS: The right kidney measures 9.63 x 4.64 x 5.46 cm and left kidney measures 9.83 x 4.50 x 5.64 cm. There is no hydronephrosis. The prevoid bladder volume is 526 cc. The patient was unable to void. Procedure Note Tae Blum MD - 03/07/2022 US RETRO COMP W BLADDER RESIDUAL*[id number] INDICATION: Acute kidney failure, unspecified. FINDINGS: The [...] Procedure Note Arnold Beck MD - 03/07/[address] [address] Lower Extremity Arterial Doppler Report Pat.Name: VICKIE SANTO Pat.ID: [id number] .Date: 03/06/2022 Exam Time: 1:24:00 PM Study Type:LANE/PVR Age: 8 1950,71Y Sex: MALE Sonogrphr: Buddy Ervin RVT Pat. Stat.:Inpatient Room: ED 09 ICD - 9: E11.8 CPT - 4: 76815 Reason for Study: Diabetic foot History / Clinical: Hypertension, Diabetes Procedures: Ankle Arm Index Visit ID: [id number] ++++++++++++++++++++++++++++++++++++ SUMMARY: ++++++++++++++++++++++++++++++++++++ Mild peripheral vascular disease [...] Escalante MD LAB - URINALYSIS ORD ERABLES [facility] [address] [place] [address] * (ABNORMAL) URINALYSIS REFLEX MICROSCOPIC REFLEX CULTURE (03/06/2022 11:54 AM CDT) Only the most recent of2 resultswithin the time period is included. Color UA Yellow Straw, Yellow 03/06/2022 12:07 PM CDT [facility] Clarity UA Clear Clear 03/06/2022 12:07 PM CDT [facility] Glucose UA Negative Negative 03/06/2022 12:07 PM CDT [facility] Bilirubin UA Negative Negative 03/06/2022 12:07 PM CDT [facility] Ketone UA Negative Negative 03/06/2022 12:07 PM CDT [facility] Specific [place] UA 1.016 1.005 - 1.030 03/06/2022 12:07 PM CDT [facility] Blood UA 1+(A) Negative 03/06/2022 12:07 PM CDT [facility] pH UA 5.0 5.0 - 8.0 pH 03/06/2022 12:07 PM CDT [facility] Protein UA Negative Negative 03/06/2022 12:07 PM CDT [facility] Urobilinogen UA Negative Negative mg/dL 03/06/2022 12:07 PM CDT [facility] Nitrite UA Negative Negative 03/06/2022 12:07 PM CDT [facility] Leukocyte UA Negative Negative 03/06/2022 12:07 PM CDT [facility] Urine Microscopy Urine microscopy to follow 03/06/2022 12:07 PM CDT [facility] Reflex Status Culture not indicated 03/06/2022 12:07 PM CDT [facility] Urine URINE SPECIMEN OBTAINED BY CLEAN CATCH PROCEDURE / Unknown Collection / Unknown 03/06/2022 11:54 AM CDT 03/06/2022 11:59 AM CDT Narrative [facility] - 03/06/2022 12:07 PM CDT Homa Escalante MD LAB - URINALYSIS ORD ERABLES Performing Organization Address City/[facility]/ZIP Co de Phone Number [facility] [address] [place] [address] * (ABNORMAL) CULTURE WOUND+GRAM STAIN (03/06/2022 11:17 AM CDT) Culture Heavy Pasteurella canis(A) JODIE 03/08/2022 1:03 PM CDT [facility] Culture Heavy normal skin efra JODIE 03/08/2022 1:03 PM CDT [facility] Gram Stain Heavy Polymorphonuclear cells 03/08/2022 1:03 PM CDT [facility] Gram Stain Heavy Gram-positive cocci 03/08/2022 1:03 PM CDT [facility] Gram Stain Light Gram-variable bacilli 03/08/2022 1:03 PM CDT [facility] Microbiology ENTIRE FOOT / Unknown Collection / Unknown 03/06/2022 11:17 AM CDT 03/06/2022 11:49 AM CDT Narrative [facility] - 03/08/2022 1:03 PM CDT [...] - MICROBIOLOGY O SOCRATES Performing Organization Address City/[facility]/ZIP Co de Phone Number [facility] [address] [place] [phone] * (ABNORMAL) CULTURE ANAEROBE (03/06/2022 11:17 AM CDT) Culture Moderate Prevotella disiens(A) JODIE 03/12/2022 8:31 AM CDT [facility] Comment:Beta-lactamase posit payal Microbiology ENTIRE FOOT / Unknown Collection / Unknown 03/06/2022 11:17 AM CDT 03/06/2022 11:49 AM CDT Homa Escalante MD LAB - MICROBIOLOGY O SOCRATES [facility] [address] [place] [address], [facility] [phone] * SARS-COV-2 (COVID-19) FLU A/B RSV PCR RAPID (03/06/2022 7:56 AM CDT) COVID-19 PCR Not detected Not detected 03/06/20 8:38 AM CDT [facility] Influenza A PCR Not detected Not detected 03/06/2022 8:38 AM CDT [facility] Influenza B PCR Not detected Not detected 03/06/2022 8:38 AM CDT [facility] RSV PCR Not detected Not detected 03/06/2022 8:38 AM CDT [facility] Microbiology SPECIMEN FROM NASOPHARYNGEAL STRUCTURE / Unknown Collection / Unknown 03/06/2022 7:56 AM CDT 03/06/2022 7:59 AM CDT Narrative [facility] - 03/06/2022 8:38 AM CDT [...] Escalante MD LAB - MICROBIOLOGY O RDERABLES [facility] [address] [place] [address] * (ABNORMAL) TROPONIN I (03/06/2022 7:51 AM CDT) Only the most recent of10 resultswithin the time period is included. Troponin I 0.090(HH) <0.038 ng/mL 03/06/2022 8:15 AM CDT [facility] Blood BLOOD SPECIMEN / Unknown Venipuncture / Unknown 03/06/2022 7:51 AM CDT 03/06/2022 7:51 AM CDT Homa Escalante MD LAB - CHEMISTRY AURA [place] Organization Address City/State/ZIP Co de Phone Number [facility] [address] [place] [address] * XR CHEST PA OR AP (1VW [...] improved from prior exam. *Reading Radiologist: Tae Ryna on 03/06/2022 at 8:30 AM Jermaine Garza MD DIAGNOSTIC IMAGING O RDERABLES * (ABNORMAL) B-TYPE NATRIURETIC PEPTIDE (03/06/2022 2:02 AM CDT) Only the most recent of4 resultswithin the time period is included. BNP 2,057(H) <=100 pg/mL 03/06/2022 2:31 AM CDT [facility] Blood BLOOD SPECIMEN / Unknown Venipuncture / Unknown 03/06/2022 2:02 AM CDT 03/06/2022 2:07 AM CDT Homa Escalante MD LAB - CHEMISTRY AURA FREITAS [facility] Organization Address City/State/ZIP Co de Phone Number [facility] [address] [place] [address] * APHERESIS/TRANSFUSION ORDER (01/07/2022 10:47 PM CDT) Narrative 01/07/2022 10:47 PM CDT Ordered by an unspecified provider. Scanned Document NURSING - VITAL SIGN S AND ASSESSMENT * (ABNORMAL) RENAL FUNCTION PANEL (01/04/2022 3:48 AM CDT) Only the most recent of5 resultswithin the time period is included. Glucose 167(H) 70 - 105 mg/dL 01/04/2022 4:15 AM CDT [facility] Sodium 132(L) 136 - 145 mmol/L 01/04/2022 4:15 AM CDT [facility] Potassium 4.5 3.5 - 5.1 mmol/L 01/04/2022 4:15 AM CDT [facility] Chloride 98 98 - 107 mmol/L 01/04/2022 4:15 AM CDT [facility] CO2 25 23 - 31 mmol/L 01/04/2022 4:15 AM CDT [facility] Calcium 8.7 8.4 - 10.4 mg/dL 01/04/2022 4:15 AM CDT [facility] Anion Gap 9 8 - 18 mmol/L 01/04/2022 4:15 AM CDT [facility] BUN 34(H) 8.4 - 25.7 mg/dL 01/04/2022 4:15 AM CDT [facility] Creatinine 1.91(H) 0.72 - 1.25 mg/dL 01/04/2022 4:15 AM CDT [facility] Albumin 3.3 3.2 - 4.6 gm/dL 01/04/2022 4:15 AM CDT [facility] Phosphorus 3.2 2.3 - 4.7 mg/dL 01/04/2022 4:15 AM CDT [facility] eGFR by CKD-EPI 37(L) >=90 mL/min/1.7 3 m2 01/04/2022 4:15 AM CDT [facility] Blood BLOOD SPECIMEN / Unknown Venipuncture / Unknown 01/04/2022 3:48 AM CDT 01/04/2022 3:57 AM CDT Narrative [facility] - 01/04/2022 4:15 AM CDT eGFR result was calculated using the updated CKD-EPI Creatinine Equations (2020). Prior to go live 2021 the eGFR was calculated using the MDRD calculation. Please note Reference Range change. Amy Dawson MD LAB - CHEMISTRY AURA FREITAS [facility] Organization Address City/State/ZIP Co de Phone Number [facility] [address] [place] [address] * NM MYOCARD PERFUSION SPECT [...] Diagnosis: Confirmed by SUZANNE AMAYA, SUSANNAH YUAN ([id number]) on 01/03/2022 1:47:14 PM Attending Physician: Referred By: Confirmed By:SUSANNAH PALACIOS MD [facility] 01/02/2022 11:1 4 AM CDT 01/03/2022 1:47 PM CDT Sivakumar Mccarty MD CARDIAC SERVICES ORD ERABLES Performing Organization Address City/[facility]/ZIP Co de Phone Number [facility] * TRANSFUSE RED BLOOD CELL LEUKOREDUCED UNIT(S) (12/31/2021 5:20 PM CDT) Amy Dawson MD NURSING - BLOOD PROD TRANSFUSION * PREPARE (CROSSMATCH) RBC UNIT(S), 1 Units (12/31/2021 1:49 PM CDT) Unit Description AS1 LR PRBC [facility] Unit ABO A [facility] Unit Rh POS [facility] Product Number R02 [facility] Unit Donor # [id number] [facility] BANK Unit Status transfused [facility] Product Code [id number] [facility] Blood Type Barcode 6200 [facility] Expiration Date D [facility] Blood Bank BLOOD SPECIMEN / Unknown 12/31/2021 8:26 AM CDT Amy Dawson MD LAB - BLOOD BANK ORD ERABLES [facility] [address] [phone] * HELICOBACTER PYLORI UREASE (STL) (12/31/2021 11:05 AM CDT) Helicobacter pylori Urease Initial Negative Negative 01/01/2022 10:22 AM CDT [facility] Helicobacter pylori Urease Final Negative Negative 01/01/2022 10:22 AM CDT [facility] Comment:This is an appended report. These results have been appended to a previously preliminary verified report. Microbiology GASTRIC ANTRAL BIOPSY SPECIMEN / Unknown 12/31/2021 11:05 AM CDT 12/31/2021 2:38 PM CDT Elvie Shaikh MD LAB - MICROBIOLOGY O RDERABLES Performing Organization Address [facility] Co de Phone Number [facility] [address] [place], [place] [phone] * TYPE + SCREEN PANEL (12/31/2021 8:19 AM CDT) ABO Rh A POS 12/31/2021 9:47 AM CDT [facility] Comment:History checked. Antibody Screen NEG 9:47 AM CDT [facility] Blood Bank BLOOD SPECIMEN / Unknown Venipuncture / Unknown 12/31/2021 8:19 AM CDT 12/31/2021 8:26 AM CDT Amy Dawson MD LAB - BLOOD BANK ORD ERABLES Performing Organization Address [facility] de Phone Number [facility] [address] [place], [place] [id number] [phone] * EGD (12/31/2021 6:48 AM CDT) Report [...] by the physician, the nurse and the wood room supervisor in the procedure room. Mental Status Examination: [...] as tolerated. Procedure Code(s): --- Professional --- 51236, Esophagogastroduode noscopy, flexible, transoral; with biopsy, single or multiple --- Technical --- 53482, Esophagogastroduode noscopy, flexible, transoral; with biopsy, single [...] K92.2, Gastrointestinal hemorrhage, unspecified CPT copyright 2019 [employer]. All rights reserved. The codes documented in this report are preliminary and upon candy wrapping machine operator review may be revised to meet current compliance requirements. Dr. Elvie Shaikh MD _ Elvie Shaikh MD 12/31/2021 11:13:46 AM This report has been signed electronically. Number of Addenda: 0 Note Initiated On: 12/31/2021 6:48 AM [facility] 12/31/2021 6:48 AM CDT Bouchra Samaniego DO GI PROCEDURE ORDERAB LES Performing Organization Address [facility] Co de Phone Number [facility] [place] [address] * (ABNORMAL) HGB HCT PANEL (12/31/2021 6:01 AM CDT) Only the most recent of4 resultswithin the time period is included. Hemoglobin 6.8(L) 12.0 - 17.6 gm/dL 12/31/2021 6:17 AM CDT [facility] Hematocrit 24.1(L) 35.2 - 51.7 % 12/31/2021 6:17 AM CDT [facility] Blood BLOOD SPECIMEN / Unknown Venipuncture / Unknown 12/31/2021 6:01 AM CDT 12/31/2021 6:14 AM CDT Amy Dawson MD LAB - HEMATOLOGY ORD ERABLES Performing Organization Address [facility] Co de Phone Number [facility] [address] [place] [address] * (ABNORMAL) FOLATE (12/31/2021 6:01 AM CDT) Folate 1.9(L) 7.0 - 31.4 ng/mL 12/31/2021 7:18 AM CDT [facility] Blood BLOOD SPECIMEN / Unknown Venipuncture / Unknown 12/31/2021 6:01 AM CDT 12/31/2021 6:14 AM CDT Amy Dawson MD LAB - CHEMISTRY AURA FREITAS Performing Organization Address [facility] Co de Phone Number [facility] [address] [place] [address] * VITAMIN B12 (12/31/2021 6:01 AM CDT) Vitamin B12 728 213 - 816 pg/mL 12/31/2021 7:18 AM CDT [facility] Blood BLOOD SPECIMEN / Unknown Venipuncture / Unknown 12/31/2021 6:01 AM CDT 12/31/2021 6:14 AM CDT Amy Dawson MD LAB - CHEMISTRY AURA FREITAS Performing Organization Address [facility] Co de Phone Number [facility] [address] [place] [phone] * (ABNORMAL) IRON + TRANSFERRIN PANEL (12/31/2021 6:01 AM CDT) Iron 10(L) 65 - 175 ug/dL 12/31/2021 6:43 AM CDT [facility] Transferrin 228 163 - 344 mg/dL 12/31/2021 6:43 AM CDT [facility] TIBC Calculated 285 240 - 450 ug/dL 12/31/2021 6:43 AM CDT [facility] Iron Saturation % 4(L) 20 - 50 % 12/31/2021 6:43 AM CDT [facility] Blood BLOOD SPECIMEN / Unknown Venipuncture / Unknown 12/31/2021 6:01 AM CDT 12/31/2021 6:14 AM CDT Amy Dawson MD LAB - CHEMISTRY AURA FREITAS Performing Organization Address [facility] Co de Phone Number [facility] [address] [place] [address] * BLOOD TYPE VERIFICATION (12/31/2021 12:09 AM CDT) ABO Rh A POS 12/31/2021 10:37 AM CDT [facility] Blood Bank BLOOD SPECIMEN / Unknown 12/31/2021 12:09 AM CDT 12/31/2021 10:01 AM CDT Amy Dawson MD LAB - BLOOD BANK ORD ERAMINE Performing Organization Address City/[facility]/ZIP Co de Phone Number [facility] [address] [place] [id number] [phone] * ECHOCARDIOGRAM 2D WITH DOPPLER (12/30/2021 11:00 AM CDT) Only the most recent of2 resultswithin the time period is included. 12/30/2021 11:0 0 AM CDT Narrative Procedure Note Sivakumar Mccarty MD - 12/31/2021 . [facility] [address] [facility] [place] [address] Echocardiography Examination Transthoracic Name: VICKIE SANTO MPI#: MR#: [id number] Admission Number: [id number] Study Date: 12/31/2021 Study Time: 02:41 PM [...] Routine study Image Quality: Adequate Facility Location: [facility] Indication: Shortness of Breath, HTN, DM, COPD, CKD Procedure Steel Inspector: Risa Riggs RDCS Ordering Provider: AMY Potter [...] PHT 25 ms Mitral Valve MV Dec Mcdonald 15.21 m/s Pulmonic Valve PV PGmax 3 [...] Dawson MD ECHO ORDERABLES Performing Organization Address [facility]/ZIP Co de Phone Number [facility] * SARS-COV-2 (COVID-19)+INFLU A+B PCR RAPID (12/30/2021 3:34 AM CDT) [facility] COVID-19 PCR Not detected Not detected 12/31/19 4:36 AM CDT [facility] Influenza A PCR Not detected Not detected 12/30/2021 4:36 AM CDT [facility] Influenza B PCR Not detected Not detected 12/30/2021 4:36 AM CDT [facility] Microbiology SPECIMEN FROM NASOPHARYNGEAL STRUCTURE / Unknown Collection / Unknown 12/30/2021 3:34 AM CDT 12/30/2021 3:51 AM CDT Narrative [facility] - 12/30/2021 4:36 AM CDT [...] - MICROBIOLOGY O RDERABLES Performing Organization Address City/[facility]/ZIP Co de Phone Number [facility] [address] [place] [phone] * Critical Care (12/30/2021 1:16 AM CDT) [...] - 78 U/L 12/30/2021 1:47 AM CDT [facility] Blood BLOOD SPECIMEN / Unknown Venipuncture / Unknown 12/30/2021 1:16 AM CDT 12/30/2021 1:22 AM CDT Marv Pascual MD LAB - CHEMISTRY AURA FREITAS [facility] Organization Address City/State/ZIP Co de Phone Number [facility] [address] [place] [address] * CT ANGIO ABD PELVIS GI BLEED [...] 12/30/2021 at 10:38 AM Amelie Stoddard RianaSher BOX LOADER-I&C TECHNICIAN CT ORDERAB LES * LAB RESULTS ORDER (06/17/2018 7:16 AM CDT) Narrative 06/17/2018 7:16 AM CDT Ordered by an unspecified provider. Scanned Document LAB - THERAPEUTIC DR TSE MONITORING ORDERABLES * LAB HISTORICAL RESULTS-ONBASE (04/19/2017) Only the most recent of4 resultswithin the time period is included. 04/19/2017 Historical Provider LAB - CHEMISTRY O RDERABLES Performing Organization Address City/State/[facility] Co de Phone Number [address] * IP CONSULT TO HOSPITALIST (11/08/2013 7:42 PM MAINTENANCE AND ENGINEERING MANAGER) Raghu Hollingsworth MD INPATIENT CONSULT OR DERABLES * NM LUNG VENT PERF AEROSOL (10/07/2013 10:31 AM MAINTENANCE AND ENGINEERING MANAGER) Anatomical Region Laterality Modality Lung, Chest Nuclear Medicine 10/07/2013 10:3 3 AM MAINTENANCE AND ENGINEERING MANAGER Impressions 10/07/2013 10:34 AM MAINTENANCE AND ENGINEERING MANAGER Low probability for pulmonary embolus. Narrative 10/07/2013 10:34 AM MAINTENANCE AND ENGINEERING MANAGER Ventilation and perfusion scan Clinical Indication: Cough, [...] ORDERABLES * (ABNORMAL) D-DIMER (10/06/2013 2:19 PM MAINTENANCE AND ENGINEERING MANAGER) [facility] D-Dimer 0.96(H) 0 - 0.5 mg/L FEU 10/06/2013 2:50 PM MAINTENANCE AND ENGINEERING MANAGER [facility] Blood BLOOD SPECIMEN / Unknown 10/06/2013 2:19 PM MAINTENANCE AND ENGINEERING MANAGER 10/06/2013 2:27 PM MAINTENANCE AND ENGINEERING MANAGER Narrative [facility] - 10/06/2013 2:50 PM MAINTENANCE AND ENGINEERING MANAGER The innovance D-dimer assay now in use at [facility], [facility] and [facility] is intended for use as an aid [...] Feliz MD LAB - COAGULATION O RDERABLES [facility] [address] [place] [address] * CULTURE STOOL+SHIGA-LIKE TOXIN (10/05/2013 10:35 PM MAINTENANCE AND ENGINEERING MANAGER) Culture No growth Salmonella, Shigella, Campylobacter , E. coli 0157:h7 or Yersinia 10/08/2013 8:13 AM MAINTENANCE AND ENGINEERING MANAGER [facility] MICRO[facility]OLOG[facility] Culture Shiga Toxin Negative 10/08/2013 8:13 AM MAINTENANCE AND ENGINEERING MANAGER [facility] Stool STOOL SPECIMEN / Unknown 10/05/2013 10:35 PM MAINTENANCE AND ENGINEERING MANAGER 10/05/2013 10:42 PM MAINTENANCE AND ENGINEERING MANAGER Clint Mike MD LAB - MICROBIOLOGY O RDERABLES [facility] [address] [place] [address], [facility] * (ABNORMAL) LIPID PROFILE (10/05/2013 1:24 PM MAINTENANCE AND ENGINEERING MANAGER) Cholesterol 99 <200 mg/dL 10/05/2013 1:50 PM MAINTENANCE AND ENGINEERING MANAGER [facility] Triglycerides 217(H) <150 mg/dL 10/05/2013 1:50 PM MAINTENANCE AND ENGINEERING MANAGER [facility] HDL Cholesterol 22(L) >40 mg/dL 3 1:50 PM MAINTENANCE AND ENGINEERING MANAGER [facility] LDL Calculated 34 <130 mg/dL 10/05/2013 1:50 PM [facility] VLDL Calculated 43(H) <=30 mg/dL 3 1:50 PM MAINTENANCE AND ENGINEERING MANAGER [facility] Chol HDL Ratio 4.5(H) <4.5 10/05/2013 1:50 PM MAINTENANCE AND ENGINEERING MANAGER [facility] Blood BLOOD SPECIMEN / Unknown 10/05/2013 1:24 PM MAINTENANCE AND ENGINEERING MANAGER 10/05/2013 1:29 PM MAINTENANCE AND ENGINEERING MANAGER Raghu Hollingsworth MD LAB - CHEMISTRY AURA FREITAS [facility] [address] [place] [address] * (ABNORMAL) INFLUENZA A+B ANTIGEN RAPID (10/05/2013 9:55 AM MAINTENANCE AND ENGINEERING MANAGER) Influenza A Antigen Positive(A) Negative 10/05/2013 10:13 AM MAINTENANCE AND ENGINEERING MANAGER [facility] Influenza B Antigen Negative Negative 10/05/2013 10:13 AM MAINTENANCE AND ENGINEERING MANAGER [facility] Microbiology NASOPHARYNGEAL SWAB / Unknown 10/05/2013 9:55 AM MAINTENANCE AND ENGINEERING MANAGER 10/05/2013 9:58 AM MAINTENANCE AND ENGINEERING MANAGER Narrative [facility] - 10/05/2013 10:13 AM MAINTENANCE AND ENGINEERING MANAGER Droplet Precautions Required. The sensitivity of rapid [...] height of the influenza season. Dioni Bull BOX LOADER-I&C TECHNICIAN LAB - MICROBIOLO GY ORDERABLES Performing Organization Address [facility] de Phone Number [facility] [address] [place] [phone] * PTT (10/04/2013 11:08 PM MAINTENANCE AND ENGINEERING MANAGER) PTT 26.8 24.0 - 32.0 sec 10/04/2013 11:49 PM MAINTENANCE AND ENGINEERING MANAGER [facility] Blood BLOOD SPECIMEN / Unknown 10/04/2013 11:08 PM MAINTENANCE AND ENGINEERING MANAGER 10/04/2013 11:21 PM MAINTENANCE AND ENGINEERING MANAGER Lam Hendrickson DO LAB - COAGULATION OR DERABLES Performing Organization Address [facility] de Phone Number [facility] [address] [place] [address] * PT-INR (10/04/2013 11:08 PM MAINTENANCE AND ENGINEERING MANAGER) PT 10.6 9.4 - 11.2 sec 10/04/2013 11:49 PM MAINTENANCE AND ENGINEERING MANAGER [facility] INR 1.01 0.9 - 1.1 10/04/2013 11:49 PM MAINTENANCE AND ENGINEERING MANAGER [facility] Blood BLOOD SPECIMEN / Unknown 10/04/2013 11:08 PM MAINTENANCE AND ENGINEERING MANAGER 10/04/2013 11:21 PM MAINTENANCE AND ENGINEERING MANAGER Narrative [facility] - 10/04/2013 11:49 PM MAINTENANCE AND ENGINEERING MANAGER Conventional Anticoagulant Therapy INR Reference Ranges: 2.0-3.0 Intensive Anticoagulant Therapy INR Reference Ranges: 2.5-3.5 Lam Hendrickson DO LAB - COAGULATION OR DERABLES [facility] [address] [place] [address] Care Teams Billet Inspector Relationship Specialty Start Date End Date Fausto Chavez MD [address] [facility] [place] [address] PCP - General Family Medicine 12/31/21
[2024-12-06] MEDS: HYDROcodone/acetaminophen (*CRX) 5-325 MG TABLET 1 TAB PO (18:13)
[2024-12-06 20:13] LABS: Basophils Percent Auto 0.3 % (0.2-1.2); Eosinophils Absolute Auto 0.1 K/mm3 (0-0.3); Eosinophils Percent Auto 0.5 % (0-4.4); Hematocrit 34.6 % (42.0-52.0); Hemoglobin 10.8 g/dL (14.0-18.0); Immature Granulocyte Absolute 0.09 K/mm3 (0.00-0.031); Immature Granulocyte Percent A 0.7 % (0-0.5); Lymphocytes Absolute Auto 0.73 K/mm3 (0.9-3.2); Lymphocytes Percent Auto 5.6 % (18.3-44.2); Mean Corpuscular HGB Conc 31.2 g/dl (32-36); Mean Corpuscular Hemoglobin 31.4 pg (26-34); Mean Corpuscular Volume 100.6 fl (80-100); Mean Platelet Volume 10.8 fl (7.4-10.4); Monocytes Absolute Auto 0.8 K/mm3 (0.1-0.6); Monocytes Percent Auto 6.3 % (2.6-8.5); Neutrophils Absolute Auto 11.3 K/mm3 (1.3-6.7); Neutrophils Percent Auto 86.6 % (45.5-73.1); Platelet Count Result 173 k/mm3 (150-375); Red Blood Count 3.44 M/mm3 (4.6-6.20); Red Cell Distribution Width 14.6 % (11.5-14.5); White Blood Count 13.1 K/mm3 (4.5-10.0)
--- NOTE | 2024-12-06 20:22 | ECG_ITS ---
Test Date: 2024-12-06 21:07:07 Measurements Intervals [place] Rate: 97 P: 2 OH: 180 QRS: -6 QRSD: 110 T: 58 QT: 363 QTc: 462 Interpretive Statements SINUS RHYTHM ANTERIOR MYOCARDIAL INFARCTION , PROBABLY OLD [40+ ms Q WAVE AND/OR ST/T ABNORMALITY IN V3/V4] INFERIOR MYOCARDIAL INFARCTION , PROBABLY OLD [40+ ms Q WAVE AND/OR ST/T ABNORMALITY IN II/aVF] No previous ECG available for comparison Electronically Signed On 12-08-2024 09:31:34 MOTOR RUNNER by Nelson Tamayo M.D.
[2024-12-06 20:24] LABS: INR 1.1; Partial Thromboplastin Time 29.3 Seconds (22.3-36.8); Prothrombin Time 14.2 Seconds (11.1-14.7)
[2024-12-06 20:27] LABS: Alanine Aminotransferase 19 U/L (6-50); Albumin Level 3.8 g/dL (3.5-5.1); Alkaline Phosphatase 159 U/L (38-126); Anion Gap 10 mmol/L (4-12); Aspartate Amino Transferase 28 U/L (17-59); Bilirubin,Total 0.6 mg/dL (0.2-1.3); Blood Urea Nitrogen 40 mg/dL (9-20); Calcium 9.3 mg/dL (8.4-10.2); Carbon Dioxide 27 mmol/L (22-30); Chloride 103 mmol/L (98-107); Estimated CRCL calculation 41 ml/min; Estimated Glomerular Filt Rate 33; Glucose 113 mg/dL (65-110); Potassium 4.3 mmol/L (3.4-5.0); Sodium 140 mmol/L (137-145)
[2024-12-06 20:57] VITALS: BMI 25.7
--- NOTE | 2024-12-06 21:41 | ADMGEN ---
This patient, Channing Ruiz, was admitted to Medical Room 250-01. Patient/family oriented to hospital policies and general routines including ID bracelet, bed and alarms, visiting hours, pain management, procedures, bathroom and other care routines, personal items, smoking policy, room service/diet, and visiting hours. Information on how to activate the Rapid Response Team has been discussed. Patient/Family are encouraged to report perceived risks to care and to ask questions if they do not understand what they are told or what they should do.
[2024-12-06 21:45] VITALS: BP 108/54; PULSE 77; RESP 18; TEMP 36.8; O2SAT 96
[2024-12-06 21:57] LABS: Glucose Point of Care 259 mg/dl (65-105)
[2024-12-07 04:12] VITALS: BP 132/79; PULSE 91; RESP 20; TEMP 36.9; O2SAT 96
--- NOTE | 2024-12-07 07:21 | P.CONOP_ITS ---
Assessment and Plan Assessment and plan (1) Closed fracture of pubic ramus: Code(s): S32.599A - Other specified fracture of unspecified pubis, initial encounter for closed fracture Status: Acute Assessment and Plan: Patient has a pubic ramus fracture right. The fracture is only mildly displaced for this same side he has had a revision total hip. Fortunately did not break the revision total hip. Told him that with time the pain will go away and he will be able to use is hip more normally. At this point he will require extra help because of the pain associated with pubic ramus fracture. Will begin therapy. Discussed. Follow-up 2 to 4 weeks in the office. History of Present Illness HPI Consult date: 12/07/24 Chief complaint: Pubic rami fracture, Fall Narrative: Patient fell the bat of a home operatively. He suffered a pubic ramus fracture. Of note is the fact he has had a revision total hip on the right side which is where broke the pubic ramus. Review of Systems 2 Musculoskeletal: Musculoskeletal: Reports arthralgias and Reports stiffness Neurologic: Reports abnormal gait PMFSH Past Medical History Medical History Amputation of right great toe Diabetes Fracture collar bone Gout rt thumb, lt elbow Renal insufficiency GERD (gastroesophageal reflux disease) Bronchitis Hyperlipidemia CAD (coronary artery disease) Triple bypass CHF (congestive heart failure) Myocardial infarction Hypertension Rheumatoid arthritis Surgical History Surgical History History of total right knee replacement History of hip replacement On the right History of orthopedic surgery bilateral elbows and right hand History of coronary artery stent placement Multiple stents Hx of cardiac cath H/O vascular surgery Hx of cataract surgery Hx of CABG 3 vessel Family History Family History Father Family history of obesity Family history of alcoholism Patient's father is Acute myocardial infarction Mother Hypertension Patient's mother is Sibling Hypertension Sibling Alcoholism Social History Social History Social History: the patient is from his . He has 1 stepson. He is currently living with his baby sister. He used to drink heavily when he was younger but only occasionally drinks now. Code status full code Smoking status: Never smoker Alcohol intake: former Substance use: never Substance use type: painkillers Other substance usage details: Q4-Q6 for back pain Last use: 03/27/2020 Do You Feel Safe in your Home?: Yes Lack of Transportation: No Lack of Food: Never True Current Housing: I Have Housing Concerned About Future Housing: No Difficulty Paying Gas/Electric Bills: No Difficulty Paying for Meds: No Currently Unemployed: No Education: High School Diploma/GED Difficulty w/ Childcare or Family Care: No Gender identity (if verbalized by the patient): Male Spiritual care concerns: No Meds Home Medications and Allergies Home Medications ?Medication ?Instructions ?Recorded ?Confirmed ?Type allopurinol 300 mg tablet 300 mg PO DAILY 10/20/19 12/06/24 History famotidine 20 mg tablet 20 mg PO BID 10/20/19 12/06/24 History hydrocodone 10 mg-acetaminophen 1 tablet PO Q4-6H PRN Pain (Scale 10/20/19 12/06/24 History 325 mg tablet Score 4-6) simvastatin 20 mg tablet 20 mg PO HS 10/20/19 12/06/24 History bumetanide 2 mg tablet 2 mg PO DAILY 10/29/23 12/06/24 History nhkrqyhc-cb-vxusk 300 mcg-K 60 1 tablet PO DAILY 10/29/23 12/06/24 History mcg-lycop 600 mcg-lutein 300 mcg tablet (Centrum Silver Men) pantoprazole 40 mg tablet,delayed 40 mg PO QAM 10/29/23 12/06/24 History release trazodone 100 mg tablet 100 mg PO QHS PRN sleep 10/29/23 12/06/24 History metoprolol tartrate 25 mg tablet 25 mg PO BID #60 tabs 11/19/23 12/06/24 Rx losartan 25 mg tablet 25 mg PO DAILY #90 tabs 11/25/23 12/06/24 Rx glucagon 1 mg/0.2 mL subcutaneous 1 mg (0.2 mL) subcut ONCE #0.4 mL 12/11/23 12/06/24 Rx auto-injector (Gvoke HypoPen 2-Pack) glucose 4 gram chewable tablet 4 g PO Q15M PRN hypoglycemia #90 12/11/23 12/06/24 Rx tabs insulin aspart U-100 100 unit/mL See Rx Instructions .Route .COMPLEX 12/11/23 12/06/24 History subcutaneous solution (Novolog U-100 Insulin aspart) blood-glucose sensor (FreeStyle #6 ea 08/02/24 12/06/24 Rx Mary 3 Plus Sensor device) insulin degludec 100 unit/mL (3 22 unit (0.22 mL) subcut DAILY #21 11/17/24 12/06/24 Rx mL) subcutaneous pen (Tresiba mL FlexTouch U-100 insulin) Allergies Allergy/AdvReac Type Severity Reaction Status Date / Time morphine Allergy Unknown Agitated Verified 12/06/24 19:57 naproxen Allergy Unknown Unconscious Verified 12/06/24 19:57 NSAIDS (Non-Steroidal AdvReac Unknown renal Verified 12/06/24 19:57 Anti-Inflamma insufficiency Vital Signs Vital Signs - 24 hr 12/06/24 14:15 12/06/24 21:45 12/06/24 21:48 Temperature 97.4 F L 98.2 F Pulse Rate 79 77 Respiratory Rate 17 18 Blood Pressure 127/67 108/54 L Pulse Oximetry 98 96 Oxygen Delivery Room Air 12/07/24 04:12 Temperature 98.4 F Pulse Rate 91 Respiratory Rate 20 Blood Pressure 132/79 Pulse Oximetry 96 Oxygen Delivery Exam 2 Narrative: Patient has pain with any manipulation of his right leg. He is unable to bear weight on at this time. Neurologically he is grossly intact. He has pain with manipulation. Radiology Reports: Comments: [phone] XRay Report Signed Patient: Channing Ruiz HISTORY: R hip pain s/p fall COMPARISON: 10/14/2022 TECHNIQUE: 2 views of the right hip along with an AP view of the pelvis FINDINGS: Fixation hardware within the right hip. Secondary to the diffuse bony demineralization, examination is limited for the detection of acute fracture in this patient. However, the orientation of the right femur is asymmetric to the left, similar in appearance to CT examination in 2022. Further evaluation should be performed with noncontrast enhanced CT of the pelvis, if the patient is clinically able. IMPRESSION: Given the diffuse bony demineralization, and asymmetric orientation of the right femur and the right hip hardware, in relation to the left, cross- sectional imaging (noncontrast enhanced CT examination of the pelvis) is suggested for further evaluation.. Reviewed, dictated and finalized at location A. CONDUCTOR WAFERS ETCH OPERATOR Please be advised this is a medical document. It is intended for qhag-qz-eokb communication. It is written in medical language and may contain unfamiliar abbreviations or verbiage. Medical documents are intended to carry relevant information, facts as evident, and the clinical opinion of the practitioner at the time of the encounter. This report may have been done utilizing a voice recognition system. Attempts have been made to correct errors. However, there may be uncorrected grammatical, spelling, and recognition errors present. The file time of this note does not necessarily represent the time of service. Right Inferiror Pubic RAMUS Fracture is noted 2 Abdomen X-Ray 10/20/19 Femur X-Ray 12/06/24 Hip X-Ray 07/23/22 Hip/Pelvis X-Ray 12/06/24 Results Labs 12/06/24 19:56 12/06/24 19:56 Labs: Abnormal lab results 12/06/24 12/06/24 Range/Units 19:56 21:51 WBC 13.1 H (4.5-10.0) K/mm3 RBC 3.44 L (4.6-6.20) M/mm3 Hgb 10.8 L (14.0-18.0) g/dL Hct 34.6 L (42.0-52.0) % MCV 100.6 H (80-100) fl MCHC 31.2 L (32-36) g/dl RDW 14.6 H (11.5-14.5) % MPV 10.8 H (7.4-10.4) fl Immature Gran % (Auto) 0.7 H (0-0.5) % Neut % (Auto) 86.6 H (45.5-73.1) % Lymph % (Auto) 5.6 L (18.3-44.2) % Lymph # (Auto) 0.73 L (0.9-3.2) K/mm3 Evans # (Auto) 0.8 H (0.1-0.6) K/mm3 Abs Immat Gran (auto) 0.09 H (0.00-0.031) K/mm3 Absolute Neuts (auto) 11.3 H (1.3-6.7) K/mm3 BUN 40 H D (9-20) mg/dL Creatinine 2.00 H (0.7-1.3) mg/dL Estimated GFR 33 L (59 - ) Glucose 113 H (65-110) mg/dL POC Capillary Glucose 259 H (65-105) mg/dl Alkaline Phosphatase 159 H (38-126) U/L H & H 12/06/24 Range/Units 19:56 Hgb 10.8 L (14.0-18.0) g/dL Hct 34.6 L (42.0-52.0) % Coagulation 12/06/24 Range/Units 19:56 INR 1.1 All other labs normal.
[2024-12-07 08:22] LABS: Basophils Percent Auto 0.5 % (0.2-1.2); Eosinophils Absolute Auto 0.2 K/mm3 (0-0.3); Eosinophils Percent Auto 2.6 % (0-4.4); Hematocrit 31.8 % (42.0-52.0); Hemoglobin 9.8 g/dL (14.0-18.0); Immature Granulocyte Absolute 0.03 K/mm3 (0.00-0.031); Immature Granulocyte Percent A 0.5 % (0-0.5); Lymphocytes Absolute Auto 0.78 K/mm3 (0.9-3.2); Lymphocytes Percent Auto 12.1 % (18.3-44.2); Mean Corpuscular HGB Conc 30.8 g/dl (32-36); Mean Corpuscular Hemoglobin 31.6 pg (26-34); Mean Corpuscular Volume 102.6 fl (80-100); Mean Platelet Volume 10.5 fl (7.4-10.4); Monocytes Absolute Auto 0.6 K/mm3 (0.1-0.6); Neutrophils Absolute Auto 4.8 K/mm3 (1.3-6.7); Neutrophils Percent Auto 75.3 % (45.5-73.1); Platelet Count Result 139 k/mm3 (150-375); Red Cell Distribution Width 14.6 % (11.5-14.5); White Blood Count 6.4 K/mm3 (4.5-10.0)
[2024-12-07 08:22] LABS: Glucose Point of Care 179 mg/dl (65-105)
[2024-12-07 08:35] VITALS: BP 124/74; PULSE 96; O2SAT 94
[2024-12-07 08:36] VITALS: PULSE 96
[2024-12-07] MEDS: PANTOPRAZOLE 40 MG TABLET PO (08:36)
[2024-12-07] MEDS: LOSARTAN POTASSIUM 25 MG TABLET PO (08:36)
[2024-12-07] MEDS: OPTI-GEN TAB 1 TABLET PO (08:36)
[2024-12-07] MEDS: METOPROLOL TARTRATE 25 MG TABLET PO ×2 (08:36→17:21)
[2024-12-07] MEDS: allopurinoL 300 MG TABLET PO (08:36)
[2024-12-07] MEDS: HYDROcodone/acetaminophen (*CRX) 5-325 MG TABLET 1 TAB PO ×2 (08:36→21:36)
[2024-12-07] MEDS: INSULIN GLARGINE (*BKC) 100 UNITS/ML 22 UNITS SUB-Q (08:37)
[2024-12-07 08:38] LABS: Alanine Aminotransferase 15 U/L (6-50); Albumin Level 3.2 g/dL (3.5-5.1); Alkaline Phosphatase 125 U/L (38-126); Anion Gap 8 mmol/L (4-12); Aspartate Amino Transferase 21 U/L (17-59); Bilirubin,Total 0.7 mg/dL (0.2-1.3); Blood Urea Nitrogen 39 mg/dL (9-20); Calcium 8.8 mg/dL (8.4-10.2); Carbon Dioxide 27 mmol/L (22-30); Chloride 103 mmol/L (98-107); Estimated CRCL calculation 34 ml/min; Estimated Glomerular Filt Rate 34; Glucose 185 mg/dL (65-110); Potassium 4.2 mmol/L (3.4-5.0); Sodium 138 mmol/L (137-145)
--- NOTE | 2024-12-07 10:15 | P.HP_ITS ---
H&P: HPI History of Present Illness Date/Time: 12/07/24 10:15 Chief Complaint: Fall Narrative: Patient is a 74 year old male that came to the hospital after a fall. Patient has a fracture of the inferior pubic ramus. Patient reported that his leg gave out on him in the restroom. He pivoted and fell into bathtub. Dr. Arriaga saw patient, he stated fracture is mildly displaced, patient to start therapy, and follow up with Dr. Arriaga in 2-4 weeks. Patient reports pain hip is a 10 , constant, throbbing, and aching. Patient denies chest pain, palpitations, headache, dizziness, nausea, or vomiting. Patient reports numbness and tingling in toes from gout. Lives with sister. ER: WBC 13.1, H&H 10.8/34.6, Creatinine 2.00, alkaline phosphatase 159. ECG SR 97 with old infarcts QTc 462. Head CT 12/06/24 17:55 Impression: No acute intracranial hemorrhage or suspicious mass effect. Hip/Pelvis X-Ray 12/06/24 18:11 IMPRESSION: Given the diffuse bony demineralization, and asymmetric orientation of the right femur and the right hip hardware, in relation to the left, cross- sectional imaging (noncontrast enhanced CT examination of the pelvis) is suggested for further evaluation. Femur X-Ray 12/06/24 18:31 IMPRESSION: Diffuse bony demineralization with significant degenerative disease, and a small suprapatellar joint effusion within the minimally visualized right knee Pelvis CT 12/06/24 19:37 IMPRESSION: Acute, comminuted fracture of the inferior pubic ramus, as detailed above. Review of Systems Review of Systems: All systems reviewed & are unremarkable except as noted in HPI and below PMFSH Past Medical History Medical History Amputation of right great toe Diabetes Fracture collar bone Gout rt thumb, lt elbow Renal insufficiency GERD (gastroesophageal reflux disease) Bronchitis Hyperlipidemia CAD (coronary artery disease) Triple bypass CHF (congestive heart failure) Myocardial infarction Hypertension Rheumatoid arthritis Surgical History Surgical History History of total right knee replacement History of hip replacement On the right History of orthopedic surgery bilateral elbows and right hand History of coronary artery stent placement Multiple stents Hx of cardiac cath H/O vascular surgery Hx of cataract surgery Hx of CABG 3 vessel Family History Family History Father Family history of obesity Family history of alcoholism Patient's father is Acute myocardial infarction Mother Hypertension Patient's mother is Sibling Hypertension Sibling Alcoholism Social History Social History Social History: the patient is from his . He has 1 stepson. He is currently living with his baby sister. He used to drink heavily when he was younger but only occasionally drinks now. Code status full code Smoking status: Never smoker Alcohol intake: former Substance use: never Substance use type: painkillers Other substance usage details: Q4-Q6 for back pain Last use: 03/27/2020 Do You Feel Safe in your Home?: Yes Lack of Transportation: No Lack of Food: Never True Current Housing: I Have Housing Concerned About Future Housing: No Difficulty Paying Gas/Electric Bills: No Difficulty Paying for Meds: No Currently Unemployed: No Education: High School Diploma/GED Difficulty w/ Childcare or Family Care: No Gender identity (if verbalized by the patient): Male Spiritual care concerns: No Meds Home Medications and Allergies Home Medications ?Medication ?Instructions ?Recorded ?Confirmed ?Type allopurinol 300 mg tablet 300 mg PO DAILY 10/20/19 12/06/24 History famotidine 20 mg tablet 20 mg PO BID 10/20/19 12/06/24 History hydrocodone 10 mg-acetaminophen 1 tablet PO Q4-6H PRN Pain (Scale 10/20/19 12/06/24 History 325 mg tablet Score 4-6) simvastatin 20 mg tablet 20 mg PO HS 10/20/19 12/06/24 History bumetanide 2 mg tablet 2 mg PO DAILY 10/29/23 12/06/24 History masstrxl-el-mtigs 300 mcg-K 60 1 tablet PO DAILY 10/29/23 12/06/24 History mcg-lycop 600 mcg-lutein 300 mcg tablet (Centrum Silver Men) pantoprazole 40 mg tablet,delayed 40 mg PO QAM 10/29/23 12/06/24 History release trazodone 100 mg tablet 100 mg PO QHS PRN sleep 10/29/23 12/06/24 History metoprolol tartrate 25 mg tablet 25 mg PO BID #60 tabs 11/19/23 12/06/24 Rx losartan 25 mg tablet 25 mg PO DAILY #90 tabs 11/25/23 12/06/24 Rx glucagon 1 mg/0.2 mL subcutaneous 1 mg (0.2 mL) subcut ONCE #0.4 mL 12/11/23 12/06/24 Rx auto-injector (Gvoke HypoPen 2-Pack) glucose 4 gram chewable tablet 4 g PO Q15M PRN hypoglycemia #90 12/11/23 12/06/24 Rx tabs insulin aspart U-100 100 unit/mL See Rx Instructions .Route .COMPLEX 12/11/23 12/06/24 History subcutaneous solution (Novolog U-100 Insulin aspart) blood-glucose sensor (FreeStyle #6 ea 08/02/24 12/06/24 Rx Mary 3 Plus Sensor device) insulin degludec 100 unit/mL (3 22 unit (0.22 mL) subcut DAILY #21 11/17/24 12/06/24 Rx mL) subcutaneous pen (Tresiba mL FlexTouch U-100 insulin) Allergies Allergy/AdvReac Type Severity Reaction Status Date / Time morphine Allergy Unknown Agitated Verified 12/06/24 19:57 naproxen Allergy Unknown Unconscious Verified 12/06/24 19:57 NSAIDS (Non-Steroidal AdvReac Unknown renal Verified 12/06/24 19:57 Anti-Inflamma insufficiency Vital Signs Vital Signs - 24 hr 12/06/24 14:15 12/06/24 21:45 12/06/24 21:48 Temperature 97.4 F L 98.2 F Pulse Rate 79 77 Respiratory Rate 17 18 Blood Pressure 127/67 108/54 L Pulse Oximetry 98 96 Oxygen Delivery Room Air 12/07/24 04:12 12/07/24 08:35 12/07/24 08:36 Temperature 98.4 F Pulse Rate 91 96 96 Respiratory Rate 20 Blood Pressure 132/79 124/74 Pulse Oximetry 96 94 Oxygen Delivery Exam Const: General: no acute distress and uncomfortable Eyes: Sclera: sclerae normal Pupils: Equal, round and reactive pupils present Resp: Effort & Inspection: normal respiratory effort Auscultation: clear to auscultation bilaterally Cardio: Rate: regular rate Rhythm: regular rhythm GI: GI Palp: Yes Soft to palpation Auscultation: normal bowel sounds Skin: Other: Ecchymosis to right flank and right side. Left medial foot healing 1 cm round scabbed area from shoe rubbing per patient. Neuro: Speech: normal speech Extrem: General: no pedal edema Psych: Mental Status: mental status grossly normal Affect: normal affect H&P: Results Labs Labs: Short CBC 12/06/24 12/07/24 Range/Units 19:56 08:02 WBC 13.1 H 6.4 (4.5-10.0) K/mm3 Hgb 10.8 L 9.8 L (14.0-18.0) g/dL Hct 34.6 L 31.8 L (42.0-52.0) % Plt Count 173 139 L (150-375) k/mm3 BMP 12/06/24 12/07/24 19:56 08:02 Sodium 140 138 Potassium 4.3 4.2 Chloride 103 103 Carbon Dioxide 27 27 BUN 40 H D 39 H Creatinine 2.00 H 1.94 H Glucose 113 H 185 H Calcium 9.3 8.8 Liver Function 12/06/24 12/07/24 Range/Units 19:56 08:02 Total Bilirubin 0.6 0.7 (0.2-1.3) mg/dL AST 28 21 (17-59) U/L ALT 19 15 (6-50) U/L Alkaline Phosphatase 159 H 125 (38-126) U/L Albumin 3.8 3.2 L (3.5-5.1) g/dL Assessment and Plan Assessment and plan (1) Closed fracture of pubic ramus: Code(s): S32.599A - Other specified fracture of unspecified pubis, initial encounter for closed fracture Status: Acute Assessment and Plan: * Pelvis CT 12/06/24 19:37 IMPRESSION: Acute, comminuted fracture of the inferior pubic ramus * Dr. Arriaga saw patient, he stated fracture is mildly displaced, patient to start therapy, and follow up with Dr. Arriaga in 2-4 weeks. * PT/OT * Pain control. (2) Acute kidney injury: Code(s): N17.9 - Acute kidney failure, unspecified Status: Acute Assessment and Plan: * Creatinine 1.94. * Encourage oral intake. * Monitor levels. (3) Type 2 diabetes mellitus: Code(s): E11.9 - Type 2 diabetes mellitus without complications Status: Acute Assessment and Plan: * Continue Tresiba 22 unit subq daily. * Last HgbA1c 7.9% on 09/10/24. * Hypoglycemic protocol. * SSI. Quality VTE Prophylaxis VTE prophylaxis: mechanical ordered
[2024-12-07] MEDS: ACETAMINOPHEN 325 MG TABLET 650 MG PO (11:32)
[2024-12-07 12:05] LABS: Glucose Point of Care 260 mg/dl (65-105)
[2024-12-07] MEDS: INSULIN ASPART (*BKC) 100 UNITS/ML SUB-Q ×2 (12:19→17:22)
[2024-12-07 14:00] VITALS: BP 120/66; PULSE 94; RESP 19; TEMP 36.6; O2SAT 95
[2024-12-07 16:59] LABS: Glucose Point of Care 218 mg/dl (65-105)
[2024-12-07 17:21] VITALS: PULSE 86
[2024-12-07 21:01] VITALS: BP 149/76; PULSE 95; RESP 17; TEMP 37.2; O2SAT 95
[2024-12-07] MEDS: SIMVASTATIN 20 MG TABLET PO (21:36)
[2024-12-07 21:39] LABS: Glucose Point of Care 166 mg/dl (65-105)
[2024-12-07] MEDS: traZODone HCL 50 MG TABLET 100 MG PO (21:39)
[2024-12-08] MEDS: ACETAMINOPHEN 325 MG TABLET 650 MG PO (05:54)
[2024-12-08 06:00] VITALS: BP 130/71; PULSE 101; RESP 16; TEMP 37.3; O2SAT 94
[2024-12-08 06:22] LABS: Basophils Percent Auto 0.6 % (0.2-1.2); Eosinophils Absolute Auto 0.3 K/mm3 (0-0.3); Eosinophils Percent Auto 3.8 % (0-4.4); Hematocrit 33.7 % (42.0-52.0); Hemoglobin 10.4 g/dL (14.0-18.0); Immature Granulocyte Absolute 0.04 K/mm3 (0.00-0.031); Immature Granulocyte Percent A 0.6 % (0-0.5); Lymphocytes Absolute Auto 1.04 K/mm3 (0.9-3.2); Lymphocytes Percent Auto 15.3 % (18.3-44.2); Mean Corpuscular HGB Conc 30.9 g/dl (32-36); Mean Corpuscular Hemoglobin 31.8 pg (26-34); Mean Corpuscular Volume 103.1 fl (80-100); Mean Platelet Volume 10.6 fl (7.4-10.4); Monocytes Absolute Auto 0.8 K/mm3 (0.1-0.6); Monocytes Percent Auto 11.9 % (2.6-8.5); Neutrophils Absolute Auto 4.6 K/mm3 (1.3-6.7); Neutrophils Percent Auto 67.8 % (45.5-73.1); Platelet Count Result 141 k/mm3 (150-375); Red Blood Count 3.27 M/mm3 (4.6-6.20); Red Cell Distribution Width 14.6 % (11.5-14.5); White Blood Count 6.8 K/mm3 (4.5-10.0)
[2024-12-08 06:29] LABS: Alanine Aminotransferase 16 U/L (6-50); Albumin Level 3.7 g/dL (3.5-5.1); Alkaline Phosphatase 129 U/L (38-126); Anion Gap 11 mmol/L (4-12); Aspartate Amino Transferase 24 U/L (17-59); Bilirubin,Total 0.6 mg/dL (0.2-1.3); Blood Urea Nitrogen 35 mg/dL (9-20); Calcium 8.9 mg/dL (8.4-10.2); Carbon Dioxide 26 mmol/L (22-30); Chloride 103 mmol/L (98-107); Estimated CRCL calculation 38 ml/min; Estimated Glomerular Filt Rate 39; Glucose 231 mg/dL (65-110); Magnesium 2.1 mg/dL (1.6-2.3); Potassium 3.8 mmol/L (3.4-5.0); Sodium 140 mmol/L (137-145)
[2024-12-08 08:10] LABS: Glucose Point of Care 270 mg/dl (65-105)
[2024-12-08 08:32] VITALS: BP 106/62; PULSE 82; O2SAT 94
[2024-12-08 08:41] VITALS: PULSE 82
[2024-12-08] MEDS: PANTOPRAZOLE 40 MG TABLET PO (08:41)
[2024-12-08] MEDS: OPTI-GEN TAB 1 TABLET PO (08:41)
[2024-12-08] MEDS: allopurinoL 300 MG TABLET PO (08:41)
[2024-12-08] MEDS: HYDROcodone/acetaminophen (*CRX) 5-325 MG TABLET 1 TAB PO ×3 (08:41→20:11)
[2024-12-08] MEDS: METOPROLOL TARTRATE 25 MG TABLET PO ×2 (08:41→17:20)
[2024-12-08] MEDS: LOSARTAN POTASSIUM 25 MG TABLET PO (08:41)
[2024-12-08] MEDS: INSULIN GLARGINE (*BKC) 100 UNITS/ML 22 UNITS SUB-Q (08:43)
[2024-12-08] MEDS: INSULIN ASPART (*BKC) 100 UNITS/ML SUB-Q ×2 (08:45→17:22)
--- NOTE | 2024-12-08 10:25 | P.PNIM_ITS ---
Progress Note: A&P Assessment and Plan (1) Closed fracture of pubic ramus: Code(s): S32.599A - Other specified fracture of unspecified pubis, initial encounter for closed fracture Status: Acute Assessment and Plan: Per chart review, patients leg gave out resulting in a fall in his bathroom. History of total hip revision - Head CT unremarkable - Pelvis CT: Acute, comminuted fracture of the inferior pubic ramus - Ortho consulted. Dr. Arriaga saw patient, he stated fracture is mildly displaced, patient to start therapy, and follow up with Dr. Arriaga in 2-4 weeks. - PT/OT: WBAT - Pain control. (2) Type 2 diabetes mellitus: Code(s): E11.9 - Type 2 diabetes mellitus without complications Status: Acute Assessment and Plan: * Lantus 22 unit subq daily and SSI * Last HgbA1c 7.9% on 09/10/24. * Hypoglycemic protocol. (3) Chronic kidney disease, stage 3: Code(s): N18.3 - Chronic kidney disease, stage 3 (moderate) Status: Acute Assessment and Plan: * Creatinine appears at baseline, Cr 1.72 on am labs * Encourage oral intake. * Avoid nephrotoxic medications * Renally dose medications * Monitor I/O (4) Hypertension: Code(s): I10 - Essential (primary) hypertension Status: Chronic Assessment and Plan: Chronic, continue home medications - metoprolol 25 mg BID - losartan 25 mg daily - blood pressures remain stable, continue to monitor Time Spent With Patient Time with patient: 25 - 35 minutes Subjective Date/time seen: 12/08/24 10:25 Interval history: 74 year old male with past medical history of systolic dysfunction, DM, hypertension, dyslipidemia, CAD/CABG x 3 vessels, atrial fibrillation, and CKD stage IV presents to the hospital after a fall. Patient is pleasant lying in bed. He states that he worked well with therapy and has been trying to be a bit more ambulatory today. He continues to endorse pain but notes that the regimen covers this well. He notes slight shoulder discomfort but denies any decreased range of motion or tingling/numbness or shooting pains. He has no other complaints denying chest pain, palpitations, nausea/vomiting and abdominal pain. Review of Systems Review of Systems: All systems reviewed & are unremarkable except as noted in HPI and below Exam Narrative: AF HR 82 RR 16 Spo2 94 BP 106/62 General: male in no acute respiratory distress who is nontoxic appearing, lying semi recumbent in bed. HEENT: Normocephalic. Atraumatic. Extraocular movement intact. Sclera clear and anicteric. No facial asymmetry. Chest: Lungs are clear to auscultation bilaterally. No wheezes or crackles. CV: Heart was regular rate and rhythm. S1/S2. No murmurs, gallops, or rubs. Abd: Abdomen was soft. Nontender. Nondistended. Postive bowel sounds. No organomegaly or masses. Ext: No clubbing, cyanosis, or edema. DP pulses intact bilaterally. Full ROM to bilateral upper extremities with no pain. Neuro: Patient is alert. Speech is clear. Skin: Two large purple bruises to his back. Objective Data Vital Signs Vital Signs: Vital Signs - 24 hr 12/07/24 14:00 12/07/24 17:21 12/07/24 21:01 Temperature 97.8 F 98.9 F Pulse Rate 94 86 95 Respiratory Rate 19 17 Blood Pressure 120/66 149/76 H Pulse Oximetry 95 95 Oxygen Delivery 12/07/24 21:30 12/08/24 06:00 12/08/24 08:32 Temperature 99.1 F Pulse Rate 101 H 82 Respiratory Rate 16 Blood Pressure 130/71 106/62 Pulse Oximetry 94 94 Oxygen Delivery Room Air 12/08/24 08:41 Temperature Pulse Rate 82 Respiratory Rate Blood Pressure Pulse Oximetry Oxygen Delivery Intake/Output Intake/Output: Intake & Output 12/05/24 12/06/24 12/07/24 12/08/24 23:59 23:59 23:59 23:59 Intake Total 1150 Output Total 625 400 Balance 525 -400 Meds/Results Medications: Active Medications Generic Name Dose Route Start Last Admin Trade Name Freq PRN Reason Stop Dose Admin Acetaminophen 650 mg 12/06/24 20:23 12/08/24 05:54 Acetaminophen 325 Mg Tablet PO 650 mg Q4H PRN Administration Mild Pain (1-3) or Fever Hydrocodone Bitart/Acetaminophen 1 tab 12/06/24 20:23 12/08/24 08:41 Hydrocodone/Acetaminophen (*Crx) 5-325 Mg Tablet PO 1 tab Q4H PRN Administration Pain Rated 4-6 Allopurinol 300 mg 12/07/24 09:00 12/08/24 08:41 Allopurinol 300 Mg Tablet PO 300 mg DAILY MARVIN Administration Dextrose 12.5 gm 12/07/24 07:32 Dextrose 50% 25 Gm/50 Ml Syringe IV PUSH PRN PRN Hypoglycemia Protocol Glucagon 1 mg 12/07/24 07:32 Glucagon For Inj 1 Mg Vial IM PRN PRN Hypoglycemia Protocol Glucose 15 gm 12/07/24 07:32 Glucose Oral Gel 15 Gm Of Glucse In 37.5 Gm Tube PO PRN PRN Hypoglycemia Protocol Hydromorphone HCl 0.5 mg 12/06/24 20:23 Hydromorphone Hcl Inj (*Crx) 1 Mg/Ml Syr IV PUSH Q4H PRN Pain Rated 7-10 Dextrose 1,000 mls @ 100 mls/hr 12/07/24 07:32 Dextrose 5% 1,000 Ml IVPB PRN PRN Hypoglycemia Protocol Insulin Aspart 3 - 6 units 12/07/24 08:00 12/08/24 08:45 Insulin Aspart (*Bkc) 100 Units/Ml SUB-Q 4 units TIDWM MARVIN Administration Protocol Insulin Aspart 1 - 3 units 12/07/24 21:00 12/07/24 21:39 Insulin Aspart (*Bkc) 100 Units/Ml SUB-Q Not Given HS MARVIN Protocol Insulin Glargine 22 units 12/07/24 09:00 12/08/24 08:43 Insulin Glargine (*Bkc) 100 Units/Ml SUB-Q 22 units DAILY MARVIN Administration Losartan Potassium 25 mg 12/07/24 09:00 12/08/24 08:41 Losartan Potassium 25 Mg Tablet PO 25 mg DAILY MARVIN Administration Metoprolol Tartrate 25 mg 12/07/24 09:00 12/08/24 08:41 Metoprolol Tartrate 25 Mg Tablet PO 25 mg BID MARVIN Administration Multivitamins/Minerals 1 tablet 12/07/24 09:00 12/08/24 08:41 Opti-Gen Tab PO 1 tablet DAILY MARVIN Administration Ondansetron HCl 4 mg 12/06/24 20:23 Ondansetron Inj 4 Mg/2 Ml Vial IV PUSH Q4H PRN Nausea Pantoprazole Sodium 40 mg 12/07/24 09:00 12/08/24 08:41 Pantoprazole 40 Mg Tablet PO 40 mg QAM MARVIN Administration Simvastatin 20 mg 12/07/24 21:00 12/07/24 21:36 Simvastatin 20 Mg Tablet PO 20 mg HS MARVIN Administration Trazodone HCl 100 mg 12/07/24 07:30 12/07/24 21:39 Trazodone Hcl 50 Mg Tablet PO 100 mg QHS PRN Administration sleep Radiology Results: ITS Impressions Head CT 12/06/24 17:55 Impression: No acute intracranial hemorrhage or suspicious mass effect. Hip/Pelvis X-Ray 12/06/24 18:11 IMPRESSION: Given the diffuse bony demineralization, and asymmetric orientation of the right femur and the right hip hardware, in relation to the left, cross- sectional imaging (noncontrast enhanced CT examination of the pelvis) is suggested for further evaluation.. Femur X-Ray 12/06/24 18:31 IMPRESSION: Diffuse bony demineralization with significant degenerative disease, and a small suprapatellar joint effusion within the minimally visualized right knee Pelvis CT 12/06/24 19:37 IMPRESSION: Acute, comminuted fracture of the inferior pubic ramus, as detailed above. Labs Labs: Laboratory Results - last 24 hr 12/07/24 12/07/24 12/07/24 12:01 16:54 20:46 WBC RBC Hgb Hct MCV MCH MCHC RDW Plt Count MPV Immature Gran % (Auto) Neut % (Auto) Lymph % (Auto) [place] % (Auto) Eos % (Auto) Baso % (Auto) Lymph # (Auto) [place] # (Auto) Eos # (Auto) Baso # (Auto) Abs Immat Gran (auto) Absolute Neuts (auto) Absolute Nucleated RBC Nucleated RBC % Sodium Potassium Chloride Carbon Dioxide Anion Gap BUN Creatinine Estim Creat Clear Calc Estimated GFR Glucose POC Capillary Glucose 260 H 218 H 166 H Calcium Magnesium Total Bilirubin AST ALT Alkaline Phosphatase Total Protein Albumin 12/08/24 12/08/24 06:01 08:07 WBC 6.8 RBC 3.27 L Hgb 10.4 L Hct 33.7 L MCV 103.1 H MCH 31.8 MCHC 30.9 L RDW 14.6 H Plt Count 141 L MPV 10.6 H Immature Gran % (Auto) 0.6 H Neut % (Auto) 67.8 Lymph % (Auto) 15.3 L [place] % (Auto) 11.9 H Eos % (Auto) 3.8 Baso % (Auto) 0.6 Lymph # (Auto) 1.04 [place] # (Auto) 0.8 H Eos # (Auto) 0.3 Baso # (Auto) 0.0 Abs Immat Gran (auto) 0.04 H Absolute Neuts (auto) 4.6 Absolute Nucleated RBC 0.000 Nucleated RBC % 0.0 Sodium 140 Potassium 3.8 Chloride 103 Carbon Dioxide 26 Anion Gap 11 BUN 35 H Creatinine 1.72 H Estim Creat Clear Calc 38 Estimated GFR 39 L Glucose 231 H POC Capillary Glucose 270 H Calcium 8.9 Magnesium 2.1 Total Bilirubin 0.6 AST 24 ALT 16 Alkaline Phosphatase 129 H Total Protein 7.0 Albumin 3.7 Quality VTE Prophylaxis VTE prophylaxis: mechanical ordered
[2024-12-08 12:06] LABS: Glucose Point of Care 189 mg/dl (65-105)
[2024-12-08 14:00] VITALS: BP 123/75; PULSE 79; RESP 18; TEMP 37.1; O2SAT 100
[2024-12-08 17:00] LABS: Glucose Point of Care 214 mg/dl (65-105)
[2024-12-08 17:20] VITALS: PULSE 79
[2024-12-08] MEDS: SIMVASTATIN 20 MG TABLET PO (20:00)
[2024-12-08] MEDS: traZODone HCL 50 MG TABLET 100 MG PO (20:10)
[2024-12-08 21:20] VITALS: BP 126/60; PULSE 69; RESP 16; TEMP 36.7; O2SAT 92
[2024-12-08 22:03] LABS: Glucose Point of Care 200 mg/dl (65-105)
[2024-12-09] MEDS: HYDROcodone/acetaminophen (*CRX) 5-325 MG TABLET 1 TAB PO ×3 (03:41→13:49)
[2024-12-09 05:48] LABS: Basophils Percent Auto 0.6 % (0.2-1.2); Eosinophils Absolute Auto 0.3 K/mm3 (0-0.3); Eosinophils Percent Auto 3.8 % (0-4.4); Hematocrit 31.5 % (42.0-52.0); Hemoglobin 9.8 g/dL (14.0-18.0); Immature Granulocyte Absolute 0.04 K/mm3 (0.00-0.031); Immature Granulocyte Percent A 0.6 % (0-0.5); Lymphocytes Absolute Auto 0.88 K/mm3 (0.9-3.2); Lymphocytes Percent Auto 13.4 % (18.3-44.2); Mean Corpuscular HGB Conc 31.1 g/dl (32-36); Mean Corpuscular Hemoglobin 31.8 pg (26-34); Mean Corpuscular Volume 102.3 fl (80-100); Mean Platelet Volume 10.5 fl (7.4-10.4); Monocytes Absolute Auto 0.6 K/mm3 (0.1-0.6); Monocytes Percent Auto 9.4 % (2.6-8.5); Neutrophils Absolute Auto 4.8 K/mm3 (1.3-6.7); Neutrophils Percent Auto 72.2 % (45.5-73.1); Platelet Count Result 122 k/mm3 (150-375); Red Blood Count 3.08 M/mm3 (4.6-6.20); Red Cell Distribution Width 14.5 % (11.5-14.5); White Blood Count 6.6 K/mm3 (4.5-10.0)
[2024-12-09 06:00] LABS: Alanine Aminotransferase 16 U/L (6-50); Albumin Level 3.3 g/dL (3.5-5.1); Alkaline Phosphatase 117 U/L (38-126); Anion Gap 6 mmol/L (4-12); Aspartate Amino Transferase 24 U/L (17-59); Bilirubin,Total 0.6 mg/dL (0.2-1.3); Blood Urea Nitrogen 29 mg/dL (9-20); Calcium 9.1 mg/dL (8.4-10.2); Carbon Dioxide 27 mmol/L (22-30); Chloride 102 mmol/L (98-107); Estimated CRCL calculation 48 ml/min; Estimated Glomerular Filt Rate 52; Glucose 244 mg/dL (65-110); Potassium 4.1 mmol/L (3.4-5.0); Sodium 135 mmol/L (137-145)
[2024-12-09 06:18] VITALS: BP 104/60; PULSE 70; RESP 16; TEMP 36.6; O2SAT 97
--- NOTE | 2024-12-09 07:31 | P.PNIM_ITS ---
Progress Note: A&P Assessment and Plan (1) Closed fracture of pubic ramus: Code(s): S32.599A - Other specified fracture of unspecified pubis, initial encounter for closed fracture Status: Acute Assessment and Plan: Per chart review, patients leg gave out resulting in a fall in his bathroom. History of total hip revision - Head CT unremarkable - Pelvis CT: Acute, comminuted fracture of the inferior pubic ramus - Ortho consulted. Dr. Arriaga saw patient, he stated fracture is mildly displaced, patient to start therapy, and follow up with Dr. Arriaga in 2-4 weeks. - PT/OT: WBAT - Pain control. (2) Type 2 diabetes mellitus: Code(s): E11.9 - Type 2 diabetes mellitus without complications Status: Acute Assessment and Plan: * Lantus 22 unit subq daily and SSI * Last HgbA1c 7.9% on 09/10/24. * Hypoglycemic protocol. (3) Chronic kidney disease, stage 3: Code(s): N18.3 - Chronic kidney disease, stage 3 (moderate) Status: Acute Assessment and Plan: * Creatinine appears at baseline, Cr 1.72 on am labs * Encourage oral intake. * Avoid nephrotoxic medications * Renally dose medications * Monitor I/O (4) Hypertension: Code(s): I10 - Essential (primary) hypertension Status: Chronic Assessment and Plan: Chronic, continue home medications - metoprolol 25 mg BID - losartan 25 mg daily - blood pressures remain stable, continue to monitor Subjective Date/time seen: 12/09/24 07:31 Interval history: 74 year old male with past medical history of systolic dysfunction, DM, hypertension, dyslipidemia, CAD/CABG x 3 vessels, atrial fibrillation, and CKD stage IV presents to the hospital after a fall. Review of Systems Review of Systems: All systems reviewed & are unremarkable except as noted in HPI and below Exam Narrative: AF HR General: male in no acute respiratory distress who is nontoxic appearing, lying semi recumbent in bed. HEENT: Normocephalic. Atraumatic. Extraocular movement intact. Sclera clear and anicteric. No facial asymmetry. Chest: Lungs are clear to auscultation bilaterally. No wheezes or crackles. CV: Heart was regular rate and rhythm. S1/S2. No murmurs, gallops, or rubs. Abd: Abdomen was soft. Nontender. Nondistended. Postive bowel sounds. No organomegaly or masses. Ext: No clubbing, cyanosis, or edema. DP pulses intact bilaterally. Full ROM to bilateral upper extremities with no pain. Neuro: Patient is alert. Speech is clear. Skin: Two large purple bruises to his back. Objective Data Vital Signs Vital Signs: Vital Signs - 24 hr 12/08/24 08:00 12/08/24 08:32 12/08/24 08:41 Temperature Pulse Rate 82 82 Respiratory Rate Blood Pressure 106/62 Pulse Oximetry 94 Oxygen Delivery Room Air 12/08/24 10:54 12/08/24 11:05 12/08/24 14:00 Temperature 98.8 F Pulse Rate 79 Respiratory Rate 18 Blood Pressure 123/75 Pulse Oximetry 100 Oxygen Delivery Room Air Room Air 12/08/24 17:20 12/08/24 21:20 12/09/24 06:18 Temperature 98.1 F 97.9 F Pulse Rate 79 69 70 Respiratory Rate 16 16 Blood Pressure 126/60 104/60 Pulse Oximetry 92 97 Oxygen Delivery Intake/Output Intake/Output: Intake & Output 12/06/24 12/07/24 12/08/24 12/09/24 23:59 23:59 23:59 23:59 Intake Total 1150 1460 250 Output Total 625 1150 300 Balance 525 310 -50 Meds/Results Medications: Active Medications Generic Name Dose Route Start Last Admin Trade Name Freq PRN Reason Stop Dose Admin Acetaminophen 650 mg 12/06/24 20:23 12/08/24 05:54 Acetaminophen 325 Mg Tablet PO 650 mg Q4H PRN Administration Mild Pain (1-3) or Fever Hydrocodone Bitart/Acetaminophen 1 tab 12/06/24 20:23 12/09/24 03:41 Hydrocodone/Acetaminophen (*Crx) 5-325 Mg Tablet PO 1 tab Q4H PRN Administration Pain Rated 4-6 Allopurinol 300 mg 12/07/24 09:00 12/08/24 08:41 Allopurinol 300 Mg Tablet PO 300 mg DAILY MARVIN Administration Dextrose 12.5 gm 12/07/24 07:32 Dextrose 50% 25 Gm/50 Ml Syringe IV PUSH PRN PRN Hypoglycemia Protocol Glucagon 1 mg 12/07/24 07:32 Glucagon For Inj 1 Mg Vial IM PRN PRN Hypoglycemia Protocol Glucose 15 gm 12/07/24 07:32 Glucose Oral Gel 15 Gm Of Glucse In 37.5 Gm Tube PO PRN PRN Hypoglycemia Protocol Dextrose 1,000 mls @ 100 mls/hr 12/07/24 07:32 Dextrose 5% 1,000 Ml IVPB PRN PRN Hypoglycemia Protocol Insulin Aspart 3 - 6 units 12/07/24 08:00 12/08/24 17:22 Insulin Aspart (*Bkc) 100 Units/Ml SUB-Q 3 units TIDWM MARVIN Administration Protocol Insulin Aspart 1 - 3 units 12/07/24 21:00 12/08/24 21:29 Insulin Aspart (*Bkc) 100 Units/Ml SUB-Q Not Given HS MARVIN Protocol Insulin Glargine 22 units 12/07/24 09:00 12/08/24 08:43 Insulin Glargine (*Bkc) 100 Units/Ml SUB-Q 22 units DAILY MARVIN Administration Losartan Potassium 25 mg 12/07/24 09:00 12/08/24 08:41 Losartan Potassium 25 Mg Tablet PO 25 mg DAILY MARVIN Administration Metoprolol Tartrate 25 mg 12/07/24 09:00 12/08/24 17:20 Metoprolol Tartrate 25 Mg Tablet PO 25 mg BID MARVIN Administration Multivitamins/Minerals 1 tablet 12/07/24 09:00 12/08/24 08:41 Opti-Gen Tab PO 1 tablet DAILY MARVIN Administration Ondansetron HCl 4 mg 12/06/24 20:23 Ondansetron Inj 4 Mg/2 Ml Vial IV PUSH Q4H PRN Nausea Pantoprazole Sodium 40 mg 12/07/24 09:00 12/08/24 08:41 Pantoprazole 40 Mg Tablet PO 40 mg QAM MARVIN Administration Simvastatin 20 mg 12/07/24 21:00 12/08/24 20:00 Simvastatin 20 Mg Tablet PO 20 mg HS MARVIN Administration Trazodone HCl 100 mg 12/07/24 07:30 12/08/24 20:10 Trazodone Hcl 50 Mg Tablet PO 100 mg QHS PRN Administration sleep Radiology Results: ITS Impressions Head CT 12/06/24 17:55 Impression: No acute intracranial hemorrhage or suspicious mass effect. Hip/Pelvis X-Ray 12/06/24 18:11 IMPRESSION: Given the diffuse bony demineralization, and asymmetric orientation of the right femur and the right hip hardware, in relation to the left, cross- sectional imaging (noncontrast enhanced CT examination of the pelvis) is suggested for further evaluation.. Femur X-Ray 12/06/24 18:31 IMPRESSION: Diffuse bony demineralization with significant degenerative disease, and a small suprapatellar joint effusion within the minimally visualiz ed right knee Pelvis CT 12/06/24 19:37 IMPRESSION: Acute, comminuted fracture of the inferior pubic ramus, as detailed above. Labs Labs: Laboratory Results - last 24 hr 12/08/24 12/08/24 12/08/24 08:07 12:02 16:56 WBC RBC Hgb Hct MCV MCH MCHC RDW Plt Count MPV Immature Gran % (Auto) Neut % (Auto) Lymph % (Auto) [place] % (Auto) Eos % (Auto) Baso % (Auto) Lymph # (Auto) [place] # (Auto) Eos # (Auto) Baso # (Auto) Abs Immat Gran (auto) Absolute Neuts (auto) Absolute Nucleated RBC Nucleated RBC % Sodium Potassium Chloride Carbon Dioxide Anion Gap BUN Creatinine Estim Creat Clear Calc Estimated GFR Glucose POC Capillary Glucose 270 H 189 H 214 H Calcium Magnesium Total Bilirubin AST ALT Alkaline Phosphatase Total Protein Albumin 12/08/24 12/09/24 21:18 05:41 WBC 6.6 RBC 3.08 L Hgb 9.8 L Hct 31.5 L MCV 102.3 H MCH 31.8 MCHC 31.1 L RDW 14.5 Plt Count 122 L MPV 10.5 H Immature Gran % (Auto) 0.6 H Neut % (Auto) 72.2 Lymph % (Auto) 13.4 L [place] % (Auto) 9.4 H Eos % (Auto) 3.8 Baso % (Auto) 0.6 Lymph # (Auto) 0.88 L [place] # (Auto) 0.6 Eos # (Auto) 0.3 Baso # (Auto) 0.0 Abs Immat Gran (auto) 0.04 H Absolute Neuts (auto) 4.8 Absolute Nucleated RBC 0.000 Nucleated RBC % 0.0 Sodium 135 L Potassium 4.1 Chloride 102 Carbon Dioxide 27 Anion Gap 6 BUN 29 H Creatinine 1.35 H Estim Creat Clear Calc 48 Estimated GFR 52 L Glucose 244 H POC Capillary Glucose 200 H Calcium 9.1 Magnesium 2.0 Total Bilirubin 0.6 AST 24 ALT 16 Alkaline Phosphatase 117 Total Protein 6.0 L Albumin 3.3 L Quality VTE Prophylaxis VTE prophylaxis: mechanical ordered
[2024-12-09 08:11] LABS: Glucose Point of Care 186 mg/dl (65-105)
[2024-12-09 08:35] VITALS: PULSE 70
[2024-12-09] MEDS: allopurinoL 300 MG TABLET PO (08:35)
[2024-12-09] MEDS: METOPROLOL TARTRATE 25 MG TABLET PO (08:35)
[2024-12-09] MEDS: PANTOPRAZOLE 40 MG TABLET PO (08:35)
[2024-12-09] MEDS: OPTI-GEN TAB 1 TABLET PO (08:35)
[2024-12-09 08:36] VITALS: O2SAT 96
[2024-12-09] MEDS: LOSARTAN POTASSIUM 25 MG TABLET PO (08:36)
[2024-12-09] MEDS: INSULIN GLARGINE (*BKC) 100 UNITS/ML 22 UNITS SUB-Q (08:36)
[2024-12-09 12:22] LABS: Glucose Point of Care 211 mg/dl (65-105)
--- NOTE | 2024-12-09 13:24 | PM.DS ---
DS: Admitting Diagnosis Discharge Date 12/09/2024 Admitting Diagnosis closed fracture of pubic ramus type 2 dm ckd htn DS: Discharge Diagnosis Discharge Diagnosis (1) Closed fracture of pubic ramus: Code(s): S32.599A - Other specified fracture of unspecified pubis, initial encounter for closed fracture Status: Acute (2) Type 2 diabetes mellitus: Code(s): E11.9 - Type 2 diabetes mellitus without complications Status: Acute (3) Chronic kidney disease, stage 3: Code(s): N18.3 - Chronic kidney disease, stage 3 (moderate) Status: Acute (4) Hypertension: Code(s): I10 - Essential (primary) hypertension Status: Chronic DS: Summary Hospital Course Reason for hospitalization: closed fracture of pubic ramus type 2 dm ckd htn Hospital Course: 74 year old male with past medical history of systolic dysfunction, DM, hypertension, dyslipidemia, CAD/CABG x 3 vessels, atrial fibrillation, and CKD stage IV presents to the hospital after a fall. Not on anticoagulation. On admission vitals were stable. Head CT showed no acute intracranial hemorrhage or suspicious mass effect. Pelvis CT showed acute comminuted fracture of the interiour pubic ramus. Ortho was consulted and patient was evaluated by Dr. Arriaga. Per Dr. Arriaga, the fracture is only mildly displaced and is on the same side he has had a total hip revision which was not impacted during this injury. No surgical intervention was required and patient was started on analgesics and made WBAT to work with therapy. Patient worked well with therapy and was able to ambulate for 100' with a walker with standby assistance and up 5 stairs with minimal assistance. He states that he has his sister and other family to assist him with his stairs at home. PT recommending home health which has been set up per care coordination. At time of discharge patient has no complaints denying chest pain, shortness a breath, palpitations, nausea/vomiting, and increased tingling/numbness from baseline. Patient discharged home with home health in a stable condition. He is to follow up with his PCP in [address] Arriaga as scheduled. Status at Discharge Functional status at discharge: uses cane/walker Time Spent with Patient Time attestation: Total time spent providing and/or coordinating discharge services: Time spent: Greater than 30 minutes Exam Narrative: AF HR 70 RR 16 Spo2 97 BP 104/60 General: male in no acute respiratory distress who is nontoxic appearing, sitting up in chair. HEENT: Normocephalic. Atraumatic. Extraocular movement intact. Sclera clear and anicteric. No facial asymmetry. Chest: Lungs are clear to auscultation bilaterally. No wheezes or crackles. CV: Heart was regular rate and rhythm. Abd: Abdomen was soft. Nontender. Nondistended. Postive bowel sounds Ext: No clubbing, cyanosis, or edema. DP pulses intact bilaterally. DS: Data Data Completed and Pending Completed studies during hospitalization: pelvis ct femur xr hip/pelvis xr head ct Labs on day of discharge: Labs from last 24 hours 12/09/24 12/09/24 12/09/24 12:20 08:04 05:41 WBC 6.6 RBC 3.08 L Hgb 9.8 L Hct 31.5 L MCV 102.3 H MCH 31.8 MCHC 31.1 L RDW 14.5 Plt Count 122 L MPV 10.5 H Immature Gran % (Auto) 0.6 H Neut % (Auto) 72.2 Lymph % (Auto) 13.4 L [place] % (Auto) 9.4 H Eos % (Auto) 3.8 Baso % (Auto) 0.6 Lymph # (Auto) 0.88 L [place] # (Auto) 0.6 Eos # (Auto) 0.3 Baso # (Auto) 0.0 Abs Immat Gran (auto) 0.04 H Absolute Neuts (auto) 4.8 Absolute Nucleated RBC 0.000 Nucleated RBC % 0.0 Sodium 135 L Potassium 4.1 Chloride 102 Carbon Dioxide 27 Anion Gap 6 BUN 29 H Creatinine 1.35 H Estim Creat Clear Calc 48 Estimated GFR 52 L Glucose 244 H POC Capillary Glucose 211 H 186 H Calcium 9.1 Magnesium 2.0 Total Bilirubin 0.6 AST 24 ALT 16 Alkaline Phosphatase 117 Total Protein 6.0 L Albumin 3.3 L 12/08/24 12/08/24 21:18 16:56 WBC RBC Hgb Hct MCV MCH MCHC RDW Plt Count MPV Immature Gran % (Auto) Neut % (Auto) Lymph % (Auto) [place] % (Auto) Eos % (Auto) Baso % (Auto) Lymph # (Auto) [place] # (Auto) Eos # (Auto) Baso # (Auto) Abs Immat Gran (auto) Absolute Neuts (auto) Absolute Nucleated RBC Nucleated RBC % Sodium Potassium Chloride Carbon Dioxide Anion Gap BUN Creatinine Estim Creat Clear Calc Estimated GFR Glucose POC Capillary Glucose 200 H 214 H Calcium Magnesium Total Bilirubin AST ALT Alkaline Phosphatase Total Protein Albumin Discharge Plan Discharge Attending physician on discharge: Janae Guardado Consulting providers: Ten Arriaga Discharging Clinician: Mora Grey Anticipated Discharge Date/Time: 12/09/24 12:31 Patient Disposition: Home Health Service Activity: as tolerated Diet: as tolerated and diabetic Discharge Instructions: Per Care Coordination, patient to discharge with [facility] ([phone]) for PT/OT and long-term services. Agency will call to arrange initial visit. Discharge disposition: Patient admitted after a fall that resulted in a inferior pubic rami fracture Evaluated by orthopedics No surgery required at this time, patient is to continue therapy with home [facility] with weight bearing as tolerated Follow up with Dr. Arriaga in 2-4 weeks Take medications as prescribed Continue Tylenol for pain [place] for breakthrough pain, attached is information on this medication do not drive or operate heavy machinery on this medication Monitor glucose levels Patient continued to have elevated blood sugars during admission Follow up with primary care provider in terms of medication adjustments Monitor blood pressures Take caution while standing, rising, or moving Change positions slowly taking a break between each position change If you standing feel dizzy sit back down and take a break Encouraged to continue with yearly vaccinations Return to the emergency department if he developed sudden shortness of breath, chest pain, nausea, vomiting, upset stomach or intractable diarrhea Return to the emergency department if you develop fever greater than 101.5 Follow-up with the primary care physician within 1-2 weeks Thank you for choosing [facility] for your healthcare needs Patient Instructions: Hydrocodone/Acetaminophen (By mouth), Pelvic Fracture (DC) Patient Language: Belarusian Stand Alone Forms: General Discharge Information Follow-up/Referrals: Ten Arriaga MD [Physician] - 2 Weeks Fausto Chavez MD [Primary Care Provider] - 1 Week Discharge Medications: Continued trazodone 100 mg tablet 100 mg PO QHS PRN (Reason: sleep) pantoprazole 40 mg tablet,delayed release (DR/EC) 40 mg PO QAM bumetanide 2 mg tablet 2 mg PO DAILY Centrum Silver Men [phone] mcg tablet 1 tablet PO DAILY metoprolol tartrate 25 mg tablet 25 mg PO BID Qty: 60 5RF insulin degludec [Tresiba FlexTouch U-100] 100 unit/mL (3 mL) insulin pen 22 unit subcut DAILY Qty: 21 3RF Gvoke HypoPen 2-Pack 1 mg/0.2 mL auto-injector 1 mg subcut ONCE Qty: 0.4 0RF Rx Instructions: as a single dose; may repeat once after 15 minutes if no response glucose 4 gram tablet,chewable 4 g PO Q15M PRN (Reason: hypoglycemia) Qty: 90 0RF Rx Instructions: until symptoms of low blood sugar are controlled allopurinol 300 mg Tablet 300 mg PO DAILY hydrocodone-acetaminophen 10-325 mg tablet 1 tablet PO Q4-6H PRN (Reason: Pain (Scale Score 4-6)) famotidine 20 mg tablet 20 mg PO BID simvastatin 20 mg tablet 20 mg PO HS insulin aspart U-100 [Novolog U-100 Insulin aspart] 100 unit/mL solution See Rx Instructions .ROUTE .COMPLEX Rx Instructions: 6 units before meals plus sliding scale losartan 25 mg tablet 25 mg PO DAILY Qty: 90 2RF (DME) FreeStyle Mary 3 Plus Sensor Device See Rx Instructions .Route Qty: 6 3RF Rx Instructions: change sensor every 14 days Date of admission: 12/07/24 07:33 Primary Care Provider: Fausto Chavez Admitting Provider: Gosia Perea Attending physician on admission: Janae Guardado Condition: Stable Hospitalist MIPS Heart Failure (Exclusion) Patient has history of Heart Transplant or Left Ventricular Assistive Device?: No IF YES, STOP HERE Heart Failure (Qualifier) Patient has current or prior documentation of LVEF less than or equal to 40%, or mod/servere depressed LVSF?: No IF NO, STOP HERE
[2024-12-09 14:00] VITALS: BP 94/42; PULSE 77; RESP 16; TEMP 36.9; O2SAT 98
== END 2024-12-09 15:45 | disposition home health service (06) | DRG 536 ==
LOC: ANHED 19:20 → ANH2MED 20:46
PROVIDERS: Nurse Practitioner Family; Admitting Provider Internal Medicine; Emergency Provider Emergency Medicine; PCP Family Medicine; Visit Provider Student in an Organized Health Care Education/Training Program
DX: S32.591A Other specified fracture of right pubis, initial encounter for closed fracture (principal); N18.4 Chronic kidney disease, stage 4 (severe); N17.9 Acute kidney failure, unspecified; W17.89XA Other fall from one level to another, initial encounter; K21.9 Gastro-esophageal reflux disease without esophagitis; I25.10 Atherosclerotic heart disease of native coronary artery without angina pectoris; M06.9 Rheumatoid arthritis, unspecified; E78.5 Hyperlipidemia, unspecified; E11.22 Type 2 diabetes mellitus with diabetic chronic kidney disease; I12.9 Hypertensive chronic kidney disease with stage 1 through stage 4 chronic kidney disease, or unspecified chronic kidney disease; Z96.641 Presence of right artificial hip joint; Z89.411 Acquired absence of right great toe; I25.2 Old myocardial infarction; Z96.651 Presence of right artificial knee joint; Z95.1 Presence of aortocoronary bypass graft; Z95.5 Presence of coronary angioplasty implant and graft
CPT/HCPCS: 36415; 70450; 72192; 73502; 73552; 80053; 82948; 83735; 85025; 85610; 85730; 93005; 96374; 96375; 97162; 97165; 97530; 97535; 99285; A9270; G0378; J1815

== ENCOUNTER 2025-03-16 09:08 | Outpatient (CLI) | payer MEDICARE, SELFPAY ==
--- OUTSIDE RECORDS SUMMARY | 2025-03-16 09:50 | XMS_ITS | CONTINUITY OF CARE DOCUMENT ---
Author Name ayo rollins Address Unknown Organization [facility] Address [address] [place] [address] Phone [phone] Care Team Providers Care Finishing Frame Runner Name Role Phone ayo rollins Unavailable Unavailable INSURANCE PROVIDERS Payer name Policy type / Coverage type [place] red alliance party ID Tomveyi [facility] [id number]
--- OUTSIDE RECORDS SUMMARY | 2025-03-16 09:50 | XMS_ITS | Continuity of Care Document ---
Author Organization [facility] Address [address] [place] [address] Phone Care Team Providers Care Fixed Income Director Name Role Phone Channing Ramirez MD, MD Unavailable Unavailable Advance Directives Directive Yes / No Effective Date File Name No Information Encounters Encounter Description Practice Location Reason(s) For Visit Diagnoses Date Provider Providers Copied on Encounter [facility], [address], [place], [id number], [place] tel:[phone] [facility] No Information 3 James Snell. [address], [address], [place], [place], [address] , [place]. tel:[phone] Family History Family Member Type Diagnosis Age At Onset No Information Payers Payer name Insurance type Covered republican ID Authoriza tion(s) No Information Social History [...]
--- OUTSIDE RECORDS SUMMARY | 2025-03-16 09:50 | XMS_ITS | Continuity of Care Document ---
Author Organization [facility] Address [address] [place] [address] Phone Care Team Providers Care Senior Qa Analyst Name Role Phone Hawa AMAYA, Elvie Unavailable Unavailable Procedures Procedure Date UPPER GI ENDOSCOPY BIOPSY SUBSEQUENT HOSPITAL VISIT, EXPANDED INITIAL HOSPITAL CARE LVL 2 Advance Directives Directive Yes / No Effective Date File Name No Information Encounters Encounter Description Practice Location Reason(s) For Visit Diagnoses Date Provider Providers Copied on Encounter SUBSEQUENT HOSPITAL VISIT, EXPANDED [facility], [address], [place], [place], [address], tel:[phone] [facility] No Information Hawa Bermeo. [address] [place], [place], [id number], . tel:[phone] Referring Provider: Fausto Akers, [address], [place], [address]. tel:[phone] INITIAL HOSPITAL CARE LVL 2 [facility], [address], [place], [place], [address], tel:[phone] [facility] No Information Aden Shook. [address] [place], [place], [address], . tel:[phone] Referring Provider: Fausto Akers, [address], [place], [address]. tel:[phone] Family History Family Member Type Diagnosis Age At Onset No Information Payers Payer name Insurance type Covered libertarian ID Josiane read(s) [facility] [id number] Social History Type Description Quantity Date Captured [...]
--- OUTSIDE RECORDS SUMMARY | 2025-03-16 09:50 | XMS_ITS | Clinical Summary ---
Author Organization [facility] Address [address] [facility] [place] [address] Phone Care Team Providers Care Dynamics Ax Developer Name Role Phone Adán Garpatience Phipps APRN, BRAKE DRUM MOLDER Unavailable [phone] Jurgen Farias DO Primary Care Provider [phone] Allergies Active Allergy Reactions Criticality Noted Date [...] Glucose Sensor (FreeStyle Mary 14 Day Sensor) [facility] USE TO CHECK BLOOD SUGAR Active insulin [...] Tablet by mouth 2 times daily. Active [place]-3 Fatty Acids (OMEGA 3 PO) Take by [...] echocardiogram 05/17/2024 Coronary artery disease invo lving [place] coronary artery of [place] heart without angina pectoris 05/17/2024 Family History [...] Virus (HCV) Screening 1950 TdaP Immunization 1950 Cologuard 1996 Colonoscopy 1996 Colorectal Cancer Screening 1996 Immunochemical Fecal Occult Blood 1996 Zoster Immunization (1 of 2) 2001 Pneumococcal Immunization (50+ years) (3 of 3 - PPSV23, PCV20 or PCV21) 09/08/2018 07/14/2018, 08/06/2013 SARS-COV-2 Immunization ( season) 2024 07/23/2022, 10/02/2021, 01/04/2021, Additional history exists Influenza Immunization (Season Ended) 2025 07/16/2023, 07/23/2022, 07/25/2021, Additional history exists Respiratory Syncytial Virus (RSV) Immunization (Adult) Completed 07/16/2023 Hepatitis B Immunization Aged Out No longer eligible based on patient's age to complete this topic Human Papillomavirus (HPV) Immunization Aged Out No longer eligible based on patient's age to complete this topic Meningococcal Immunization (ACWY) Aged Out No longer eligible based on patient's age to complete this topic Rotavirus Immunization Aged Out No lo nger eligible based on patient's age to complete this topic Medical Devices Implanted Type Area Geography Department Chair Device Identifier Shelf Expiration Date Model / Serial / Lot Device Clsr 6-7fr Mynxgrip Curtain Mender Vasc Bln Cath Lock Syr Integrate Sealant 10ml Lf Disp - [id number] Implanted:Qty : 1 on 06/04/2024 by Hudson Gar MD at [facility] IMPLANT [employer] [id number] 05/05/2025 [id number] / / [id number] Insurance MEDICARE C WELLC[employer] Care Teams Dynamics Ax Developer Relationship Specialty Start Date End Date Jurgen Farias DO [address] [place] [address] PCP - General Primary Care 01/12/24 Tiny Gar, CLERICAL GRADER, BRAKE DRUM MOLDER [address] [facility], [address] [place] [address] Nurse Practitioner Cardiology 01/12/24
--- OUTSIDE RECORDS SUMMARY | 2025-03-16 09:50 | XMS_ITS | Clinical Summary ---
Author Organization [facility] Address [address] [place] [address] Care Team Providers Care Trigonometry Teacher Name Role Phone Fausto Chavez MD Primary Care Provider [phone] Source Comments [facility],non-owned Affiliates and Associated Physician Practices is amultiple site organization consisting of ambulatory clinics and hospital sitesin [place], [place], [place] and [place]. This disclosure is being madepursuant to the Care Everywhere program and may not contain all information available regarding this patient. Last updated 18.[facility] [employer] Allergies Active Allergy Reactions Criticality Noted Date Comments Ibuprofen Other Medium 07/03/2012 Was told by his physician not to take it because of his kidneys Morphine Psychiatric Medium 07/03/2012 Becomes disoriented Medications * Be aware that medications may not be up to date on this document. Alwaysverify current medications with the patient. simvastatin (ZOCOR) 20 MG tablet Take 1 (one) tablet by mouth at bedtime Active allopurinol (ZYLOPRIM) 300 MG tablet Take 1 (one) tablet by mouth once daily Active traZODone (DESYREL) 100 MG tablet Take 1 (one) tablet by mouth at bedtime Active amitriptyline (ELAVIL) 25 MG tablet Take 1 (one) tablet by mouth at bedtime Active HYDROcodone-acetam inophen (NORCO) 10-325 MG tablet Take 1 (one) tablet by mouth every 4 hours as needed for Pain Active albuterol HFA (PROVENTIL; VENTOLIN; PROAIR) 108 (90 Base) MCG/ACT inhaler Inhale 2 (two) puffs by mouth every 6 hours as needed for Shortness of Breath or Wheezing Active umeclidinium-vilan terol (ANORO ELLIPTA) 62.5-25 MCG/INH inhaler Inhale 1 (one) puff by mouth once daily Active fexofenadine (SABRINA) 180 MG tablet Take 1 (one) tablet by mouth once daily as needed Active midodrine (PROAMATINE) 10 MG tablet Take 1 (one) tablet by mouth 3 times daily before meals 90 tablet 3 01/05/20 22 Active iron polysaccharides (NIFEREX 150) 150 MG capsule Take 1 (one) capsule by mouth once daily 30 capsule 3 01/06/20 22 Active collagenase (SANTYL) 250 UNIT/GM ointment Apply 1 g to affected area once daily (Apply to R foot wound with dressing changes). Active apixaban (ELIQUIS) 5 MG tablet Take 1 (one) tablet by mouth 2 times daily 0 03/14/20 22 Active insulin glargine (Lantus/Semglee) 100 units/mL pen Inject 10 (ten) Units subcutaneously once daily 03/15/20 22 Active dilTIAZem coated beads 24hr (CARDIZEM CD) 180 MG capsule Take 1 (one) capsule by mouth once daily 03/15/20 22 Active bumetanide (BUMEX) 2 MG tablet Take 1 (one) tablet by mouth once daily 03/15/20 22 Active pantoprazole EC (PROTONIX) 40 MG tablet Take 1 (one) tablet by mouth once daily 03/15/20 22 Active aspirin (Aspirin) 81 MG chew tablet Take 1 (one) tablet by mouth once daily 60 tablet 10/19/19 23 Active Continuous Blood Gluc Sensor (FreeStyle Mary 14 Day Sensor) MISC as directed 12/20/19 23 Active famotidine (Pepcid) 20 MG tablet Take 1 (one) tablet by mouth 2 times daily 12/24/19 23 Active Insulin Syringe-Needle U-100 (INSULIN SYRINGE 1CC/30GX5/16) 30G X 02/18 1 ML MISC as directed 11/21/19 23 Active metoprolol tartrate IR (Lopressor) 25 MG tablet Take 1 (one) tablet by mouth 2 times daily 12/12/19 23 Active Active Problems Problem Noted Date Diagnosed Date Spondylolisthesis at L4-L5 level 01/23/2023 Sepsis with acute organ dysf unction without septic shock, due to unspecified organism, unspecified type 10/17/2022 Overview (07/07/2023): July 2023 Regulatory Update Acute kidney injury superimposed on chronic kidn ey disease 03/06/2022 Hyperkalemia 12/30/2021 Acute renal insufficiency 05/31/2013 SOB (shortness of breath) 05/31/2013 Difficulty in swallowing 05/20/2013 Immunizations Immunization Administration Dates Next Due INFLUENZA VACCINE, TRIV. [...] and heating? Not hard at all 10/17/2022 [facility] [place] [facility] - Occupational Stress [...] place to sleep or slept in a skilled nursing (including now)? No 10/17/2022 Sex and Gender Information Value Date Recorded Sex Assigned at Not on file Legal Sex Male 5:50 AM SOLAR INSTALLATION HELPER Gender Identity Not on file Sexual Orientation Not on file Last Filed Vital Signs Vital Sign Reading Time Taken Comments Blood Pressure 116/75 10/18/2022 8:21 AM SOLAR INSTALLATION HELPER Pulse 80 10/18/2022 8:21 AM SOLAR INSTALLATION HELPER Temperature 36.7 C (98 F) 10/18/2022 8:21 AM SOLAR INSTALLATION HELPER Respiratory Rate 16 10/18/2022 8:21 AM SOLAR INSTALLATION HELPER Oxygen Saturation 95% 10/18/2022 8:21 AM SOLAR INSTALLATION HELPER Inhaled Oxygen Concentration - - Weight 90.7 [...] PCV21) 07/14/2023 07/14/2018, 08/06/2013 COVID-19 VACCINE ( season) 2024 10/02/2021, 01/04/2021, 12/07/2020 DEPRESSION SCREENING 10/06/2024 MEDICARE AWV CALENDAR YEAR 2024 INFLUENZA VACCINE (Season Ended) 2025 07/25/2021, 07/26/2020, 07/20/2019, Additional history exists Respiratory Syncytial Virus (RSV) Vaccine Pt: or [...] complete this topic MENINGOCOCCAL (Group B) VACCINE SHARED DECISION-MAKING Aged Out No longer eligible based on patient's age to complete this topic MENINGOCOCCAL GROUPS A/C/Y/W VACCINE Aged Out No longer eligible based on patient's age to complete this topic Insurance WELLCARE Advance Directives Documents on File Type Date Recorded 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
[2025-03-16 10:31] LABS: Alanine Aminotransferase 17 U/L (6-50); Albumin Level 4.3 g/dL (3.5-5.1); Alkaline Phosphatase 155 U/L (38-126); Anion Gap 11 mmol/L (4-12); Aspartate Amino Transferase 31 U/L (17-59); Bilirubin,Total 0.5 mg/dL (0.2-1.3); Blood Urea Nitrogen 39 mg/dL (9-20); Calcium 9.6 mg/dL (8.4-10.2); Carbon Dioxide 26 mmol/L (22-30); Chloride 101 mmol/L (98-107); Estimated Glomerular Filt Rate 28; Glucose 163 mg/dL (65-110); Potassium 4.3 mmol/L (3.4-5.0); Sodium 138 mmol/L (137-145); Total Protein 7.5 g/dL (6.3-8.2)
[2025-03-16 11:20] LABS: Hepatitis C Virus Antibody Negative (Negative)
== END 2025-03-16 09:09 | disposition home or self-care (01) ==
PROVIDERS: PCP Family Medicine; Visit Provider Registered Nurse
DX: E11.40 Type 2 diabetes mellitus with diabetic neuropathy, unspecified (principal); E78.5 Hyperlipidemia, unspecified; Z12.5 Encounter for screening for malignant neoplasm of prostate; Z11.59 Encounter for screening for other viral diseases
CPT/HCPCS: 36415; 80053; 86803

== ENCOUNTER 2025-04-07 13:44 | Emergency (ER) | payer MEDICARE, SELFPAY ==
--- NOTE | ~2025-04-07 | XR_ITS ---
XR shoulder LT min 2V Ordering provider: Raulito Chavez MD History: . FALL . Comparison: None. FINDINGS: BONES: No acute fracture or dislocation. JOINT SPACES: The acromioclavicular joint shows osteoarthritic changes. The glenohumeral joint shows moderate osteoarthritic changes. SOFT TISSUES: Normal. IMPRESSION: No acute osseous abnormality left shoulder. Reviewed, dictated and finalized at location A.
--- NOTE | ~2025-04-07 | CT_ITS ---
CT diagnostic chest wo con Ordering provider: Raulito Chavez MD History: 74 years Male with . RIB FRACTURE, SCAPULAR FRACTURE . Comparison: None. Technique: CT chest with IV contrast. Radiation reduction technique utilized.The dose-length product was 431.72 mGy-cm. Findings: VISUALIZED THORACIC INLET: Normal. MEDIASTINUM: Aorta/coronary arteries: Mild atheromatous disease. Heart/other: The heart is not enlarged. Lymph nodes: No mediastinal or hilar adenopathy. Postoperative changes in the mediastinum. LUNGS: No pulmonary nodules or masses. No infiltrates or effusions. No pneumothorax. VISUALIZED UPPER ABDOMEN: Sliding hiatus hernia. Atrophic pancreas. Otherwise, the visualized upper a bdomen is normal. MUSCULOSKELETAL: Soft tissues: The superficial soft tissues are normal. Bones: Age appropriate degenerative changes of the spine. Healing right seventh rib fracture. fractur e in the left third fracture sites, fourth, fifth, sixth and seventh ribs. The fourth and fifth ribs are fractured at 2 sites. Possible undisplaced fracture in the scapula cannot be excluded. IMPRESSION: No evidence of acute cardiopulmonary pathology. Healing fracture in the right seventh rib. Multiple rib fractures in the left hemithorax. Sliding hiatus hernia. Atrophic pancreas. Reviewed, dictated and finalized at location A.
--- OUTSIDE RECORDS SUMMARY | 2025-04-07 13:47 | XMS_ITS ---
Author Organization [facility] Address [address] [place], [place] [address] Care Team Providers Care Auto Bench Mechanic Name Role Phone BROOKS TANNER Unavailable [phone] Fausto Chavez Unavailable Unavailable REASON FOR VISIT *Wound check Medications Medication SIG (Take, Route, Frequency, Duration) Notes Start Date End Date Status Metoprolol Tartrate 25 MG TAKE 1 TABLET BY MOUTH TWICE DAILY Oral; Duration: 90 Days Active Allopurinol 300 MG TAKE 1 TABLET BY FELIPE TH DAILY Oral; Duration: 90 Days Active Bumetanide 2 MG TAKE 1 TABLET BY FELIPE TH EVERY MORNING Oral; Duration: 90 Days Active Losartan Potassium 25 MG TAKE 1 TABLET B Y MOUTH DAILY Oral; Duration: 90 Days Active Pantoprazole Sodium 40 MG TAKE 1 TABLET BY MOUTH EVERY MORNING Oral; Duration: 90 Days Active Sulfamethoxazole-Trimethopr im 800-160 MG TAKE 1 TABLET BY MOUTH TWICE DAILY FOR 10 DAYS Oral; Duration: 10 Days Active HYDROcodone-Acetaminophen 10-325 MG TAKE 1 TABLET BY MOUTH FOUR TIMES DAILY Oral; Duration: 30 Days Active Insulin Degludec FlexTouch 100 UNIT/ML ADMINISTER 22 UNITS UNDER THE SKIN DAILY Subcutaneous; Duration: 12 Days Active Famotidine 20 MG TAKE 1 TABLET BY FELIPE TH TWICE DAILY Oral; Duration: 90 Days Active Vital Signs Height 72 in 03/30/2025 Weight 180 lbs 03/30/2025 BMI 24.41 kg/m2 03/30/2025 Height-cm 182.88 cm 03/30/2025 Weight-kg 81.65 kg 03/30/2025 Encounters Encounter Location Date Provider Diagnosis [facility] [address] [place], [place] [id number] 03/30/2025 BROOKS TANNER 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 ; Non-pressure chronic ulcer of other part of left foot limited to breakdown of skin L97.521 ; Tinea unguium B35.1 ; Pain in right foot M79.671 ; Pain in left foot M79.672 and Type 2 diabetes mellitus with other circulatory complications E11.59 Assessments Encounter Date Diagnosis (ICD Code) Assessment Notes Treatment Notes Treatment Clinical Notes Section Notes 03/30/2025 Non-pressure chronic ulcer of right heel and midfoot limited to breakdown of skin (ICD-10 - L97.411) 03/30/2025 Non-pressure chronic ulcer of other part of left foot limited to breakdown of skin (ICD-10 - L97.521) 03/30/2025 Tinea unguium (ICD-10 - B35.1) 03/30/2025 Pain in right foot (ICD-10 - M79.671) 03/30/2025 Pain in left foot (ICD-10 - M79.672) 03/30/2025 Type 2 diabetes mellitus with other circulatory complications (ICD-10 - E11.59) Plan Of Treatment Next Appt Details Provider Name:BROOKS BRANDT, 04/20/2025 01:10:00 PM, [address] [facility] [address], [place], [place], [id number], Progress Notes * Channing SANTODOB: [birth year] (74 yo M)Acc No.[id number]:03/30/2025 Patient: Radha Channing COLES Provider: Nelly TANNER :1950 A ge:74 Y S ex:Male Date:03/30/2025 Address:[address] [place] [address], [facility] Subjective: * Chief Complaints: * 1 . *Wound check. * HPI: H PI: Follow Up Visit P atient presents for follow-up visit for wounds on the left toes and one on the leg. Patient kept the unna boot on since the last visit, so it was removed today. Patient feels like the leg wound is looking better. He states that his dog stepped on his left foot, so the wounds on the toes are doing worse. , MA: aj. * ROS: G eneral / Constitutional: Patient denies f atigue, chills, fever. M usculoskeletal: Patient denies b roken ankle, broken foot bone, ankle sprain. P eripheral Vascular: Patient complains of a bsent pulses in feet, b lood clots in legs, u lceration of feet. S kin: Patient denies a thletes foot, keloid scar. P atient complains of u lcerations. N eurologic: Patient denies p aralysis, loss of use of extremity. P atient complains of n umbness, burning/ tingling. * Medical History: N europathy, Open Sores, Gout, Rheumatoid arthritis, Back Trouble, Diabetic, Heart/disease/failure, High blood pressure. * Surgical History: r eplacement , triple bypass , toe amputation . * Family History: M other: heart disease. S ister: heart disease. * Medications: T aking Sulfamethoxazole-Trimethoprim 800-160 MG Tablet TAKE 1 TABLET BY MOUTH TWICE DAILY FOR 10 DAYS Oral , Taking HYDROcodone-Acetaminophen 10-325 MG Tablet TAKE 1 TABLET BY MOUTH FOUR TIMES DAILY Oral , Taking Insulin Degludec FlexTouch 100 UNIT/ML Solution Pen-injector ADMINISTER 22 UNITS UNDER THE SKIN DAILY Subcutaneous , Taking Famotidine 20 MG Tablet TAKE 1 TABLET BY MOUTH TWICE DAILY Oral , Taking Metoprolol Tartrate 25 MG Tablet TAKE 1 TABLET BY MOUTH TWICE DAILY Oral , Taking Allopurinol 300 MG Tablet TAKE 1 TABLET BY MOUTH DAILY Oral , Taking Bumetanide 2 MG Tablet TAKE 1 TABLET BY MOUTH EVERY MORNING Oral , Taking Losartan Potassium 25 MG Tablet TAKE 1 TABLET BY MOUTH DAILY Oral , Taking Pantoprazole Sodium 40 MG Tablet Delayed Release TAKE 1 TABLET BY MOUTH EVERY MORNING Oral , Medication List reviewed and reconciled with the patient Objective: * Vitals: S hoe Size: 10, Wt:180lbs, Wt-k.65 kg, Ht: 72 in, Ht-cm: 182.88 cm, BMI:24.41Index, Body Surface Area: 2.03. * Examination: C onstitutional: Constitutional T he patient is awake, alert, well developed, well groomed and well nourished. D ermatologic: Skin findings: b ilateral, Skin is thin, atrophic and lacking pedal hair. M usculoskeletal: Muscle Strength M uscle strength is 5/5 in regards to dorsiflexion, plantarflexion, inversion, and eversion in bilateral lower extremities. ? N eurologic: [place]-Weinstin 5.07 monofilament b ilateral, diminished protective sensation via 5.07 g swmf bilateral to digits 1- 10. Gross sensation G ross sensation is intact to light touch.? V ascular: Dorsalis pedis pulse: b ilateral, 1/4. Posterior tibial pulse: b ilaterally, 1/4. Capillary refill: b ilaterally, less than 3 seconds. ? Assessment: * Assessment: 1. 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 T inea unguium - B35.1 4 . P ain in right foot - M79.671 5 . P ain in left foot - M79.672 6 . T ype 2 diabetes mellitus with other circulatory complications - E11.59 Plan: * Treatment: * Immunizations: Immunization record has been reviewed and updated. * Billing Information: * Visit Code: 89609 Office Visit, Est Pt., Level 3. * Procedure Codes: * Electronic signature of SHEILA TANNER DPM on 04/07/2025 at 01:47 PM CDT Sign off status: Pending * Provider: Nelly TANNER Date: 0 03/30/2025 Generated for Amado Porras/Flower on: 0 04/07/2025 01:47 PM CDT History and Physical Notes * HPI (History of Present Illness) Category Sub-Category Detail Notes Category Not es HPI Follow Up Visit Patient presents for follow-up visit for wounds on the left toes and one on the leg. Patient kept the unna boot on since the last visit, so it was removed today. Patient feels like the leg wound is looking better. He states that his dog stepped on his left foot, so the wounds on the toes are doing worse. , MA: mca Examination Category Sub-Category Detail Notes Category Not es Constitutional Constitutional The patient is a wake, alert, well developed, well groomed and well nourished Dermatologic Skin findings: bilateral, Skin is thin, atrophic and lacking pedal hair Musculoskeletal Muscle Strength Muscle strength is 5/5 in regards to dorsiflexion, plantarflexion, inversion, and eversion in bilateral lower extremities Neurologic [place]u-Weinstin 5.07 monofilament bilateral, diminished protective sensation via 5.07 g swmf bilateral to digits 1-10 Gross sensation Gross sensation is i ntact to light touch Vascular Dorsalis pedis pulse: bilateral, 1/4 Posterior tibial pulse: bilaterally, 1/4 Capillary refill: bilaterally, less th an 3 seconds
--- OUTSIDE RECORDS SUMMARY | 2025-04-07 13:47 | XMS_ITS | Clinical Summary ---
Author Organization [facility] Address [address] [facility] [place] [address] Phone Care Team Providers Care General Activities Therapist Name Role Phone Adán Garpatience Phipps APRN, APPAREL CUTTER Unavailable [phone] Jurgen Farias DO Primary Care Provider [phone] Allergies Active Allergy Reactions Criticality Noted Date [...] Glucose Sensor (FreeStyle Mary 14 Day Sensor) [facility] USE TO CHECK BLOOD SUGAR Active insulin [...] Tablet by mouth 2 times daily. Active [place]-3 Fatty Acids (OMEGA 3 PO) Take by [...] echocardiogram 05/17/2024 Coronary artery disease invo lving [place] coronary artery of [place] heart without angina pectoris 05/17/2024 Family History [...] 10/02/2021, 01/04/2021, Additional history exists Influenza Immunization (#1) 06/06/202507/06, 07/23/2022, 07/25/2021, Additional history exists Respiratory Syncytial [...] this topic Medical Devices Implanted Type Area Summer Law Associate Device Identifier Shelf Expiration Date Model / Serial / Lot Device Clsr 6-7fr Mynxgrip Banquet Set Up Person Vasc Bln Cath Lock Syr Integrate Sealant 10ml Lf Disp - [id number] Implanted:Qty : 1 on 06/04/2024 by Hudson Gar MD at [facility] IMPLANT [employer] [id number] 05/05/2025 [id number] / / [id number] Insurance MEDICARE C [employer] Care Teams General Activities Therapist Relationship Specialty Start Date End Date Jurgen Farias DO [address] [place] [address] PCP - General Primary Care 01/12/24 Tiny Gar, SUBSTITUTE NURSE, APPAREL CUTTER [address] [facility] [place] [address] Nurse Practitioner Cardiology 01/12/24
--- OUTSIDE RECORDS SUMMARY | 2025-04-07 13:47 | XMS_ITS ---
Author Organization [facility] Address [address] [place], [place] [id number] Care Team Providers Care Nut Grader Name Role Phone BROOKS TANNER Unavailable [phone] Fausto Chavez Unavailable Unavailable Allergies No Known Allergies REASON FOR VISIT *Diabetic foot exam/GC/ chronic wounds Medications Medication SIG (Take, Route, Frequency, Duration) Notes Start Date End Date Status Metoprolol Tartrate 25 MG TAKE 1 TABLET BY MOUTH TWICE DAILY Oral; Duration: 90 Days Active Bumetanide 2 MG TAKE 1 TABLET BY FELIPE TH EVERY MORNING Oral; Duration: 90 Days Active Allopurinol 300 MG TAKE 1 TABLET BY FELIPE TH DAILY Oral; Duration: 90 Days Active Pantoprazole Sodium 40 MG TAKE 1 TABLET BY MOUTH EVERY MORNING Oral; Duration: 90 Days Active Losartan Potassium 25 MG TAKE 1 TABLET B Y MOUTH DAILY Oral; Duration: 90 Days Active Sulfamethoxazole-Trimethopr im 800-160 MG TAKE 1 TABLET BY MOUTH TWICE DAILY FOR 10 DAYS Oral; Duration: 10 Days Active Insulin Degludec FlexTouch 100 UNIT/ML ADMINISTER 22 UNITS UNDER THE SKIN DAILY Subcutaneous; Duration: 12 Days Active HYDROcodone-Acetaminophen 10-325 MG TAKE 1 TABLET BY MOUTH FOUR TIMES DAILY Oral; Duration: 30 Days Active Famotidine 20 MG TAKE 1 TABLET BY FELIPE TH TWICE DAILY Oral; Duration: 90 Days Active Vital Signs Height 72 in 03/23/2025 Weight 180 lbs 03/23/2025 BMI 24.41 kg/m2 03/23/2025 Height-cm 182.88 cm 03/23/2025 Weight-kg 81.65 kg 03/23/2025 Encounters Encounter Location Date Provider Diagnosis [facility] [place] [address] [place], [place] [id number] 03/23/2025 BROOKS TANNER Tinea unguium B35.1 ; 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 ; Pain in right foot M79.671 ; Pain in left foot M79.672 and Type 2 diabetes mellitus with other circulatory complications E11.59 Assessments Encounter Date Diagnosis (ICD Code) Assessment Notes Treatment Notes Treatment Clinical Notes Section Notes 03/23/2025 Tinea unguium (ICD-10 - B35.1) 03/23/2025 Non-pressure chronic ulcer of left heel and midfoot limited to breakdown of skin (ICD-10 - L97.421) 03/23/2025 Pain in right foot (ICD-10 - M79.671) 03/23/2025 Pain in left foot (ICD-10 - M79.672) 03/23/2025 Type 2 diabetes mellitus with other circulatory complications (ICD-10 - E11.59) Plan Of Treatment Next Appt Details Follow Up: 3 Months, Reason: Diabetic Foot Care Provider Name:BROOKS BRANDT, 04/20/2025 01:10:00 PM, [address], [facility], [address], [place], [place], [id number], Progress Notes * Channing SANTODOB: [birth year] (74 yo M)Acc No.[id number]:03/23/2025 Progress Notes Patient: Radha COLES Channing Keenan Provider: Nelly TANNER :1950 A ge:74 Y S ex:Male Date:03/23/2025 Address:[address] [place], [place] [id number] Subjective: * Chief Complaints: * 1 . *Diabetic foot exam/GC/ chronic wounds. * HPI: H PI: New Complaint P atient presents for a new patient consultation., Patient complains of an issue to scabbed sores on all the toes and tops of the feet and a large open sore on the ankle. Patient states that he saw another leadlighter that did not treat his previous wounds correctly and caused him to lose his right great toe. Patient was put on an antibiotic friday by his primary care physician for the ankle wound. The source of these wounds has consistently been his untrained dog that jumps on him and the fact that he does not wear socks or shoes. He wears sandals some times but goes barefoot in his home. He uses a walker in gait. , MA: aj. * ROS: G eneral / Constitutional: Patient denies f atigue, chills, fever. M usculoskeletal: Patient denies b roken ankle, broken foot bone, ankle sprain. P eripheral Vascular: Patient complains of c old extremities, decreased sensation in extremities, pain / cramping in legs after exertion, ulceration of feet. S kin: Patient denies a thletes foot, keloid scar. P atient complains of u lcerations, nail changes, discoloration, fungal nails. N eurologic: Patient denies p aralysis, loss of use of extremity. P atient complains of n umbness. * Medical History: N europathy, Open Sores, Gout, Rheumatoid arthritis, Back Trouble, Diabetic, Heart/disease/failure, High blood pressure. * Surgical History: r eplacement , triple bypass , toe amputation . * Hospitalization/Major Diagno stic Procedure: D enies Past Hospitalization. * Family History: M other: heart disease. [...] List reviewed and reconciled with the patient * Allergies: N .K.D.A. Objective: * Vitals: S hoe Size: 10, [...] in bilateral lower extremities. ? N eurologic: Seymour-Weinstin 5.07 monofilament b ilateral, diminished protective sensation via 5.07 g swmf bilateral to digits 1- 10. Gross sensation G ross sensation is intact to light touch.? V ascular: Dorsalis pedis pulse: b ilateral, 1/4. Posterior tibial pulse: b ilaterally, 1/4. Capillary refill: b ilaterally, less than 3 seconds. ? Assessment: * Assessment: 1. 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 T inea unguium - B35.1 3 . P ain in right foot - M79.671 4 . P ain in left foot - M79.672 5 . T ype 2 diabetes mellitus with other circulatory complications - E11.59 Plan: * Treatment: * Immunizations: Immunization record has been reviewed and updated. * Follow Up: 3 Months (Reason: Diabetic Foot Care) * Billing Information: * Visit Code: 76257 Office Visit, New Pt., Level 3. * Procedure Codes: * Electronic signature of SHEILA TANNER DPM on 04/07/2025 at 01:47 PM CDT Sign off status: Pending * Provider: Nelly TANNER Date: 03/23/2025 Generated for Amado shaffer/Ej/Flower on: 0 04/07/2025 01:47 PM CDT History and Physical Notes * HPI (History of Present Illness) Category Sub-Category Detail Notes Category Not es HPI New Complaint Patient presents for a new patient consultation., Patient complains of an issue to scabbed sores on all the toes and tops of the feet and a large open sore on the ankle. Patient states that he saw another leadlighter that did not treat his previous wounds correctly and caused him to lose his right great toe. Patient was put on an antibiotic friday by his primary care physician for the ankle wound. The source of these wounds has consistently been his untrained dog that jumps on him and the fact that he does not wear socks or shoes. He wears sandals some times but goes barefoot in his home. He uses a walker in gait. , MA: [facility] Examination Category Sub-Category Detail Notes Category Not es Constitutional Constitutional The patient is a wake, alert, well developed, well groomed and well nourished Dermatologic Skin findings: bilateral, Skin is thin, atrophic and lacking pedal hair Musculoskeletal Muscle Strength Muscle strength is 5/5 in regards to dorsiflexion, plantarflexion, inversion, and eversion in bilateral lower extremities Neurologic Seymour-Weinstin 5.07 monofilament bilateral, diminished protective sensation via 5.07 g swmf bilateral to digits 1-10 Gross sensation Gross sensation is i ntact to light touch Vascular Dorsalis pedis pulse: bilateral, 1/4 Posterior tibial pulse: bilaterally, 1/4 Capillary refill: bilaterally, less th an 3 seconds
--- OUTSIDE RECORDS SUMMARY | 2025-04-07 13:47 | XMS_ITS | Clinical Summary ---
Author Organization [facility] Address [address] [place] [address] Care Team Providers Care School Examiner Name Role Phone Fausto Chavez MD Primary Care Provider + [phone] Source Comments [facility],non-owned Affiliates and Associated Physician Practices is amultiple site organization consisting of ambulatory clinics and hospital sitesin [place], [place], [place] and [place]. This disclosure is being madepursuant to the Care Everywhere program and may not contain all information available regarding this patient. Last updated 18.[facility] [employer] Allergies Active Allergy Reactions Criticality Noted Date [...] and heating? Not hard at all 10/17/2022 [facility] [place] of Occupat ional Health - Occupational Stress [...] place to sleep or slept in a custodial (including now)? No 10/17/2022 Sex and Gender Information Value Date Recorded Sex Assigned at Not on file Legal Sex Male 5:50 AM SOCIAL STUDIES DEPARTMENT CHAIR Gender Identity Not on file Sexual Orientation Not on file Last Filed Vital Signs Vital Sign Reading Time Taken Comments Blood Pressure 116/75 10/18/2022 8:21 AM SOCIAL STUDIES DEPARTMENT CHAIR Pulse 80 10/18/2022 8:21 AM SOCIAL STUDIES DEPARTMENT CHAIR Temperature 36.7 C (98 F) 10/18/2022 8:21 AM SOCIAL STUDIES DEPARTMENT CHAIR Respiratory Rate 16 10/18/2022 8:21 AM SOCIAL STUDIES DEPARTMENT CHAIR Oxygen Saturation 95% 10/18/2022 8:21 AM SOCIAL STUDIES DEPARTMENT CHAIR Inhaled Oxygen Concentration - - Weight 90.7 [...] Documents on File Type Date Recorded Patient Financial Investment Adviser Expl anation Adv Directive/Living Will/POA 03/16/2022 1:24 [...] 1:38 AM 10/07/2013 7:18 PM Care Teams School Examiner Relationship Specialty Start Date End Date Fausto Chavez MD [address] [place] [address] [place] [address] PCP - General Family Medicine 12/31/21
--- OUTSIDE RECORDS SUMMARY | 2025-04-07 13:47 | XMS_ITS | Patient Health Record ---
Author Organization [facility] Address [address] [place], [place] [id number] Care Team Providers Care Cathodic Protection Technician Name Role Phone BROOKS TANNER Unavailable [phone] Fausto Chavez Unavailable Unavailable Allergies No Known Allergies Reason For Referral No Information Medications Medication SIG (Take, Route, Frequency, Duration) [...] TWICE DAILY Oral; Duration: 90 Days Active Pantoprazole Sodium 40 MG TAKE 1 TABLET BY MOUTH EVERY MORNING Oral; Duration: 90 Days Active Immunizations Vaccine Route Administration Date Status Comme nts Pneumococcal polysaccharide PPV23 Unknown 08/06/2013 Ad ministered Pneumococcal polysaccharide PPV23 Unknown 08/06/2013 Ad ministered Pneumococcal conjugate PCV 13 Unknown 07/14/2018 Admini stered Pneumococcal conjugate PCV 13 Unknown 07/14/2018 Admini stered Moderna Covid-19 Vaccine 1st dose Unknown 12/07/2020 Ad ministered Moderna Covid-19 Vaccine 1st dose Unknown 12/07/2020 Ad ministered Moderna Covid-19 Vaccine 1st dose Unknown 01/04/2021 Ad ministered Moderna Covid-19 Vaccine 1st dose Unknown 01/04/2021 Ad ministered Moderna Covid-19 Vaccine 1st dose Unknown 10/02/2021 Ad ministered Moderna Covid-19 Vaccine 1st dose Unknown 10/02/2021 Ad ministered Influenza, unspecified formulation Unknown 07/05/2016 A dministered Influenza, unspecified formulation Unknown 07/05/2016 A dministered Influenza, unspecified formulation Unknown 07/09/2017 A dministered Influenza, unspecified formulation Unknown 07/09/2017 A dministered Influenza, unspecified formulation Unknown 07/20/2019 A dministered Influenza, unspecified formulation Unknown 07/20/2019 A dministered Influenza, quadrivalent, spl it, preservative free, 3 years or older Unknown 06/27/2015 Administered Influenza, quadrivalent, spl it, preservative free, 3 years or older Unknown 06/27/2015 Administered Influenza (split), 3 yrs and above Unknown 08/12/2012 A dministered Influenza (split), 3 yrs and above Unknown 08/12/2012 A dministered Influenza (split), 3 yrs and above Unknown 08/06/2013 A dministered Influenza (split), 3 yrs and above Unknown 08/06/2013 A dministered Influenza (split), 3 yrs and above Unknown 07/19/2014 A dministered Influenza (split), 3 yrs and above Unknown 07/19/2014 A dministered Vital Signs Height-cm 182.88 cm 03/30/2025 Weight-kg 81.65 kg 03/30/2025 Height 72 in 03/30/2025 Weight 180 lbs 03/30/2025 BMI 24.41 kg/m2 03/30/2025 Encounters Encounter Location Date Provider Diagnosis [facility] [place] [address] [place] [id number] 03/23/2025 BROOKS TANNER Tinea unguium B35.1 ; 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 ; Pain in right foot M79.671 ; Pain in left foot M79.672 and Type 2 diabetes mellitus with other circulatory complications E11.59 [facility] [place] [address] [place], [place] [id number] 03/30/2025 BROOKS TANNER Non-pressure chronic ulcer of [...] to breakdown of skin (ICD-10 - L97.421) 03/30/2025 Non-pressure chronic ulcer of right heel and midfoot limited to breakdown of skin (ICD-10 - L97.411) 03/30/2025 Non-pressure chronic ulcer of other part of left foot limited to breakdown of skin (ICD-10 - L97.521) 03/23/2025 Pain in right foot (ICD-10 - M79.671) 03/30/2025 Tinea unguium (ICD-10 - B35.1) 03/23/2025 Pain in left foot (ICD-10 - M79.672) 03/30/2025 Pain in right foot (ICD-10 - M79.671) 03/30/2025 Pain in left foot (ICD-10 - M79.672) 03/23/2025 Type 2 diabetes mellitus with other circulatory complications (ICD-10 - E11.59) 03/30/2025 Type 2 diabetes mellitus with other circulatory complications (ICD-10 - E11.59) Plan Of Treatment Next Appt Details Provider Name:BROOKS BRANDT, 04/20/2025 01:10:00 PM, [address], [place], [place], [id number], Insurance Providers Payer Name Payer Address Payer Phone Subscriber Number Group Number Insured Name Patient Relationship to Insured Coverage Start Date Coverage End Date [facility] [address] [place] [id number] Channing Ruiz Self - patient is the insured Medical (General) History Medical History History ICD Code neuropathy Open Sores Gout rheumatoid arthritis Back Trouble Diabetic heart/disease/failure high blood pressure Surgical History Surgery Date(Month/Year) replacement triple bypass toe amputation
[2025-04-07 14:00] VITALS: BP 81/45; PULSE 86; RESP 18; TEMP 36.3; O2SAT 94
[2025-04-07 14:14] VITALS: BP 106/72; PULSE 76; RESP 12; O2SAT 97
[2025-04-07 15:00] VITALS: BP 107/74; PULSE 75; RESP 15; O2SAT 96
[2025-04-07 15:45] VITALS: BP 117/98; PULSE 84; RESP 16; O2SAT 99
--- OUTSIDE RECORDS SUMMARY | 2025-04-07 16:00 | XMS_ITS | Clinical Summary ---
Author Organization [facility] Address [address] [place] [address] Care Team Providers Care Volunteer Recruitment Coordinator Name Role Phone Fausto Chavez MD Primary Care Provider + [phone] Source Comments [facility],non-owned Affiliates and Associated Physician Practices is amultiple site organization consisting of ambulatory clinics and hospital sitesin [place], [place], [place] and [place]. This disclosure is being madepursuant to the Care Everywhere program and may not contain all information available regarding this patient. Last updated 18.[facility] [employer] Allergies Active Allergy Reactions Criticality Noted Date [...] and heating? Not hard at all 10/17/2022 [facility] [place] of Occupat ional Health - Occupational Stress [...] place to sleep or slept in a retirement (including now)? No 10/17/2022 Sex and Gender Information Value Date Recorded Sex Assigned at Not on file Legal Sex Male 5:50 AM CARGO SERVICES COORDINATOR Gender Identity Not on file Sexual Orientation Not on file Last Filed Vital Signs Vital Sign Reading Time Taken Comments Blood Pressure 116/75 10/18/2022 8:21 AM CARGO SERVICES COORDINATOR Pulse 80 10/18/2022 8:21 AM CARGO SERVICES COORDINATOR Temperature 36.7 C (98 F) 10/18/2022 8:21 AM CARGO SERVICES COORDINATOR Respiratory Rate 16 10/18/2022 8:21 AM CARGO SERVICES COORDINATOR Oxygen Saturation 95% 10/18/2022 8:21 AM CARGO SERVICES COORDINATOR Inhaled Oxygen Concentration - - Weight [...] Documents on File Type Date Recorded Patient Practice Administrator Expl anation Adv Directive/Living Will/POA 03/16/2022 1:24 [...] 1:38 AM 10/07/2013 7:18 PM Care Teams Volunteer Recruitment Coordinator Relationship Specialty Start Date End Date Fausto Chavez MD [address] [place] [address] [place] [address] PCP - General Family Medicine 12/31/21
--- OUTSIDE RECORDS SUMMARY | 2025-04-07 16:00 | XMS_ITS | Clinical Summary ---
Author Organization [facility] Address [address] [facility] [place] [address] Phone Care Team Providers Care Morgue Technician Name Role Phone Adán Garpatience Phipps APRN, MEDICAL LIBRARY ASSISTANT Unavailable [phone] Jurgen Farias DO Primary Care Provider [phone] Allergies Active Allergy Reactions Criticality Noted Date [...] Glucose Sensor (FreeStyle Mary 14 Day Sensor) [facility] USE TO CHECK BLOOD SUGAR Active insulin [...] Tablet by mouth 2 times daily. Active [place]-3 Fatty Acids (OMEGA 3 PO) Take by [...] echocardiogram 05/17/2024 Coronary artery disease invo lving teller coronary artery of teller heart without angina pectoris 05/17/2024 Family History [...] this topic Medical Devices Implanted Type Area Steam Finisher Device Identifier Shelf Expiration Date Model / Serial / Lot Device Clsr 6-7fr Mynxgrip Condemnation Engineer Vasc Bln Cath Lock Syr Integrate Sealant 10ml Lf Disp - [id number] Implanted:Qty : 1 on 06/04/2024 by Hudson Gar MD at [facility] IMPLANT [employer] [id number] 05/05/2025 [id number] / / [id number] Insurance MEDICARE C [employer] Care Teams Morgue Technician Relationship Specialty Start Date End Date Jurgen Farias DO [address] [place] [address] PCP - General Primary Care 01/12/24 Tiny Gar, SCHOOL BUS DISPATCHER, MEDICAL LIBRARY ASSISTANT [address] [facility], [address] [place] [address] Nurse Practitioner Cardiology 01/12/24
--- NOTE | 2025-04-07 16:20 | PC.NURSE ---
1600--Patient standing at bedside with urinal. Patient and family upset that he still has not been evaluated by MD. Patient made aware of Doctor being tied up in another room but is planning to come see him soon. Patient and willing to wait a little longer
--- NOTE | 2025-04-07 16:22 | PC.NURSE ---
Dr Chavez at bedside now
--- NOTE | 2025-04-07 16:25 | ED.FALL ---
HPI - Fall General Chief Complaint: Fall Stated Complaint: fall onto chest 2 weeks ago Time Seen by Provider: 04/07/25 15:32 Source: patient Mode of arrival: ambulatory Limitations: no limitations History of Present Illness HPI Narrative: 74 YEARS OLD WHITE MALE TRIPPED AND FELL 2 WEEKS AGO LANDED ON THE LEFT SIDE OF HIS BODY COMPLAINING OF LEFT RIBS AND LEFT SHOULDER BLADE AND LEFT SHOULDER PAIN. NOT IMPROVING. HE DENIES HEAD INJURY, NECK INJURY OR BACK INJURY OR OTHER INJURIES. Related Data Home Medications ?Medication ?Instructions ?Recorded ?Confirmed ?Last Taken ?Type allopurinol 300 mg tablet 300 mg PO DAILY 10/20/19 03/24/25 12/06/24 History famotidine 20 mg tablet 20 mg PO BID 10/20/19 03/24/25 12/06/24 History hydrocodone 10 mg-acetaminophen 1 tablet PO Q4-6H PRN Pain (Scale 10/20/19 03/24/25 12/06/24 History 325 mg tablet Score 4-6) simvastatin 20 mg tablet 20 mg PO HS 10/20/19 03/24/25 12/06/24 History bumetanide 2 mg tablet 2 mg PO DAILY 10/29/23 03/24/25 12/06/24 History gakynhdl-mr-gqxvo 300 mcg-K 60 1 tablet PO DAILY 10/29/23 03/24/25 12/06/24 History mcg-lycop 600 mcg-lutein 300 mcg tablet (Centrum Silver Men) pantoprazole 40 mg tablet,delayed 40 mg PO QAM 10/29/23 03/24/25 12/06/24 History release trazodone 100 mg tablet 100 mg PO QHS PRN sleep 10/29/23 03/24/25 12/05/24 History insulin aspart U-100 100 unit/mL See Rx Instructions .Route .COMPLEX 12/11/23 03/24/25 12/06/24 History subcutaneous solution (Novolog U-100 Insulin aspart) insulin degludec 100 unit/mL (3 20 unit subcut DAILY 03/24/25 03/24/25 Unknown History mL) subcutaneous pen (Tresiba FlexTouch U-100 insulin) Allergies Allergy/AdvReac Type Severity Reaction Status Date / Time morphine Allergy Unknown Agitated Verified 02/17/25 08:54 naproxen Allergy Unknown Unconscious Verified 02/17/25 08:54 NSAIDS (Non-Steroidal AdvReac Unknown renal Verified 02/17/25 08:54 Anti-Inflamma insufficiency Review of Systems Review of Systems: All systems reviewed & are unremarkable except as noted in HPI and below PMFSH Past Medical History Medical History Amputation of right great toe Diabetes Fracture collar bone Gout rt thumb, lt elbow Renal insufficiency GERD (gastroesophageal reflux disease) Bronchitis Hyperlipidemia CAD (coronary artery disease) Triple bypass CHF (congestive heart failure) Myocardial infarction Hypertension Rheumatoid arthritis Surgical History Surgical History History of total right knee replacement History of hip replacement On the right History of orthopedic surgery bilateral elbows and right hand History of coronary artery stent placement Multiple stents Hx of cardiac cath H/O vascular surgery Hx of cataract surgery Hx of CABG 3 vessel Family History Family History Father Family history of obesity Family history of alcoholism Patient's father is Acute myocardial infarction Mother Hypertension Patient's mother is Sibling Hypertension Sibling Alcoholism Social History Social History Social History: the patient is from his . He has 1 stepson. He is currently living with his baby sister. He used to drink heavily when he was younger but only occasionally drinks now. Code status full code Smoking status: Never smoker Alcohol intake: former Substance use: never Substance use type: painkillers Other substance usage details: Q4-Q6 for back pain Last use: 03/27/2020 Do You Feel Safe in your Home?: Yes Lack of Transportation: No Lack of Food: Never True Current Housing: I Have Housing Concerned About Future Housing: No Difficulty Paying Gas/Electric Bills: No Difficulty Paying for Meds: No Currently Unemployed: No Education: High School Diploma/GED Difficulty w/ Childcare or Family Care: No Gender identity (if verbalized by the patient): Male Spiritual care concerns: No Exam Narrative: GENERAL APPEARANCE: WELL-DEVELOPED, WELL-NOURISHED SKIN: NORMAL COLOR HEAD: NORMOCEPHALIC, NONTRAUMATIC EYES: CLEAR CONJUNCTIVA ENT: OROPHARYNX NORMAL, EARS NORMAL, NOSE NORMAL NECK: SUPPLE, NONTENDER CHEST AND RESPIRATORY: AIRWAY PATENT, NO RESPIRATORY DISTRESS, NO ACCESSORY MUSCLE USE HEART: REGULAR RATE/RHYTHM ABDOMEN: SOFT, NONTENDER, NO ORGANOMEGALY, QUIET BOWEL SOUNDS VASCULAR: NORMAL PERIPHERAL PULSES, NORMAL CAPILLARY REFILL. MUSCULOSKELETAL: DIFFUSE TENDERNESS LEFT CHEST LATERALLY, NO BRUISES, NO SWELLING, NO RASH, DIFFUSE TENDERNESS OF LEFT SHOULDER WITHOUT ANY DEFORMITY OR BRUISES OR SWELLING. NEUROLOGIC: ALERT AND ORIENTED ?3, SLICING MACHINE OPERATOR IS NORMAL TESTED, NO GROSS MOTOR DEFICIT Course Vital Signs Vital signs: Vital Signs Temperature 36.3 C L 04/07/25 14:00 Pulse Rate 86 04/07/25 14:00 Respiratory Rate 18 04/07/25 14:00 Blood Pressure 81/45 L 04/07/25 14:00 Pulse Oximetry 94 04/07/25 14:00 Temperature 36.3 C L 04/07/25 14:00 Pulse Rate 84 04/07/25 15:45 Respiratory Rate 16 04/07/25 15:45 Blood Pressure 117/98 H 04/07/25 15:45 Pulse Oximetry 99 04/07/25 15:45 Oxygen Delivery Room Air 04/07/25 14:14 MDM - Fall MDM Narrative Medical decision making narrative: PATIENT HAD A FALL 2 WEEKS AGO LEFT RIB PAIN LEFT SHOULDER PAIN VITAL SIGNS SHOWING BLOOD PRESSURE 117/98 OTHERWISE WITHIN NORMAL LIMIT NEW PHYSICAL EXAMINATION SHOWING DIFFUSE TENDERNESS LEFT CHEST, NO BRUISES, NO SWELLING, NO DEFORMITY DIFFERENTIAL DIAGNOSIS INCLUDE FRACTURE RIBS FRACTURE SCAPULA FRACTURE SHOULDER CT CHEST SHOWED MULTIPLE RIB FRACTURE ON THE LEFT SIDE AND POSSIBLE NONDISPLACED FRACTURE OF THE SCAPULA LEFT SHOULDER X-RAY SHOWED NO ACUTE ABNORMALITIES PATIENT DECLINED TO BE TRANSFERRED TO ANY FACILITY OR TO WAIT UNTIL DISCUSS THE CASE WITH TRAUMA TEAM AT [facility]. PATIENT'S SISTER AT THE BEDSIDE. DIAGNOSIS LEFT RIB FRACTURE, LEFT SCAPULAR FRACTURE Differential Diagnosis Differential diagnosis: Likely other ( ABOVE) Imaging Data Radiologist's impression: Impressions Shoulder X-Ray 04/07/25 17:19 IMPRESSION: No acute osseous abnormality left shoulder. Chest CT 04/07/25 17:58 IMPRESSION: No evidence of acute cardiopulmonary pathology. Healing fracture in the right seventh rib. Multiple rib fractures in the left hemithorax. Sliding hiatus hernia. Atrophic pancreas. Critical Care Time Critical Care Time Critical Care Time: No Discharge Plan Discharge Clinical Impression: Closed left scapular fracture, Left rib fracture Patient Disposition: Home Condition: Stable Instructions: How to Use an Incentive Spirometer (ED), Scapular Fracture (ED), Rib Fracture (ED) Additional Instructions: RETURN IF SYMPTOMS ARE WORSENING , CALL YOUR FAMILY PHYSICIAN/YOUR ORTHOPEDIC FOR APPOINTMENT, TAKE TYLENOL, IBUPROFEN NEEDED FOR ACHES AND PAIN, CONTINUE HOME MEDICATIONS. Patient Language: Hong Konger Prescriptions: No Action trazodone 100 mg tablet 100 mg PO QHS PRN (Reason: sleep) pantoprazole 40 mg tablet,delayed release (DR/EC) 40 mg PO QAM bumetanide 2 mg tablet 2 mg PO DAILY Centrum Silver Men [phone] mcg tablet 1 tablet PO DAILY metoprolol tartrate 25 mg tablet 25 mg PO BID Qty: 60 5RF Gvoke HypoPen 2-Pack 1 mg/0.2 mL auto-injector 1 mg subcut ONCE Qty: 0.4 0RF Rx Instructions: as a single dose; may repeat once after 15 minutes if no response insulin degludec [Tresiba FlexTouch U-100] 100 unit/mL (3 mL) insulin pen 20 unit subcut DAILY allopurinol 300 mg Tablet 300 mg PO DAILY hydrocodone-acetaminophen 10-325 mg tablet 1 tablet PO Q4-6H PRN (Reason: Pain (Scale Score 4-6)) famotidine 20 mg tablet 20 mg PO BID simvastatin 20 mg tablet 20 mg PO HS insulin aspart U-100 [Novolog U-100 Insulin aspart] 100 unit/mL solution See Rx Instructions .ROUTE .COMPLEX Rx Instructions: 6 units before meals plus sliding scale losartan 25 mg tablet 25 mg PO DAILY Qty: 90 2RF (DME) FreeStyle Mary 3 Plus Sensor Device See Rx Instructions .Route Qty: 6 3RF Rx Instructions: change sensor every 14 days Follow-up/Referrals: Fausto Chavez MD [Primary Care Provider] -
[2025-04-07 16:30] VITALS: BP 117/98; PULSE 77; RESP 15; O2SAT 97
[2025-04-07] MEDS: HYDROcodone/acetaminophen (*CRX) 5-325 MG TABLET 1 TAB PO (16:37)
[2025-04-07 18:00] VITALS: BP 102/63; PULSE 80; RESP 16; O2SAT 96
== END 2025-04-07 18:40 | disposition home or self-care (01) ==
PROVIDERS: Emergency Provider Emergency Medicine; PCP Family Medicine
DX: S42.102A Fracture of unspecified part of scapula, left shoulder, initial encounter for closed fracture (principal); S22.32XA Fracture of one rib, left side, initial encounter for closed fracture; I25.10 Atherosclerotic heart disease of native coronary artery without angina pectoris; E78.5 Hyperlipidemia, unspecified; E11.9 Type 2 diabetes mellitus without complications; I25.2 Old myocardial infarction; I11.0 Hypertensive heart disease with heart failure; I50.9 Heart failure, unspecified; Z79.899 Other long term (current) drug therapy; Z79.4 Long term (current) use of insulin; W01.0XXA Fall on same level from slipping, tripping and stumbling without subsequent striking against object, initial encounter
CPT/HCPCS: 71250; 73030; 99284; A9270

== ENCOUNTER 2025-05-06 07:38 | Outpatient (CLI) | payer MEDICARE, SELFPAY ==
--- OUTSIDE RECORDS SUMMARY | 2025-05-06 07:42 | XMS_ITS | Clinical Summary ---
Author Organization [facility] Address [address] [place] [address] Care Team Providers Care Furniture Technician Name Role Phone Fausto Chavez MD Primary Care Provider + [phone] Source Comments [facility],non-owned Affiliates and Associated Physician Practices is amultiple site organization consisting of ambulatory clinics and hospital sitesin [place]. This disclosure is being madepursuant to the Care Everywhere program and may not contain all information available regarding this patient. Last updated 18.[facility] [employer] Allergies Active Allergy Reactions Criticality Noted Date [...] and heating? Not hard at all 10/17/2022 [facility] - Occupational Stress [...] place to sleep or slept in a fdc (including now)? No 10/17/2022 Sex and Gender Information Value Date Recorded Sex Assigned at Not on file Legal Sex Male 5:50 AM [employer] Gender Identity Not on file Sexual Orientation Not on file Last Filed Vital Signs Vital Sign Reading Time Taken Comments Blood Pressure 116/75 10/18/2022 8:21 AM [employer] Pulse 80 10/18/2022 8:21 AM [employer] Temperature 36.7 C (98 F) 10/18/2022 8:21 AM [employer] Respiratory Rate 16 10/18/2022 8:21 AM [employer] Oxygen Saturation 95% 10/18/2022 8:21 AM [employer] Inhaled Oxygen Concentration - - Weight 90.7 [...] ( - season) 2024 10/02/2021, 01/04/2021, 12/07/2020 DEPRESSION SCREENING 10/06/2024 MEDICARE AWV CALENDAR YEAR 2024 INFLUENZA VACCINE (#1) 2025 , 07/26/2020, 07/20/2019, Additional history exists Respiratory Syncytial [...] Documents on File Type Date Recorded 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
--- OUTSIDE RECORDS SUMMARY | 2025-05-06 07:42 | XMS_ITS ---
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 ; Pain in right foot M79.671 ; Pain in left foot M79.672 ; Type 2 diabetes mellitus with other circulatory complications E11.59 and Cellulitis of left lower limb L03.116 Assessments Encounter Date Diagnosis (ICD Code) Assessment Notes Treatment Notes Treatment Clinical Notes Section Notes 03/23/2025 Tinea unguium (ICD-10 - B35.1) NAIL DEBRIDEMENT: Nails 1-5 Bilateral were debrided extensively with nail nippers and emery board, reducing length and girth to pink healthy tissue with any subungual debris and necrotic tissue removed 03/23/2025 Non-pressure chronic ulcer of left heel and midfoot limited to breakdown of skin (ICD-10 - L97.421) Unna Boot: An unna boot was applied to the affected foot. The patient was instructed to keep it dry. 03/23/2025 Pain in right foot (ICD-10 - M79.671) 03/23/2025 Pain in left foot (ICD-10 - M79.672) 03/23/2025 Type 2 diabetes mellitus with other circulatory complications (ICD-10 - E11.59) The lifetime risk of a foot ulcer for patients with diabetes (type 1 or 2) may be as high as 25 percent. Diabetic foot ulcers are a major cause of morbidity and mortality, accounting for approximately two-thirds of all nontraumatic amputations performed in the [place]. This observation illustrates the importance of prompt treatment of foot ulcers in patients with diabetes. The treatment of diabetic foot ulcers begins with a comprehensive assessment of the ulcer and the patient's overall medical condition. Evidence of underlying neuropathy, bony deformity, and peripheral artery disease should be actively sought. Adequate debridement, proper local wound care, relief of pressure on the ulcer by mechanical off-loading, and control of infection (when present) are important components of therapy. Dressings are selected based upon wound characteristics. 03/23/2025 Cellulitis of left lower limb (ICD-10 - L03.116) Continue antibiotic prescribed by PCP. The lifetime risk of a foot ulcer for patients with diabetes (type 1 or 2) may be as high as 25 percent. Diabetic foot ulcers are a major cause of morbidity and mortality, accounting for approximately two-thirds of all nontraumatic amputations performed in the [place]. This observation illustrates the importance of prompt treatment of foot ulcers in patients with diabetes. The treatment of diabetic foot ulcers begins with a comprehensive assessment of the ulcer and the patient's overall medical condition. Evidence of underlying neuropathy, bony deformity, and peripheral artery disease should be actively sought. Adequate debridement, proper local wound care, relief of pressure on the ulcer by mechanical off-loading, and control of infection (when present) are important components of therapy. Dressings are selected based upon wound characteristics. The dressings will be kept Clean dry and intact for 1 week. Cleansed, pat dry, applied triple antibiotic ointment and Unna boot. then clean sock and post op shoe. Advised him to stay away from the dog and take oral antibiotic as directed, rest and elevate and get good nutrition. No ALCOHOL, reduce sugar and salt. Eat high protein and vegetables and drink water daily. Plan Of Treatment Treatment Notes Assessment Notes Tinea unguium NAIL DEBRIDEMENT: Na ils 1-5 Bilateral were debrided extensively with nail nippers and emery board, reducing length and girth to pink healthy tissue with any subungual debris and necrotic tissue removed Non-pressure chronic ulcer o f left heel and midfoot limited to breakdown of skin Unna Boot: An unna boot was applied to the affected foot. The patient was instructed to keep it dry. Type 2 diabetes mellitus wit h other circulatory complications The lifetime risk of a foot ulcer for patients with diabetes (type 1 or 2) may be as high as 25 percent. Diabetic foot ulcers are a major cause of morbidity and mortality, accounting for approximately two-thirds of all nontraumatic amputations performed in the [place]. This observation illustrates the importance of prompt treatment of foot ulcers in patients with diabetes. The treatment of diabetic foot ulcers begins with a comprehensive assessment of the ulcer and the patient's overall medical condition. Evidence of underlying neuropathy, bony deformity, and peripheral artery disease should be actively sought. Adequate debridement, proper local wound care, relief of pressure on the ulcer by mechanical off-loading, and control of infection (when present) are important components of therapy. Dressings are selected based upon wound characteristics. Cellulitis of left lower limb Continue antibiotic prescribed by PCP. The lifetime risk of a foot ulcer for patients with diabetes (type 1 or 2) may be as high as 25 percent. Diabetic foot ulcers are a major cause of morbidity and mortality, accounting for approximately two-thirds of all nontraumatic amputations performed in the [place]. This observation illustrates the importance of prompt treatment of foot ulcers in patients with diabetes. The treatment of diabetic foot ulcers begins with a comprehensive assessment of the ulcer and the patient's overall medical condition. Evidence of underlying neuropathy, bony deformity, and peripheral artery disease should be actively sought. Adequate debridement, proper local wound care, relief of pressure on the ulcer by mechanical off-loading, and control of infection (when present) are important components of therapy. Dressings are selected based upon wound characteristics. The dressings will be kept Clean dry and intact for 1 week. Cleansed, pat dry, applied triple antibiotic ointment and Unna boot. then clean sock and post op shoe. Advised him to stay away from the dog and take oral antibiotic as directed, rest and elevate and get good nutrition. No ALCOHOL, reduce sugar and salt. Eat high protein and vegetables and drink water daily. Next Appt Details Follow Up: 1 Week,wound care , Reason: Progress Notes * Channing SANTO ReeDOB: [birth year] (75 yo M)Acc No.[id number]:03/23/2025 Progress Notes Patient: Channing MICHAUD Provider: Nelly TANNER :1950 A ge:74 Y S ex:Male Date:03/23/2025 Address:[address] [place], [place] [id number] Subjective: * Chief Complaints: * 1 . *Diabetic foot exam/GC/ chronic wounds. * HPI: H PI: New Complaint P atient presents for a new patient consultation., Patient complains of an issue to scabbed sores on all the toes and tops of the feet and a large open sore on the ankle. Patient states that he saw another trial judge that did not treat his previous wounds [...] is thin, atrophic and lacking pedal hair. Ulcer: T he ulceration at left mid tibia from dog scratch m easures 2 c m length x 1 cm width x 0.1 cm depth. T he wound base is g ranular. T here is p eriwound erythema. T he borders are h ealthy. T he wound has mild foul odor. mild serous drainage noted. Previous wound right posterior LE is a dry eschar now. Several dry eschars to bilateral LE from dog scratches. No erythema or heat on palpation at these eschars. M usculoskeletal: Muscle Strength M uscle strength is 5/5 in regards to dorsiflexion, plantarflexion, inversion, and eversion in bilateral lower extremities. ? N eurologic: [place] 5.07 monofilament b ilateral, diminished protective sensation [...] mellitus with other circulatory complications - E11.59 6 . C ellulitis of left lower limb - L03.116 Plan: * Treatment: 2. T inea unguium Notes: NAIL DEBRIDEMENT: Nails 1-5 Bilateral were debrided extensively with nail nippers and emery board, reducing length and girth to pink healthy tissue with any subungual debris and necrotic tissue removed 3. T ype 2 diabetes mellitus with other circulatory complications Notes: The lifetime risk of a foot ulcer for patients with diabetes (type 1 or 2) may be as high as 25 percent. Diabetic foot ulcers are a major cause of morbidity and mortality, accounting for approximately two-thirds of all nontraumatic amputations performed in the [place]. This observation illustrates the importance of prompt treatment of foot ulcers in patients with diabetes. The treatment of diabetic foot ulcers begins with a comprehensive assessment of the ulcer and the patient's overall medical condition. Evidence of underlying neuropathy, bony deformity, and peripheral artery disease should be actively sought. Adequate debridement, proper local wound care, relief of pressure on the ulcer by mechanical off-loading, and control of infection (when present) are important components of therapy. Dressings are selected based upon wound characteristics. 4. C ellulitis of left lower limb Notes: Continue antibiotic prescribed by PCP. The lifetime risk of a foot ulcer for patients with diabetes (type 1 or 2) may be as high as 25 percent. Diabetic foot ulcers are a major cause of morbidity and mortality, accounting for approximately two-thirds of all nontraumatic amputations performed in the [place]. This observation illustrates the importance of prompt treatment of foot ulcers in patients with diabetes. The treatment of diabetic foot ulcers begins with a comprehensive assessment of the ulcer and the patient's overall medical condition. Evidence of underlying neuropathy, bony deformity, and peripheral artery disease should be actively sought. Adequate debridement, proper local wound care, relief of pressure on the ulcer by mechanical off-loading, and control of infection (when present) are important components of therapy. Dressings are selected based upon wound characteristics. The dressings will be kept Clean dry and intact for 1 week. Cleansed, pat dry, applied triple antibiotic ointment and Unna boot. then clean sock and post op shoe. Advised him to stay away from the dog and take oral antibiotic as directed, rest and elevate and get good nutrition. No ALCOHOL, reduce sugar and salt. Eat high protein and vegetables and drink water daily. * Immunizations: Immunization record has been reviewed and updated. * Follow Up: 1 Week,wound care * Billing Information: * Visit Code: 50789 Office Visit, New Pt., Level 3. * Procedure Codes: * Electronic signature of SHEILA TANNER DPM on 2025 at 07:42 AM CDT Sign off status: Pending * Provider: Nelly TANNER Date: 03/23/2025 Generated for Amado shaffer/Ej/eTransmitting on: 0 2025 07:42 AM CDT History and Physical Notes * HPI (History of Present Illness) Category Sub-Category Detail Notes Category Not es HPI New Complaint Patient presents for a new patient consultation., Patient complains of an issue to scabbed sores on all the toes and tops of the feet and a large open sore on the ankle. Patient states that he saw another trial judge that did not treat his previous wounds [...] uses a walker in gait. , MA: [facility] Examination Category Sub-Category Detail Notes Category Not es Constitutional Constitutional The patient is a wake, alert, well developed, well groomed and well nourished Dermatologic Skin findings: bilateral, Skin is thin, atrophic and lacking pedal hair Ulcer: The ulceration at le ft mid tibia from dog scratch measures 2 cm length x 1 cm width x 0.1 cm depth. The wound base is granular. There is periwound erythema. The borders are healthy. The wound has mild foul odor. mild serous drainage noted. Previous wound right posterior LE is a dry eschar now. Several dry eschars to bilateral LE from dog scratches. No erythema or heat on palpation at these eschars Musculoskeletal Muscle Strength Muscle strength is 5/5 in regards to dorsiflexion, plantarflexion, inversion, and eversion in bilateral lower extremities Neurologic [place] 5.07 monofilament bilateral, diminished protective sensation via 5.07 g swmf bilateral to digits 1-10 Gross sensation Gross sensation is i ntact to light touch Vascular Dorsalis pedis pulse: bilateral, 1/4 Posterior tibial pulse: bilaterally, 1/4 Capillary refill: bilaterally, less th an 3 seconds
--- OUTSIDE RECORDS SUMMARY | 2025-05-06 07:42 | XMS_ITS | Clinical Summary ---
Author Organization [facility] Address [address] [facility], [place] [address] Phone Care Team Providers Care Motorcycle Racer Name Role Phone Jurgen Farias Primary Care Provider Allergies Active Allergy Reactions Criticality Noted Date [...] Glucose Sensor (FreeStyle Mary 14 Day Sensor) [facility] [place] USE TO CHECK BLOOD SUGAR Active insulin [...] Tablet by mouth 2 times daily. Active Britt-3 Fatty Acids (OMEGA 3 PO) Take by [...] echocardiogram 05/17/2024 Coronary artery disease invo lving [place] coronary artery of [place] heart without angina pectoris 05/17/2024 Family History [...] this topic Medical Devices Implanted Type Area Sales Representative Gas Service Device Identifier Shelf Expiration Date Model / Serial / Lot Device Clsr 6-7fr Mynxgrip Abalone Fisherman Vasc Bln Cath Lock Syr Integrate Sealant 10ml Disp - [id number] Implanted:Qty : 1 on 06/04/2024 by Hudson Gar MD at [facility] IMPLANT [employer] [id number] 05/05/2025 [id number] / / [id number] Insurance MEDICARE C [employer] Care Teams Motorcycle Racer Relationship Specialty Start Date End Date Jurgen Farias DO [address] [place] [address] PCP - General Primary Care 01/12/24
--- OUTSIDE RECORDS SUMMARY | 2025-05-06 07:42 | XMS_ITS | Patient Health Record ---
Author Organization [facility] Address [address] [place], [place] [phone] Care Team Providers Care Typewriters Functional Tester Name Role Phone BROOKS TANNER Unavailable [phone] Fausto Chavez Unavailable Unavailable Allergies No Known Allergies Reason For Referral No Information Medications Medication SIG (Take, Route, Frequency, Duration) Notes Start Date End Date Status HYDROcodone-Acetaminophen 10-325 MG TAKE 1 TABLET BY MOUTH FOUR TIMES DAILY Oral; Duration: 30 Days Active Sulfamethoxazole-Trimethopr im 800-160 MG TAKE 1 TABLET BY MOUTH TWICE DAILY FOR 10 DAYS Oral; Duration: 10 Days Active Insulin Degludec FlexTouch 100 UNIT/ML ADMINISTER 22 UNITS UNDER THE SKIN DAILY Subcutaneous; Duration: 12 Days Active Metoprolol Tartrate 25 MG TAKE 1 TABLET BY MOUTH TWICE DAILY Oral; Duration: 90 Days Active Famotidine 20 MG TAKE 1 TABLET BY FELIPE TH TWICE DAILY Oral; Duration: 90 Days Active Pantoprazole Sodium 40 MG TAKE 1 TABLET BY MOUTH EVERY MORNING Oral; Duration: 90 Days Active Losartan Potassium 25 MG TAKE 1 TABLET B Y MOUTH DAILY Oral; Duration: 90 Days Active Bumetanide 2 MG TAKE 1 TABLET BY FELIPE TH EVERY MORNING Oral; Duration: 90 Days Active Allopurinol 300 MG TAKE 1 TABLET BY FELIPE TH DAILY Oral; Duration: 90 Days Active Immunizations Vaccine Route Administration Date Status Comme nts Influenza (split), 3 yrs and above Unknown 08/12/2012 A dministered Influenza (split), 3 yrs and above Unknown 08/12/2012 A dministered Influenza (split), 3 yrs and above Unknown 08/06/2013 A dministered Influenza (split), 3 yrs and above Unknown 08/06/2013 A dministered Influenza (split), 3 yrs and above Unknown 07/19/2014 A dministered Influenza (split), 3 yrs and above Unknown 07/19/2014 A dministered Influenza, quadrivalent, spl it, preservative free, 3 years or older Unknown 06/27/2015 Administered Influenza, quadrivalent, spl it, preservative free, 3 years or older Unknown 06/27/2015 Administered Influenza, unspecified formulation Unknown 07/05/2016 A dministered Influenza, unspecified formulation Unknown 07/05/2016 A dministered Influenza, unspecified formulation Unknown 07/09/2017 A dministered Influenza, unspecified formulation Unknown 07/09/2017 A dministered Influenza, unspecified formulation Unknown 07/20/2019 A dministered Influenza, unspecified formulation Unknown 07/20/2019 A dministered Moderna Covid-19 Vaccine 1st dose Unknown 12/07/2020 Ad ministered Moderna Covid-19 Vaccine 1st dose Unknown 12/07/2020 Ad ministered Moderna Covid-19 Vaccine 1st dose Unknown 01/04/2021 Ad ministered Moderna Covid-19 Vaccine 1st dose Unknown 01/04/2021 Ad ministered Moderna Covid-19 Vaccine 1st dose Unknown 10/02/2021 Ad ministered Moderna Covid-19 Vaccine 1st dose Unknown 10/02/2021 Ad ministered Pneumococcal conjugate PCV 13 Unknown 07/14/2018 Admini stered Pneumococcal conjugate PCV 13 Unknown 07/14/2018 Admini stered Pneumococcal polysaccharide PPV23 Unknown 08/06/2013 Ad ministered Pneumococcal polysaccharide PPV23 Unknown 08/06/2013 Ad ministered Vital Signs Height-cm 182.88 cm 04/20/2025 10 Weight-kg 81.65 kg 04/20/2025 10 Height 72 in 04/20/2025 10 Weight 180 lbs 04/20/2025 10 BMI 24.41 kg/m2 04/20/2025 10 Encounters Encounter Location Date Provider Diagnosis [facility] [place] [address] [place], [place] [id number] 03/23/2025 BROOKS TANNER Tinea unguium B35.1 ; 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 ; Pain in right foot M79.671 ; Pain in left foot M79.672 ; Type 2 diabetes mellitus with other circulatory complications E11.59 and Cellulitis of left lower limb L03.116 [facility] [place] [address] [place] [phone] 03/30/2025 BROOKS TANNER 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 ; Non-pressure chronic ulcer of other part of left foot limited to breakdown of skin L97.521 ; Tinea unguium B35.1 ; Pain in right foot M79.671 ; Pain in left foot M79.672 and Type 2 diabetes mellitus with other circulatory complications E11.59 [facility] [address] [place] [id number] 04/20/2025 BROOKS TANNER Non-pressure chronic ulcer of right [...] patient was instructed to keep it dry. 03/30/2025 Non-pressure chronic ulcer of right heel and midfoot limited to breakdown of skin (ICD-10 - L97.411) Clean daily. Wear clean socks and shoes daily. Apply ointment and apply bandages daily with help of injection operator. 03/30/2025 Non-pressure chronic ulcer of other part of left foot limited to breakdown of skin (ICD-10 - L97.521) 04/20/2025 Non-pressure chronic ulcer of right heel and midfoot limited to breakdown of skin (ICD-10 - L97.411) Healed with new skin present. No new injuries from dog since wearing shoes and socks consistently and having dog on shock collar and keeping dog away from patient when the dog is agitated. I still suggested rehoming the dog as it is the main source of injury for the patient. 04/20/2025 Non-pressure chronic ulcer of other part of left foot limited to breakdown of skin (ICD-10 - L97.521) Healed with new skin present. Patient was scheduled with Dr. oJse Méndez on May 10, 2025 at 10:30.Confirmed with [facility] front facer staff that his insurance was accepted there. Patient and his injection operator were made aware to arrive 15 minutes early to complete new paperwork 03/30/2025 Tinea unguium (ICD-10 - B35.1) 04/20/2025 Tinea unguium (ICD-10 - B35.1) nails have recently been trimmed 03/23/2025 Pain in right foot (ICD-10 - M79.671) 03/23/2025 Pain in left foot (ICD-10 - M79.672) 03/30/2025 Pain in right foot (ICD-10 - M79.671) 04/20/2025 Pain in right foot (ICD-10 - M79.671) 04/20/2025 Pain in left foot (ICD-10 - M79.672) 03/30/2025 Pain in left foot (ICD-10 - [...] protein and vegetables and drink water daily. 04/20/2025 Type 2 diabetes mellitus with other circulatory [...] Dressings are selected based upon wound characteristics. 03/30/2025 Type 2 diabetes mellitus with other [...] Dressings are selected based upon wound characteristics. Plan Of Treatment No Information Insurance Providers Payer Name Payer Address Payer Phone Subscriber Number Group Number Insured Name Patient Relationship to Insured Coverage Start Date Coverage End Date [facility] [address] [place] [id number] Channing Ruiz Self - patient is the insured Medical (General) History Medical History History ICD Code neuropathy Open Sores Gout rheumatoid arthritis Back Trouble Diabetic heart/disease/failure high blood pressure Surgical History Surgery Date(Month/Year) replacement triple bypass toe amputation
--- OUTSIDE RECORDS SUMMARY | 2025-05-06 07:42 | XMS_ITS ---
Author Organization [facility] Address [address] [place], [place] [id number] Care Team Providers Care Route Sales Delivery Drivers Supervisor Name Role Phone BROOKS TANNER Unavailable [phone] Fausto Chavez Unavailable Unavailable Allergies No Known Allergies REASON FOR VISIT *Wound check Medications Medication [...] TH DAILY Oral; Duration: 90 Days Active HYDROcodone-Acetaminophen 10-325 MG TAKE 1 [...] Days Active Vital Signs Height 72 in 04/20/2025 Weight 180 lbs 04/20/2025 BMI 24.41 kg/m2 04/20/2025 Height-cm 182.88 cm 04/20/2025 Weight-kg 81.65 kg 04/20/2025 10 Encounters Encounter Location Date Provider Diagnosis [facility] [address] [place], [place] [id number] 04/20/2025 BROOKS TANNER Non-pressure chronic ulcer of [...] Treatment Notes Treatment Clinical Notes Section Notes 04/20/2025 Non-pressure chronic ulcer of right heel [...] skin present. Patient was scheduled with Dr. Jose Méndez on May 10, 2025 at 10:30.Confirmed with [facility] front end web designer staff that his insurance was accepted there. Patient and his ramp flight attendant were made aware to arrive 15 minutes early to complete new paperwork 04/20/2025 Tinea unguium (ICD-10 - B35.1) nails have recently been trimmed 04/20/2025 Pain in right foot (ICD-10 - M79.671) 04/20/2025 Pain in left foot (ICD-10 - M79.672) 04/20/2025 Type 2 diabetes mellitus with other [...] based upon wound characteristics. 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 No new injuries from dog since wearing shoes and socks consistently and having dog on shock collar and keeping dog away from patient when the dog is agitated. I still suggested rehoming the dog as it is the main source of injury for the patient. 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 Patient was scheduled with Dr. Jose Méndez on May 10, 2025 at 10:30.Confirmed with [facility] front end web designer staff that his insurance was accepted there. Patient and his ramp flight attendant were made aware to arrive 15 minutes early to complete new paperwork Tinea unguium nails have recently been trimmed Type 2 diabetes mellitus wit h other [...] Dressings are selected based upon wound characteristics. Next Appt Details Follow Up: 3 Weeks, Reason: Diabetic foot concerns Progress Notes * Channing SANTODOB: [birth year] (75 yo M)Acc No.[id number]:04/20/2025 Patient: Channing MICHAUD Provider: Nelly TANNER :1950 A ge:74 Y S ex:Male Date:04/20/2025 Address:[address] [facility] Subjective: * Chief Complaints: * 1 . *Wound check. * HPI: H PI: Follow Up Visit P renu presents for follow up visit for left foot wound care. , Patient states their problem is, improving., MA: nd. * ROS: G eneral / Constitutional: Patient denies f atigue, chills, fever. M usculoskeletal: Patient denies b roken ankle, broken foot bone, ankle sprain. P atient complains of l ow muscle mass to calves after knee procedures, balance issues.? P eripheral Vascular: Patient complains of a [...] 182.88 cm, BMI:24.41Index, Body Surface Area: 2.03. 10. * Examination: C onstitutional: Constitutional T he patient is awake, alert, well developed, well groomed and well nourished. D ermatologic: Skin findings: b ilateral, Skin is thin, atrophic and lacking pedal hair. He has several eschars that are stable and dry. No erythema. no heat. no fluctuance. no drainage. Previous wound left anterior mid tibia and previous wound right posterior LE are fully healed with new skin present. . M usculoskeletal: Muscle Strength M uscle strength is 5/5 in regards to dorsiflexion, plantarflexion, inversion, and eversion in bilateral lower extremities. Achilles Tendon C beckman loose and nontender. Atrophy of bilateral calf muscles R> L noted. N eurologic: Atkinson-Weinstin 5.07 monofilament b ilateral, diminished protective sensation [...] circulatory complications - E11.59 Plan: * Treatment: 2. N on-pressure chronic ulcer of other part of left foot limited to breakdown of skin Notes: Healed with new skin present. Patient was scheduled with Dr. Jose Méndez on May 10, 2025 at 10:30.Confirmed with [facility] front end web designer staff that his insurance was accepted there. Patient and his ramp flight attendant were made aware to arrive 15 minutes early to complete new paperwork 3. T inea unguium Notes: nails have recently been trimmed 4. T ype 2 diabetes mellitus with other [...] Dressings are selected based upon wound characteristics. * Follow Up: 3 Weeks (Reason: Diabetic foot concerns) * Billing Information: * Visit Code: * Procedure Codes: * Electronic signature of SHEILA TANNER DPM on 2025 at 07:42 AM CDT Sign off status: Pending * Provider: Nelly TANNER Date: 0 04/20/2025 Generated for Amado Levi on: 0 2025 07:42 AM CDT History and Physical Notes * HPI (History of Present Illness) Category Sub-Category Detail Notes Category Not es HPI Follow Up Visit Patient presents for follow up visit for left foot wound care. , Patient states their problem is, improving., MA: nd Examination Category Sub-Category Detail Notes Category Not es Constitutional Constitutional The patient is a wake, alert, well developed, well groomed and well nourished Dermatologic Skin findings: bilateral, Skin is thin, atrophic and lacking pedal hair. He has several eschars that are stable and dry. No erythema. no heat. no fluctuance. no drainage. Previous wound left anterior mid tibia and previous wound right posterior LE are fully healed with new skin present. Musculoskeletal Muscle Strength Muscle strength is 5/5 in regards to dorsiflexion, plantarflexion, inversion, and eversion in bilateral lower extremities Achilles Tendon Calves loose and non tender. Atrophy of bilateral calf muscles R> L noted Neurologic Atkinson-Weinstin 5.07 monofilamen t bilateral, diminished protective sensation via 5.07 g swmf bilateral to digits 1-10 Gross sensation Gross sensation is i ntact to light touch Vascular Dorsalis pedis pulse: bilateral, 1/4 Posterior tibial pulse: bilaterally, 1/4 Capillary refill: bilaterally, less th an 3 seconds
--- OUTSIDE RECORDS SUMMARY | 2025-05-06 07:42 | XMS_ITS ---
Author Organization [facility] Address [address] [place], [place] [id number] Care Team Providers Care Business Planning Manager Name Role Phone BROOKS TANNER Unavailable [phone] Fausto Chavez Unavailable Unavailable REASON FOR VISIT [...] Location Date Provider Diagnosis [facility] [address] [place], [place] [id number] 03/30/2025 BROOKSABDOULAYE TANNER Non-pressure chronic ulcer of right heel [...] and apply bandages daily with help of software verification engineer. 03/30/2025 Non-pressure chronic ulcer of other part [...] and midfoot limited to breakdown of skin Clean daily. Wear clean socks and shoes daily. Apply ointment and apply bandages daily with help of software verification engineer. Type 2 diabetes mellitus wit h other [...] Dressings are selected based upon wound characteristics. Progress Notes * Channing SANTODOB: [birth year] (75 yo M)Acc No.[id number]:03/30/2025 Patient: Radha GUSAILEENChanning Provider: Nelly TANNER :1950 A ge:74 Y S ex:Male Date:03/30/2025 Address:[address] [place] [address], [facility] Subjective: * Chief Complaints: * 1 . *Wound check. * HPI: H PI: Follow Up Visit P renu presents for follow-up visit for wounds on the left toes and one on the leg. Patient kept the unna boot on since the last visit, so it was removed today. Patient feels like the leg wound is looking better. He states that his dog stepped on his left foot, so the wounds on the toes are doing worse. , MA: [facility]. * ROS: G eneral / Constitutional: Patient [...] at left mid tibia from dog scratch measures 1 cm length x 1 cm width x 0.1 cm depth. The wound base is granular. No periwound erythema. The borders are healthy. The wound has no foul odor. Previous wound right posterior LE is a dry eschar now. Several dry eschars to bilateral LE from dog scratches. No erythema or heat on palpation. M usculoskeletal: Muscle Strength M uscle strength is 5/5 in regards to dorsiflexion, plantarflexion, inversion, and eversion in bilateral lower extremities. ? N eurologic: Tiona-Weinstin 5.07 monofilament b ilateral, diminished protective sensation [...] complications - E11.59 Plan: * Treatment: 2. T ype 2 diabetes mellitus with other [...] are selected based upon wound characteristics. * Immunizations: Immunization record has been reviewed and updated. * Billing Information: * Visit Code: 30891 Office Visit, Est Pt., Level 3. * Procedure Codes: * Electronic signature of SHEILA TANNER DPM on 2025 at 07:42 AM CDT Sign off status: Pending * Provider: Nelly TANNER Date: 03/30/2025 Generated for Amado shaffer/Ej/eTransmitting on: 0 2025 [...] ft mid tibia from dog scratch measures 1 cm length x 1 cm width x 0.1 cm depth. The wound base is granular. No periwound erythema. The borders are healthy. The wound has no foul odor. Previous wound right posterior LE is a dry eschar now. Several dry eschars to bilateral LE from dog scratches. No erythema or heat on palpation Musculoskeletal Muscle Strength Muscle strength is 5/5 in regards to dorsiflexion, plantarflexion, inversion, and eversion in bilateral lower extremities Neurologic Tiona-Weinstin 5.07 monofilament bilateral, diminished protective sensation via 5.07 g swmf bilateral to digits 1-10 Gross sensation Gross sensation is i ntact to light touch Vascular Dorsalis pedis pulse: bilateral, 1/4 Posterior tibial pulse: bilaterally, 1/4 Capillary refill: bilaterally, less th an 3 seconds
--- NOTE | 2025-05-06 07:44 | ECHO_ITS ---
Patient Info Name: Channing Ruiz Age: 75 years : 1950 Gender: Male Ht: 72 in Wt: 186 lbs BSA: 2.08 m2 HR: 86 bpm BP: 117 / 70 mmHg Heart Rhythm: Sinus Rhythm Technical Quality: Fair Exam Date: 05/06/2025 7:54 AM Patient Status: O Admit Date: 05/06/2025 Exam Type: CA echo doppler color flow Complete two-dimensional, color flow and Doppler transthoracic echocardiogram is performed. Driver Service Technician: Julia Gomez Attending Provider: Jurgen Farias DO Summary 1. Complete two-dimensional, color flow and Doppler transthoracic echocardiogram is performed. 2. Left ventricular chamber dimension is mildly enlarged. 3. Left ventricular systolic function is moderately globally reduced with inferior/posterior wall is akinetic, estimated at 35-40. 4. The left ventricular diastolic function is grade I diastolic dysfunction. 5. E/e' 6 is not elevated. 6. Left atrial chamber dimension is mildly enlarged. 7. There is trace tricuspid valve regurgitation. 8. No pulmonary hypertension, estimated pulmonary arterial systolic pressure is 24 mmHg. Left Ventricle Left ventricular chamber dimension is mildly enlarged. Left ventricular systolic function is moderately globally reduced with inferior/posterior wall is akinetic, estimated at 35-40. The left ventricular diastolic function is grade I diastolic dysfunction. E/e' 6 is not elevated. Right Ventricle Right ventricular chamber dimension is normal. Right ventricular systolic function is normal. Left Atria Left atrial chamber dimension is mildly enlarged. Right Atria Right atrial chamber dimension is normal. Aortic Valve The aortic valve is trileaflet. There is no aortic valve stenosis. There is no aortic valve regurgitation. Pulmonic Valve There is no pulmonic regurgitation. Mitral Valve There is no mitral valve stenosis. There is no mitral valve regurgitation. Tricuspid Valve There is trace tricuspid valve regurgitation. No pulmonary hypertension, estimated pulmonary arterial systolic pressure is 24 mmHg. Pericardium/Pleural There is no pericardial effusion. Inferior Vena Cava Normal inferior vena cava with >50% collapse upon inspiration consistent with normal right atrial pressure, 5 mmHg. Aorta The aortic root size at the sinus of Valsalva is normal. Left Ventricular Outflow Tract Name Value Normal LVOT 2D LVOT Diameter 2.0 cm LVOT Doppler LVOT Peak Velocity 85 cm/s LVOT Peak Gradient 3 mmHg LVOT Mean Gradient 1 mmHg LVOT VTI 16 cm LVOT VTI/AV VTI Ratio 0.7 LVOT Stroke Volume 48 ml LVOT CO 3.7 l/min LVOT CI 1.8 l/min/m2 Pulmonic Valve Name Value Normal RVOT Doppler RVOT Peak Velocity 94 cm/s RVOT Peak Gradient 4 mmHg PV Doppler PV Peak Velocity 125 cm/s PV Peak Gradient 6 mmHg Mitral Valve Name Value Normal MV Diastolic Function MV E Peak Velocity 47 cm/s MV A Peak Velocity 76 cm/s MV E/A 0.6 MV Decel Time (PW) 132 ms MV Annular TDI MV E/e' (Septal) 12.5 MV E/e' (Lateral) 4.0 MV E/e' (Average) 8.2 Tricuspid Valve Name Value Normal TV Regurgitation Doppler TR Peak Velocity 220 cm/s TR Peak Gradient 19 mmHg Estimated PAP/RSVP RA Pressure 5 mmHg <=5 PA Systolic Pressure 24 mmHg <36 RV Systolic Pressure 24 mmHg <36 TV Annular TDI TV Lateral Isamar s' Velocity 7.0 cm/s >=9.5 Aortic Valve Name Value Normal AV Doppler AV Peak Velocity 128 cm/s AV Peak Gradient 7 mmHg AV Mean Gradient 3 mmHg AV VTI 23 cm AV Area (Cont Eq VTI) 2.1 cm2 >=3.0 AV Area (Cont Eq Chandler) 2.1 cm2 AV DI (Chandler) 0.66 AV Regurgitation 2D LVOT Area 3.1 cm2 Ventricles Name Value Normal LV Dimensions 2D/MM IVS Diastolic Thickness (2D) 1.0 cm 0.6-1.0 LVID Diastole (2D) 5.2 cm 4.2-5.8 LVIW Diastolic Thickness (2D) 1.0 cm 0.6-1.0 LVID Systole (2D) 3.6 cm 2.5-4.0 LVOT Diameter 2.0 cm LV Mass (2D Cubed) 198.38 g 88.00-224.00 LV Mass Index (2D Cubed) 95 g/m2 49-115 Relative Wall Thickness (2D) 0.39 <=0.42 LV Fractional Shortening/Ejection Fraction 2D/MM LV Fractional Shortening (2D) 32 % 25-43 LV EF (2D Teichholz) 60 % LV Diastolic Volume (4C MOD) 91 ml LV EF (4C MOD) 61 % LV Diastolic Volume (2C MOD) 96 ml LV EF (2C MOD) 34 % LV Diastolic Volume (BP MOD) 95 ml 62-150 LV Diastolic Volume Index (BP MOD) 46 ml/m2 34-74 LV Systolic Volume (BP MOD) 49 ml 21-61 LV Systolic Volume Index (BP MOD) 23 ml/m2 11-31 LV EF (BP MOD) 48 % 52-72 LV Diastolic Length (4C) 8.6 cm LV Systolic Length (4C) 7.4 cm LV Stroke Volume (4C MOD) 55 ml Atria Name Value Normal LA Dimensions LA Volume (4C A-L) 52 ml LA Volume (BP A-L) 60 ml RA Dimensions RA Area (4C) 17.1 cm2 <=18.0 Report Signatures
== END 2025-05-06 07:39 | disposition home or self-care (01) ==
PROVIDERS: PCP Family Medicine; Visit Provider Internal Medicine Cardiovascular Disease
DX: R93.1 Abnormal findings on diagnostic imaging of heart and coronary circulation (principal); I51.9 Heart disease, unspecified
CPT/HCPCS: 93306

== ENCOUNTER 2025-06-07 13:04 | Outpatient (CLI) | payer MEDICARE, SELFPAY ==
--- OUTSIDE RECORDS SUMMARY | 2021-12-30 19:00 | XMS_ITS | Continuity of Care Document ---
Author Organization [facility] Address [address] [place] [address] Phone Care Team Providers Care Business Development Associate Name Role Phone Hawa AMAYA, Elvie Unavailable Unavailable Procedures Procedure Date UPPER GI ENDOSCOPY BIOPSY SUBSEQUENT HOSPITAL VISIT, EXPANDED [facility]L 2 Advance Directives Directive Yes / No Effective Date File Name No Information Encounters Encounter Description Practice Location Reason(s) For Visit Diagnoses Date Provider Providers Copied on Encounter SUBSEQUENT HOSPITAL VISIT, EXPANDED [facility], [address], [place], [place], [address], tel:[phone] [facility] No Information Hawa Bermeo. [address], [place], [id number], . tel:[phone] Referring Provider: Fausto Akers, [address], [place], [address]. tel:[phone] IN[facility]IAL [facility] CARE LVL 2 [facility], [address], [place], [place], [address], tel:[phone] [facility] No Information Aden Shook. [address], [place], [id number], . tel:[phone] Referring Provider: Fausto Akers, [address], [place], [address]. tel:[phone] Family History Family Member Type Diagnosis Age At Onset No Information Payers Payer name Insurance type Covered democrat ID Josiane read(s) [facility] [id number] Social History Type Description Quantity Date Captured Comments Sex Male Smoking Status No Information Chief Complaint And Reason For Visit No Information Reason For Referral Reason For Referral No Information History Of Present Illness Encounter Date Complaint History Of Prese nt Illness No Information Functional Status Date Functional Assessmen t No Information Instructions Date Instruction Additional Infor mation No Information Assessments Type Assessment Date No Information Patient Care Teams Name Effective Dates (start - stop) Status Members No Information
--- OUTSIDE RECORDS SUMMARY | 2022-12-24 07:59 | XMS_ITS | Continuity of Care Document ---
Author Organization [facility] Address [address] [place] [address] Phone Care Team Providers Care Nurse Name Role Phone Channing Ramirez MD, MD Unavailable Unavailable Advance Directives Directive Yes / No Effective Date File Name No Information Encounters Encounter Description Practice Location Reason(s) For Visit Diagnoses Date Provider Providers Copied on Encounter [facility], [address], [place], [place], [address], [place] tel:[phone] [facility] No Information 3 James Snell. [address], [address], [place], [place], [address] , [place]. tel:[phone] Family History Family Member Type Diagnosis Age At Onset No Information Payers Payer name Insurance type Covered alliance party ID Authoriza tion(s) No Information Social [...]
--- OUTSIDE RECORDS SUMMARY | 2025-06-07 13:20 | XMS_ITS | Clinical Summary ---
Author Organization [facility] Address [address] [place] [address] Phone Care Team Providers Care Chrome Tanning Drum Operator Name Role Phone Jurgen Farias Primary Care Provider [phone] Allergies Active Allergy Reactions Criticality Noted Date [...] Glucose Sensor (FreeStyle Mary 14 Day Sensor) [facility] USE TO CHECK BLOOD SUGAR Active insulin [...] Tablet by mouth 2 times daily. Active [place]-3 Fatty Acids (OMEGA 3 PO) Take by [...] echocardiogram 05/17/2024 Coronary artery disease invo lving [place] coronary artery of [place] heart without angina pectoris 05/17/2024 Family History [...] Immunization (50+ years) (3 of 3 - PCV20 or PCV21) 07/14/2023 07/14/2018, 08/06/2013 Influenza Immunization (#1) 06/06/202507/06, 07/23/2022, 07/25/2021, Additional history exists SARS-COV-2 Immunization ( season) 2025 07/23/2022, 10/02/2021, 01/04/2021, Additional history exists Respiratory [...] this topic Medical Devices Implanted Type Area Micro Computer Data Processor Device Identifier Shelf Expiration Date Model / Serial / Lot Device Clsr 6-7fr Mynxgrip Glass Maker Vasc Bln Cath Lock Syr Integrate Sealant 10ml Lf Disp - [id number] Implanted:Qty : 1 on 06/04/2024 by Hudson Gar MD at [facility] IMPLANT [employer] [id number] 05/05/2025 [id number] / / [id number] Insurance MEDICARE [place] [address] Care Teams Chrome Tanning Drum Operator Relationship Specialty Start Date End Date Jurgen Farias DO [address] [place] [address] PCP - General Primary Care 01/12/24
--- OUTSIDE RECORDS SUMMARY | 2025-06-07 13:20 | XMS_ITS | Clinical Summary ---
Author Organization [facility] Address [address] [place] [address] Care Team Providers Care Jockey Agent Name Role Phone Fausto Chavez MD Primary Care Provider + [phone] Source Comments [facility],non-owned Affiliates and Associated Physician Practices is amultiple site organization consisting of ambulatory clinics and hospital sitesin [place], [place], [place] and [place]. This disclosure is being madepursuant to the Care Everywhere program and may not contain all information available regarding this patient. Last updated 18.[facility] Grows Up Allergies Active Allergy Reactions Criticality Noted Date [...] and heating? Not hard at all 10/17/2022 [facility] [place] of Occupat ional Health - Occupational Stress [...] place to sleep or slept in a halfway (including now)? No 10/17/2022 Sex and Gender Information Value Date Recorded Sex Assigned at Not on file Legal Sex Male 5:50 AM PHYSICIAN ASSISTANT SURGERY Gender Identity Not on file Sexual Orientation Not on file Last Filed Vital Signs Vital Sign Reading Time Taken Comments Blood Pressure 116/75 10/18/2022 8:21 AM PHYSICIAN ASSISTANT SURGERY Pulse 80 10/18/2022 8:21 AM PHYSICIAN ASSISTANT SURGERY Temperature 36.7 C (98 F) 10/18/2022 8:21 AM PHYSICIAN ASSISTANT SURGERY Respiratory Rate 16 10/18/2022 8:21 AM PHYSICIAN ASSISTANT SURGERY Oxygen Saturation 95% 10/18/2022 8:21 AM PHYSICIAN ASSISTANT SURGERY Inhaled Oxygen Concentration - - Weight 90.7 [...] Documents on File Type Date Recorded Patient Network Architect Expl anation Adv Directive/Living Will/POA 03/16/2022 1:24 [...] 1:38 AM 10/07/2013 7:18 PM Care Teams Jockey Agent Relationship Specialty Start Date End Date Fausto Chavez MD [address] [place] [address] [place] [address] PCP - General Family Medicine 12/31/21
[2025-06-07 14:13] LABS: Hematocrit 36.5 % (42.0-52.0); Hemoglobin 11.2 g/dL (14.0-18.0); Mean Corpuscular HGB Conc 30.7 g/dl (32-36); Mean Corpuscular Hemoglobin 31.7 pg (26-34); Mean Corpuscular Volume 103.4 fl (80-100); Platelet Count Result 217 k/mm3 (150-375); Red Blood Count 3.53 M/mm3 (4.6-6.20); White Blood Count 10.6 K/mm3 (4.5-10.0)
[2025-06-07 14:23] LABS: Alanine Aminotransferase 20 U/L (6-50); Albumin Level 4.3 g/dL (3.5-5.1); Alkaline Phosphatase 136 U/L (38-126); Anion Gap 13 mmol/L (4-12); Aspartate Amino Transferase 31 U/L (17-59); Bilirubin,Total 0.5 mg/dL (0.2-1.3); Blood Urea Nitrogen 51 mg/dL (9-20); Calcium 9.5 mg/dL (8.4-10.2); Carbon Dioxide 23 mmol/L (22-30); Chloride 98 mmol/L (98-107); Cholesterol 121 mg/dL (0-200); Estimated Glomerular Filt Rate 29; Glucose 239 mg/dL (65-110); HDL Direct 55 mg/dL; Potassium 3.7 mmol/L (3.4-5.0); Sodium 134 mmol/L (137-145); Total Protein 7.5 g/dL (6.3-8.2); Triglycerides 159 mg/dL (<150)
[2025-06-07 14:42] LABS: Free T4 Free Thyroxine 1.40 ng/dL (0.78-2.19)
[2025-06-07 14:52] LABS: Prostate Specific Antigen 0.1 ng/mL (< OR = 4.0)
[2025-06-07 14:55] LABS: Thyroid Stimulating Hormone Reflex 3.090 uIU/mL (0.465-4.68)
[2025-06-07 15:24] LABS: Hemoglobin A1C 7.2 % (<5.7)
== END 2025-06-07 13:05 | disposition home or self-care (01) ==
LOC: ANHLAB 13:06
PROVIDERS: PCP Family Medicine; Visit Provider Nurse Practitioner Family
DX: D64.9 Anemia, unspecified (principal); E78.5 Hyperlipidemia, unspecified; E11.22 Type 2 diabetes mellitus with diabetic chronic kidney disease; R94.6 Abnormal results of thyroid function studies; E55.9 Vitamin D deficiency, unspecified; Z12.5 Encounter for screening for malignant neoplasm of prostate
CPT/HCPCS: 36415; 80053; 80061; 82306; 83036; 84153; 84439; 84443; 85027; G0103

== ENCOUNTER 2025-08-22 17:10 | Inpatient (IN) | payer MEDICARE, SELFPAY ==
--- OUTSIDE RECORDS SUMMARY | 2022-12-24 06:59 | XMS_ITS | Continuity of Care Document ---
Author Organization [facility] Address [address] [place] [address] Phone Care Team Providers Care Priest Name Role Phone Channing Ramirez MD, MD Unavailable Unavailable Advance Directives Directive Yes / No Effective Date File Name No Information Encounters Encounter Description Practice Location Reason(s) For Visit Diagnoses Date Provider Providers Copied on Encounter [facility], [address], [place], [address], [place] tel:[phone] [facility] No Information 3 James Snell. [address], [address], [place], [place], [address] , [place]. tel:[phone] Family History Family Member Type Diagnosis Age At Onset No Information Payers Payer name Insurance type Covered constitution party ID Authoriza tion(s) No Information Social History Type Description Quantity Date Captured [...]
[2025-08-22] VITALS (34 sets, daily range): BP systolic 61–121; BP diastolic 47–83; PULSE 76–97; RESP 11–28; TEMP 36.8–36.9; O2SAT 93–100; BMI 23.7
--- NOTE | ~2025-08-22 | XR_ITS ---
EXAMINATION: XR chest 1V portable DATE: 08/22/2025 18:04 INDICATION: Hypotension. TECHNIQUE: A single frontal view of the chest was obtained. COMPARISON: Chest x-ray dated 03/28/2020. FINDINGS: Postoperative changes of coronary bypass with atherosclerotic aorta. Lungs are clear of acute processes. IMPRESSION: 1. No acute pulmonary findings. Atherosclerotic aorta and postsurgical changes of coronary bypass. Reviewed, dictated and finalized at location T. T LAYER
--- NOTE | ~2025-08-22 | XR_ITS ---
EXAMINATION: XR foot RT min 3V DATE: 08/22/2025 21:47 INDICATION: Ulcer, second toe. TECHNIQUE: 3 views of right foot were obtained. COMPARISON: None. FINDINGS: Diffusely osteopenic bones. Post surgical changes of amputation through the mid first metatarsal. Soft tissue swelling of the second toe is noted with erosive changes at the base of the distal phalanx of the second toe suggestive of osteomyelitis. No gas bubbles are seen. Chronic changes severe arthritis in the subtalar joint. Old fracture at the right ankle. IMPRESSION: 1. Diffuse osteopenia. Postsurgical changes of first toe through the mid first metatarsal with amputation. 2. Soft tissue swelling of the second toe is noted with erosive changes and lytic changes of the distal phalanx are noted. Findings are suggestive of osteomyelitis. Further evaluation with three-phase nuclear bone scan or MRI is suggested. Reviewed, dictated and finalized at location T. HOLOGICAL EXAMINER IMPRESSION: 1. Diffuse osteopenia. Postsurgical changes of first toe through the mid first metatarsal with amputation. 2. Soft tissue swelling of the second toe is noted with erosive changes and lyt ic changes of the distal phalanx are noted. Findings are suggestive of osteomye litis. Further evaluation with three-phase nuclear bone scan or MRI is roman charles
--- NOTE | ~2025-08-22 | US_ITS ---
EXAMINATION: US venous doppler [facility] DATE: 08/25/2025 09:45 INDICATION: Edema TECHNIQUE: Grayscale ultrasound images without and with compression and Doppler ultrasound images of the bilateral lower extremity veins were obtained. COMPARISON: None. FINDINGS: The visualized portions of right common femoral vein, profunda (deep) femoral vein, femoral vein, popliteal vein, peroneal veins, posterior tibial veins, and greater saphenous vein outflow are patent. The visualized portions of left common femoral vein, profunda femoral vein, femoral vein, popliteal vein, peroneal veins, posterior tibial veins, and greater saphenous vein outflow are patent. IMPRESSION: 1. No deep venous thrombosis. Reviewed, dictated and finalized at location A. ICATION TRAINER
--- NOTE | 2025-08-22 17:28 | ECG_ITS ---
Test Date: 2025-08-22 17:32:38 Measurements Intervals [place] Rate: 98 P: 51 MT: 163 QRS: 9 QRSD: 108 T: 30 QT: 350 QTc: 448 Interpretive Statements SINUS RHYTHM WITH FREQUENT VENTRICULAR PREMATURE COMPLEXES LOW QRS VOLTAGE IN EXTREMITY LEADS ANTERIOR MYOCARDIAL INFARCTION , OF INDETERMINATE AGE POSSIBLE INFERIOR MYOCARDIAL INFARCTION , PROBABLY OLD Electronically Signed On 08-22-2025 20:06:01 INDUSTRIAL RELATIONS WORKER by Alexis Cobos D.O
[2025-08-22 18:07] LABS: Hematocrit 30.7 % (42.0-52.0); Hemoglobin 9.5 g/dL (14.0-18.0); Immature Granulocyte Percent A 0.2 % (0-0.5); Lymphocytes Absolute Auto 0.67 K/mm3 (0.9-3.2); Mean Corpuscular HGB Conc 30.9 g/dl (32-36); Mean Corpuscular Hemoglobin 32.4 pg (26-34); Mean Corpuscular Volume 104.8 fl (80-100); Nucleated Red Blood Cells Absolute Auto 0.000 K/mm3 (0.0-0.012); Nucleated Red Blood Cells Perc 0.0 % (0.0-0.2); Platelet Count Result 196 k/mm3 (150-375); Red Blood Count 2.93 M/mm3 (4.6-6.20); White Blood Count 9.1 K/mm3 (4.5-10.0)
[2025-08-22 18:20] LABS: Alanine Aminotransferase 15 U/L (6-50); Albumin Level 3.7 g/dL (3.5-5.1); Alkaline Phosphatase 108 U/L (38-126); Anion Gap 10 mmol/L (4-12); Aspartate Amino Transferase 24 U/L (17-59); Bilirubin,Total 0.6 mg/dL (0.2-1.3); Blood Urea Nitrogen 42 mg/dL (9-20); CRP 4.8 mg/dL (<1.0); Calcium 9.1 mg/dL (8.4-10.2); Carbon Dioxide 24 mmol/L (22-30); Chloride 100 mmol/L (98-107); Estimated CRCL calculation 26 ml/min; Estimated Glomerular Filt Rate 25; Glucose 225 mg/dL (65-110); Potassium 3.9 mmol/L (3.4-5.0); Sodium 134 mmol/L (137-145); Total Protein 6.7 g/dL (6.3-8.2)
[2025-08-22 18:40] LABS: INR 1.1; Partial Thromboplastin Time 32.6 Seconds (22.3-36.8); Prothrombin Time 14.4 Seconds (11.1-14.7)
--- NOTE | 2025-08-22 19:52 | PC.NURSE ---
Pt stating he is not able to urinate at the moment, this RN offered to straight cath for urine sample. Pt refusing straight cath at this time
[2025-08-22 20:30] LABS: Add Urine Microscopic? NO; Appearance Urine Clear (Clear); Glucose Urine UA 3+ mg/dL (Negative); Leukocyte Esterase Ur Negative LEU/UL (Negative); Nitrate Urine Negative (Negative); Specific Grav Ur 1.013 (1.001-1.035)
--- NOTE | 2025-08-22 21:37 | ED.GENADULT ---
HPI - General Adult General Chief complaint: Extremity Injury, Lower Stated complaint: R 2nd toe wound Time Seen by Provider: 08/22/25 21:27 History of Present Illness HPI narrative: patient is a 75-year-old gentleman presents emergency department chief complaint of wound on the right foot for the last month. The patient has history of diabetes and also history of renal insufficiency the patient about a month ago noticed that he had a wound on the 2nd toe on his right foot he has had prior amputations before in the past and the patient also noticed that he had injury of redness on the right ankle patient states the right ankle area has improved reports that he has redness to the dorsum of the foot and has a open wound present to the 2nd toe patient reports no purulent drainage my reports that his leg has become tender Related Data Home Medications ?Medication ?Instructions ?Recorded ?Confirmed ?Last Taken ?Type allopurinol 300 mg tablet 300 mg PO DAILY 10/20/19 06/16/25 12/06/24 History famotidine 20 mg tablet 20 mg PO BID 10/20/19 06/16/25 12/06/24 History hydrocodone 10 mg-acetaminophen 1 tablet PO Q4-6H PRN Pain (Scale 10/20/19 06/16/25 12/06/24 History 325 mg tablet Score 4-6) simvastatin 20 mg tablet 20 mg PO HS 10/20/19 06/16/25 12/06/24 History bumetanide 2 mg tablet 2 mg PO DAILY 10/29/23 06/16/25 12/06/24 History pzpltiho-vt-iruuj 300 mcg-K 60 1 tablet PO DAILY 10/29/23 06/16/25 12/06/24 History mcg-lycop 600 mcg-lutein 300 mcg tablet (Centrum Silver Men) trazodone 100 mg tablet 100 mg PO QHS PRN sleep 10/29/23 06/16/25 12/05/24 History insulin degludec 100 unit/mL (3 20 unit subcut DAILY 03/24/25 06/16/25 Unknown History mL) subcutaneous pen (Tresiba FlexTouch U-100 insulin) aspirin 325 mg tablet 325 mg PO DAILY 06/16/25 06/16/25 Unknown History sulfamethoxazole 800 1 tablet PO Q12H 06/16/25 06/16/25 Unknown History mg-trimethoprim 160 mg tablet Allergies Allergy/AdvReac Type Severity Reaction Status Date / Time morphine Allergy Unknown Agitated Verified 08/22/25 17:22 naproxen Allergy Unknown Unconscious Verified 08/22/25 17:22 NSAIDS (Non-Steroidal AdvReac Unknown renal Verified 08/22/25 17:22 Anti-Inflamma insufficiency Review of Systems Review of Systems: A 10 system review of systems was completed on the patient and is negative except for what is stated in the HPI. Nursing and ancillary documentation was reviewed. [facility] Past Medical History Medical History Amputation of right great toe Diabetes Fracture collar bone Gout rt thumb, lt elbow Renal insufficiency GERD (gastroesophageal reflux disease) Bronchitis Hyperlipidemia CAD (coronary artery disease) Triple bypass CHF (congestive heart failure) Myocardial infarction Hypertension Rheumatoid arthritis Surgical History Surgical History History of total right knee replacement History of hip replacement On the right History of orthopedic surgery bilateral elbows and right hand History of coronary artery stent placement Multiple stents Hx of cardiac cath H/O vascular surgery Hx of cataract surgery Hx of CABG 3 vessel Family History Family History Father Family history of obesity Family history of alcoholism Patient's father is Acute myocardial infarction Mother Hypertension Patient's mother is Sibling Hypertension Sibling Alcoholism Social History Social History Social History: the patient is from his . He has 1 stepson. He is currently living with his baby sister. He used to drink heavily when he was younger but only occasionally drinks now. Code status full code Smoking status: Never smoker Alcohol intake: former Substance use: never Substance use type: painkillers Other substance usage details: Q4-Q6 for back pain Last use: 03/27/2020 Current Housing: Decline to Answer Concerned About Future Housing: Decline to Answer Difficulty Paying Gas/Electric Bills: Decline to Answer Difficulty Paying for Meds: Decline to Answer Currently Unemployed: Decline to Answer Education: Decline to Answer Difficulty w/ Childcare or Family Care: Decline to Answer Gender identity (if verbalized by the patient): Male Spiritual care concerns: No Exam Narrative: GENERAL: Well-appearing, well-nourished, and in no acute distress. HEAD: Normocephalic, atraumatic. EYES: PERRLA and EOMI. ENT: Nares clear, no rhinorrhea or epistaxis. Mucous membranes moist. NECK: Supple. CHEST: Clear to auscultation. No respiratory distress. HEART: Regular rate and rhythm. No murmur heard. Normal peripheral pulses. ABDOMEN: Soft, nontender, nondistended, normal active bowel sounds. EXTREMITIES: Normal range of motion. No edema. there is redness present the dorsum of the right foot the 2nd toe on the right foot shows an ulceration present there is some necrotic tissue but no purulent drainage. There is redness present to the right ankle no ulcerative lesion present SKIN: Warm, dry, no rash. NEURO: No focal deficits. Alert and oriented x3. PSYCH: Normal mood and affect. Course Vital Signs Vital signs: Vital Signs Temperature 36.8 C 08/22/25 17:17 Pulse Rate 97 08/22/25 17:17 Respiratory Rate 20 08/22/25 17:17 Blood Pressure 77/52 L 08/22/25 17:17 Pulse Oximetry 100 08/22/25 17:17 Oxygen Delivery Room Air 08/22/25 17:17 Temperature 36.9 C 08/22/25 17:46 Pulse Rate 94 08/22/25 18:01 Respiratory Rate 14 08/22/25 18:01 Blood Pressure 97/52 L 08/22/25 18:01 Pulse Oximetry 97 08/22/25 18:01 Oxygen Delivery Room Air 08/22/25 17:46 Medical Decision Making [facility] Narrative Medical decision making narrative: differential diagnosis includes diabetic foot ulcer, cellulitis, laboratory studies were obtained that showed white count of 9.1 lactic acid was normal CRP was significantly elevated at 4.8. Urinalysis showed no evidence of infection chest x-ray showed no focal infiltrate blood cultures were obtained and the patient was started on IV antibiotics plan will be to admit the patient for antibiotics Vital Signs Vital Signs: Vital Signs Temperature 36.8 C 08/22/25 17:17 Pulse Rate 97 08/22/25 17:17 Respiratory Rate 20 08/22/25 17:17 Blood Pressure 77/52 L 08/22/25 17:17 Pulse Oximetry 100 08/22/25 17:17 Oxygen Delivery Room Air 08/22/25 17:17 Temperature 36.9 C 08/22/25 17:46 Pulse Rate 94 08/22/25 18:01 Respiratory Rate 14 08/22/25 18:01 Blood Pressure 97/52 L 08/22/25 18:01 Pulse Oximetry 97 08/22/25 18:01 Oxygen Delivery Room Air 08/22/25 17:46 Lab Data 08/22/25 17:57 08/22/25 17:57 Labs: Lab Results 08/22/25 08/22/25 Range/Units 17:57 20:07 WBC 9.1 (4.5-10.0) K/mm3 RBC 2.93 L (4.6-6.20) M/mm3 Hgb 9.5 L (14.0-18.0) g/dL Hct 30.7 L (42.0-52.0) % MCV 104.8 H (80-100) fl MCH 32.4 (26-34) pg MCHC 30.9 L (32-36) g/dl RDW 14.6 H (11.5-14.5) % Plt Count 196 (150-375) k/mm3 MPV 11.1 H (7.4-10.4) fl Immature Gran % (Auto) 0.2 (0-0.5) % Neut % (Auto) 83.1 H (45.5-73.1) % Lymph % (Auto) 7.3 L (18.3-44.2) % [place] % (Auto) 6.4 (2.6-8.5) % Eos % (Auto) 2.5 (0-4.4) % Baso % (Auto) 0.5 (0.2-1.2) % Lymph # (Auto) 0.67 L (0.9-3.2) K/mm3 [place] # (Auto) 0.6 (0.1-0.6) K/mm3 Eos # (Auto) 0.2 (0-0.3) K/mm3 Baso # (Auto) 0.1 (0.0-0.1) K/mm3 Abs Immat Gran (auto) 0.02 (0.00-0.031) K/mm3 Absolute Neuts (auto) 7.6 H (1.3-6.7) K/mm3 Absolute Nucleated RBC 0.000 (0.0-0.012) K/mm3 Nucleated RBC % 0.0 (0.0-0.2) % PT 14.4 (11.1-14.7) Seconds INR 1.1 APTT 32.6 (22.3-36.8) Seconds Sodium 134 L (137-145) mmol/L Potassium 3.9 (3.4-5.0) mmol/L Chloride 100 (98-107) mmol/L Carbon Dioxide 24 (22-30) mmol/L Anion Gap 10 (4-12) mmol/L BUN 42 H (9-20) mg/dL Creatinine 2.55 H (0.7-1.3) mg/dL Estim Creat Clear Calc 26 ml/min Estimated GFR 25 L (59 - ) Glucose 225 H (65-110) mg/dL Lactic Acid 1.8 (0.7-2.0) mmol/L Calcium 9.1 (8.4-10.2) mg/dL Total Bilirubin 0.6 (0.2-1.3) mg/dL AST 24 (17-59) U/L ALT 15 (6-50) U/L Alkaline Phosphatase 108 (38-126) U/L C-Reactive Protein 4.8 H (<1.0) mg/dL Total Protein 6.7 (6.3-8.2) g/dL Albumin 3.7 (3.5-5.1) g/dL Urine Color Yellow (Yellow) Urine Appearance Clear (Clear) Urine pH 5.0 (5.0-9.0) Ur Specific [place] 1.013 (1.001-1.035) Urine Protein Negative (Negative) mg/dL Urine Glucose (UA) 3+ H (Negative) mg/dL Urine Ketones Negative (Negative) mg/dL Ur Blood (Man) Negative (Negative) Urine Nitrate Negative (Negative) Urine Bilirubin Negative (Negative) Urine Urobilinogen 1.0 (<2.0) mg/dL Leukocyte Esterase Rfl Negative (Negative) PERICO/UL Discharge Plan Discharge Clinical Impression: Acute osteomyelitis of toe Qualifiers: Laterality: right Qualified Code(s): M86.171 - Other acute osteomyelitis, right ankle and foot Patient Disposition: Still a Patient Condition: Stable Patient Language: Luxembourgish Prescriptions: No Action trazodone 100 mg tablet 100 mg PO QHS PRN (Reason: sleep) bumetanide 2 mg tablet 2 mg PO DAILY Centrum Silver Men [phone] mcg tablet 1 tablet PO DAILY metoprolol tartrate 25 mg tablet 25 mg PO BID Qty: 60 5RF Gvoke HypoPen 2-Pack 1 mg/0.2 mL auto-injector 1 mg subcut ONCE Qty: 0.4 0RF Rx Instructions: as a single dose; may repeat once after 15 minutes if no response insulin degludec [Tresiba FlexTouch U-100] 100 unit/mL (3 mL) insulin pen 20 unit subcut DAILY aspirin 325 mg tablet 325 mg PO DAILY sulfamethoxazole-trimethoprim 800-160 mg tablet 1 tablet PO Q12H allopurinol 300 mg Tablet 300 mg PO DAILY hydrocodone-acetaminophen 10-325 mg tablet 1 tablet PO Q4-6H PRN (Reason: Pain (Scale Score 4-6)) famotidine 20 mg tablet 20 mg PO BID simvastatin 20 mg tablet 20 mg PO HS losartan 25 mg tablet 25 mg PO DAILY Qty: 90 2RF (DME) FreeStyle Mary 3 Plus Sensor Device See Rx Instructions .Route Qty: 6 3RF Rx Instructions: change sensor every 14 days Follow-up/Referrals: Fausto Chavez MD [Primary Care Provider, Family Practice] Time of Disposition: 21:59
[2025-08-22] MEDS: CEFEPIME 2 GM in SODIUM CHLORIDE 0.9% IV 50 ML 100 ML IVPB (22:23)
[2025-08-22] MEDS: metroNIDAZOLE 500 MG/ISO 100ML 500 MG/100 ML BAG 100 MG IVPB (22:24)
[2025-08-22] MEDS: VANCOMYCIN 1,250 MG/NS 250 ML 1,250 MG/250 ML BAG 166.67 MG IVPB (23:14)
--- NOTE | 2025-08-22 23:34 | ADMGEN ---
This patient, Channing Ruiz, was admitted to Medical Room 347-01. Patient/family oriented to hospital policies and general routines including ID bracelet, bed and alarms, visiting hours, pain management, procedures, bathroom and other care routines, personal items, smoking policy, room service/diet, and visiting hours. Information on how to activate the Rapid Response Team has been discussed. Patient/Family are encouraged to report perceived risks to care and to ask questions if they do not understand what they are told or what they should do.
[2025-08-23] VITALS (8 sets, daily range): BP systolic 90–127; BP diastolic 53–81; PULSE 72–107; RESP 16–20; TEMP 36.5–36.9; O2SAT 92–99
--- OUTSIDE RECORDS SUMMARY | 2025-08-23 02:30 | XMS_ITS | Clinical Summary ---
Author Organization [facility] Address [address] [facility] [place] [address] Phone Care Team Providers Care Linking Machine Operator Name Role Phone Jurgen Farias Primary Care Provider [phone] Allergies Active Allergy Reactions Criticality Noted Date [...] Sensor (FreeStyle Mary 14 Day Sensor) [facility] [place] USE TO CHECK [...] Tablet by mouth 2 times daily. Active [place]-3 Fatty Acids (OMEGA 3 PO) Take by [...] echocardiogram 05/17/2024 Coronary artery disease invo lving [place] coronary artery of [place] heart without angina pectoris 05/17/2024 Family History [...] this topic Medical Devices Implanted Type Area Tar Pot Man Device Identifier Shelf Expiration Date Model / Serial / Lot Device Clsr 6-7fr Mynxgrip Solid Waste Analyst Vasc Bln Cath Lock Syr Integrate Sealant 10ml Lf Disp - [id number] Implanted:Qty : 1 on 06/04/2024 by Hudson Gar MD at [facility] IMPLANT [employer] [id number] 05/05/2025 [id number] / / [id number] Insurance MEDICARE C [employer] Care Teams Linking Machine Operator Relationship Specialty Start Date End Date Jurgen Farias DO [address] [place] [address] PCP - General Primary Care 01/12/24
[2025-08-23] MEDS: metroNIDAZOLE 500 MG/ISO 100ML 500 MG/100 ML BAG 100 MG IVPB ×3 (05:13→20:41)
[2025-08-23 05:29] LABS: Estimated CRCL calculation 27 ml/min; Estimated Glomerular Filt Rate 26
[2025-08-23 06:28] LABS: Hematocrit 28.5 % (42.0-52.0); Hemoglobin 8.9 g/dL (14.0-18.0); Mean Corpuscular HGB Conc 31.2 g/dl (32-36); Mean Corpuscular Hemoglobin 33.0 pg (26-34); Mean Corpuscular Volume 105.6 fl (80-100); Platelet Count Result 147 k/mm3 (150-375); Red Blood Count 2.70 M/mm3 (4.6-6.20); White Blood Count 5.9 K/mm3 (4.5-10.0)
[2025-08-23 06:48] LABS: Anion Gap 7 mmol/L (4-12); Blood Urea Nitrogen 38 mg/dL (9-20); Calcium 8.8 mg/dL (8.4-10.2); Carbon Dioxide 24 mmol/L (22-30); Chloride 104 mmol/L (98-107); Estimated CRCL calculation 27 ml/min; Estimated Glomerular Filt Rate 26; Glucose 148 mg/dL (65-110); Potassium 3.5 mmol/L (3.4-5.0); Sodium 135 mmol/L (137-145)
[2025-08-23] MEDS: METOPROLOL TARTRATE 25 MG TABLET PO (08:36)
[2025-08-23] MEDS: FAMOTIDINE 20 MG TABLET PO ×2 (08:37→20:42)
[2025-08-23] MEDS: ASPIRIN 325 MG TABLET PO (08:37)
[2025-08-23] MEDS: LOSARTAN POTASSIUM 25 MG TABLET PO (08:37)
[2025-08-23] MEDS: BUMETANIDE 1 MG TABLET 2 MG PO (08:44)
--- NOTE | 2025-08-23 09:10 | PM.IMHP ---
H&P: HPI History of Present Illness Date/Time: 08/23/25 09:10 Chief Complaint: Foot wound Narrative: This 75-year-old male who presents to the ED with complaint of wound on the right foot for the past month. Patient has history of diabetes and renal insufficiency. About a month ago UE noticed some wound on right 2nd toe on his right foot. Who opened with no drainage is currently a started having redness in the foot. Denies any fever chills. In the ED she was hypotensive with blood pressure 77/52 which improved with IV fluids. Laboratory workup revealed WBC of 9.1 hemoglobin of 9.5 platelet count of 196. Sodium 134 potassium 3.9 chloride 100 bicarbonate 24 BUN 42 creatinine 2.55 blood glucose of 225 lactate was normal at 1.8 CRP 4.8 urinalysis was negative for UTI. EKG showed sinus rhythm with frequent PVCs. His baseline creatinine of high 1s to low 2s. X-ray foot with diffuse osteopenia. Postsurgical changes of the 1st toe through the mid 1st metatarsal with amputation. Soft tissue swelling of the 2nd toe is noted with erosive changes and lytic changes of the distal phalanx suggestive of osteomyelitis. Chest x-ray with no acute findings. Blood cultures were obtained. Patient was started on IV antibiotics and admitted for further treatment. Review of Systems Review of Systems: - CONSTITUTIONAL: Denies weight loss, fever and chills. - HEENT: Denies changes in vision and hearing - RESPIRATORY: Denies SOB and cough. - CV: Denies palpitations and CP. - GI: Denies abdominal pain, nausea, vomiting and diarrhea. - : Denies dysuria and urinary frequency. - MSK: Denies myalgia and joint pain. - SKIN: Denies rash and pruritus. - NEUROLOGICAL: Denies headache and syncope. - PSYCHIATRIC: Denies recent changes in mood. Denies anxiety and depression. [facility] Past Medical History Medical History Amputation of right great toe Diabetes Fracture collar bone Gout rt thumb, lt elbow Renal insufficiency GERD (gastroesophageal reflux disease) Bronchitis Hyperlipidemia CAD (coronary artery disease) Triple bypass CHF (congestive heart failure) Myocardial infarction Hypertension Rheumatoid arthritis Surgical History Surgical History History of total right knee replacement History of hip replacement On the right History of orthopedic surgery bilateral elbows and right hand History of coronary artery stent placement Multiple stents Hx of cardiac cath H/O vascular surgery Hx of cataract surgery Hx of CABG 3 vessel Family History Family History Father Family history of obesity Family history of alcoholism Patient's father is Acute myocardial infarction Mother Hypertension Patient's mother is Sibling Hypertension Sibling Alcoholism Social History Social History Social History: the patient is from his . He has 1 stepson. He is currently living with his baby sister. He used to drink heavily when he was younger but only occasionally drinks now. Code status full code Smoking status: Never smoker Alcohol intake: former Substance use: current Substance use type: marijuana Other substance usage details: USES GUMMIES Last use: 03/27/2020 Lack of Transportation: No Lack of Food: Never True Current Housing: I Have Housing Concerned About Future Housing: No Difficulty Paying Gas/Electric Bills: No Difficulty Paying for Meds: No Currently Unemployed: No Education: High School Diploma/GED Difficulty w/ Childcare or Family Care: No Gender identity (if verbalized by the patient): Male Spiritual care concerns: No Meds Home Medications and Allergies Home Medications ?Medication ?Instructions ?Recorded ?Confirmed ?Type allopurinol 300 mg tablet 300 mg PO DAILY 10/20/19 08/23/25 History famotidine 20 mg tablet 20 mg PO BID 10/20/19 08/23/25 History hydrocodone 10 mg-acetaminophen 1 tablet PO Q4-6H PRN Pain (Scale 10/20/19 08/23/25 History 325 mg tablet Score 4-6) simvastatin 20 mg tablet 20 mg PO HS 10/20/19 08/23/25 History bumetanide 2 mg tablet 2 mg PO DAILY 10/29/23 08/23/25 History [id number] 300 mcg-K 60 1 tablet PO DAILY 10/29/23 08/23/25 History mcg-lycop 600 mcg-lutein 300 mcg tablet (Centrum Silver Men) trazodone 100 mg tablet 100 mg PO QHS PRN sleep 10/29/23 08/23/25 History losartan 25 mg tablet 25 mg PO DAILY #90 tabs 11/25/23 08/23/25 Rx glucagon 1 mg/0.2 mL subcutaneous 1 mg (0.2 mL) subcut ONCE #0.4 mL 12/11/23 08/23/25 Rx auto-injector (Gvoke HypoPen 2-Pack) blood-glucose sensor (FreeStyle #6 ea 08/02/24 08/23/25 Rx Mary 3 Plus Sensor device) insulin degludec 100 unit/mL (3 20 unit subcut DAILY 03/24/25 08/23/25 History mL) subcutaneous pen (Tresiba FlexTouch U-100 insulin) aspirin 325 mg tablet 325 mg PO DAILY 06/16/25 08/23/25 History empagliflozin 10 mg tablet 10 mg PO DAILY 08/23/25 08/23/25 History (Jardiance) metoprolol tartrate 25 mg tablet 12.5 mg PO BID 08/23/25 08/23/25 History Allergies Allergy/AdvReac Type Severity Reaction Status Date / Time morphine Allergy Unknown Agitated Verified 08/22/25 23:45 naproxen Allergy Unknown Unconscious Verified 08/22/25 23:45 NSAIDS (Non-Steroidal AdvReac Unknown renal Verified 08/22/25 23:45 Anti-Inflamma insufficiency Vital Signs Vital Signs - 24 hr 08/22/25 17:17 08/22/25 17:29 08/22/25 17:29 Temperature 98.2 F Pulse Rate 97 94 76 Respiratory Rate 20 18 19 Blood Pressure 77/52 L 99/62 L 99/62 L Pulse Oximetry 100 96 Oxygen Delivery Room Air 08/22/25 17:31 08/22/25 17:46 08/22/25 17:48 Temperature 98.5 F Pulse Rate 97 92 90 Respiratory Rate 15 12 14 Blood Pressure 102/65 90/52 L 90/52 L Pulse Oximetry 97 Oxygen Delivery Room Air 08/22/25 17:55 08/22/25 17:55 08/22/25 17:58 Temperature Pulse Rate 83 82 85 Respiratory Rate 13 13 11 L Blood Pressure 61/47 L 61/47 L 95/63 L Pulse Oximetry 97 96 94 Oxygen Delivery 08/22/25 18:01 08/22/25 18:27 08/22/25 18:30 Temperature Pulse Rate 94 88 95 Respiratory Rate 14 16 25 H Blood Pressure 97/52 L Pulse Oximetry 97 93 Oxygen Delivery 08/22/25 18:31 08/22/25 19:36 08/22/25 19:45 Temperature Pulse Rate 93 87 86 Respiratory Rate 18 22 H 17 Blood Pressure 113/76 Pulse Oximetry 100 98 Oxygen Delivery 08/22/25 19:46 08/22/25 20:00 08/22/25 20:01 Temperature Pulse Rate 84 84 84 Respiratory Rate 13 15 15 Blood Pressure 97/54 L 94/70 L Pulse Oximetry 98 97 98 Oxygen Delivery 08/22/25 20:15 08/22/25 20:16 08/22/25 20:30 Temperature Pulse Rate 94 96 95 Respiratory Rate 25 H 22 H 25 H Blood Pressure 102/83 Pulse Oximetry 97 Oxygen Delivery 08/22/25 20:31 08/22/25 20:45 08/22/25 21:00 Temperature Pulse Rate 93 82 Respiratory Rate 22 H 28 H 19 Blood Pressure 108/71 Pulse Oximetry 95 97 97 Oxygen Delivery 08/22/25 21:01 08/22/25 21:15 08/22/25 21:16 Temperature Pulse Rate 87 96 95 Respiratory Rate 16 19 17 Blood Pressure 87/55 L 107/78 Pulse Oximetry 95 Oxygen Delivery 08/22/25 21:50 08/22/25 22:00 08/22/25 22:01 Temperature Pulse Rate 96 94 92 Respiratory Rate 22 H 15 16 Blood Pressure 100/67 Pulse Oximetry 96 97 Oxygen Delivery 08/22/25 22:15 08/22/25 22:16 08/22/25 22:30 Temperature Pulse Rate 88 89 94 Respiratory Rate 15 14 14 Blood Pressure 121/70 Pulse Oximetry 95 94 Oxygen Delivery 08/22/25 22:31 08/22/25 22:45 08/22/25 23:47 Temperature Pulse Rate 86 89 90 Respiratory Rate 13 16 18 Blood Pressure 108/67 118/74 Pulse Oximetry 100 Oxygen Delivery 08/22/25 23:54 08/23/25 00:24 08/23/25 06:00 Temperature 98.1 F 98.0 F Pulse Rate 107 H 79 Respiratory Rate 20 18 Blood Pressure 127/63 96/53 L Pulse Oximetry 99 94 Oxygen Delivery Room Air 08/23/25 08:36 Temperature Pulse Rate 72 Respiratory Rate Blood Pressure Pulse Oximetry Oxygen Delivery Exam Narrative: GENERAL: Well-appearing, well-nourished, and in no acute distress. HEAD: Normocephalic, atraumatic. EYES: PERRLA and EOMI. ENT: Nares clear, no rhinorrhea or epistaxis. Mucous membranes moist. NECK: Supple. CHEST: Clear to auscultation. No respiratory distress. HEART: Regular rate and rhythm. No murmur heard. Normal peripheral pulses. ABDOMEN: Soft, nontender, nondistended, normal active bowel sounds. EXTREMITIES: Normal range of motion. No edema. there is redness present the dorsum of the right 2nd toe on the right foot shows an ulceration present there is some necrotic tissue but no purulent drainage. There is redness present to the right ankle, right lateral malleolus with ulcer without any drainage noted as well. SKIN: Warm, dry, no rash. NEURO: No focal deficits. Alert and oriented x3. PSYCH: Normal mood and affect. H&P: Results Labs Labs: Short CBC 08/22/25 08/23/25 Range/Units 17:57 06:24 WBC 9.1 5.9 (4.5-10.0) K/mm3 Hgb 9.5 L 8.9 L (14.0-18.0) g/dL Hct 30.7 L 28.5 L (42.0-52.0) % Plt Count 196 147 L (150-375) k/mm3 BMP 08/22/25 08/23/25 08/23/25 17:57 04:56 06:24 Sodium 134 L 135 L Potassium 3.9 3.5 Chloride 100 104 Carbon Dioxide 24 24 BUN 42 H 38 H Creatinine 2.55 H 2.44 H 2.45 H Glucose 225 H 148 H Calcium 9.1 8.8 Liver Function 08/22/25 Range/Units 17:57 Total Bilirubin 0.6 (0.2-1.3) mg/dL AST 24 (17-59) U/L ALT 15 (6-50) U/L Alkaline Phosphatase 108 (38-126) U/L Albumin 3.7 (3.5-5.1) g/dL Urine 08/22/25 Range/Units 20:07 Urine Color Yellow (Yellow) Urine Appearance Clear (Clear) Urine pH 5.0 (5.0-9.0) Ur Specific [place] 1.013 (1.001-1.035) Urine Protein Negative (Negative) mg/dL Urine Glucose (UA) 3+ H (Negative) mg/dL Assessment and Plan Assessment and plan (1) Hypertension: Code(s): I10 - Essential (primary) hypertension Status: Chronic (2) CHF (congestive heart failure): Qualifiers: Heart failure chronicity: unspecified Heart failure type: unspecified Qualified Code(s): I50.9 - Heart failure, unspecified Code(s): I50.9 - Heart failure, unspecified Status: Chronic (3) CAD (coronary artery disease), autologous vein bypass graft: Code(s): I25.810 - Atherosclerosis of coronary artery bypass graft(s) without angina pectoris Status: Acute (4) Atrial fibrillation: Code(s): I48.91 - Unspecified atrial fibrillation Status: Acute (5) Hyperlipemia: Code(s): E78.5 - Hyperlipidemia, unspecified Status: Acute (6) Hyperlipidemia: Code(s): E78.5 - Hyperlipidemia, unspecified Status: Chronic (7) Diabetes: Code(s): E11.9 - Type 2 diabetes mellitus without complications Status: Chronic (8) GERD (gastroesophageal reflux disease): Code(s): K21.9 - Gastro-esophageal reflux disease without esophagitis Status: Acute (9) Stage 3b chronic kidney disease: Code(s): N18.32 - Chronic kidney disease, stage 3b Status: Chronic (10) Acute osteomyelitis of toe: Qualifiers: Laterality: right Qualified Code(s): M86.171 - Other acute osteomyelitis, right ankle and foot Code(s): M86.179 - Other acute osteomyelitis, unspecified ankle and foot Status: Acute Plan This 75-year-old male who presents to the ED with complaint of wound on the right foot for the past month. Patient has history of diabetes and renal insufficiency. About a month ago UE noticed some wound on right 2nd toe on his right foot. Who opened with no drainage is currently a started having redness in the foot. Denies any fever chills. In the ED she was hypotensive with blood pressure 77/52 which improved with IV fluids. Laboratory workup revealed WBC of 9.1 hemoglobin of 9.5 platelet count of 196. Sodium 134 potassium 3.9 chloride 100 bicarbonate 24 BUN 42 creatinine 2.55 blood glucose of 225 lactate was normal at 1.8 CRP 4.8 urinalysis was negative for UTI. EKG showed sinus rhythm with frequent PVCs. His baseline creatinine of high 1s to low 2s. X-ray foot with diffuse osteopenia. Postsurgical changes of the 1st toe through the mid 1st metatarsal with amputation. Soft tissue swelling of the 2nd toe is noted with erosive changes and lytic changes of the distal phalanx suggestive of osteomyelitis. Chest x-ray with no acute findings. Blood cultures were obtained. Patient was started on IV antibiotics and admitted for further treatment. Diabetic foot ulcer with right 2nd toe osteomyelitis. IV vancomycin cefepime and metronidazole started which will be continued. Orthopedics has been consulted. MRI ordered and is pending CKD stage IIIB to 4. Baseline creatinine high 1s to low 2s. Creatinine currently at 2.5. Continue to monitor Hypotension mild improved with IV fluids hold blood pressure medication. Congestive heart failure chronic diastolic/systolic 05/30 EF 35-40% grade 1 diastolic dysfunction Atrial fibrillation rate controlled on metoprolol which will be continued. Not on anticoagulation due to history of GI bleed Hypertension hold blood pressure medication Hyperlipidemia continue simvastatin Coronary artery disease status post CABG and stents History of amputation of right great toe Peripheral vascular disease Type 2 diabetes on insulin adjust doses as needed Hyperuricemia/gout allopurinol be continued. DVT prophylaxis heparin subQ Code status full code Hospitalist [facility] Advance Care Plan I have confirmed that the patient's Advanced Care Plan is present, code status is documented, or surrogate decision maker is listed in patient medical record.: Yes Medication Reconciliation I have utilized all available resources to obtain, update and review the patients current medications (includes all prescriptions, OTC, herbals, cannabis, and nutritional supplements).: Yes
[2025-08-23] MEDS: HYDROcodone/acetaminophen (*CRX) 10-325 MG TABLET 1 TAB PO (09:19)
[2025-08-23] MEDS: INSULIN ASPART (*BKC) 100 UNITS/ML SUB-Q (17:45)
[2025-08-23] MEDS: CEFEPIME 1 GM in SODIUM CHLORIDE 0.9% IV 50 ML 100 ML IVPB (20:40)
[2025-08-23] MEDS: SIMVASTATIN 20 MG TABLET PO (20:42)
[2025-08-23] MEDS: ACETAMINOPHEN 325 MG TABLET 650 MG PO (20:42)
[2025-08-23] MEDS: METOPROLOL TARTRATE 12.5 MG TABLET PO (20:42)
[2025-08-24] VITALS (8 sets, daily range): BP systolic 80–113; BP diastolic 50–84; PULSE 85–89; RESP 16–18; TEMP 36.4–36.7; O2SAT 91–98
[2025-08-24] MEDS: VANCOMYCIN 1,250 MG/NS 250 ML 1,250 MG/250 ML BAG 166.67 MG IVPB (00:10)
[2025-08-24 05:53] LABS: Hematocrit 26.5 % (42.0-52.0); Hemoglobin 8.3 g/dL (14.0-18.0); Mean Corpuscular HGB Conc 31.3 g/dl (32-36); Mean Corpuscular Hemoglobin 32.7 pg (26-34); Mean Corpuscular Volume 104.3 fl (80-100); Platelet Count Result 160 k/mm3 (150-375); Red Blood Count 2.54 M/mm3 (4.6-6.20); White Blood Count 5.2 K/mm3 (4.5-10.0)
[2025-08-24 06:11] LABS: Anion Gap 7 mmol/L (4-12); Blood Urea Nitrogen 38 mg/dL (9-20); Calcium 8.7 mg/dL (8.4-10.2); Carbon Dioxide 24 mmol/L (22-30); Chloride 104 mmol/L (98-107); Estimated CRCL calculation 31 ml/min; Estimated Glomerular Filt Rate 31; Glucose 184 mg/dL (65-110); Magnesium 2.2 mg/dL (1.6-2.3); Potassium 3.4 mmol/L (3.4-5.0); Sodium 135 mmol/L (137-145)
[2025-08-24] MEDS: metroNIDAZOLE 500 MG/ISO 100ML 500 MG/100 ML BAG 100 MG IVPB ×3 (06:14→20:50)
[2025-08-24] MEDS: METOPROLOL TARTRATE 12.5 MG TABLET PO ×2 (08:37→20:19)
[2025-08-24] MEDS: EMPAGLIFLOZIN 10 MG TABLET PO (08:37)
[2025-08-24] MEDS: FAMOTIDINE 20 MG TABLET PO ×2 (08:38→20:19)
[2025-08-24] MEDS: ASPIRIN 325 MG TABLET PO (08:38)
[2025-08-24] MEDS: HYDROcodone/acetaminophen (*CRX) 10-325 MG TABLET 1 TAB PO ×2 (08:48→20:18)
[2025-08-24] MEDS: INSULIN ASPART (*BKC) 100 UNITS/ML SUB-Q ×2 (12:08→17:39)
--- NOTE | 2025-08-24 13:10 | PM.CNOR ---
Assessment and Plan Assessment and plan (1) Acute osteomyelitis of toe: Qualifiers: Laterality: right Qualified Code(s): M86.171 - Other acute osteomyelitis, right ankle and foot Code(s): M86.179 - Other acute osteomyelitis, unspecified ankle and foot Status: Acute Plan The patient is a 75-year-old man with a long history of insulin-dependent diabetes mellitus with a history of right foot great toe amputation as a result of a diabetic foot ulcer a few years ago. He now presents with a second toe diabetic foot ulcer over the dorsum of the second toe with x-ray findings suggestive of osteolytic activity which is indicative of osteomyelitis of the distal phalanx of the second toe. The patient lives at home so many independently. He lives with his sister and they help care for each other. He noted that this ulcer started about two weeks or so and it's progressively gotten worse. He presented to the emergency department with this osteomyelitis of the second toe right foot I would recommend an MRI of the right foot to determine the extent of involvement of the metatarsals, as well as the interphalangeal joint and the phalanges of the second toe to determine the level of amputation. I would recommend removal of the toe just at what level would be determined primarily by the results of the MRI History of Present Illness HPI Consult date: 08/24/25 Chief complaint: Diabetic ulcer to right 2nd toe with osteomyelitis Narrative: The patient is a 75-year-old man with a long history of insulin-dependent diabetes mellitus with a history of right foot great toe amputation as a result of a diabetic foot ulcer a few years ago. He now presents with a second toe diabetic foot ulcer over the dorsum of the second toe with x-ray findings suggestive of osteolytic activity which is indicative of osteomyelitis of the distal phalanx of the second toe. The patient lives at home so many independently. He lives with his sister and they help care for each other. He noted that this ulcer started about two weeks or so and it's progressively gotten worse. He presented to the emergency department with this osteomyelitis of the second toe right foot PMFSH Past Medical History Medical History Amputation of right great toe Diabetes Fracture collar bone Gout rt thumb, lt elbow Renal insufficiency GERD (gastroesophageal reflux disease) Bronchitis Hyperlipidemia CAD (coronary artery disease) Triple bypass CHF (congestive heart failure) Myocardial infarction Hypertension Rheumatoid arthritis Surgical History Surgical History History of total right knee replacement History of hip replacement On the right History of orthopedic surgery bilateral elbows and right hand History of coronary artery stent placement Multiple stents Hx of cardiac cath H/O vascular surgery Hx of cataract surgery Hx of CABG 3 vessel Family History Family History Father Family history of obesity Family history of alcoholism Patient's father is Acute myocardial infarction Mother Hypertension Patient's mother is Sibling Hypertension Sibling Alcoholism Social History Social History Social History: the patient is from his . He has 1 stepson. He is currently living with his baby sister. He used to drink heavily when he was younger but only occasionally drinks now. Code status full code Smoking status: Never smoker Alcohol intake: former Substance use: current Substance use type: marijuana Other substance usage details: USES GUMMIES Last use: 03/27/2020 Lack of Transportation: No Lack of Food: Never True Current Housing: I Have Housing Concerned About Future Housing: No Difficulty Paying Gas/Electric Bills: No Difficulty Paying for Meds: No Currently Unemployed: No Education: High School Diploma/GED Difficulty w/ Childcare or Family Care: No Gender identity (if verbalized by the patient): Male Spiritual care concerns: No Meds Home Medications and Allergies Home Medications ?Medication ?Instructions ?Recorded ?Confirmed ?Type allopurinol 300 mg tablet 300 mg PO DAILY 10/20/19 08/23/25 History famotidine 20 mg tablet 20 mg PO BID 10/20/19 08/23/25 History hydrocodone 10 mg-acetaminophen 1 tablet PO Q4-6H PRN Pain (Scale 10/20/19 08/23/25 History 325 mg tablet Score 4-6) simvastatin 20 mg tablet 20 mg PO HS 10/20/19 08/23/25 History bumetanide 2 mg tablet 2 mg PO DAILY 10/29/23 08/23/25 History [id number] 300 mcg-K 60 1 tablet PO DAILY 10/29/23 08/23/25 History mcg-lycop 600 mcg-lutein 300 mcg tablet (Centrum Silver Men) trazodone 100 mg tablet 100 mg PO QHS PRN sleep 10/29/23 08/23/25 History losartan 25 mg tablet 25 mg PO DAILY #90 tabs 11/25/23 08/23/25 Rx glucagon 1 mg/0.2 mL subcutaneous 1 mg (0.2 mL) subcut ONCE #0.4 mL 12/11/23 08/23/25 Rx auto-injector (Gvoke HypoPen 2-Pack) blood-glucose sensor (FreeStyle #6 ea 08/02/24 08/23/25 Rx Mary 3 Plus Sensor device) insulin degludec 100 unit/mL (3 20 unit subcut DAILY 03/24/25 08/23/25 History mL) subcutaneous pen (Tresiba FlexTouch U-100 insulin) aspirin 325 mg tablet 325 mg PO DAILY 06/16/25 08/23/25 History empagliflozin 10 mg tablet 10 mg PO DAILY 08/23/25 08/23/25 History (Jardiance) metoprolol tartrate 25 mg tablet 12.5 mg PO BID 08/23/25 08/23/25 History Allergies Allergy/AdvReac Type Severity Reaction Status Date / Time morphine Allergy Unknown Agitated Verified 08/22/25 23:45 naproxen Allergy Unknown Unconscious Verified 08/22/25 23:45 NSAIDS (Non-Steroidal AdvReac Unknown renal Verified 08/22/25 23:45 Anti-Inflamma insufficiency Vital Signs Vital Signs - 24 hr 08/23/25 13:48 08/23/25 20:00 08/23/25 22:00 Temperature 36.5 C 36.9 C Pulse Rate 85 81 Respiratory Rate 16 18 Blood Pressure 100/73 90/55 L Pulse Oximetry 99 99 Oxygen Delivery Room Air 08/23/25 22:49 08/24/25 06:00 08/24/25 08:37 Temperature 36.7 C Pulse Rate 88 88 Respiratory Rate 16 Blood Pressure 113/53 L Pulse Oximetry 99 91 Oxygen Delivery Room Air 08/24/25 08:37 Temperature Pulse Rate Respiratory Rate Blood Pressure Pulse Oximetry Oxygen Delivery Room Air Exam Narrative: On exam of the patient's right foot he is missing his great toe. His second toe has a dorsal draining ulcer that appears to be somewhat necrotic but only is limited to the second toe and does not seem to extend proximally over the metatarsophalangeal joint Const: General: cooperative, comfortable, well developed, alert and awake Nutritional Appearance: average body habitus Orientation/consciousness: oriented to person, oriented to place and oriented to time Results Labs 08/24/25 05:45 08/24/25 05:45 Labs: Abnormal lab results 08/23/25 08/24/25 08/24/25 Range/Units 16:51 05:45 07:52 RBC 2.54 L (4.6-6.20) M/mm3 Hgb 8.3 L (14.0-18.0) g/dL Hct 26.5 L (42.0-52.0) % MCV 104.3 H (80-100) fl MCHC 31.3 L (32-36) g/dl MPV 10.9 H (7.4-10.4) fl Sodium 135 L (137-145) mmol/L BUN 38 H (9-20) mg/dL Creatinine 2.09 H (0.7-1.3) mg/dL Estimated GFR 31 L (59 - ) Glucose 184 H (65-110) mg/dL POC Capillary Glucose 207 H 181 H (65-105) mg/dl 08/24/25 Range/Units 11:43 RBC (4.6-6.20) M/mm3 Hgb (14.0-18.0) g/dL Hct (42.0-52.0) % MCV (80-100) fl MCHC (32-36) g/dl MPV (7.4-10.4) fl Sodium (137-145) mmol/L BUN (9-20) mg/dL Creatinine (0.7-1.3) mg/dL Estimated GFR (59 - ) Glucose (65-110) mg/dL POC Capillary Glucose 213 H (65-105) mg/dl H & H 08/22/25 08/23/25 08/24/25 Range/Units 17:57 06:24 05:45 Hgb 9.5 L 8.9 L 8.3 L (14.0-18.0) g/dL Hct 30.7 L 28.5 L 26.5 L (42.0-52.0) % Coagulation 08/22/25 Range/Units 17:57 INR 1.1 All other labs normal.
--- NOTE | 2025-08-24 18:58 | PM.IMPN ---
Progress Note: A&P Assessment and Plan (1) Acute osteomyelitis of toe: Qualifiers: Laterality: right Qualified Code(s): M86.171 - Other acute osteomyelitis, right ankle and foot Code(s): M86.179 - Other acute osteomyelitis, unspecified ankle and foot Status: Acute Assessment and Plan: Patient presents with right 2nd toe wound. Xray concerning for osteomyelitis. Cultures obtained IV vancomycin cefepime and metronidazole started which will be continued. Orthopedics has been consulted. MRI ordered and is pending Continue IV abx. Check LE doppler. (2) Hypertension: Code(s): I10 - Essential (primary) hypertension Status: Chronic Assessment and Plan: Patient with Hypotension on admission that improved with IV fluids Losartan held but BP remianed low so now Bumex on hold. With the ENRRIQUE, suspect he is over-diuresed. Continue to hold losartan and Bumex. Will also hold empalifozin and give 1/2L IV fluids. 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 Baseline creatinine high 1s to low 2s. Creatinine 2.5 on admission. Suspect related to over-diuresis and less likely from sepsis. With IVF, Cr trended down to 2.09 now. Follow. Give 1/2L since still with soft BP. (4) CHF (congestive heart failure): Qualifiers: Heart failure chronicity: unspecified Heart failure type: unspecified Qualified Code(s): I50.9 - Heart failure, unspecified Code(s): I50.9 - Heart failure, unspecified Status: Chronic Assessment and Plan: Patieint with chronic s/d CHF. Echo 05/30 EF 35-40% grade 1 diastolic dysfunction. Appears euvolemic. Suspect RLE edema related to infectious process. Monitor closely off diuretics. (5) Atrial fibrillation: Code(s): I48.91 - Unspecified atrial fibrillation Status: Acute Assessment and Plan: Patietn with pAFib. EKG on admission showing normal sinus. Conitinue metoprolol as long as BP can tolerate. Not on anticoagulation due to history of GI bleed (6) Diabetes: Code(s): E11.9 - Type 2 diabetes mellitus without complications Status: Chronic Assessment and Plan: The patient's blood glucose was reviewed on 08/24 Glucose poorly controlled Continue AccuCheks covering with sliding scale. Hypoglycemia protocol available as needed. Add lantus low dose. (7) CAD (coronary artery disease), autologous vein bypass graft: Code(s): I25.810 - Atherosclerosis of coronary artery bypass graft(s) without angina pectoris Status: Acute Assessment and Plan: Stable. No CP. Continue ASA, Zocor and Metoprolol Plan Anemia - noted. Check iron studies, B12/folate DVT prophylaxis heparin subQ Code status full code Subjective Date/time seen: 08/24/25 18:58 Interval history: 75yo male with CAD, CHF, HTN, DM and RA who presents to the ED with complaint of wound on the right foot for the past month. Assuming care. Chart reviewed. No CP or SOB. Having episodes of low BP but patient without symptoms. Has LE peripheral neuropathy. He did witness pus draining from right toe wound Exam Narrative: AF 97.6 100/62 85 16 98% ra Gen - NARD Chest - CTA bilaterally CV - RRR S1/S2 Abd - soft, NT/ND Ext - right LE trace edema. Right great toe amp. Right 2nd toe dressing clean and dry Neuro - alert, appropriate Psych - nml mood and affect Skin - warm and dry. no significant erythema to the right foot Objective Data Vital Signs Vital Signs: Vital Signs - 24 hr 08/23/25 20:00 08/23/25 22:00 08/23/25 22:49 Temperature 98.4 F Pulse Rate 81 Respiratory Rate 18 Blood Pressure 90/55 L Pulse Oximetry 99 99 Oxygen Delivery Room Air Room Air 08/24/25 06:00 08/24/25 08:37 08/24/25 08:37 Temperature 98.1 F Pulse Rate 88 88 Respiratory Rate 16 Blood Pressure 113/53 L Pulse Oximetry 91 Oxygen Delivery Room Air 08/24/25 14:00 08/24/25 14:46 08/24/25 18:43 Temperature 97.6 F Pulse Rate 85 Respiratory Rate 16 Blood Pressure 80/50 L 88/58 L 100/62 Pulse Oximetry 98 Oxygen Delivery Intake/Output Intake/Output: Intake & Output 08/21/25 08/22/25 08/23/25 08/24/25 23:59 23:59 23:59 23:59 Intake Total 150 1340 1270 Output Total 1250 800 Balance 150 90 470 Meds/Results Medications: Active Medications Generic Name Dose Route Start Last Admin Trade Name Freq PRN Reason Stop Dose Admin Acetaminophen 650 mg 08/22/25 22:11 08/23/25 20:42 Acetaminophen 325 Mg Tablet PO 650 mg Q4H PRN Administration Mild Pain (1-3) or Fever Hydrocodone Bitart/Acetaminophen 1 tab 08/23/25 11:06 08/24/25 08:48 Hydrocodone/Acetaminophen (*Crx) 10-325 Mg Tablet PO 1 tab Q4HR PRN Administration pain 7-10 Hydrocodone Bitart/Acetaminophen 1 tab 08/23/25 11:05 Hydrocodone/Acetaminophen (*Crx) 5-325 Mg Tablet PO Q4H PRN Pain Rated 4-6 Allopurinol 300 mg 08/23/25 08:00 08/24/25 08:38 Allopurinol 300 Mg Tablet PO 300 mg DAILY@0800 MARVIN Administration Aspirin 325 mg 08/23/25 08:00 08/24/25 08:38 Aspirin 325 Mg Tablet PO 325 mg DAILY@0800 MARVIN Administration Bumetanide 2 mg 08/23/25 09:00 08/23/25 08:44 Bumetanide 1 Mg Tablet PO 2 mg On Hold: 08/23/25 09:16 DAILY MARVIN Administration Dextrose 12.5 gm 08/23/25 05:36 Dextrose 50% 25 Gm/50 Ml Syringe IV PUSH PRN PRN Hypoglycemia Protocol Empagliflozin 10 mg 08/24/25 09:00 08/24/25 08:37 Empagliflozin 10 Mg Tablet PO 10 mg DAILY MARVIN Administration Famotidine 20 mg 08/23/25 09:00 08/24/25 08:38 Famotidine 20 Mg Tablet PO 20 mg Q12HR MARVIN Administration Glucagon 1 mg 08/23/25 05:36 Glucagon For Inj 1 Mg Vial IM PRN PRN Hypoglycemia Protocol Glucose 15 gm 08/23/25 05:36 Glucose Oral Gel 15 Gm Of Glucse In 37.5 Gm Tube PO PRN PRN Hypoglycemia Protocol Heparin Sodium (Porcine) 5,000 units 08/23/25 21:00 08/24/25 08:38 Heparin Sodium 5,000 Units/Ml Vial SUB-Q 5,000 units Q12HR MARVIN Administration Cefepime HCl 1 gm/ Sodium 50 mls @ 100 mls/hr 08/23/25 22:00 08/23/25 20:40 Chloride IVPB 100 mls/hr Q24H MARVIN Administration Metronidazole 500 mg in 100 mls @ 100 mls/hr 08/23/25 06:00 08/24/25 15:02 Flagyl 500 Mg/Iso Soln 100 Ml IVPB Infused Q8HR MARVIN Infusion Dextrose 1,000 mls @ 100 mls/hr 08/23/25 05:36 Dextrose 5% 1,000 Ml IVPB PRN PRN Hypoglycemia Protocol Insulin Aspart 2 - 5 units 08/23/25 08:00 08/24/25 17:39 Insulin Aspart (*Bkc) 100 Units/Ml SUB-Q 3 units TIDWM MARVIN Administration Protocol Metoprolol Tartrate 12.5 mg 08/23/25 21:00 08/24/25 08:37 Metoprolol Tartrate 12.5 Mg Tablet PO 12.5 mg Q12HR MARVIN Administration Ondansetron HCl 4 mg 08/22/25 22:11 Ondansetron Inj 4 Mg/2 Ml Vial IV PUSH Q4H PRN Nausea Simvastatin 20 mg 08/23/25 21:00 08/23/25 20:42 Simvastatin 20 Mg Tablet PO 20 mg HS MARVIN Administration Trazodone HCl 100 mg 08/23/25 05:34 08/23/25 20:42 Trazodone Hcl 50 Mg Tablet PO 100 mg QHS PRN Administration Sleep Vancomycin HCl 1 each 08/22/25 21:45 Vancomycin For Acute Kidney Injury IVPB PRN PRN Vancomycin Protocol Radiology Results: ITS Impressions Chest X-Ray 08/22/25 18:05 IMPRESSION: 1. No acute pulmonary findings. Atherosclerotic aorta and postsurgical changes of coronary bypass. Foot X-Ray 08/22/25 21:52 IMPRESSION: 1. Diffuse osteopenia. Postsurgical changes of first toe through the mid first metatarsal with amputation. 2. Soft tissue swelling of the second toe is noted with erosive changes and lytic changes of the distal phalanx are noted. Findings are suggestive of osteomyelitis. Further evaluation with three-phase nuclear bone scan or MRI is suggested. Labs Labs: Laboratory Results - last 24 hr 08/23/25 08/24/25 08/24/25 21:55 05:45 07:52 WBC 5.2 RBC 2.54 L Hgb 8.3 L Hct 26.5 L MCV 104.3 H MCH 32.7 MCHC 31.3 L RDW 14.5 Plt Count 160 MPV 10.9 H Sodium 135 L Potassium 3.4 Chloride 104 Carbon Dioxide 24 Anion Gap 7 BUN 38 H Creatinine 2.09 H Estim Creat Clear Calc 31 Estimated GFR 31 L Glucose 184 H POC Capillary Glucose 181 H Lactic Acid 0.8 Calcium 8.7 Magnesium 2.2 Random Vancomycin 10.1 08/24/25 08/24/25 11:43 16:40 WBC RBC Hgb Hct MCV MCH MCHC RDW Plt Count MPV Sodium Potassium Chloride Carbon Dioxide Anion Gap BUN Creatinine Estim Creat Clear Calc Estimated GFR Glucose POC Capillary Glucose 213 H 269 H Lactic Acid Calcium Magnesium Random Vancomycin
[2025-08-24] MEDS: SODIUM CHLORIDE 0.9% IV 500 ML 100 ML IV CONT (19:52)
[2025-08-24] MEDS: SIMVASTATIN 20 MG TABLET PO (20:19)
[2025-08-24] MEDS: CEFEPIME 1 GM in SODIUM CHLORIDE 0.9% IV 50 ML 100 ML IVPB (20:50)
[2025-08-24] MEDS: INSULIN GLARGINE (*BKC) 100 UNITS/ML 6 UNITS SUB-Q (20:51)
[2025-08-25] MEDS: VANCOMYCIN 1,250 MG/NS 250 ML 1,250 MG/250 ML BAG 166.67 MG IVPB (01:32)
[2025-08-25] MEDS: HYDROcodone/acetaminophen (*CRX) 10-325 MG TABLET 1 TAB PO ×3 (02:05→20:26)
[2025-08-25] MEDS: metroNIDAZOLE 500 MG/ISO 100ML 500 MG/100 ML BAG 100 MG IVPB ×3 (05:12→21:13)
[2025-08-25 05:56] VITALS: BP 95/62; PULSE 74; RESP 18; TEMP 36.4; O2SAT 95
[2025-08-25 06:17] LABS: Hematocrit 26.6 % (42.0-52.0); Hemoglobin 8.4 g/dL (14.0-18.0); Mean Corpuscular HGB Conc 31.6 g/dl (32-36); Mean Corpuscular Hemoglobin 33.3 pg (26-34); Mean Corpuscular Volume 105.6 fl (80-100); Platelet Count Result 163 k/mm3 (150-375); Red Blood Count 2.52 M/mm3 (4.6-6.20); White Blood Count 4.5 K/mm3 (4.5-10.0)
[2025-08-25 06:32] LABS: Anion Gap 4 mmol/L (4-12); Blood Urea Nitrogen 33 mg/dL (9-20); Calcium 8.4 mg/dL (8.4-10.2); Carbon Dioxide 25 mmol/L (22-30); Chloride 108 mmol/L (98-107); Estimated CRCL calculation 38 ml/min; Estimated Glomerular Filt Rate 40; Glucose 121 mg/dL (65-110); Potassium 3.7 mmol/L (3.4-5.0); Sodium 137 mmol/L (137-145)
[2025-08-25 06:37] LABS: Iron 46 ug/dL (49-181)
[2025-08-25 06:46] LABS: Percent Iron Saturation 25 % (20-50)
[2025-08-25 07:13] LABS: Ferritin 99.40 ng/mL (11.1-264)
[2025-08-25 07:35] LABS: Vitamin B12 870.0 pg/mL (239-931)
[2025-08-25] MEDS: ASPIRIN 325 MG TABLET PO (08:20)
[2025-08-25 08:21] VITALS: PULSE 64
[2025-08-25] MEDS: METOPROLOL TARTRATE 12.5 MG TABLET PO ×2 (08:21→20:26)
[2025-08-25] MEDS: FAMOTIDINE 20 MG TABLET PO ×2 (08:22→20:25)
[2025-08-25] MEDS: CEFEPIME 1 GM in SODIUM CHLORIDE 0.9% IV 50 ML 100 ML IVPB ×2 (08:24→20:26)
[2025-08-25 14:00] VITALS: BP 99/57; PULSE 63; RESP 16; TEMP 36.5; O2SAT 97
--- NOTE | 2025-08-25 17:28 | PM.IMPN ---
Progress Note: A&P Assessment and Plan (1) Acute osteomyelitis of toe: Qualifiers: Laterality: right Qualified Code(s): M86.171 - Other acute osteomyelitis, right ankle and foot Code(s): M86.179 - Other acute osteomyelitis, unspecified ankle and foot Status: Acute Assessment and Plan: Patient presents with right 2nd toe wound. Xray concerning for osteomyelitis. BCx NGTD. IV vancomycin, cefepime and metronidazole started which will be continued. Orthopedics has been consulted. MRI ordered and is pending (waiting for information to see if his stents are MRI-compatible) LE venous doppler negative for DVT Continue IV abx. (2) Hypertension: Code(s): I10 - Essential (primary) hypertension Status: Chronic Assessment and Plan: Patient with hypotension on admission that improved with IV fluids Losartan held but BP remained low so now Bumex and empagliflozin on hold. With the ENRRIQUE, suspect he is over-diuresed. Continue to hold losartan, empagliflozin and Bumex. Cr better. BP still soft but better. He remains asymptomatic. Allow him to rehydrate orally. 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 Baseline creatinine high 1s to low 2s. Creatinine 2.5 on admission. Suspect related to over-diuresis and less likely from sepsis. With IVF, Cr trended down to 1.7 Follow. (4) CHF (congestive heart failure): Qualifiers: Heart failure chronicity: unspecified Heart failure type: unspecified Qualified Code(s): I50.9 - Heart failure, unspecified Code(s): I50.9 - Heart failure, unspecified Status: Chronic Assessment and Plan: Patieint with chronic s/d CHF. Echo 05/30 EF 35-40% grade 1 diastolic dysfunction. Appears euvolemic. Suspect RLE edema related to infectious process. Monitor closely off diuretics. (5) Atrial fibrillation: Code(s): I48.91 - Unspecified atrial fibrillation Status: Acute Assessment and Plan: Patietn with pAFib. EKG on admission showing normal sinus. Conitinue metoprolol as long as BP can tolerate. Not on anticoagulation due to history of GI bleed (6) Diabetes: Code(s): E11.9 - Type 2 diabetes mellitus without complications Status: Chronic Assessment and Plan: The patient's blood glucose was reviewed on 08/25 Lantus added and Glucose better controlled Continue AccuCheks covering with sliding scale. Hypoglycemia protocol available as needed. (7) CAD (coronary artery disease), autologous vein bypass graft: Code(s): I25.810 - Atherosclerosis of coronary artery bypass graft(s) without angina pectoris Status: Acute Assessment and Plan: Stable. No CP. Continue ASA, Zocor and Metoprolol Plan Anemia - Iron studies, B12/folate noted c/w anemia of chronic disease. Follow DVT prophylaxis heparin subQ Code status full code Subjective Date/time seen: 08/25/25 17:28 Interval history: 75yo male with CAD, CHF, HTN, DM and RA who presents to the ED with complaint of wound on the right foot for the past month. No CP or SOB. No n/v Exam Narrative: AF 97.7 99/57 63 16 97% ra Gen - NARD Chest - CTA bilaterally CV - RRR S1/S2 Abd - soft, NT/ND Ext - right LE trace edema that is improved. Right great toe amp. Right 2nd toe dressing clean and dry Neuro - alert, appropriate Psych - nml mood and affect Skin - warm and dry. quarter sized dried shallow ulcer overlying the right lateral malleolus Objective Data Vital Signs Vital Signs: Vital Signs - 24 hr 08/24/25 18:43 08/24/25 20:19 08/24/25 20:40 Temperature 97.8 F Pulse Rate 85 89 Respiratory Rate 18 Blood Pressure 100/62 102/84 Pulse Oximetry 94 Oxygen Delivery 08/24/25 21:31 08/25/25 05:56 08/25/25 08:21 Temperature 97.6 F Pulse Rate 74 64 Respiratory Rate 18 Blood Pressure 95/62 L Pulse Oximetry 94 95 Oxygen Delivery Autopap 08/25/25 08:33 08/25/25 14:00 Temperature 97.7 F Pulse Rate 63 Respiratory Rate 16 Blood Pressure 99/57 L Pulse Oximetry 97 Oxygen Delivery Room Air Intake/Output Intake/Output: Intake & Output 08/22/25 08/23/25 08/24/25 08/25/25 23:59 23:59 23:59 23:59 Intake Total 150 1390 1670 1802 Output Total 1250 1400 650 Balance 150 042 574 5914 Meds/Results Medications: Active Medications Generic Name Dose Route Start Last Admin Trade Name Freq PRN Reason Stop Dose Admin Acetaminophen 650 mg 08/22/25 22:11 08/23/25 20:42 Acetaminophen 325 Mg Tablet PO 650 mg Q4H PRN Administration Mild Pain (1-5) Or Fever Hydrocodone Bitart/Acetaminophen 1 tab 08/23/25 11:06 08/25/25 08:29 Hydrocodone/Acetaminophen (*Crx) 10-325 Mg Tablet PO 1 tab Q4HR PRN Administration pain 6-10 Allopurinol 300 mg 08/23/25 08:00 08/25/25 08:20 Allopurinol 300 Mg Tablet PO 300 mg DAILY@0800 MARVIN Administration Aspirin 325 mg 08/23/25 08:00 08/25/25 08:20 Aspirin 325 Mg Tablet PO 325 mg DAILY@0800 MARVIN Administration Bumetanide 2 mg 08/23/25 09:00 08/23/25 08:44 Bumetanide 1 Mg Tablet PO 2 mg On Hold: 08/23/25 09:16 DAILY MARVIN Administration Dextrose 12.5 gm 08/23/25 05:36 Dextrose 50% 25 Gm/50 Ml Syringe IV PUSH PRN PRN Hypoglycemia Protocol Empagliflozin 10 mg 08/24/25 09:00 08/24/25 08:37 Empagliflozin 10 Mg Tablet PO 10 mg On Hold: 08/24/25 19:23 DAILY MARVIN Administration Famotidine 20 mg 08/23/25 09:00 08/25/25 08:22 Famotidine 20 Mg Tablet PO 20 mg Q12HR MARVIN Administration Glucagon 1 mg 08/23/25 05:36 Glucagon For Inj 1 Mg Vial IM PRN PRN Hypoglycemia Protocol Glucose 15 gm 08/23/25 05:36 Glucose Oral Gel 15 Gm Of Glucse In 37.5 Gm Tube PO PRN PRN Hypoglycemia Protocol Heparin Sodium (Porcine) 5,000 units 08/23/25 21:00 08/25/25 08:22 Heparin Sodium 5,000 Units/Ml Vial SUB-Q 5,000 units Q12HR MARVIN Administration Metronidazole 500 mg in 100 mls @ 100 mls/hr 08/23/25 06:00 08/25/25 15:33 Flagyl 500 Mg/Iso Soln 100 Ml IVPB Infused Q8HR MARVIN Infusion Dextrose 1,000 mls @ 100 mls/hr 08/23/25 05:36 Dextrose 5% 1,000 Ml IVPB PRN PRN Hypoglycemia Protocol Cefepime HCl 1 gm/ Sodium 50 mls @ 100 mls/hr 08/25/25 09:00 08/25/25 08:54 Chloride IVPB Infused Q12H MARVIN Infusion Insulin Aspart 2 - 5 units 08/23/25 08:00 08/25/25 17:10 Insulin Aspart (*Bkc) 100 Units/Ml SUB-Q Not Given TIDWM MARVIN Protocol Insulin Glargine 6 units 08/24/25 21:00 08/24/25 20:51 Insulin Glargine (*Bkc) 100 Units/Ml SUB-Q 6 units HS MARVIN Administration Metoprolol Tartrate 12.5 mg 08/23/25 21:00 08/25/25 08:21 Metoprolol Tartrate 12.5 Mg Tablet PO 12.5 mg Q12HR MARVIN Administration Ondansetron HCl 4 mg 08/22/25 22:11 Ondansetron Inj 4 Mg/2 Ml Vial IV PUSH Q4H PRN Nausea Simvastatin 20 mg 08/23/25 21:00 08/24/25 20:19 Simvastatin 20 Mg Tablet PO 20 mg HS MARVIN Administration Trazodone HCl 100 mg 08/23/25 05:34 08/24/25 20:18 Trazodone Hcl 50 Mg Tablet PO 100 mg QHS PRN Administration Sleep Vancomycin HCl 1 each 08/22/25 21:45 Vancomycin For Acute Kidney Injury IVPB PRN PRN Vancomycin Protocol Radiology Results: ITS Impressions Chest X-Ray 08/22/25 18:05 IMPRESSION: 1. No acute pulmonary findings. Atherosclerotic aorta and postsurgical changes of coronary bypass. Foot X-Ray 08/22/25 21:52 IMPRESSION: 1. Diffuse osteopenia. Postsurgical changes of first toe through the mid first metatarsal with amputation. 2. Soft tissue swelling of the second toe is noted with erosive changes and lytic changes of the distal phalanx are noted. Findings are suggestive of osteomyelitis. Further evaluation with three-phase nuclear bone scan or MRI is suggested. Venous Doppler Study 08/25/25 09:47 IMPRESSION: 1. No deep venous thrombosis. Labs Labs: Laboratory Results - last 24 hr 08/24/25 08/25/25 08/25/25 20:43 00:16 05:28 WBC 4.5 RBC 2.52 L Hgb 8.4 L Hct 26.6 L MCV 105.6 H MCH 33.3 MCHC 31.6 L RDW 14.7 H Plt Count 163 MPV 10.6 H Sodium 137 Potassium 3.7 Chloride 108 H Carbon Dioxide 25 Anion Gap 4 BUN 33 H Creatinine 1.69 H Estim Creat Clear Calc 38 Estimated GFR 40 L Glucose 121 H POC Capillary Glucose 193 H Calcium 8.4 Iron 46 L TIBC 181 L % Saturation 25 Ferritin 99.40 Vitamin B12 870.0 Folate > 20.0 H Random Vancomycin 14.7 08/25/25 08/25/25 08/25/25 08:11 11:19 16:53 WBC RBC Hgb Hct MCV MCH MCHC RDW Plt Count MPV Sodium Potassium Chloride Carbon Dioxide Anion Gap BUN Creatinine Estim Creat Clear Calc Estimated GFR Glucose POC Capillary Glucose 123 H 148 H 183 H Calcium Iron TIBC % Saturation Ferritin Vitamin B12 Folate Random Vancomycin
[2025-08-25] MEDS: SIMVASTATIN 20 MG TABLET PO (20:26)
[2025-08-25] MEDS: INSULIN GLARGINE (*BKC) 100 UNITS/ML 6 UNITS SUB-Q (20:32)
[2025-08-25 21:31] VITALS: BP 124/74; PULSE 89; RESP 20; TEMP 36.8; O2SAT 99
[2025-08-26] MEDS: HYDROcodone/acetaminophen (*CRX) 10-325 MG TABLET 1 TAB PO ×2 (02:31→11:40)
[2025-08-26] MEDS: VANCOMYCIN HCL 1,000 MG in SODIUM CHLORIDE 0.9% IV 250 ML 250 MG IVPB (02:33)
[2025-08-26 05:46] LABS: Hematocrit 27.2 % (42.0-52.0); Hemoglobin 8.4 g/dL (14.0-18.0); Mean Corpuscular HGB Conc 30.9 g/dl (32-36); Mean Corpuscular Hemoglobin 32.6 pg (26-34); Mean Corpuscular Volume 105.4 fl (80-100); Platelet Count Result 164 k/mm3 (150-375); Red Blood Count 2.58 M/mm3 (4.6-6.20); White Blood Count 4.8 K/mm3 (4.5-10.0)
[2025-08-26 06:00] VITALS: BP 102/69; PULSE 80; RESP 16; TEMP 36.8; O2SAT 93
[2025-08-26 06:08] LABS: Anion Gap 6 mmol/L (4-12); Blood Urea Nitrogen 26 mg/dL (9-20); Calcium 8.9 mg/dL (8.4-10.2); Carbon Dioxide 23 mmol/L (22-30); Chloride 108 mmol/L (98-107); Estimated CRCL calculation 42 ml/min; Estimated Glomerular Filt Rate 45; Glucose 120 mg/dL (65-110); Potassium 3.6 mmol/L (3.4-5.0); Sodium 137 mmol/L (137-145)
[2025-08-26] MEDS: metroNIDAZOLE 500 MG/ISO 100ML 500 MG/100 ML BAG 100 MG IVPB (06:16)
[2025-08-26 09:57] VITALS: PULSE 84
[2025-08-26] MEDS: ASPIRIN 325 MG TABLET PO (09:57)
[2025-08-26] MEDS: METOPROLOL TARTRATE 12.5 MG TABLET PO (09:57)
[2025-08-26] MEDS: CEFEPIME 1 GM in SODIUM CHLORIDE 0.9% IV 50 ML 100 ML IVPB (09:57)
[2025-08-26] MEDS: FAMOTIDINE 20 MG TABLET PO (09:58)
[2025-08-26 14:00] VITALS: BP 108/56; PULSE 58; RESP 18; TEMP 36.9; O2SAT 98
--- NOTE | 2025-08-26 14:22 | PM.IMPN ---
Progress Note: A&P Assessment and Plan (1) Acute osteomyelitis of toe: Qualifiers: Laterality: right Qualified Code(s): M86.171 - Other acute osteomyelitis, right ankle and foot Code(s): M86.179 - Other acute osteomyelitis, unspecified ankle and foot Status: Acute Assessment and Plan: Patient presents with right 2nd toe wound. Xray concerning for osteomyelitis. BCx NGTD. IV vancomycin, cefepime and metronidazole started which will be continued. Orthopedics has been consulted. MRI ordered and is pending (waiting for information to see if his stents are MRI-compatible) LE venous doppler negative for DVT Continue IV abx. (2) Hypertension: Code(s): I10 - Essential (primary) hypertension Status: Chronic Assessment and Plan: Patient with hypotension on admission that improved with IV fluids Losartan held but BP remained low so now Bumex and empagliflozin on hold. With the ENRRIQUE, suspect he is over-diuresed. Continue to hold losartan, empagliflozin and Bumex. Cr better. BP still soft but better. He remains asymptomatic. Allow him to rehydrate orally. 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 Baseline creatinine high 1s to low 2s. Creatinine 2.5 on admission. Suspect related to over-diuresis and less likely from sepsis. With IVF, Cr trended down to 1.7 Follow. (4) CHF (congestive heart failure): Qualifiers: Heart failure chronicity: unspecified Heart failure type: unspecified Qualified Code(s): I50.9 - Heart failure, unspecified Code(s): I50.9 - Heart failure, unspecified Status: Chronic Assessment and Plan: Patieint with chronic s/d CHF. Echo 05/30 EF 35-40% grade 1 diastolic dysfunction. Appears euvolemic. Suspect RLE edema related to infectious process. Monitor closely off diuretics. (5) Atrial fibrillation: Code(s): I48.91 - Unspecified atrial fibrillation Status: Acute Assessment and Plan: Patietn with pAFib. EKG on admission showing normal sinus. Conitinue metoprolol as long as BP can tolerate. Not on anticoagulation due to history of GI bleed (6) Diabetes: Code(s): E11.9 - Type 2 diabetes mellitus without complications Status: Chronic Assessment and Plan: The patient's blood glucose was reviewed on 08/25 Lantus added and Glucose better controlled Continue AccuCheks covering with sliding scale. Hypoglycemia protocol available as needed. (7) CAD (coronary artery disease), autologous vein bypass graft: Code(s): I25.810 - Atherosclerosis of coronary artery bypass graft(s) without angina pectoris Status: Acute Assessment and Plan: Stable. No CP. Continue ASA, Zocor and Metoprolol Plan Anemia - Iron studies, B12/folate noted c/w anemia of chronic disease. Follow DVT prophylaxis heparin subQ Code status full code Subjective Date/time seen: 08/26/25 14:22 Interval history: 75yo male with CAD, CHF, HTN, DM and RA who presents to the ED with complaint of wound on the right foot for the past month. Exam Narrative: AF98.2 102/69 84 16 93% ra Gen - NARD Chest - CTA bilaterally CV - RRR S1/S2 Abd - soft, NT/ND Ext - right LE trace edema that is improved. Right great toe amp. Right 2nd toe dressing clean and dry Neuro - alert, appropriate Psych - nml mood and affect Skin - warm and dry. quarter sized dried shallow ulcer overlying the right lateral malleolus Objective Data Vital Signs Vital Signs: Vital Signs - 24 hr 08/25/25 20:30 08/25/25 21:31 08/26/25 06:00 Temperature 98.2 F 98.2 F Pulse Rate 89 80 Respiratory Rate 20 16 Blood Pressure 124/74 102/69 Pulse Oximetry 99 93 Oxygen Delivery Room Air 08/26/25 08:00 08/26/25 09:57 Temperature Pulse Rate 84 Respiratory Rate Blood Pressure Pulse Oximetry Oxygen Delivery Room Air Intake/Output Intake/Output: Intake & Output 08/23/25 08/24/25 08/25/25 08/26/25 23:59 23:59 23:59 23:59 Intake Total 1390 1670 1952 100 Output Total 1250 1400 950 900 Balance 218 951 7472 -800 Meds/Results Medications: Active Medications Generic Name Dose Route Start Last Admin Trade Name Ankita PRN Reason Stop Dose Admin Acetaminophen 650 mg 08/22/25 22:11 08/23/25 20:42 Acetaminophen 325 Mg Tablet PO 650 mg Q4H PRN Administration Mild Pain (1-5) Or Fever Hydrocodone Bitart/Acetaminophen 1 tab 08/23/25 11:06 08/26/25 11:40 Hydrocodone/Acetaminophen (*Crx) 10-325 Mg Tablet PO 1 tab Q4HR PRN Administration pain 6-10 Allopurinol 300 mg 08/23/25 08:00 08/26/25 09:57 Allopurinol 300 Mg Tablet PO 300 mg DAILY@0800 MARVIN Administration Aspirin 325 mg 08/23/25 08:00 08/26/25 09:57 Aspirin 325 Mg Tablet PO 325 mg DAILY@0800 MARVIN Administration Bumetanide 2 mg 08/23/25 09:00 08/23/25 08:44 Bumetanide 1 Mg Tablet PO 2 mg On Hold: 08/23/25 09:16 DAILY MARVIN Administration Dextrose 12.5 gm 08/23/25 05:36 Dextrose 50% 25 Gm/50 Ml Syringe IV PUSH PRN PRN Hypoglycemia Protocol Empagliflozin 10 mg 08/24/25 09:00 08/24/25 08:37 Empagliflozin 10 Mg Tablet PO 10 mg On Hold: 08/24/25 19:23 DAILY MARVIN Administration Famotidine 20 mg 08/23/25 09:00 08/26/25 09:58 Famotidine 20 Mg Tablet PO 20 mg Q12HR MARVIN Administration Glucagon 1 mg 08/23/25 05:36 Glucagon For Inj 1 Mg Vial IM PRN PRN Hypoglycemia Protocol Glucose 15 gm 08/23/25 05:36 Glucose Oral Gel 15 Gm Of Glucse In 37.5 Gm Tube PO PRN PRN Hypoglycemia Protocol Heparin Sodium (Porcine) 5,000 units 08/23/25 21:00 08/26/25 10:06 Heparin Sodium 5,000 Units/Ml Vial SUB-Q Not Given Q12HR MARVIN Metronidazole 500 mg in 100 mls @ 100 mls/hr 08/23/25 06:00 08/26/25 07:20 Flagyl 500 Mg/Iso Soln 100 Ml IVPB Infused Q8HR MARVIN Infusion Dextrose 1,000 mls @ 100 mls/hr 08/23/25 05:36 Dextrose 5% 1,000 Ml IVPB PRN PRN Hypoglycemia Protocol Cefepime HCl 1 gm/ Sodium 50 mls @ 100 mls/hr 08/25/25 09:00 08/26/25 09:57 Chloride IVPB 100 mls/hr Q12H MARVIN Administration Insulin Aspart 2 - 5 units 08/23/25 08:00 08/26/25 12:25 Insulin Aspart (*Bkc) 100 Units/Ml SUB-Q Not Given TIDWM MARVIN Protocol Insulin Glargine 6 units 08/24/25 21:00 08/25/25 20:32 Insulin Glargine (*Bkc) 100 Units/Ml SUB-Q 6 units HS MARVIN Administration Metoprolol Tartrate 12.5 mg 08/23/25 21:00 08/26/25 09:57 Metoprolol Tartrate 12.5 Mg Tablet PO 12.5 mg Q12HR MARVIN Administration Ondansetron HCl 4 mg 08/22/25 22:11 Ondansetron Inj 4 Mg/2 Ml Vial IV PUSH Q4H PRN Nausea Simvastatin 20 mg 08/23/25 21:00 08/25/25 20:26 Simvastatin 20 Mg Tablet PO 20 mg HS MARVIN Administration Trazodone HCl 100 mg 08/23/25 05:34 08/25/25 20:25 Trazodone Hcl 50 Mg Tablet PO 100 mg QHS PRN Administration Sleep Vancomycin HCl 1 each 08/22/25 21:45 Vancomycin For Acute Kidney Injury IVPB PRN PRN Vancomycin Protocol Radiology Results: ITS Impressions Chest X-Ray 08/22/25 18:05 IMPRESSION: 1. No acute pulmonary findings. Atherosclerotic aorta and postsurgical changes of coronary bypass. Foot X-Ray 08/22/25 21:52 IMPRESSION: 1. Diffuse osteopenia. Postsurgical changes of first toe through the mid first metatarsal with amputation. 2. Soft tissue swelling of the second toe is noted with erosive changes and lytic changes of the distal phalanx are noted. Findings are suggestive of osteomyelitis. Further evaluation with three-phase nuclear bone scan or MRI is suggested. Venous Doppler Study 08/25/25 09:47 IMPRESSION: 1. No deep venous thrombosis. Labs Labs: Laboratory Results - last 24 hr 08/25/25 08/25/25 08/26/25 16:53 20:27 00:25 WBC RBC Hgb Hct MCV MCH MCHC RDW Plt Count MPV Sodium Potassium Chloride Carbon Dioxide Anion Gap BUN Creatinine Estim Creat Clear Calc Estimated GFR Glucose POC Capillary Glucose 183 H 225 H Calcium Random Vancomycin 18.0 08/26/25 08/26/25 08/26/25 05:28 08:39 12:08 WBC 4.8 RBC 2.58 L Hgb 8.4 L Hct 27.2 L MCV 105.4 H MCH 32.6 MCHC 30.9 L RDW 14.6 H Plt Count 164 MPV 10.2 Sodium 137 Potassium 3.6 Chloride 108 H Carbon Dioxide 23 Anion Gap 6 BUN 26 H Creatinine 1.52 H Estim Creat Clear Calc 42 Estimated GFR 45 L Glucose 120 H POC Capillary Glucose 138 H 126 H Calcium 8.9 Random Vancomycin
--- NOTE | 2025-08-26 14:40 | PM.CNOR ---
Assessment and Plan Assessment and plan (1) Acute osteomyelitis of toe: Qualifiers: Laterality: right Qualified Code(s): M86.171 - Other acute osteomyelitis, right ankle and foot Code(s): M86.179 - Other acute osteomyelitis, unspecified ankle and foot Status: Acute Plan No increase in pain. Patient regarding delay in surgical treatment. I explained to patient that the MRI is on hold until we receive information on the stents he had placed from a outside facility. The MRI will determine the extent of the infection in order to remove ALL infected bone, (ie possibly metatarsal involvement). He wants to leave and receive care elsewhere. History of Present Illness HPI Consult date: 08/26/25 Chief complaint: Diabetic ulcer to right 2nd toe with osteomyelitis Narrative: No increase in pain. Patient regarding delay in surgical treatment. I explained to patient that the MRI is on hold until we receive information on the stents he had placed from a outside facility. The MRI will determine the extent of the infection in order to remove ALL infected bone, (ie possibly metatarsal involvement). He wants to leave and receive care elsewhere. PMFSH Past Medical History Medical History Amputation of right great toe Diabetes Fracture collar bone Gout rt thumb, lt elbow Renal insufficiency GERD (gastroesophageal reflux disease) Bronchitis Hyperlipidemia CAD (coronary artery disease) Triple bypass CHF (congestive heart failure) Myocardial infarction Hypertension Rheumatoid arthritis Surgical History Surgical History History of total right knee replacement History of hip replacement On the right History of orthopedic surgery bilateral elbows and right hand History of coronary artery stent placement Multiple stents Hx of cardiac cath H/O vascular surgery Hx of cataract surgery Hx of CABG 3 vessel Family History Family History Father Family history of obesity Family history of alcoholism Patient's father is Acute myocardial infarction Mother Hypertension Patient's mother is Sibling Hypertension Sibling Alcoholism Social History Social History Social History: the patient is from his . He has 1 stepson. He is currently living with his baby sister. He used to drink heavily when he was younger but only occasionally drinks now. Code status full code Smoking status: Never smoker Alcohol intake: former Substance use: current Substance use type: marijuana Other substance usage details: USES GUMMIES Last use: 03/27/2020 Lack of Transportation: No Lack of Food: Never True Current Housing: I Have Housing Concerned About Future Housing: No Difficulty Paying Gas/Electric Bills: No Difficulty Paying for Meds: No Currently Unemployed: No Education: High School Diploma/GED Difficulty w/ Childcare or Family Care: No Gender identity (if verbalized by the patient): Male Spiritual care concerns: No Meds Home Medications and Allergies Home Medications ?Medication ?Instructions ?Recorded ?Confirmed ?Type allopurinol 300 mg tablet 300 mg PO DAILY 10/20/19 08/23/25 History famotidine 20 mg tablet 20 mg PO BID 10/20/19 08/23/25 History hydrocodone 10 mg-acetaminophen 1 tablet PO Q4-6H PRN Pain (Scale 10/20/19 08/23/25 History 325 mg tablet Score 4-6) simvastatin 20 mg tablet 20 mg PO HS 10/20/19 08/23/25 History bumetanide 2 mg tablet 2 mg PO DAILY 10/29/23 08/23/25 History vvdnodyd-cw-bcavh 300 mcg-K 60 1 tablet PO DAILY 10/29/23 08/23/25 History mcg-lycop 600 mcg-lutein 300 mcg tablet (Centrum Silver Men) trazodone 100 mg tablet 100 mg PO QHS PRN sleep 10/29/23 08/23/25 History losartan 25 mg tablet 25 mg PO DAILY #90 tabs 11/25/23 08/23/25 Rx glucagon 1 mg/0.2 mL subcutaneous 1 mg (0.2 mL) subcut ONCE #0.4 mL 12/11/23 08/23/25 Rx auto-injector (Gvoke HypoPen 2-Pack) blood-glucose sensor (FreeStyle #6 ea 08/02/24 08/23/25 Rx Mary 3 Plus Sensor device) insulin degludec 100 unit/mL (3 20 unit subcut DAILY 03/24/25 08/23/25 History mL) subcutaneous pen (Tresiba FlexTouch U-100 insulin) aspirin 325 mg tablet 325 mg PO DAILY 06/16/25 08/23/25 History empagliflozin 10 mg tablet 10 mg PO DAILY 08/23/25 08/23/25 History (Jardiance) metoprolol tartrate 25 mg tablet 12.5 mg PO BID 08/23/25 08/23/25 History Allergies Allergy/AdvReac Type Severity Reaction Status Date / Time morphine Allergy Unknown Agitated Verified 08/22/25 23:45 naproxen Allergy Unknown Unconscious Verified 08/22/25 23:45 NSAIDS (Non-Steroidal AdvReac Unknown renal Verified 08/22/25 23:45 Anti-Inflamma insufficiency Vital Signs Vital Signs - 24 hr 08/25/25 20:30 08/25/25 21:31 08/26/25 06:00 Temperature 36.8 C 36.8 C Pulse Rate 89 80 Respiratory Rate 20 16 Blood Pressure 124/74 102/69 Pulse Oximetry 99 93 Oxygen Delivery Room Air 08/26/25 08:00 08/26/25 09:57 Temperature Pulse Rate 84 Respiratory Rate Blood Pressure Pulse Oximetry Oxygen Delivery Room Air Exam Narrative: Right Foot 2nd toe with decrease erythema extending proximally. No purulence or drainage. Results Labs 08/26/25 05:28 08/26/25 05:28 Labs: Abnormal lab results 08/25/25 08/25/25 08/26/25 Range/Units 16:53 20:27 05:28 RBC 2.58 L (4.6-6.20) M/mm3 Hgb 8.4 L (14.0-18.0) g/dL Hct 27.2 L (42.0-52.0) % MCV 105.4 H (80-100) fl MCHC 30.9 L (32-36) g/dl RDW 14.6 H (11.5-14.5) % Chloride 108 H (98-107) mmol/L BUN 26 H (9-20) mg/dL Creatinine 1.52 H (0.7-1.3) mg/dL Estimated GFR 45 L (59 - ) Glucose 120 H (65-110) mg/dL POC Capillary Glucose 183 H 225 H (65-105) mg/dl 08/26/25 08/26/25 Range/Units 08:39 12:08 RBC (4.6-6.20) M/mm3 Hgb (14.0-18.0) g/dL Hct (42.0-52.0) % MCV (80-100) fl MCHC (32-36) g/dl RDW (11.5-14.5) % Chloride (98-107) mmol/L BUN (9-20) mg/dL Creatinine (0.7-1.3) mg/dL Estimated GFR (59 - ) Glucose (65-110) mg/dL POC Capillary Glucose 138 H 126 H (65-105) mg/dl H & H 08/22/25 08/23/25 08/24/25 Range/Units 17:57 06:24 05:45 Hgb 9.5 L 8.9 L 8.3 L (14.0-18.0) g/dL Hct 30.7 L 28.5 L 26.5 L (42.0-52.0) % 08/25/25 08/26/25 Range/Units 05:28 05:28 Hgb 8.4 L 8.4 L (14.0-18.0) g/dL Hct 26.6 L 27.2 L (42.0-52.0) % Coagulation 08/22/25 Range/Units 17:57 INR 1.1 All other labs normal.
--- NOTE | 2025-08-26 16:46 | PM.DS ---
DS: Admitting Diagnosis Discharge Date 08/26/25 Admitting Diagnosis Right 2nd toe wound DS: Discharge Diagnosis Discharge Diagnosis (1) Acute osteomyelitis of toe: Qualifiers: Laterality: right Qualified Code(s): M86.171 - Other acute osteomyelitis, right ankle and foot Code(s): M86.179 - Other acute osteomyelitis, unspecified ankle and foot Status: Acute (2) Hypertension: Code(s): I10 - Essential (primary) hypertension Status: Chronic (3) Acute on chronic kidney failure: Qualifiers: Acute renal failure type: unspecified Chronic kidney disease stage: unspecified stage Qualified Code(s): N17.9 - Acute kidney failure, unspecified; N18.9 - Chronic kidney disease, unspecified Code(s): N17.9 - Acute kidney failure, unspecified; N18.9 - Chronic kidney disease, unspecified Status: Acute (4) CHF (congestive heart failure): Qualifiers: Heart failure chronicity: unspecified Heart failure type: unspecified Qualified Code(s): I50.9 - Heart failure, unspecified Code(s): I50.9 - Heart failure, unspecified Status: Chronic (5) Atrial fibrillation: Code(s): I48.91 - Unspecified atrial fibrillation Status: Acute (6) Diabetes: Code(s): E11.9 - Type 2 diabetes mellitus without complications Status: Chronic (7) CAD (coronary artery disease), autologous vein bypass graft: Code(s): I25.810 - Atherosclerosis of coronary artery bypass graft(s) without angina pectoris Status: Acute DS: Summary Hospital Course Reason for hospitalization: 75yo male with CAD, CHF, HTN, DM and RA who presents to the ED with complaint of wound on the right foot for the past month. Please see H&P for details. Hospital Course: Patient presented with right 2nd toe wound. Xray concerning for osteomyelitis. BCx NGTD. IV vancomycin, cefepime and metronidazole started. Orthopedics was consulted. Rt foot MRI ordered but unable to obtain because we needed information about his stents to see if safe to proceed with MRI. LE venous doppler negative for DVT. Patient with hypotension on admission that improved with IV fluids. Losartan held but BP remained low so Bumex and empagliflozin also held. With the ENRRIQUE, suspect he was over-diuresed. Cr improved. BP still soft but better. He remainsed asymptomatic. Patient with CKD stage IIIB . Baseline creatinine high 1s to low 2s. Creatinine 2.5 on admission. Suspect related to over-diuresis and less likely from sepsis. With IVF, Cr trended down to 1.5. Patient with chronic s/d CHF. Echo 05/30 EF 35-40% grade 1 diastolic dysfunction. He remained euvolemic. Suspect RLE edema related to infectious process. Patient also with pAFib. EKG on admission showing normal sinus. We continue metoprolol. He is not on anticoagulation due to history of GI bleed. The patient's blood glucose was monitored with AccuCheks covering with sliding scale. Hypoglycemia protocol was available as needed. Iron studies, B12/folate noted c/w anemia of chronic disease. We could not proceed with surgery without MRI results per ortho. Patient this evening decided to sign out against medical advise. I was able to speak with the patient and family just before they left. I strongly encouraged them to go directly to [facility] for further evaluation and treatment. I discouraged them from going home, waiting until Friday or seeing a clin tech. Explained that this infection could enter his blood stream and seed his heart valves, brain and other areas leading patient to become very ill and even dying. They voiced understanding. Patient left against medical advise. Status at Discharge Cognitive/behavioral status at discharge: stable Time Spent with Patient Time attestation: Total time spent providing and/or coordinating discharge services: 36 minutes Time spent: Greater than 30 minutes Exam Narrative: AF 8.2 102/69 84 16 93% ra Gen - NARD Chest - CTA bilaterally CV - RRR S1/S2 Abd - soft, NT/ND Ext - right LE edema all but resolved. Right great toe amp. Neuro - alert, appropriate Psych - nml mood and affect Skin - Right 2nd toe edematous with dried dorsal eschar. Quarter sized dried shallow ulcer overlying the right lateral malleolus DS: Data Data Completed and Pending Labs on day of discharge: Labs from last 24 hours 08/26/25 08/26/25 08/26/25 12:08 08:39 05:28 WBC 4.8 RBC 2.58 L Hgb 8.4 L Hct 27.2 L MCV 105.4 H MCH 32.6 MCHC 30.9 L RDW 14.6 H Plt Count 164 MPV 10.2 Sodium 137 Potassium 3.6 Chloride 108 H Carbon Dioxide 23 Anion Gap 6 BUN 26 H Creatinine 1.52 H Estim Creat Clear Calc 42 Estimated GFR 45 L Glucose 120 H POC Capillary Glucose 126 H 138 H Calcium 8.9 Random Vancomycin 08/26/25 08/25/25 08/25/25 00:25 20:27 16:53 WBC RBC Hgb Hct MCV MCH MCHC RDW Plt Count MPV Sodium Potassium Chloride Carbon Dioxide Anion Gap BUN Creatinine Estim Creat Clear Calc Estimated GFR Glucose POC Capillary Glucose 225 H 183 H Calcium Random Vancomycin 18.0 Preliminary micro results at discharge 08/22/25 21:53 Blood Culture - Preliminary Blood 08/22/25 21:54 Blood Culture - Preliminary Blood 08/22/25 17:57 Blood Culture - Preliminary Blood 08/22/25 18:13 Blood Culture - Preliminary Blood Discharge Plan Discharge Consulting providers: Erickson Moses Patient Disposition: Left Against Medical Advice Patient Instructions: Heart Failure (DC) Patient Language: Macedonian Discharge Medications: No Action trazodone 100 mg tablet 100 mg PO QHS PRN (Reason: sleep) bumetanide 2 mg tablet 2 mg PO DAILY Centrum Silver Men [id number] mcg tablet 1 tablet PO DAILY Gvoke HypoPen 2-Pack 1 mg/0.2 mL auto-injector 1 mg subcut ONCE Qty: 0.4 0RF Rx Instructions: as a single dose; may repeat once after 15 minutes if no response insulin degludec [Tresiba FlexTouch U-100] 100 unit/mL (3 mL) insulin pen 20 unit subcut DAILY aspirin 325 mg tablet 325 mg PO DAILY allopurinol 300 mg Tablet 300 mg PO DAILY hydrocodone-acetaminophen 10-325 mg tablet 1 tablet PO Q4-6H PRN (Reason: Pain (Scale Score 4-6)) famotidine 20 mg tablet 20 mg PO BID simvastatin 20 mg tablet 20 mg PO HS Jardiance 10 mg tablet 10 mg PO DAILY metoprolol tartrate 25 mg tablet 12.5 mg PO BID losartan 25 mg tablet 25 mg PO DAILY Qty: 90 2RF (DME) FreeStyle Mary 3 Plus Sensor Device See Rx Instructions .Route Qty: 6 3RF Rx Instructions: change sensor every 14 days Date of admission: 08/23/25 07:30 Primary Care Provider: Fausto Chavez Admitting Provider: Александр Burris Attending physician on admission: Александр Burris Condition: Stable
== END 2025-08-26 16:40 | disposition left against medical advice (07) | DRG 638 ==
LOC: ANHED 22:13 → ANH3MED 22:55
PROVIDERS: Emergency Medicine; Nurse Practitioner; Admitting Provider Student in an Organized Health Care Education/Training Program; Emergency Provider Emergency Medicine; PCP Family Medicine; Visit Provider Internal Medicine
DX: E11.69 Type 2 diabetes mellitus with other specified complication (principal); I13.0 Hypertensive heart and chronic kidney disease with heart failure and stage 1 through stage 4 chronic kidney disease, or unspecified chronic kidney disease; M86.171 Other acute osteomyelitis, right ankle and foot; I25.810 Atherosclerosis of coronary artery bypass graft(s) without angina pectoris; I50.42 Chronic combined systolic (congestive) and diastolic (congestive) heart failure; N17.9 Acute kidney failure, unspecified; E11.621 Type 2 diabetes mellitus with foot ulcer; N18.32 Chronic kidney disease, stage 3b; E11.22 Type 2 diabetes mellitus with diabetic chronic kidney disease; E11.42 Type 2 diabetes mellitus with diabetic polyneuropathy; D63.8 Anemia in other chronic diseases classified elsewhere; I48.91 Unspecified atrial fibrillation; M06.9 Rheumatoid arthritis, unspecified; E78.5 Hyperlipidemia, unspecified; M10.9 Gout, unspecified; I73.9 Peripheral vascular disease, unspecified; K21.9 Gastro-esophageal reflux disease without esophagitis; I25.2 Old myocardial infarction; Z89.411 Acquired absence of right great toe; Z96.651 Presence of right artificial knee joint; Z96.641 Presence of right artificial hip joint; Z95.5 Presence of coronary angioplasty implant and graft; Z95.1 Presence of aortocoronary bypass graft
CPT/HCPCS: 36415; 71045; 73630; 80048; 80053; 80202; 81003; 82565; 82607; 82728; 82746; 82948; 83540; 83550; 83605; 83735; 85025; 85027; 85610; 85730; 86140; 87040; 93005; 93970; 96365; 96367; 96376; 99285; A9270; G0378; J0692; J1644; J1815; J1836; J3373; J7030; J7050